=== PATIENT | male | born 1955 | race Caucasian/White ===

== ENCOUNTER → 2018-03-05 15:17 | Outpatient (CLI) | payer MEDICAID, SELFPAY ==
--- NOTE | 2018-03-05 15:22 | XR_ITS ---
XR chest 2V HISTORY: ITS.REASON: CHEST WALL PAIN ORDERING PHYSICIAN: Scott Bradley MD PATIENT AGE: 62 years COMPARISON: 09/03/2016 FINDINGS: The cardiomediastinal silhouette and pulmonary vascularity are within normal limits. The lungs are clear without infiltrates, suspicious nodules, or pleural effusions. No acute bony abnormalities. IMPRESSION: Negative chest, no acute finding
== END ==
PROVIDERS: PCP Internal Medicine Adolescent Medicine; Visit Provider Internal Medicine Adolescent Medicine
DX: R07.89 Other chest pain (principal)
CPT/HCPCS: 71046

== ENCOUNTER → 2019-05-23 09:04 | Outpatient (CLI) | payer MEDICAID, SELFPAY ==
[2019-05-23 11:00] LABS: Alanine Aminotransferase 110 U/L (12-78); Albumin Level 3.4 gm/dL (3.4-5.0); Albumin/Globulin Ratio 0.9 (1.1-1.8); Alkaline Phosphatase 449 U/L (46-116); Anion Gap 10.7 mEq/L (5-15); Aspartate Amino Transferase 70 U/L (15-37); Bilirubin,Total 0.9 mg/dL (0.2-1.0); Blood Urea Nitrogen 13 mg/dL (7-18); Calcium 9.3 mg/dL (8.5-10.1); Carbon Dioxide 29 mmol/L (21.0-32.0); Chloride 106 mmol/L (98-107); Cholesterol 240 mg/dL (140-200); Creatinine,Serum 0.86 mg/dL (0.70-1.30); Estimated Glomerular Filt Rate 90 ml/min (>60); GFR (African American) 109 ML/MIN (>60); Globulin 3.6 gm/dl (1.3-3.2); Glucose 82 mg/dL (74-106); HDL Cholesterol 48 mg/dL (27-67); LDL Cholesterol 164 mg/dL (0-130); Potassium 4.7 mmoL/L (3.5-5.1); Sodium 141 mmol/L (136-145); Triglycerides 141 mg/dL (30-200); Uric Acid 3.8 mg/dL (2.6-7.2); VLDL Cholesterol 28 mg/dL (0-40)
== END ==
PROVIDERS: Visit Provider Nurse Practitioner Family
DX: M10.9 Gout, unspecified (principal); I10 Essential (primary) hypertension; E78.2 Mixed hyperlipidemia; K76.0 Fatty (change of) liver, not elsewhere classified
CPT/HCPCS: 36415; 80053; 80061; 84550

== ENCOUNTER 2019-06-11 17:30 | Outpatient (RCR) | payer MEDICAID, SELFPAY | END 2019-06-11 17:35 | disposition home or self-care (01) | LOC: PT 17:30 | PROVIDERS: Visit Provider Physician Assistant Medical | DX: S32.010A Wedge compression fracture of first lumbar vertebra, initial encounter for closed fracture (principal) | CPT/HCPCS: 97010; 97014; 97110; 97163; G0283 ==

== ENCOUNTER → 2020-07-19 11:32 | Outpatient (CLI) | payer OTHER, MEDICARE, SELFPAY ==
[2020-07-19 13:38] LABS: Alanine Aminotransferase 66 U/L (12-78); Albumin Level 3.8 g/dl (3.5-5.0); Albumin/Globulin Ratio 1.1 (1.1-1.8); Alkaline Phosphatase 510 U/L (38-126); Anion Gap 14.4 mEq/L (5-15); Aspartate Amino Transferase 72 U/L (17-59); Bilirubin,Total 1.9 mg/dl (0.2-1.3); Blood Urea Nitrogen 10 mg/dl (9-20); Calcium 9.6 mg/dl (8.4-10.2); Carbon Dioxide 28 mmol/L (22.0-30.0); Chloride 102 mmol/L (98-107); Chol/HDL Ratio 6.3 (1-3.5); Estimated Glomerular Filt Rate 136 ml/min (>60); GFR (African American) 164 ML/MIN (>60); Globulin 3.4 g/dL (1.3-3.2); Glucose 175 mg/dl (74-100); HDL Cholesterol 46 mg/dl (40-60); Potassium 4.4 mmoL/L (3.5-5.1); Sodium 140 mmol/L (136-145); Total Protein,Serum 7.2 g/dl (6.3-8.2); Triglycerides 168 mg/dl (30-150); Uric Acid 4.2 mg/dl (3.5-8.5); VLDL Cholesterol 34 mg/dL (0-40)
[2020-07-19 14:07] LABS: Cholesterol 271 mg/dl (140-200)
[2020-07-19 17:50] LABS: Hemoglobin A1C 4.7 % (4.0-6.0)
== END ==
PROVIDERS: Visit Provider Nurse Practitioner Family
DX: Z00.00 Encounter for general adult medical examination without abnormal findings (principal); I10 Essential (primary) hypertension; E78.2 Mixed hyperlipidemia; M10.272 Drug-induced gout, left ankle and foot; R73.9 Hyperglycemia, unspecified
CPT/HCPCS: 36415; 80053; 80061; 83036; 84550

== ENCOUNTER → 2020-09-23 11:53 | Outpatient (CLI) | payer OTHER, MEDICARE, SELFPAY ==
[2020-09-23 12:51] LABS: Hemoglobin A1C 4.5 % (4.0-6.0)
[2020-09-23 13:46] LABS: Alanine Aminotransferase 48 U/L (12-78); Albumin Level 3.9 g/dl (3.5-5.0); Albumin/Globulin Ratio 1.1 (1.1-1.8); Alkaline Phosphatase 494 U/L (38-126); Aspartate Amino Transferase 58 U/L (17-59); Bilirubin,Total 1.6 mg/dl (0.2-1.3); Blood Urea Nitrogen 9 mg/dl (9-20); Calcium 9.7 mg/dl (8.4-10.2); Carbon Dioxide 28 mmol/L (22.0-30.0); Chloride 103 mmol/L (98-107); Chol/HDL Ratio 6.3 (1-3.5); Cholesterol 279 mg/dl (140-200); Estimated Glomerular Filt Rate 97 ml/min (>60); GFR (African American) 118 ML/MIN (>60); Globulin 3.4 g/dL (1.3-3.2); Glucose 96 mg/dl (74-100); HDL Cholesterol 44 mg/dl (40-60); Sodium 138 mmol/L (136-145); Total Protein,Serum 7.3 g/dl (6.3-8.2); Triglycerides 170 mg/dl (30-150); Uric Acid 5.1 mg/dl (3.5-8.5); VLDL Cholesterol 34 mg/dL (0-40)
[2020-09-23 13:57] LABS: Direct LDL Cholesterol 183.62 mg/dL (100-129)
== END ==
PROVIDERS: Visit Provider Internal Medicine Adolescent Medicine
DX: I10 Essential (primary) hypertension (principal); E78.2 Mixed hyperlipidemia; K76.0 Fatty (change of) liver, not elsewhere classified; R73.09 Other abnormal glucose; M10.9 Gout, unspecified
CPT/HCPCS: 36415; 80053; 80061; 83036; 84550

== ENCOUNTER → 2020-10-21 14:12 | Outpatient (CLI) | payer OTHER, MEDICARE, SELFPAY ==
--- NOTE | 2020-10-21 14:18 | XR_ITS ---
PROCEDURE: XR LUMBAR SPINE MIN 4V CLINICAL INDICATION: LUMBAGO W/SCIATICA COMPARISON: No exams were available for comparison FINDINGS: There is a non recent compression fracture of L1 with approximately 25-30 percent loss of height anteriorly. There is mild anterior osteophytic spurring at the L1-2 level. The remaining lumbar vertebrae appear intact and there is normal curvature and alignment. There is no pars defect. There is no significant disc space narrowing. The SI joints appear normal. There is mild diffuse arthrosclerotic calcification of the abdominal aorta but there is no aneurysm. IMPRESSION: Non recent compression fracture L1 Dictated by: Dr. Russell Corrales MD 10/21/2020 14:54 Dr. Russell Corrales MD in [place] 10/21/2020 14:54
== END ==
PROVIDERS: PCP Nurse Practitioner Family; Visit Provider Nurse Practitioner Family
DX: M54.42 Lumbago with sciatica, left side (principal)
CPT/HCPCS: 72110

== ENCOUNTER → 2020-11-03 08:41 | Outpatient (POV) | payer OTHER, MEDICARE, SELFPAY ==
[2020-11-03 09:20] VITALS: BP 152/77; PULSE 74; RESP 18; TEMP 36.8; O2SAT 98; BMI 25.4
--- NOTE | 2020-11-03 09:58 | HMH.PMCON ---
Assessment and Plan (1) Compression fracture Status: Chronic Category: Medical (2) Low back pain Status: Chronic Category: Medical Code(s): M54.5 - Low back pain (3) Lumbar radiculopathy Status: Chronic Category: Medical Code(s): M54.16 - Radiculopathy, lumbar region - Assessment and plan all Dx Assessment and Plan for all problems:: Patient does not have an MRI of his lumbar spine. We will schedule him for imaging of his lumbar spine. He and I did discuss possible epidural steroid injections following the imaging. He is having radicular pain into his lower extremities with numbness and tingling. Patient says that he has been told the past he does have some neuropathy as well in his lower extremities. We will see him back after his MRI to discuss a further plan of care. He is not on any anticoagulation therapy. He does have a history of alcohol abuse. He does report this to be contributing to his frequent falls. We will see him back in the clinic following the MRI. He has been instructed to contact clinic if he has any concerns for his next appointment. The patient and I specifically discussed risk factors for COVID19. These risks include, but are not limited to age greater than 60, heart or lung disease, diabetes, immunosuppression, and travel. We also discussed NSAIDs may worsen COVID19 infection or symptoms. Patient should not use NSAIDs to treat COVID19 signs or symptoms. Patient was also informed that any type of corticosteroid of any form (oral or injection) will decrease the patient's immune system response and may increase the likelihood of COVID19 infection [address] Gutierrez has reviewed this note and agrees with this plan of care. This note was dictated using voice recognition software and make contain errors or omissions. HPI - Data of Consult Patient: new to practice Consult date: 11/03/20 Requesting Physician: Abigail Castro APRN Primary Care Provider: Renetta Cole APRN - Consult Narrative Reason for consult: Low back pain History of present illness: Mr. Israel is a 65 year old male who presents today for consultation for chronic low back pain. Patient says that he has frequent falls. He does report a history of alcohol abuse. He currently has a laceration noted over his left orbital area. Patient says that he had a fall in December 2018 suffering from an ill to fracture. He was sent to [facility] at that time. They did not do any type of surgical intervention. He was given a brace and discharge. Patient says he is continued to have significant pain to his low back area since the fall. He says that it is into the low back radiating into bilateral lower extremities causing him to have numbness and tingling. Patient thought he was being sent for an MRI of his lumbar spine, however, patient had x-rays of the area. He has undergone physical therapy for greater than 6 weeks and does continue with physical therapy at this time. He does continue with anti-inflammatories and a home stretching program as well. He does rate his pain on 7 out of 10. CC: Abigail Castro APRN [facility] History I have reviewed the patient's past medical history: Yes Medical History: Reports:: Hypertension Denies:: Diabetes Mellitus Type 1, Diabetes Mellitus Type 2, Internal Pacemaker *Have you ever received a pneumonia vaccine?: Yes *Have you received a flu vaccine this season?: Yes Other Surgeries: No: Pacemaker Amputation: No Fractures: No - *Social History Smoking Status: Current every day smoker Tobacco Type: cigarettes # Packs/Day (cigarettes): 1 Alcohol Intake: never Alcohol Intake Frequency:: a few times a week *Occupational Status:: unemployed Housing: house Household Members: other *Travel in the last 8 weeks: None Family Hx:: Unable to obtain Review of Systems - Review of Systems Review of Systems General: No recent weight changes, no fever, no sleep disturbances Re
== END ==
PROVIDERS: PCP Nurse Practitioner Family; Visit Provider Clinical Nurse Specialist Family Health
DX: S22.000S Wedge compression fracture of unspecified thoracic vertebra, sequela (principal); M54.5 Low back pain; M54.16 Radiculopathy, lumbar region
CPT/HCPCS: 99202

== ENCOUNTER 2020-11-10 08:00 | Outpatient (RCR) | payer OTHER, MEDICARE, SELFPAY ==
--- NOTE | 2020-08-04 16:40 | HMH.PTOPEV ---
PT Outpatient Evaluation Rehab PT Outpatient Evaluation Start: 08/04/20 15:52 Freq: Status: Active Protocol: Document 08/04/20 16:28 CATHLEENIRVIN (Rec: 08/04/20 16:40 CATHLEENJENNIFERSHWETA [id number]) Electronically Signed By Ciro Rowan, PT 08/04/20 16:28 Outpatient Therapy Subjective History Subjective History Patient is a 65 year old male presenting to outpatient PT with reports of chronic LBP starting approx 2 years ago after an injury at work per patient report. Symptoms have progressively gotten worse. No reports of radicular symptoms. Most recent imaging after initial injury indicated L1 compression fracture, L2 facet fracture and L 4/5 L 5/ S1 spondylosis and bulging discs. Comorbidities include hs of HTN. Chief Complaint Pain,Stiff,Weakness Symptom Type Ache,Shooting Symptoms Relieved By Rest/Positioning Symptoms Aggravated By Bending/Stooping,Physical Activity,Lifting Prior Functional Limitations None Current Functional Limitations Lifting,Housework,Standing, Squatting,Walking,Bending/ Stooping Symptom Description Constant but Variable Level of pain today (0-10) 3 Pain scale - at its best (0-10) 3 Pain scale - at its worst (0-10) 10 Lumbopelvic Eval Posture Thoracic Spine Posture Standing Position Increased Kyphosis Lumbar Spine Posture Standing Position Decreased Lordosis Palapation tenderness bilateral lumbar spinal tenderness Yes: L4/5/S1 3/4 paraspinal tenderness Yes: Accessory Movement L4 bilateral L5 bilateral S1 bilateral Range of Motion Lumbar Spine Active Flexion Range of WNL Motion (degrees) Lumbar Spine Active Extension Range of WNL Motion (degrees) Left Lumbar Spine Lateral Flexion Active 20 Range of Motion (degrees) Right Lumbar Spine Lateral Flexion 25 Active Range of Motion (degrees) Lumbar Spine ROM Limitations Soft Tissue Tightness,Bony Restriction Manual Muscle Test Bilateral Knee Extension Strength Grade 4 Good Knee Flexion Strength Grade 4 Good Hip Flexion Strength Grade 4 Good Extensor Hallucis Longus Strength Grade 4 Good Ankle Dorsiflexion Strength Grade 4 Good Gastronemius/Soleus Strength Grade
--- NOTE | 2020-09-07 11:28 | HMH.RHREAS ---
Rehab Reassessment Rehab OP Re-assessment Start: 09/07/20 11:19 Freq: Status: Active Protocol: Document 09/07/20 11:19 CHRIS (Rec: 09/07/20 11:27 CHRIS [id number]) Electronically Signed By Ciro Rowan, PT 09/07/20 11:19 Rehab Re-assessment Subjective Subjective Patient reports 30% improvement since start of care. Objective Objective Notes LS AROM: flx WNL; Ext WNL; SBl 18; SLr 22 MMT: WNL Neuro WNL Pain: 4/10 today; 8/10 at worst over past week Slump test negative Assessment Progress Assessment Progressing as Expected Assessment Notes Patient is progessing well with Rx. He has been seen for 5 visits to date. Questionable compliance noted with HEP. Upon inquiry to perform HEP patient was not able to recall specific exercises. Reitereated importance of participation with HEP at home today. Functional limitations persist with all bending/lifting/ ambulatory activities. Patient continues to report pain in the lower lumbar spine and B anteromedial thighs. Patient goals met None Goals Not Met All Revised Goals NA Plan Plan Continue with current POC. Frequency of Therapy 2x/week Duration of therapy 4 weeks Time and Billing Re-Eval Time 15 Re-Eval Billing Units 1 PHYSICIAN CERTIFICATION: I certify the specified therapy services for Sadiq Israel are required, authorized, and reviewed every 30 days.
--- NOTE | 2020-10-11 14:14 | HMH.RHREAS ---
Rehab Reassessment Rehab OP Re-assessment Start: 09/07/20 11:19 Freq: Status: Active Protocol: Document 10/11/20 14:09 CHRIS (Rec: 10/11/20 14:14 CHRIS [id number]) Electronically Signed By Ciro Rowan, PT 10/11/20 14:09 Rehab Re-assessment Subjective Subjective Patient reports 50% improvement since start of care. Objective Objective Notes AROM: WNL MMT: 4+/5 grossly BLE Pain: 8/10 currently, 8/10 at worst over past week TTP: none Neuro: WNL Standing/walking tolerance: 20 ' Assessment Progress Assessment Slower Than Expected Assessment Notes Patient is progessing well with Rx. He has been seen for 13 visits to date. Patient reports improved compliance with HEP. Reitereated importance of participation with HEP at home today. Functional limitations persist with all bending/lifting/ ambulatory activities. Patient continues to report pain in the lower lumbar spine , but has migrated from anteromedial thighs to lateral thighs. [ End ] Patient goals met STG 2; LTG 1,2 Goals Not Met STG 1; LTG 3,4,5,6,7,8 Revised Goals NA Plan Plan Continue with current POC Frequency of Therapy 2x/week Duration of therapy 4 weeks Time and Billing Re-Eval Time 15 Re-Eval Billing Units 1 PHYSICIAN CERTIFICATION: I certify the specified therapy services for Sadiq Israel are required, authorized, and reviewed every 30 days.
== END 2020-11-10 08:05 | disposition home or self-care (01) ==
LOC: PT 08:00
PROVIDERS: Visit Provider Nurse Practitioner Family
DX: M54.5 Low back pain (principal)
CPT/HCPCS: 97010; 97012; 97014; 97110; 97163; 97164; G0283

== ENCOUNTER → 2020-11-10 13:40 | Outpatient (CLI) | payer OTHER, SELFPAY ==
--- NOTE | 2020-11-10 13:44 | MR_ITS ---
PROCEDURE: MR LUMBAR SPINE WO CON CLINICAL INDICATION: BACK PAIN, COMPRESSION FX LOW BACK PAIN, COMPRESSION FX, BILATERAL LEG TINGLING/NUMBNESS. PRIOR XRAY 10-21-20 COMPARISON: CT SPLUMBWO CT lumbar spine wo con from 12/29/2018 CR XR LUMBAR SPINE MIN 4V from 10/21/2020 TECHNIQUE: Standard multiplanar multiecho sequences are performed without contrast. 3-D MIP and myelographic images are also rendered and reviewed FINDINGS: There is normal alignment. The spinal cord ends at the L1 level. There is mild reversal of the lumbar lordosis at the L1-L2 level. T11-T12: Mild degenerative disc disease. T12-L1: Degenerate disc disease There is mild wedge compression changes of L1 with loss of height anteriorly of approximately 40 percent. There is a prominent Schmorl's node along both superior and inferior endplate of L1 on the right. The compression changes do not appear acute. L1-L2: Mild degenerative disc disease with minimal bulging disc and facet and ligamentum hypertrophy. L2-L3: Facet and ligamentum hypertrophy. L3-L4: Facet and ligamentum hypertrophy with mild bilateral lateral recess narrowing L4-5: Degenerative disc disease with bulging disc and minimal central disc protrusion along with moderate facet and ligamentum hypertrophy with bilateral lateral recess narrowing and canal stenosis with bilateral foraminal narrowing. L5-S1: Degenerative disc disease with bulging disc slightly eccentric toward the left along with moderate facet and ligamentum hypertrophy with lateral recess and foraminal narrowing and canal stenosis. IMPRESSION: Multilevel lumbar spondylosis. Please see above for detailed description at each level. Chronic wedge compression changes of L1 Dictated by: Petr Corbin MD 11/12/2020 08:52 Petr Corbin MD in [place] 11/12/2020 08:52
== END ==
PROVIDERS: PCP Nurse Practitioner Family; Visit Provider Clinical Nurse Specialist Family Health
DX: M54.5 Low back pain (principal); S32.010D Wedge compression fracture of first lumbar vertebra, subsequent encounter for fracture with routine healing
CPT/HCPCS: 72148; 76376

== ENCOUNTER → 2020-11-17 14:06 | Outpatient (POV) | payer OTHER, SELFPAY ==
[2020-11-17 14:29] VITALS: BP 112/74; PULSE 89; RESP 18; TEMP 36.8; O2SAT 98; BMI 25.0
--- NOTE | 2020-11-17 15:28 | P.CONS_ITS ---
[facility] Pain Management SOAP Note Subjective:: Patient is a pleasant 65-year-old white male who presents today for follow-up. Patient rates his pain today 8 out of 10. Patient is following up after an MRI of his lumbar spine he does have a chronic compression fracture however he is not having pain in this area. Most of his pain in his lower lumbar radiating down his legs. Patient does have generative disc disease and bulging disc at the L4-L5 L5-S1 areas. We discussed epidural steroid injections. He is currently in physical therapy. Patient's not on any anticoagulation therapy. Patient failed 6 months of therapy including medications, anti-inflammatories, physical therapy. ROS General: no recent weight change, no fever, no sleep disturbances Respiratory: no cough, no shortness of air, no recurring pulmonary infections Cardiovascular/Peripheral Vascular: No chest pain, No palpitations, no edema, no shortness of breath. Gastrointestinal: no new onset incontinence, normal bowel movements reported Genitourinary: no new onset incontinence Musculoskeletal: Back pain, leg pain Psychiatric: normal mood/ affect Neurological: [denies new onset weakness in extremities], [denies new onset balance issues] Objective:: Physical Exam General: Alert and oriented x3, no acute distress, pleasant and cooperative, [on room air] Lungs: Resps E/U, Symmetrical chest expansion, Eyes: PERRL Musculoskeletal: Flexion and extension of lumbar spine somewhat guarded secondary to pain, deep tendon reflexes normal, strength in upper and lower extremities [5/5], [abnormal gait noted] Neurological: speech clear, 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 Patient's been instructed to call the office if he has any issues prior to his next appointment. Dr. Gutierrez has reviewed this note and agrees with this plan of care. This note was dictated using voice recognition software and may contain errors or omissions [facility] History I have reviewed the patient's past medical history: Yes Medical History: Reports:: Hypertension Denies:: Diabetes Mellitus Type 1, Diabetes Mellitus Type 2, Internal Pacemaker *Have you ever received a pneumonia vaccine?: Yes *Have you received a flu vaccine this season?: Yes Other Surgeries: No: Pacemaker Amputation: No Fractures: No - *Social History Smoking Status: Current every day smoker Tobacco Type: cigarettes # Packs/Day (cigarettes): 1 Alcohol Intake: never Alcohol Intake Frequency:: a few times a week *Occupational Status:: other Housing: house Household Members: other *Travel in the last 8 weeks: None Family Hx:: Unable to obtain
== END ==
PROVIDERS: PCP Nurse Practitioner Family; Visit Provider Clinical Nurse Specialist Family Health
DX: M51.16 Intervertebral disc disorders with radiculopathy, lumbar region (principal)
CPT/HCPCS: 99212; G0463

== ENCOUNTER 2020-11-25 11:17 | Day surgery (SDC) | payer OTHER, SELFPAY ==
[2020-11-25 11:50] VITALS: BP 173/66; PULSE 55; RESP 18; TEMP 35.9; O2SAT 99; BMI 25.8
--- NOTE | 2020-11-25 12:01 | HMH.PMPROC ---
- Procedure Date: 11/25/20 Time: 12:01 Anesthesiologist:: Brett Gutierrez MD Complications:: None Pre-procedure Diagnosis:: Degenerative disc disease of lumbar spine with lumbar radiculopathy symptoms Post-procedure Diagnosis:: same Indications for Procedure:: A pleasant 62-year-old white male who we are treating for low back pain with lumbar radicular symptoms. He is doing well with his intrathecal bupivacaine pain pump. [place] and urine drug screen are all appropriate [facility] [phone]. He is still getting hydrocodone 7.5 mg 4 times a day from Dr. Dominguez. He is doing well with his intrathecal bupivacaine pain pump. It is helping his legs. He would like an increase today. We will refill him and increase him to 4 mg/day. He does have an antalgic gait. Motor strength of the lower extremities is 5/5. There is no gross sensory deficit. Procedure Details:: Pain pump refill informed consent was obtained and the risks and benefits of the procedure was explained to the patient. The patient was taken to the procedure room. The pump was interrogated. The area over the pump was prepped using ChloraPrep. The pump was accessed with a 22-gauge needle. Approximately 6 mL's of the intrathecal solution was withdrawn and discarded. The pump was then refilled with 20 mL's of intrathecal mL of intrathecal bupivacaine 10 mg/mL. The pump was interrogated and the infusion was increased to 4 mg/day. The patient tolerated the procedure well with no complication. Plan and Disposition:: We will follow-up with him at his next pump refill. If he has any problems or questions or issues with his increase he is to call us back in the pain clinic.
[2020-11-25 12:02] VITALS: BP 165/68; PULSE 54; RESP 18
[2020-11-25 12:08] VITALS: BP 162/69; PULSE 55; RESP 18; O2SAT 98
[2020-11-25 12:22] VITALS: BP 180/69; PULSE 50; RESP 20; O2SAT 99
--- NOTE | 2020-11-25 12:31 | HMH.PMPROC ---
- Procedure Date: 11/25/20 Time: 12:31 Anesthesiologist:: Brett Gutierrez MD Complications:: None Pre-procedure Diagnosis:: Degenerative Disc disease of lumbar spine with lumbar radiculopathy symptoms Post-procedure Diagnosis:: Same Indications for Procedure:: This patient is a pleasant 65-year-old white male who we are treating for low back pain with lumbar radicular symptoms. He has increasing pain in his back rating down both legs. We will do lumbar epidural steroid injection today to help him with his pain symptoms. Procedure Details:: Lumbar epidural steroid injection under fluoroscopy Informed consent was obtained and the risk and benefits of the procedure was explained to the patient. The patient was taken to the procedure room. The patient was placed prone on the procedure table. The patient was prepped and draped in sterile fashion. C-arm fluoroscopy was used to view the lumbar spine. Skin and subcutaneous tissues were anesthetized using lidocaine. I placed an 18-gauge epidural needle and advanced into the L4-L5 interspace using fluoroscopic guidance and [id number] to air. After confirmation of needle placement in the epidural space with dye I injected 2 mL of lidocaine 1.5% with Depo-Medrol 80 mg. Patient tolerated the procedure well with no complications. Plan and Disposition:: We will follow-up with him in 2 weeks. Will reevaluate symptoms at that time.
== END 2020-11-25 12:23 | disposition home or self-care (01) ==
LOC: SC.PAINP 11:19
PROVIDERS: PCP Nurse Practitioner Family; Visit Provider Anesthesiology
DX: M51.16 Intervertebral disc disorders with radiculopathy, lumbar region (principal); I10 Essential (primary) hypertension; K76.0 Fatty (change of) liver, not elsewhere classified; K21.9 Gastro-esophageal reflux disease without esophagitis; Z72.0 Tobacco use
CPT/HCPCS: 62323; J1040; Q9966

== ENCOUNTER → 2020-12-29 10:54 | Outpatient (POV) | payer OTHER, SELFPAY ==
[2020-12-29 11:12] VITALS: BP 141/74; PULSE 65; RESP 18; TEMP 36.8; O2SAT 98; BMI 27.1
--- NOTE | 2020-12-29 14:14 | HMH.PAINSOAP ---
[facility] History Medical History: Reports:: Hypertension Denies:: Cancer, Diabetes Mellitus Type 1, Diabetes Mellitus Type 2, Internal Pacemaker, MRSA, Seizures *Have you ever received a pneumonia vaccine?: No *Have you received a flu vaccine this season?: Yes Other Medical History: Denies: Blood Transfusion Reaction Other Surgeries: No: Pacemaker Amputation: No Fractures: No - *Social History Smoking Status: Current every day smoker Tobacco Type: cigarettes # Packs/Day (cigarettes): 1 Alcohol Intake: never Alcohol Intake Frequency:: a few times a week *Occupational Status:: disabled Housing: house Household Members: other *Travel in the last 8 weeks: None Family Hx:: Unable to obtain
--- NOTE | 2020-12-29 16:34 | HMH.PAINSOAP ---
[facility] Pain Management SOAP Note Subjective:: Patient is a pleasant 65-year-old white male who presents today for follow-up after lumbar epidural steroid injection at L4-L5. He has been treated for chronic low back pain with radiation down both legs. Patient says he is having difficulty standing due to the pain in bilateral lower extremities. He denies any numbness to his lower extremities, however, he says he feels as though his legs are going to give out . He also says he is unable to raise his legs to get into a truck. He does not report that he got much relief from the lumbar epidural steroid injection. He feels he got about 30 to 40% relief. Patient I did discuss undergoing an epidurogram to see if he is a candidate for the mild procedure. He has tried and failed conservative therapies of physical therapy for greater than 6 weeks, along with a home stretching program. He is also tried ice and heat therapies with no relief. The initial lumbar epidural steroid injection did not give him significant relief. Review of Systems General: No recent weight changes, no fever, no sleep disturbances Respiratory: No cough, no shortness of air, no recurring pulmonary infections Cardiovascular/peripheral vascular: No chest pain, no palpitations, no edema, no shortness of breath Gastrointestinal: No new onset incontinence, normal bowel movements reported Genitourinary: No new onset incontinence Musculoskeletal: Low back pain with heaviness in bilateral lower extremities Psychiatric: Normal mood/affect Neurological: [Denies weakness in extremities], [denies balance issues] Objective:: Physical exam General: Alert and oriented x3, no acute distress, pleasant and cooperative, [on room air] Lungs: Respirations even and unlabored, symmetrical chest expansion Eyes: PERRL Musculoskeletal: Flexion and extension of lumbar spine somewhat guarded secondary to pain, deep tendon reflexes normal, strength in upper and lower extremities [5/5], [abnormal gait noted] Neurological: Speech clear, manufacturing storeperson equal, no gross sensory deficit Assessment:: Degenerative disc disease lumbar spine with lumbar radiculopathy symptoms, spinal stenosis with neurogenic claudication symptoms Plan:: Per patient's MRI report, he does have significant spinal stenosis. We will schedule him for a repeat epidural steroid injection at L4-L5, however, we will plan for an epidurogram to evaluate the patient to see if he is a candidate for the mild procedure. We will follow-up with him after that visit to reevaluate his symptoms and discuss a further plan of care. Patient is not on any anticoagulation therapy. He has tried and failed conservative therapies of PT, home stretching, ice and heat therapies, and oral medications. Patient has been instructed to contact clinic if he has any concerns #6 appointment. The patient and I specifically discussed risk factors for COVID19. These risks include, but are not limited to age greater than 60, heart or lung disease, diabetes, immunosuppression, and travel. We also discussed NSAIDs may worsen COVID19 infection or symptoms. Patient should not use NSAIDs to treat COVID19 signs or symptoms. Patient was also informed that any type of corticosteroid of any form (oral or injection) will decrease the patient's immune system response and may increase the likelihood of COVID19 infection and symptoms. Risks and benefits of the procedure have been explained to the patient. Patient would like to proceed with the procedure. Dr. Gutierrez has reviewed this note and agrees with this plan of care. This note was dictated using voice recognition software and make contain errors or omissions. [facility] History I have reviewed the patient's past medical history: Yes Medical History: Reports:: Hypertension Denies:: Cancer, Diabetes Mellitus Type 1, Diabetes Mellitus Type 2, Internal Pacemaker, MRSA, Seizures *Have you ever received a pneumonia vaccine?: No *Have
== END ==
PROVIDERS: PCP Nurse Practitioner Family; Visit Provider Clinical Nurse Specialist Family Health
DX: M51.16 Intervertebral disc disorders with radiculopathy, lumbar region (principal); M48.062 Spinal stenosis, lumbar region with neurogenic claudication
CPT/HCPCS: 99212; G0463

== ENCOUNTER 2021-01-06 10:03 | Day surgery (SDC) | payer OTHER, SELFPAY ==
[2021-01-06 11:23] VITALS: BP 166/74; PULSE 65; RESP 16; TEMP 36.4; O2SAT 93; BMI 25.4
[2021-01-06 12:19] VITALS: BP 135/85; PULSE 74; RESP 18; O2SAT 98
[2021-01-06 12:20] VITALS: BP 138/85; PULSE 74; RESP 18; O2SAT 98
--- NOTE | 2021-01-06 12:27 | HMH.PMPROC ---
- Procedure Date: 01/06/21 Time: 12:27 Anesthesiologist:: Brett Gutierrez MD Complications:: None Pre-procedure Diagnosis:: Degenerative disc disease of lumbar spine with lumbar radiculopathy symptoms and spinal stenosis with neurogenic claudication symptoms Post-procedure Diagnosis:: Same Indications for Procedure:: Patient is a pleasant 55-year-old white male who we are treating for low back pain with lumbar radicular symptoms and spinal stenosis with neurogenic claudication symptoms. Most of his pain is down the left leg. Patient has had 1 lumbar epidural steroid injection without much relief of his pain symptoms. He does have significant stenosis. We will plan on lumbar pleural steroid injection with epidurogram to see if this will give him relief of his pain symptoms and we will assess levels of stenosis and candidacy for minimally invasive lumbar decompression. Procedure Details:: Lumbar epidural steroid injection under fluoroscopy Informed consent was obtained and the risk and benefits of the procedure was explained to the patient. The patient was taken to the procedure room. The patient was placed prone on the procedure table. The patient was prepped and draped in sterile fashion. C-arm fluoroscopy was used to view the lumbar spine. Skin and subcutaneous tissues were anesthetized using lidocaine. I placed an 18-gauge epidural needle and advanced into the L4-L5 interspace using fluoroscopic guidance and [id number] to air. After confirmation of needle placement in the epidural space with dye I injected 2 mL of lidocaine 1.5% with Depo-Medrol 80 mg. Patient tolerated the procedure well with no complications. Plan and Disposition:: Based on epidurogram he does have significant stenosis at L3-L4 and L4-L5. I do believe he would be a good candidate for minimally invasive lumbar decompression of L3-L4 L4-5 bilaterally. Worst pain is on the left side.
[2021-01-06 12:33] VITALS: BP 154/61; PULSE 65; RESP 16; TEMP 36.4; O2SAT 93
== END 2021-01-06 12:30 | disposition home or self-care (01) ==
LOC: SC.PAINP 10:04
PROVIDERS: PCP Nurse Practitioner Family; Visit Provider Anesthesiology
DX: M51.16 Intervertebral disc disorders with radiculopathy, lumbar region (principal); M48.062 Spinal stenosis, lumbar region with neurogenic claudication; I10 Essential (primary) hypertension; Z72.0 Tobacco use; Z79.899 Other long term (current) drug therapy
CPT/HCPCS: 62323; J1040; Q9966

== ENCOUNTER → 2021-02-23 14:52 | Outpatient (POV) | payer OTHER, SELFPAY ==
--- NOTE | 2021-02-23 15:30 | P.CONS_ITS ---
[facility] Pain Management SOAP Note Subjective:: Patient is a pleasant 65-year-old white male who presents today for follow-up. Patient had a epidurogram showing significant stenosis at L3-L4 L4-L5. Patient is a candidate for minimally invasive lumbar decompression. At this time we will have to wait until he turns 66 prior to proceeding. Patient understands this. Patient rates his pain a 7 out of 10 ROS General: no recent weight change, no fever, no sleep disturbances Respiratory: no cough, no shortness of air, no recurring pulmonary infections Cardiovascular/Peripheral Vascular: No chest pain, No palpitations, no edema, no shortness of breath. Gastrointestinal: no new onset incontinence, normal bowel movements reported Genitourinary: no new onset incontinence Musculoskeletal: Back pain, leg pain Psychiatric: normal mood/ affect Neurological: [denies new onset weakness in extremities], [denies new onset balance issues] Objective:: Physical Exam General: Alert and oriented x3, no acute distress, pleasant and cooperative, [on room air] Lungs: Resps E/U, Symmetrical chest expansion, Eyes: PERRL Musculoskeletal: Flexion and extension of lumbar spine somewhat guarded secondary to pain, deep tendon reflexes normal, strength in upper and lower extremities [5/5], [abnormal gait noted] Neurological: speech clear, rectifying attendant equal, no gross sensory deficits Assessment:: Generative disc disease lumbar spine lumbar radiculopathy symptoms with spinal stenosis and neurogenic claudication Plan:: We will see the patient back in mid March we will very approach the minimally invasive lumbar decompression after the his insurance change. He has been instructed to call the office if he has any issues prior to his next appointment. Dr. Gutierrez has reviewed this note and agrees with this plan of care. This note was dictated using voice recognition software and may contain errors or omissions [facility] History I have reviewed the patient's past medical history: Yes Medical History: Reports:: Cancer (skin), Hypertension Denies:: Diabetes Mellitus Type 1, Diabetes Mellitus Type 2, Internal Pacemaker, MRSA, Seizures *Have you ever received a pneumonia vaccine?: No *Have you received a flu vaccine this season?: No Other Medical History: Denies: Blood Transfusion Reaction Other Surgeries: Yes: Appendectomy. No: Pacemaker Amputation: No Fractures: No - *Social History Smoking Status: Current every day smoker Tobacco Type: cigarettes # Packs/Day (cigarettes): 1 Alcohol Intake: never Alcohol Intake Frequency:: a few times a week *Occupational Status:: retired Housing: house Household Members: other *Travel in the last 8 weeks: None Family Hx:: Unable to obtain
[2021-02-23 15:49] VITALS: BP 133/78; PULSE 65; RESP 18; O2SAT 98; BMI 25.4
== END ==
PROVIDERS: PCP Nurse Practitioner Family; Visit Provider Clinical Nurse Specialist Family Health
DX: M51.16 Intervertebral disc disorders with radiculopathy, lumbar region (principal); M48.062 Spinal stenosis, lumbar region with neurogenic claudication
CPT/HCPCS: 99212; G0463

== ENCOUNTER → 2021-04-13 15:11 | Outpatient (CLI) | payer MEDICARE, OTHER, SELFPAY ==
[2021-04-13 15:49] LABS: Basophils # 0.1 K/mm3 (0-0.2); Basophils % 0.4 % (0.1-2.0); Eosinophils # 0.2 K/mm3 (0.0-0.4); Eosinophils % 1.5 % (0.1-12.0); Hematocrit 33.7 % (42.0-52.0); Hemoglobin 10.5 g/dL (14.1-18.0); Lymphocytes # 1.9 K/mm3 (0.7-4.5); Lymphocytes % 13.2 % (10-50); Mean Corpuscular HGB Conc 31.2 g/dL (31.8-35.4); Mean Corpuscular Hemoglobin 33.6 pg (27.0-31.2); Mean Corpuscular Volume 107.4 fl (80-94); Mean Platelet Volume 8.1 fl (7.4-10.4); Monocytes # 0.6 K/mm3 (0.1-1.0); Monocytes % 4.1 % (1.7-9.3); Neutrophils # 11.7 K/mm3 (1.8-7.8); Neutrophils % 80.8 % (37.0-80.0); Platelet Count 598 K/mm3 (142-424); Red Blood Count 3.14 M/mm3 (4.60-6.20); Red Cell Distribution Width 13.1 % (11.5-17.5); White Blood Count 14.4 K/mm3 (4.8-10.8)
[2021-04-13 17:04] LABS: Chloride 102 mmol/L (98-107); Sodium 134 mmol/L (136-145)
[2021-04-13 17:05] LABS: Potassium 4.5 mmoL/L (3.5-5.1)
[2021-04-13 17:07] LABS: Alanine Aminotransferase 47 U/L (12-78); Albumin Level 3.4 g/dl (3.5-5.0); Albumin/Globulin Ratio 0.9 (1.1-1.8); Alkaline Phosphatase 891 U/L (38-126); Anion Gap 14.5 mEq/L (5-15); Aspartate Amino Transferase 81 U/L (17-59); Bilirubin,Total 5.6 mg/dl (0.2-1.3); Blood Urea Nitrogen 11 mg/dl (9-20); Carbon Dioxide 22 mmol/L (22.0-30.0); Estimated Glomerular Filt Rate 113 ml/min (>60); GFR (African American) 137 ML/MIN (>60); Globulin 3.6 g/dL (1.3-3.2); Triglycerides 185 mg/dl (30-150); VLDL Cholesterol 37 mg/dL (0-40)
[2021-04-13 17:08] LABS: Glucose 99 mg/dl (74-100); HDL Cholesterol 66 mg/dl (40-60)
[2021-04-13 17:15] LABS: NT Pro Brain Natriuretic Pep. 1240 pg/mL (0-125)
[2021-04-13 17:29] LABS: Chol/HDL Ratio 7.2 (1-3.5); Cholesterol 473 mg/dl (140-200)
[2021-04-13 17:35] LABS: 25-OH Vitamin D, Total 13.1 ng/mL (30-100)
[2021-04-13 17:36] LABS: Thyroid Stimulating Hormone 8.18 uIU/mL (0.465-4.68)
[2021-04-13 19:11] LABS: Vitamin B12 800 pg/mL (239-931)
[2021-04-15 08:30] LABS: CEA 4.3 ng/mL (0.0-4.7)
== END ==
PROVIDERS: Visit Provider Nurse Practitioner Family
DX: Z00.00 Encounter for general adult medical examination without abnormal findings (principal); R53.83 Other fatigue; R63.4 Abnormal weight loss; R60.0 Localized edema; E55.9 Vitamin D deficiency, unspecified; R79.89 Other specified abnormal findings of blood chemistry; D72.829 Elevated white blood cell count, unspecified; R06.9 Unspecified abnormalities of breathing
CPT/HCPCS: 36415; 80053; 80061; 82306; 82378; 82607; 83880; 84443; 85025

== ENCOUNTER → 2021-04-18 13:39 | Outpatient (CLI) | payer MEDICARE, OTHER, SELFPAY ==
[2021-04-18 17:02] LABS: Prostate Specific Ag Screen 0.2 ng/ml (0.0-4.0)
[2021-04-20 15:34] LABS: Albumin 2.3 g/dL (2.9-4.4); Alpha-1-Globulin 0.3 g/dL (0.0-0.4); Alpha-2-Globulin 1.1 g/dL (0.4-1.0); Gamma Globulin 1.4 g/dL (0.4-1.8); Protein, Total 6.2 g/dL (6.0-8.5)
== END ==
PROVIDERS: Visit Provider Nurse Practitioner Family
DX: R53.83 Other fatigue (principal); R74.8 Abnormal levels of other serum enzymes; R63.4 Abnormal weight loss; Z12.5 Encounter for screening for malignant neoplasm of prostate
CPT/HCPCS: 36415; 84155; 84165; 88189; G0103

== ENCOUNTER → 2021-04-27 08:45 | Outpatient (CLI) | payer MEDICARE, OTHER, SELFPAY ==
--- NOTE | 2021-04-27 08:50 | US_ITS ---
PROCEDURE: US ABDOMEN LIMITED CLINICAL INDICATION: ELEVATED LFT COMPARISON: US RUQ US RUQ-(ABD LTD)1ORGAN/QUAD/FU from 03/15/2017 FINDINGS: PANCREAS: Unremarkable. No obvious mass or abnormal fluid collection. No ductal dilatation LIVER: There is diffuse intra and extrahepatic biliary ductal dilatation. Common bile duct measures to 1.7 cm. There is a 9 mm area increased echogenicity in the common duct proximal and could be due to small stone and or debris. Distal common duct is not well delineated and may be better evaluated with CT.. Cystic duct also appears dilated. There is generalized coarse echogenicity of the liver. Liver does appear enlarged with a transverse dimension of 22 cm. RIGHT KIDNEY: Unremarkable. Normal size and echogenicity. No hydronephrosis GALLBLADDER: Gallbladder is distended. Sludge is present in the gallbladder with questionable small stones. No pericholecystic fluid or gallbladder wall thickening. There is a small amount of ascites around the liver. IMPRESSION: Distended gallbladder with sludge and questionable tiny stones. Dilated intra and extrahepatic bile ducts with common duct measuring up to 1.7 cm with possible common duct stone proximally. Distal common duct not well delineated. Consider CT without and with contrast for further evaluation. Coarse echogenicity of the liver with mild hepatomegaly Dictated by: Petr Corbin MD 04/27/2021 11:01 Petr Corbin MD in [place] 04/27/2021 11:01
[2021-04-27 13:02] LABS: Blood Urea Nitrogen 11 mg/dl (9-20); Estimated Glomerular Filt Rate 85 ml/min (>60); GFR (African American) 102 ML/MIN (>60)
== END ==
PROVIDERS: PCP Nurse Practitioner Family; Visit Provider Nurse Practitioner Family
DX: R74.8 Abnormal levels of other serum enzymes (principal); R79.89 Other specified abnormal findings of blood chemistry
CPT/HCPCS: 36415; 76705; 82565; 84520

== ENCOUNTER 2021-04-29 10:01 | Emergency (ER) | payer MEDICARE, OTHER, SELFPAY ==
[2021-04-29] VITALS (11 sets, daily range): BP systolic 117–146; BP diastolic 70–77; PULSE 111–120; RESP 16–25; TEMP 36.6; O2SAT 96–100; BMI 18.0
--- NOTE | 2021-04-29 10:03 | ECG_ITS ---
APPROVED REPORT Exam: Resting ECG HR:112 bpm ECG Measurements Heart Rate 112 AXES NC 200 P 71 QRSd 80 QRS 40 QT 332 T 11 QTc [address] & T wave abnormality, consider inferior ischemia Abnormal ECG Electronically signed by : Scott Bradley, 04/29/2021 21:27:55
--- NOTE | 2021-04-29 10:10 | HMH.EDGENADL ---
ED Disposition Clinical Impression: SVT (supraventricular tachycardia), Tachycardia, Elevated brain natriuretic peptide (BNP) level Leukocytosis Qualifiers: Leukocytosis type: other Qualified Code(s): D72.828 - Other elevated white blood cell count Disposition: Home, Self-Care Condition on Discharge: Good Referrals: Provider,Adrian, [Referring] - 3 days (Maintain appointment on Saturday) Time of Disposition: 12:22 - Critical Care Critical Care Time: No Attestation: On 04/29/21, the high probability of a clinically significant, sudden or life threatening deterioration of the following system(s) required my full and direct attention, intervention and personal management. The time I documented below is in addition to time spent performing reported procedures but includes the following listed in this critical care notation. Medical Decision Making - Medical Records Medical records reviewed: Yes: I reviewed the patient's medical records. - Kendall Inquiry Pt receiving controlled substance: No Vital Signs: 04/29/21 10:05 04/29/21 10:06 04/29/21 10:15 Temperature 97.9 F Temperature Source Oral Pulse Rate 112 H 113 H Pulse Rate [Right] 112 H Respiratory Rate 20 22 23 Blood Pressure Blood Pressure [Right Arm] 139/71 Blood Pressure Mean Blood Pressure Mean [Right Arm] 93 Blood Pressure Source [Right Arm] Automatic Cuff Blood Pressure Position [Right Arm] Sitting 02 Sat by Pulse Oximetry 96 96 96 Oxygen Delivery Method Room Air 04/29/21 10:56 04/29/21 10:57 04/29/21 11:00 Temperature Temperature Source Pulse Rate 120 H 118 H Pulse Rate [Right] Respiratory Rate 25 H 23 19 Blood Pressure 117/77 130/70 Blood Pressure [Right Arm] Blood Pressure Mean 90 90 Blood Pressure Mean [Right Arm] Blood Pressure Source [Right Arm] Blood Pressure Position [Right Arm] 02 Sat by Pulse Oximetry 100 98 Oxygen Delivery Method 04/29/21 11:15 04/29/21 11:29 Temperature Temperature Source Pulse Rate 114 H 113 H Pulse Rate [Right] Respiratory Rate 24 Blood Pressure 130/70 Blood Pressure [Right Arm] Blood Pressure Mean Blood Pressure Mean [Right Arm] Blood Pressure Source [Right Arm] Blood Pressure Position [Right Arm] 02 Sat by Pulse Oximetry 99 Oxygen Delivery Method Room Air - Lab Data Lab results reviewed: Yes: I reviewed the patient's lab results. Lab Results 04/29/21 10:05: WBC 16.0 H, RBC 3.22 L, Hgb 10.7 L, Hct 32.4 L, MCV 100.5 H, MCH 33.1 H, MCHC 32.9, RDW 13.9, Plt Count 418, MPV 8.4, Neut % (Auto) 88.5 H, Lymph % (Auto) 7.4 L, [place] % (Auto) 3.0, Eos % (Auto) 0.8, Baso % (Auto) 0.2, Neut # (Auto) 14.2 H, Lymph # (Auto) 1.2, [place] # (Auto) 0.5, Eos # (Auto) 0.1, Baso # (Auto) 0.0, Total Counted 100, Neutrophils % (Manual) 77 H, Lymphocytes % (Manual) 16, Monocytes % (Manual) 6, Eosinophils % (Manual) 1, Platelet Estimate Normal, Poikilocytosis 1+, Anisocytosis 1+, Macrocytosis 1+, Stomatocytes 1+ 04/29/21 10:05: Troponin I < 0.01, NT-Pro-B Natriuret Pep 1230 H 04/29/21 10:05: Sodium 128 L, Potassium 3.8, Chloride 97 L, Carbon Dioxide 20 L, Anion Gap 14.8, BUN 13, Creatinine 0.70 D, Estimated Creat Clear 70, Estimated GFR 113, Est GFR ( Amer) 137 D, Glucose 88, Calcium 8.3 L Result diagrams: 04/29/21 10:05 04/29/21 10:05 Orders (Tests/Meds): ED MEDICATIONS Discontinued Medications Generic Name Dose Route Start Last Admin Trade Name Freq PRN Reason Stop Dose Admin Furosemide 20 mg 04/29/21 11:08 04/29/21 11:12 Furosemide 20 Mg/2 Ml Vial IV 04/29/21 11:09 20 mg ONCE ONE Administration Lactated Ringer's 1,000 mls @ 999 mls/hr 04/29/21 11:15 Lactated Ringer's 1000 Ml Bag IV 04/29/21 12:15 .Q1H1M [facility] - Radiology Data #1 Image(s): Chest Image Reviewed: Yes I have reviewed radiologist's interpretation Preliminary Findings: Abnormal No acute finding though concern for possible nodule
[2021-04-29 10:24] LABS: Basophils % 0.2 % (0.1-2.0); Eosinophils # 0.1 K/mm3 (0.0-0.4); Eosinophils % 0.8 % (0.1-12.0); Hematocrit 32.4 % (42.0-52.0); Hemoglobin 10.7 g/dL (14.1-18.0); Lymphocytes # 1.2 K/mm3 (0.7-4.5); Lymphocytes % 7.4 % (10-50); Mean Corpuscular HGB Conc 32.9 g/dL (31.8-35.4); Mean Corpuscular Hemoglobin 33.1 pg (27.0-31.2); Mean Corpuscular Volume 100.5 fl (80-94); Mean Platelet Volume 8.4 fl (7.4-10.4); Monocytes # 0.5 K/mm3 (0.1-1.0); Neutrophils # 14.2 K/mm3 (1.8-7.8); Neutrophils % 88.5 % (37.0-80.0); Platelet Count 418 K/mm3 (142-424); Red Blood Count 3.22 M/mm3 (4.60-6.20); Red Cell Distribution Width 13.9 % (11.5-17.5)
[2021-04-29 10:26] LABS: MANUAL DIFFERENTIAL MANUAL DIFFERENTIAL (MANUAL DIFF)
[2021-04-29 10:30] LABS: Chloride 97 mmol/L (98-107); Potassium 3.8 mmoL/L (3.5-5.1); Sodium 128 mmol/L (136-145)
--- NOTE | 2021-04-29 10:31 | XR_ITS ---
PROCEDURE INFORMATION: Exam: XR Chest Exam date and time: 04/29/2021 10:31 AM Age: 66 years old Clinical indication: Chest wall pain; Patient HX: Chest pain , smoker; Additional info: Cp TECHNIQUE: Imaging protocol: XR of the chest. Views: 1 view. COMPARISON: CR CXR2V XR chest 2V 03/05/2018 3:33 PM FINDINGS: Lungs: No consolidation. Subtle linear/nodular opacity in the left upper lobe. Pleural spaces: No pleural effusion. No pneumothorax. Heart/Mediastinum: No cardiomegaly. Aortic vascular calcifications are present. Bones/joints: No acute abnormality. IMPRESSION: 1. No acute cardiopulmonary disease. 2. Subtle linear/nodular opacity in the left upper lobe, nonspecific although given the history of smoking would consider outpatient nodule protocol chest CT.
[2021-04-29 10:33] LABS: Anion Gap 14.8 mEq/L (5-15); Blood Urea Nitrogen 13 mg/dl (9-20); Calcium 8.3 mg/dl (8.4-10.2); Carbon Dioxide 20 mmol/L (22.0-30.0); Creatinine Clearance Estimated 70 mL/min (50-200); Eosinophils % 1 % (0-3); Estimated Glomerular Filt Rate 113 ml/min (>60); GFR (African American) 137 ML/MIN (>60); Glucose 88 mg/dl (74-100); Lymphocytes % 16 % (10-50); Monocytes % 6 % (2-9); Neutrophils % 77 % (42-76); Total Cells Counted 100
--- NOTE | 2021-04-29 10:33 | PC.NURSE ---
Pt up to restroom.
[2021-04-29 10:34] LABS: Anisocytosis 1+; Macrocytosis 1+; Platelet Estimate Normal; Poikilocytosis 1+; Stomatocytes 1+
[2021-04-29 10:55] LABS: NT Pro Brain Natriuretic Pep. 1230 pg/mL (0-125)
[2021-04-29 11:04] LABS: Troponin I < 0.01 ng/ml (0.00-0.034)
--- NOTE | 2021-04-29 11:08 | PC.NURSE ---
X-ray at bedside
--- NOTE | 2021-04-29 12:30 | PC.NURSE ---
275mL urine output
== END 2021-04-29 13:00 | disposition home or self-care (01) ==
PROVIDERS: Emergency Provider Family Medicine; PCP Nurse Practitioner Family
DX: I47.1 Supraventricular tachycardia (principal); I10 Essential (primary) hypertension; R06.09 Other forms of dyspnea; D72.828 Other elevated white blood cell count; R79.89 Other specified abnormal findings of blood chemistry; F17.210 Nicotine dependence, cigarettes, uncomplicated
CPT/HCPCS: 71045; 80048; 83880; 84484; 85007; 85025; 93005; 96374; 96375; 99282

== ENCOUNTER 2021-05-01 15:08 | Observation (INO) | payer MEDICARE, OTHER, SELFPAY ==
[2021-05-01 15:09] VITALS: BP 124/60; PULSE 96; RESP 18; TEMP 36.4; O2SAT 97; BMI 23.6
[2021-05-01 15:36] VITALS: BP 113/57; PULSE 65; O2SAT 98
--- NOTE | 2021-05-01 15:40 | CT_ITS ---
PROCEDURE: CT HEAD/BRAIN WO CON CLINICAL INDICATION: weakness COMPARISON: CT SPCERVWO CT cervical spine wo con from 12/29/2018 TECHNIQUE: Axial images obtained. All CT scans at the facility use one or more dose reduction, viz: automated exposure control, ma/kV adjustment per patient size (including targeted exams where dose is matched to indication, i.e. head), or iterative reconstruction technique. FINDINGS: No midline shift or mass effect is evident. There is a small There is generalized atrophy with hypoattenuation of the periventricular white matter consistent with microangiopathic changes.. There is a small focus of increased density along the left cerebellar peduncle region image number 17. An additional small focus of increased density is present along the medial aspect of the left temporal lobe image 19.. No mastoid effusion or sinus air-fluid levels evident. There is mild mucosal thickening of the maxillary sinus on the left. IMPRESSION: Nonspecific hyperdensity left cerebellar peduncle and medial left temporal lobe at the tentorial area. Etiology is indeterminate. A hyperdense nodule at the cerebellar peduncle region is a consideration. A small focus of hemorrhage cannot totally be excluded. Follow-up with IV contrast may provide further evaluation in this patient with jaundice and biliary dilatation. Dictated by: Petr Corbin MD 05/01/2021 16:54 Petr Corbin MD in [place] 05/01/2021 16:54
--- NOTE | 2021-05-01 15:41 | HMH.EDGENADL ---
ED Disposition Clinical Impression: Debility Disposition: Home, Self-Care Condition on Discharge: Good Referrals: Renetta Cole APRN [Primary Care Provider] - 05/02/21 (Call for an appointment in the morning) Time of Disposition: 19:30 - Critical Care Critical Care Time: No Attestation: On 05/01/21, the high probability of a clinically significant, sudden or life threatening deterioration of the following system(s) required my full and direct attention, intervention and personal management. The time I documented below is in addition to time spent performing reported procedures but includes the following listed in this critical care notation. Medical Decision Making - Medical Records Medical records reviewed: Yes: I reviewed the patient's medical records. - Kendall Inquiry Pt receiving controlled substance: No Vital Signs: 05/01/21 15:09 05/01/21 15:36 05/01/21 17:05 Temperature 97.6 F Temperature Source Oral Pulse Rate 65 75 Pulse Rate [Right] 96 H Respiratory Rate 18 16 Blood Pressure 113/57 L 113/52 L Blood Pressure [Right Arm] 124/60 Blood Pressure Mean [Right Arm] 81 02 Sat by Pulse Oximetry 97 98 Oxygen Delivery Method Room Air 05/01/21 17:51 05/01/21 19:15 Temperature Temperature Source Pulse Rate 67 71 Pulse Rate [Right] Respiratory Rate 17 18 Blood Pressure 132/71 129/70 Blood Pressure [Right Arm] Blood Pressure Mean [Right Arm] 02 Sat by Pulse Oximetry 97 98 Oxygen Delivery Method Room Air Room Air - Lab Data Lab results reviewed: Yes: I reviewed the patient's lab results. Lab Results 05/01/21 15:30: WBC 14.6 H, RBC 3.12 L, Hgb 10.4 L, Hct 31.1 L, MCV 99.7 H, MCH 33.4 H, MCHC 33.5, RDW 13.8, Plt Count 461 H, MPV 8.4, Neut % (Auto) 87.3 H, Lymph % (Auto) 8.5 L, Real % (Auto) 2.8, Eos % (Auto) 1.1, Baso % (Auto) 0.3, Neut # (Auto) 12.8 H, Lymph # (Auto) 1.3, Real # (Auto) 0.4, Eos # (Auto) 0.2, Baso # (Auto) 0.1, Total Counted 100, Neutrophils % (Manual) 86 H, Band Neutrophils % 3.0, Lymphocytes % (Manual) 9 L, Monocytes % (Manual) 2, Platelet Estimate Moderate increase, RBC Morphology Normal 05/01/21 15:30: Sodium 130 L, Potassium 3.7, Chloride 98, Carbon Dioxide 25 D, Anion Gap 10.7, BUN 23 H D, Creatinine 0.70, Estimated Creat Clear 69, Estimated GFR 113, Est GFR ( Amer) 137, Glucose 106 H, Calcium 8.2 L, Total Bilirubin 6.3 H, AST 74 H, ALT 39, Alkaline Phosphatase 667 H, Total Protein 6.8, Albumin 2.9 L, Globulin 3.9 H, Albumin/Globulin Ratio 0.7 L 05/01/21 15:30: Troponin I < 0.01, NT-Pro-B Natriuret Pep 1600 H 05/01/21 17:04: Urine Color [place], Urine Appearance Clear, Urine pH 5.5, Ur Specific [place] 1.020, Urine Protein 1+, Urine Glucose (UA) Negative, Urine Ketones 1+, Urine Blood Negative, Urine Nitrate Positive, Urine Bilirubin 3+ A, Urine Urobilinogen >=8.0, Ur Leukocyte Esterase Trace, Urine WBC 3-5, Ur Squamous Epith Cells Occasional, Urine Bacteria 2+ 05/01/21 17:15: SARS-CoV-2 (PCR) Not detected, Influenza A Untype (PCR) Not detected, Influenza Type B (PCR) Not detected 05/01/21 18:33: Troponin I < 0.01 05/01/21 18:33: Ammonia < 9 L 05/01/21 18:33: PT 12.2, INR 1.04 Result diagrams: 05/01/21 15:30 05/01/21 15:30 Orders (Tests/Meds): ED MEDICATIONS Discontinued Medications Generic Name Dose Route Start Last Admin Trade Name Freq PRN Reason Stop Dose Admin Ioversol 50 ml 05/01/21 17:35 05/01/21 17:40 Ioversol-320 (68%) 50ml Bottle IV 05/01/21 17:36 50 ml ONCE ONE Administration Protocol Ioversol 50 ml 05/01/21 17:37 05/01/21 17:40 Ioversol-320 (68%) 50ml Bottle IV 05/01/21 17:38 50 ml ONCE ONE Administration Protocol Sodium Chloride 10 ml 05/01/21 17:35 05/01/21 17:39 Sodium Chloride 0.9% 10ml Syr (Rad Only) IV 05/01/21 17:36 10 ml ONCE ONE Administration ORDERS Category Date Time Status Urine Culture Stat Micro 05/01/21 17:04 Received - CT Data CT Scan: Head Time Receiv
[2021-05-01 15:53] LABS: Basophils # 0.1 K/mm3 (0-0.2); Basophils % 0.3 % (0.1-2.0); Eosinophils # 0.2 K/mm3 (0.0-0.4); Eosinophils % 1.1 % (0.1-12.0); Hematocrit 31.1 % (42.0-52.0); Hemoglobin 10.4 g/dL (14.1-18.0); Lymphocytes # 1.3 K/mm3 (0.7-4.5); Lymphocytes % 8.5 % (10-50); Mean Corpuscular HGB Conc 33.5 g/dL (31.8-35.4); Mean Corpuscular Hemoglobin 33.4 pg (27.0-31.2); Mean Corpuscular Volume 99.7 fl (80-94); Mean Platelet Volume 8.4 fl (7.4-10.4); Monocytes # 0.4 K/mm3 (0.1-1.0); Monocytes % 2.8 % (1.7-9.3); Neutrophils # 12.8 K/mm3 (1.8-7.8); Neutrophils % 87.3 % (37.0-80.0); Platelet Count 461 K/mm3 (142-424); Red Blood Count 3.12 M/mm3 (4.60-6.20); Red Cell Distribution Width 13.8 % (11.5-17.5); White Blood Count 14.6 K/mm3 (4.8-10.8)
[2021-05-01 15:55] LABS: Alanine Aminotransferase 39 U/L (12-78); Albumin Level 2.9 g/dl (3.5-5.0); Albumin/Globulin Ratio 0.7 (1.1-1.8); Alkaline Phosphatase 667 U/L (38-126); Anion Gap 10.7 mEq/L (5-15); Aspartate Amino Transferase 74 U/L (17-59); Bilirubin,Total 6.3 mg/dl (0.2-1.3); Blood Urea Nitrogen 23 mg/dl (9-20); Calcium 8.2 mg/dl (8.4-10.2); Carbon Dioxide 25 mmol/L (22.0-30.0); Chloride 98 mmol/L (98-107); Creatinine Clearance Estimated 69 mL/min (50-200); Estimated Glomerular Filt Rate 113 ml/min (>60); GFR (African American) 137 ML/MIN (>60); Globulin 3.9 g/dL (1.3-3.2); Glucose 106 mg/dl (74-100); MANUAL DIFFERENTIAL MANUAL DIFFERENTIAL (MANUAL DIFF); Potassium 3.7 mmoL/L (3.5-5.1); Sodium 130 mmol/L (136-145); Total Protein,Serum 6.8 g/dl (6.3-8.2)
[2021-05-01 16:07] LABS: Lymphocytes % 9 % (10-50); Monocytes % 2 % (2-9); Neutrophils % 86 % (42-76); Total Cells Counted 100
[2021-05-01 16:08] LABS: Platelet Estimate Moderate Increase; RBC Morphology Normal
[2021-05-01 16:09] LABS: NT Pro Brain Natriuretic Pep. 1600 pg/mL (0-125)
[2021-05-01 16:14] LABS: Troponin I < 0.01 ng/ml (0.00-0.034)
--- NOTE | 2021-05-01 16:45 | PC.NURSE ---
SOILDED PATIENT CLEANED
--- NOTE | 2021-05-01 17:02 | ECG_ITS ---
APPROVED REPORT Exam: Resting ECG HR:65 bpm ECG Measurements Heart Rate 65 AXES AZ 170 P 0 QRSd 84 QRS -2 QT 448 T -8 QTc 465 Conclusion Normal sinus rhythm Late r wave progression - unchanged from prior Abnormal ECG Electronically signed by : Scott Bradley, 05/02/2021 21:23:23
[2021-05-01 17:05] VITALS: BP 113/52; PULSE 75; RESP 16
[2021-05-01 17:08] LABS: Microscopic, Urine URINE MICROSCOPIC (MICROSCOPIC)
--- NOTE | 2021-05-01 17:12 | CT_ITS ---
PROCEDURE INFORMATION: Exam: CT Head With Contrast Exam date and time: 05/01/2021 5:12 PM Age: 66 years old Clinical indication: Abnormal findings; Abnormal radiologic findings of head/skull; Not specified; Additional info: Abnl plain scan TECHNIQUE: Imaging protocol: Computed tomography of the head with intravenous contrast. Total images: 84 Radiation optimization: All CT scans at this facility use at least one of these dose optimization techniques: automated exposure control; mA and/or kV adjustment per patient size (includes targeted exams where dose is matched to clinical indication); or iterative reconstruction. Contrast material: ISOVUE; Contrast volume: 100 ml; Contrast route: IV; COMPARISON: CT HEAD/BRAIN WO CON 05/01/2021 4:23 PM FINDINGS: Brain: Mild generalized atrophy with moderate periventricular chronic microvascular changes consistent with the patient's advanced age. No extra-axial fluid collections. No evidence of acute intracranial hemorrhage. George-white differentiation is well maintained. No CT evidence of large territory acute or subacute intracranial ischemia/infarct. Small focus of chronic cortical/subcortical encephalomalacia in the right frontal lobe measuring 7 mm consistent with a very small chronic infarct. No intracranial mass lesions. No midline shift or herniation. Cerebral ventricles: There is moderate ventriculomegaly involving the lateral ventricles and third ventricle, which is disproportionate to the degree of peripheral sulcal prominence. This raises suspicion for possible normal pressure hydrocephalus. Bones/joints: Calvarium intact. No acute fractures. Chronic appearing blowout fracture in the medial left orbital wall with no evidence of entrapment of orbital contents. Paranasal sinuses: Mucosal thickening in the left maxillary sinus suggesting mild chronic sinus inflammatory disease. No fluid levels. The other paranasal sinuses are clear. Mastoid air cells: Visualized mastoid air cells are clear. Orbits: Visualized orbital contents demonstrate no evidence of acute abnormality. Postoperative changes in the left orbit. Vasculature: Moderate calcific atherosclerosis. The small focus of asymmetric hyperdensity seen in the left cerebellar peduncle corresponds to a developmental venous malformation, with local small intraparenchymal veins draining to the 4th ventricle and supracerebellar cistern veins. 9 x 4 mm focus of parenchymal hyperdensity at the site may represent a small associated cavernous angioma. MRI without and with contrast would allow more specific confirmation/characterization. No associated mass effect. No evidence of acute/recent hemorrhage. Soft tissues: The scalp and visualized soft tissues demonstrate no acute abnormality. Other findings: The IACs are grossly normal. The sella is grossly normal. IMPRESSION: 1. No acute intracranial process. No intracranial hemorrhage or mass effect. 2. 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 MRI without and with contrast would allow the most specific imaging confirmation/characterization. No evidence of acute hemorrhage or mass effect. 3. Small chronic cortical/subcortical infarct in the high right frontal lobe. 4. Findings suggestive of chronic NPH. 5. Chronic blowout fracture in the medial left orbit. 6. Moderate calcific atherosclerosis.
[2021-05-01 17:33] LABS: Appearance,Urine CLEAR (Clear); Blood, Urine Negative (Negative); Color,Urine ORANGE (Yellow); Glucose,Urine (UA) Negative (Negative); Ketones,Urine 1+ (Negative); Leukocyte Esterase,Urine TRACE (Negative); Nitrate,Urine POSITIVE (Negative); PH,Urine 5.5 (5.0-8.5); Protein,Urine 1+ (Negative); Urobilinogen,Urine >=8.0 EU/dl (0.2)
--- NOTE | 2021-05-01 17:39 | PC.NURSE ---
Pt with rad.
[2021-05-01 17:40] LABS: Bilirubin,Urine 3+ (Negative)
[2021-05-01 17:51] VITALS: BP 132/71; PULSE 67; RESP 17; O2SAT 97
[2021-05-01 18:05] LABS: Bacteria,Urine 2+ /lpf; Squamous Epithelial Cell,Urine Occasional #/hpf (0-5)
[2021-05-01 18:07] LABS: Coronavirus 19, PCR Not Detected (NotDetected); Influenza A, PCR Not Detected (NotDetected); Influenza B, PCR Not Detected (NotDetected)
[2021-05-01 18:51] LABS: Ammonia < 9 umol/L (9-30)
[2021-05-01 18:54] LABS: Prothrombin Time 12.2 seconds (10.1-12.5)
[2021-05-01 18:56] LABS: INR 1.04 (0.9-1.1)
[2021-05-01 19:06] LABS: Troponin I < 0.01 ng/ml (0.00-0.034)
[2021-05-01 19:15] VITALS: BP 129/70; PULSE 71; RESP 18; O2SAT 98
--- NOTE | 2021-05-01 21:42 | CT_ITS ---
PROCEDURE INFORMATION: Exam: CT Abdomen And Pelvis With Contrast Exam date and time: 05/01/2021 9:42 PM Age: 66 years old Clinical indication: Other: Elevated liver enzymes; Prior surgery; Surgery date: 6+ months; Surgery type: Appendix TECHNIQUE: Imaging protocol: Computed tomography of the abdomen and pelvis with contrast. Total images: 332 Radiation optimization: All CT scans at this facility use at least one of these dose optimization techniques: automated exposure control; mA and/or kV adjustment per patient size (includes targeted exams where dose is matched to clinical indication); or iterative reconstruction. Contrast material: ISOVUE; Contrast volume: 75 ml; Contrast route: IV; COMPARISON: US ABDOMEN LIMITED 04/27/2021 9:40 AM FINDINGS: Lungs: Mild atelectasis in the lung bases. Heart: Heart size normal. There is moderate calcification of the aortic valve. Mild coronary artery calcification in the RCA distribution. Mediastinal space: The visualized distal esophagus is normal. Liver: Normal contour. No mass lesions. Moderate intrahepatic biliary ductal dilatation. Gallbladder and bile ducts: Gallbladder is moderately distended. There is a trace amount of pericholecystic edema/fluid along the gallbladder fossa but no gallbladder wall thickening or gross stones. Dilated common bile duct measuring up to 18 mm in diameter. This appears to be obstructed distally by a mass lesion centered at the ampulla measuring 1.8 x 1.3 by 1.4 cm. Recommend GI consultation and ERCP. Pancreas: The pancreas is normal in appearance other than the periampullary mass, with no pancreatic ductal dilatation and no signs of pancreatitis. Spleen: Granulomatous calcifications in the spleen without acute splenic abnormality. Adrenal glands: Normal. No adrenal mass. Kidneys and ureters: No acute abnormalities. No hydronephrosis or hydroureter. Mixed phase contrast injection with excreted contrast in the renal collecting systems limiting sensitivity for small stones. Chronic scarring in the lower pole of the right kidney Stomach and bowel: The stomach is largely contracted without gross abnormality. The small bowel is nondilated with no gross abnormality. No acute colonic abnormalities. Appendix: The appendix is normal in caliber and demonstrates no evidence of appendicitis. Intraperitoneal space: No free fluid or air. Vasculature: Moderate atherosclerotic aortoiliac calcification without aneurysm. Lymph nodes: Enlarged left common iliac node measuring 10 mm short axis. Enlarged left periaortic nodes measuring up to 12 mm short axis. Mildly enlarged celiac nodes measuring up to 9 mm short axis. Mildly enlarged aortocaval nodes measuring up to 10 mm short axis. Enlarged peripancreatic and gastrohepatic nodes measuring up to 11 mm short axis. Enlarged right retrocrural nodes measuring up to 10 mm short axis. Urinary bladder: The bladder is filled with hyperdense contrast, limiting its evaluation, without gross abnormality. Reproductive: Unremarkable as visualized. Bones/joints: No acute osseous abnormalities. Old healed left lower rib fractures. Moderate chronic appearing anterior wedge compression deformity of L1. Soft tissues: Mild soft tissue stranding/edema in the peripheral subcutaneous tissues suggesting volume overload or anasarca. 7 x 3 cm fatty mass lesion in the right lateral abdominal wall on series 3, image 43, consistent with lipoma although clinical follow-up is recommended to exclude growth or local symptoms suggestive of liposarcoma. IMPRESSION: 1. There is a 1.8 x 1.3 x 1.4 cm ampullary mass concerning for possible malign
[2021-05-01 22:43] LABS: Ammonia < 9 umol/L (9-30)
[2021-05-01 22:51] LABS: Lactic Acid 0.8 mmol/L (0.7-2.1)
--- NOTE | 2021-05-01 23:29 | PC.NURSE ---
spoke to [facility] no beds available, Dr. Tobin hospitalist will return call
[2021-05-02] VITALS (9 sets, daily range): BP systolic 109–142; BP diastolic 49–66; PULSE 56–74; RESP 16–21; TEMP 36.4–36.8; O2SAT 94–98; BMI 21.7
--- NOTE | 2021-05-02 01:26 | PC.NURSE ---
PT ARRIVED TO FLOOR FROM ED AT 0123
--- NOTE | 2021-05-02 07:04 | HMH.HP ---
*Admission Date: 05/02/21 *Chief complaint: weakness *History of present illness: 66yo M who was sent to the ER after contacting our office. He presented via EMS to the ER due to fecal incontinence, fatigue, weakness and deconditioning. In no acute distress on arrival but found to be frankly jaundiced. Work-up initiated showing numerous lab abnormalities. CT of abdomen obtained showing ampulla of Vater lesion and biliary dilatation. Attempts were made to transfer Mr. Israel to tertiary care center out of concern for GI/pancreatic cancer or mass. Unable to transfer due to facilities not having space. Has been accepted on numerous waitlist. Medicine was consulted for further management and admission. On assessment this morning, his main complaint is weakness and feeling ill. Denies any michelle nausea, chest pain. States he has not noticed being jaundiced but has had numerous people tell him he is yellow. Symptoms have been progressing for the past several weeks or more. Reports having been incontinent at home and wearing a diaper. Was too weak to go home last night as he lives with his 90+ year-old mother who is unable to help care for him. He remains afebrile, blood pressure stable. Initiated on IV fluids overnight. Discussed patient's image findings this morning with him, he was very tearful thereafter on exam. Review of labs obtained in the ER shows concern for UTI. Patient denies significant symptoms however. [facility] History I have reviewed the patient's past medical history: Yes Medical History: Reports:: Cancer (skin), Hyperlipidemia, Hypertension Denies:: Diabetes Mellitus Type 1, Diabetes Mellitus Type 2, Internal Pacemaker, MRSA, Seizures *Have you ever received a pneumonia vaccine?: No *Have you received a flu vaccine this season?: Yes Other Medical History: Denies: Blood Transfusion Reaction Other Surgeries: Yes: Appendectomy, Cardiac Catheterization. No: Pacemaker Amputation: No Fractures: No - *Social History Smoking Status: Current every day smoker Tobacco Type: cigarettes # Packs/Day (cigarettes): 1 Alcohol Intake: current Alcohol Intake Frequency:: a few times a week Substance Use Type: marijuana *Occupational Status:: retired Housing: house Household Members: family *Travel in the last 8 weeks: None Family Hx:: Alcoholism Review of Systems - Review of Systems Review of systems:: pertinent systems reviewed and negative unless documented below (14 point review of systems performed, pertinent positives and negatives as per HPI) Meds Home Medications Medication Instructions Recorded Confirmed Type allopurinoL [Allopurinol 100mg 100 mg PO DAILY 11/03/20 05/01/21 History tablet] lisinopriL [Lisinopril 10mg Tab] 10 mg PO DAILY 11/03/20 05/01/21 History nadoloL [Nadolol] 20 mg PO DAILY 11/03/20 05/01/21 History Duloxetine HCl 30 mg PO DAILY 05/01/21 05/01/21 History Loratadine 10 mg PO DAILY 05/01/21 05/01/21 History Omeprazole [Omeprazole 40mg 40 mg PO DAILY 05/01/21 05/01/21 History Capsule] Tiotropium [place] [Spiriva 1 puff INHALATION DAILY PRN 05/01/21 05/01/21 History 18mcg/puff inhaler] Allergies Allergy/AdvReac Type Severity Reaction Status Date / Time No Known Drug Allergies Allergy Unknown Verified 11/25/20 12:00 [NKDA] Exam Vital signs and Labs for Last 24 Hours: Temp Pulse Resp BP Pulse Ox 97.9 F 74 18 142/66 H 94 L 05/02/21 04:00 05/02/21 04:00 05/02/21 04:00 05/02/21 04:00 05/02/21 04:00 Laboratory Results - last 24 hr 05/01/21 15:30: WBC 14.6 H, RBC 3.12 L, Hgb 10.4 L, Hct 31.1 L, MCV 99.7 H, MCH 33.4 H, MCHC 33.5, RDW 13.8, Plt Count 461 H, MPV 8.4, Neut % (Auto) 87.3 H, Lymph % (Auto) 8.5 L, [place] % (Auto) 2.8, Eos % (Auto) 1.1, Baso % (Auto) 0.3, Neut # (Auto) 12.8 H, Lymph # (Auto) 1.3, [place] # (Auto) 0.4, Eos # (Auto) 0.2, Baso # (Auto) 0.1, Total Counted 100, Neutrophils % (Manual) 86 H, Band Neutrophils % 3.0, Lymphocytes % (Manual) 9 L, Monocytes %
--- NOTE | 2021-05-02 07:24 | HMH.PHAVTE ---
[facility] Pharm[facility] VTE Monitoring - Patient Demographics Admission date: 05/01/21 Report Date: 05/02/21 Time: 07:25 Allergies/Adverse Reactions: Patient Allergies No Known Drug Allergies [NKDA] Allergy (Unknown, Verified 11/25/20 12:00) Height: 1.68 m Weight: 61.405 kg Patient Problems: Current Active Problems Debility (Acute) - VTE Risk Labs: VTE Related Lab Results Hgb 10.4 g/dL (14.1-18.0) L 05/01/21 15:30 Hct 31.1 % (42.0-52.0) L 05/01/21 15:30 Plt Count 461 K/mm3 (142-424) H 05/01/21 15:30 PT 12.2 seconds (10.1-12.5) 05/01/21 18:33 INR 1.04 (0.9-1.1) 05/01/21 18:33 BUN 23 mg/dl (9-20) H D 05/01/21 15:30 Creatinine 0.70 mg/dl (0.66-1.25) 05/01/21 15:30 Estimated Creat Clear 69 mL/min (50-200) 05/01/21 15:30 Was VTE Risk Assessment Performed: Yes VTE Score: 1 VTE Risk Level: Very Low Risk - Prophylaxis VTE Prophylaxis Ordered?: Yes Types of VTE Prophylaxis: TEDS Knee High Location of Applied Device: Bilateral Lower Extremeties
[2021-05-02 07:58] LABS: Basophils % 0.3 % (0.1-2.0); Eosinophils # 0.2 K/mm3 (0.0-0.4); Eosinophils % 1.2 % (0.1-12.0); Hematocrit 25.5 % (42.0-52.0); Lymphocytes # 1.4 K/mm3 (0.7-4.5); Lymphocytes % 10.5 % (10-50); Mean Corpuscular HGB Conc 33.4 g/dL (31.8-35.4); Mean Corpuscular Hemoglobin 33.3 pg (27.0-31.2); Mean Corpuscular Volume 99.6 fl (80-94); Monocytes # 0.5 K/mm3 (0.1-1.0); Monocytes % 3.5 % (1.7-9.3); Neutrophils # 11.2 K/mm3 (1.8-7.8); Neutrophils % 84.5 % (37.0-80.0); Platelet Count 364 K/mm3 (142-424); Red Blood Count 2.56 M/mm3 (4.60-6.20); White Blood Count 13.3 K/mm3 (4.8-10.8)
[2021-05-02 08:11] LABS: Hemoglobin 8.5 g/dL (14.1-18.0)
[2021-05-02 08:18] LABS: Chloride 104 mmol/L (98-107)
[2021-05-02 08:19] LABS: Potassium 4.1 mmoL/L (3.5-5.1); Sodium 131 mmol/L (136-145)
[2021-05-02 08:21] LABS: Alanine Aminotransferase 28 U/L (12-78); Aspartate Amino Transferase 72 U/L (17-59); Blood Urea Nitrogen 23 mg/dl (9-20); Creatinine Clearance Estimated 64 mL/min (50-200); Estimated Glomerular Filt Rate 113 ml/min (>60); GFR (African American) 137 ML/MIN (>60)
[2021-05-02 08:22] LABS: Albumin Level 2.4 g/dl (3.5-5.0); Albumin/Globulin Ratio 0.7 (1.1-1.8); Alkaline Phosphatase 537 U/L (38-126); Anion Gap 12.1 mEq/L (5-15); Bilirubin,Total 4.9 mg/dl (0.2-1.3); Carbon Dioxide 19 mmol/L (22.0-30.0); Globulin 3.3 g/dL (1.3-3.2); Glucose 65 mg/dl (74-100); Total Protein,Serum 5.7 g/dl (6.3-8.2)
--- NOTE | 2021-05-02 13:19 | HMH.PHAINT ---
MEDICATION RECONCILIATION COMPLETED ON PATIENT USING EXTERNAL FILL HISTORY FROM PHARMACY. -LISA AREVALO, QAMARD
--- NOTE | 2021-05-02 14:51 | PC.NURSE ---
verified name and birthdate when notification of positive blood culture was called. md was notified.
--- NOTE | 2021-05-02 17:50 | PC.NURSE ---
1545 willie dailey in lab called and stated blood culture bottle came back positive. is aware
--- NOTE | 2021-05-02 18:14 | PC.NURSE ---
patient has had an okay day. no complaints. tolerating clears well. skin is yellow. rings out as needed. urine is very dark. vitals have been stable. wearing sunglasses in room. sister has been keeping updated with patient status per patient request.
--- NOTE | 2021-05-02 18:35 | PC.NURSE ---
[facility] stated no bed at this time. would maybe have one tomorrow
--- NOTE | 2021-05-02 23:02 | PC.NURSE ---
PT BEING TRANSFERRED VIA STRETCHER PER EMS TO DIFFERENT FACILITY AT 2302
--- NOTE | 2021-05-03 08:12 | HMH.DCSUM ---
General - General Admission date:: 05/02/21 Discharge date: 05/03/21 HPI HPI: 66yo M who was sent to the ER after contacting our office. He presented via EMS to the ER due to fecal incontinence, fatigue, weakness and deconditioning. In no acute distress on arrival but found to be frankly jaundiced. Work-up initiated showing numerous lab abnormalities. CT of abdomen obtained showing ampulla of Vater lesion and biliary dilatation. Attempts were made to transfer Mr. Israel to tertiary care center out of concern for GI/pancreatic cancer or mass. Unable to transfer due to facilities not having space. Has been accepted on numerous waitlist. Medicine was consulted for further management and admission. On assessment this morning, his main complaint is weakness and feeling ill. Denies any michelle nausea, chest pain. States he has not noticed being jaundiced but has had numerous people tell him he is yellow. Symptoms have been progressing for the past several weeks or more. Reports having been incontinent at home and wearing a diaper. Was too weak to go home last night as he lives with his 90+ year-old mother who is unable to help care for him. He remains afebrile, blood pressure stable. Initiated on IV fluids overnight. Discussed patient's image findings this morning with him, he was very tearful thereafter on exam. Review of labs obtained in the ER shows concern for UTI. Patient denies significant symptoms however. Hospital Course Hospital Course: Patient was admitted, IV fluids were given, pain control and electrolytes were being replaced here. Fortunately, patient was accepted at [facility] and a bed was available early this morning and patient was transferred there without incidence. Further outcome, discharge disposition will be through that institution. Objective Vital signs: Temp Pulse Resp BP Pulse Ox 98.2 F 74 21 124/64 94 L 05/02/21 20:00 05/02/21 20:00 05/02/21 16:00 05/02/21 20:00 05/02/21 20:00 no acute distress, moderate distress, thin, cachectic - *Routine HEENT Exam Head: Present: normocephalic Eye: Present: EOMI, PERRL ENT: Present: mucous membranes moist - *Routine Neck Exam Present: supple - *Routine Respiratory Exam Present: CTA bilaterally - *Routine Cardiovascular Exam Present: RRR - *Routine Abdominal Exam Present: soft, tenderness, guarding - *Routine Extremities Exam Absent: cyanosis, clubbing, edema - *Routine Skin Exam Present: warm. Absent: rash - Detailed Eye Exam Eyelids: Bilateral normal inspection Results Labs on day of discharge: Labs from last 24 hours 05/02/21 07:25 Sodium 131 L Potassium 4.1 Chloride 104 Carbon Dioxide 19 L D Anion Gap 12.1 BUN 23 H Creatinine 0.70 Estimated Creat Clear 64 Estimated GFR 113 Est GFR ( Amer) 137 Glucose 65 L D Calcium 8.0 L Total Bilirubin 4.9 H AST 72 H ALT 28 D Alkaline Phosphatase 537 H Total Protein 5.7 L Albumin 2.4 L D Globulin 3.3 H Albumin/Globulin Ratio 0.7 L Preliminary micro results at discharge 05/01/21 17:04 Urine Culture - Preliminary Urine,Clean Catch NO GROWTH AFTER 24 HOURS 05/01/21 22:30 Blood Culture - Preliminary Blood DS: Diagnosis - Discharge Diagnosis (1) UTI (urinary tract infection) Status: Acute (2) Jaundice Status: Acute (3) Cholestatic hepatitis Status: Acute (4) Mass of common bile duct Status: Acute (5) Anemia Status: Acute (6) Essential hypertension Status: Chronic (7) GERD (gastroesophageal reflux disease) Status: Chronic Discharge Plan - Patient Discharge Instructions ACTIVITY: Continue current activity DIET: continue same diet Patient Instructions: DI for Muscle Weakness - Follow up Plan Disposition: Xfer Short-Term Hosp Condition at discharge:: Stable Home Medications: Home Medications Medication Instructions Recorded Confirmed Type D
[2021-05-03 13:11] LABS: Hep A Ab, IgM Negative (Negative); Hepatitis B Core Antibody IgM Negative (Negative); Hepatitis B Surface Antigen Negative (Negative); Hepatitis C Antibody <0.1 s/co ratio (0.0-0.9)
== END 2021-05-02 23:07 | disposition short-term general hospital (02) ==
LOC: ER 19:30 → 2ND 05-02 00:29
PROVIDERS: Family Medicine; Admitting Provider Family Medicine; Emergency Provider Emergency Medicine; PCP Nurse Practitioner Family; Visit Provider Internal Medicine Adolescent Medicine
DX: K75.89 Other specified inflammatory liver diseases (principal); C25.9 Malignant neoplasm of pancreas, unspecified; K83.9 Disease of biliary tract, unspecified; I10 Essential (primary) hypertension; N39.0 Urinary tract infection, site not specified; K21.9 Gastro-esophageal reflux disease without esophagitis; F17.210 Nicotine dependence, cigarettes, uncomplicated; D64.9 Anemia, unspecified; R06.9 Unspecified abnormalities of breathing
CPT/HCPCS: 70450; 70460; 74177; 80053; 80074; 81001; 82140; 83605; 83880; 84484; 85007; 85025; 85610; 87040; 87077; 87086; 87186; 93005; 94640; 99291; G0378; Q9967; U0003

== ENCOUNTER → 2022-06-14 13:48 | Outpatient (CLI) | payer MEDICARE, OTHER, SELFPAY ==
--- NOTE | 2022-06-14 13:52 | CA_ITS ---
APPROVED REPORT EXAM: Comprehensive 2D, Doppler, and color-flow Echocardiogram Sampler Pickup: Tori Giron, JIL, RVS Ht: 5 ft 5 in Wt: 187lbs BSA: 1.92 BP: 160/84 mmHg Indications: Smoker, Soa, Edema, HTN, HLD 2D Dimensions IVSd 1.21 cm LVEF (Visual) 62.00 % PWd 1.17 cm LA Volume 48.00 mL LVDd 4.54 cm LA Volume Index 25.736357 mL/m2 (M/F) 16-34 LVDs 3.03 cm M-Mode Dimensions RVDd 1.40 cm (0.9-2.6) LA Diam 4.23 cm (1.9-4.0) LVDd 5.54 cm (3.5-5.7) Ao Diam 2.55 cm (2.0-3.7) LVDs 3.04 cm (3.5-5.7) IVSd 0.95 cm (0.6-1.1) PWd 0.68 cm (0.6-1.1) EF (Teich) 75.90% EPSs 0.99 cm FS 45.10% EDV (Teich) 149.90 mL TAPSE 2.73 (<1.7) ESV (Teich) 36.20 mL LV Diastology E Decel Time 303.00 (160-240 msec) E/A Ratio 0.92 MED E' 7.50 (< 7 cm/sec) MED A' 9.30 cm/s E'/MED E' Ratio 12.20 (>14) LAT E' 6.90 (<10 cm/sec) LAT A' 10.80 cm/s E/LAT E' Ratio 13.26 (>14) Aortic Valve LVOT Max 89.00 (70-110 cm/s) LVOT VTI 20.72 cm AoV Peak Hieu. 192.00 (50-130 cm/s) AO Peak GR. 14.70 mmHg AO Mean GR. 9.30 (<5 mmHg) AO VTI 52.16 (18-25 cm) Mitral Valve MV A Velocity 100.00 (40-130 cm/s) E/A Ratio 0.92 MV Decel. Time 303.00 (160-240 ms) MV Mean Gr. 1.60 (<2mmHg) MV PHT 63.00 ms Pulmonary Valve PV Peak Velocity 70.00 (50-150 cm/s) Left Ventricle Left atrium is mildly enlarged, left ventricle is normal size, mild concentric left ventricular hypertrophy, estimated ejection fraction 55% with no regional wall motion abnormality, grade 1 diastolic dysfunction seen without tissue Doppler evidence of raise left atrial pressure. Right Ventricle Right atrium and right ventricle are normal size and contractility. Aortic Valve Aortic valve is minimally thickened and fibrosed there is no aortic stenosis or aortic insufficiency. Mitral Valve Mitral valve grossly normal, there is trace mitral regurgitation. Tricuspid Valve Tricuspid valve grossly normal, there is trace tricuspid regurgitation, tricuspid regurgitation jet velocity is inadequate for calculation of the right ventricular systolic pressure. Pulmonic Valve Pulmonic valve is poorly visualized. Great Vessels Aortic root is normal size. Inferior vena cava is normal size with normal inspiratory collapse. Pericardium No significant pericardial effusion noted. Conclusion 1. Normal left ventricular size, mild concentric left ventricular hypertrophy, estimated ejection fraction 55% with no regional wall motion abnormality, grade 1 diastolic dysfunction seen without tissue Doppler evidence of respiratory depression. 2. Trace mitral and tricuspid regurgitation. 3. No significant pericardial effusion noted. 4. Inferior vena cava normal size with normal contractility. Electronically signed by : Gregg Jernigan MD 06/15/2022 15:17:09
== END ==
PROVIDERS: PCP Internal Medicine Adolescent Medicine; Visit Provider Nurse Practitioner Family
DX: R60.0 Localized edema (principal)
CPT/HCPCS: 93306

== ENCOUNTER 2024-03-07 08:58 | Emergency (ER) | payer MEDICARE, MEDICAID, SELFPAY ==
[2024-03-07] VITALS (7 sets, daily range): BP systolic 176–240; BP diastolic 89–111; PULSE 60–68; RESP 18–20; TEMP 36.4–36.7; O2SAT 96–99; BMI 49.2
--- NOTE | 2024-03-07 09:04 | ECG_ITS ---
APPROVED REPORT Exam: Resting ECG HR:66 bpm ECG Measurements Heart Rate 66 AXES SD 190 P 203 QRSd 98 QRS 194 QT 429 T 166 QTc 443 Conclusion ECTOPIC ATRIAL RHYTHM LATERAL MYOCARDIAL INFARCTION , OF INDETERMINATE AGE [40+ ms Q WAVE AND/OR ST/T ABNORMALITY IN I/aVL/V5/V6] Electronically signed by : DEMETRIO SCHAEFER, 03/07/2024 16:18:02
--- NOTE | 2024-03-07 09:12 | CT_ITS ---
PROCEDURE INFORMATION: Exam: CT Head Without Contrast Exam date and time: 03/07/2024 9:56 AM Age: 68 years old Clinical indication: Stroke-like symptoms; Speech disturbance; Additional info: Difficulty speaking TECHNIQUE: Imaging protocol: Computed tomography of the head without contrast. Radiation optimization: All CT scans at this facility use at least one of these dose optimization techniques: automated exposure control; mA and/or kV adjustment per patient size (includes targeted exams where dose is matched to clinical indication); or iterative reconstruction. Other technique: STROKE PROTOCOL was implemented. COMPARISON: CT HEAD/BRAIN W CON 05/01/2021 5:27 PM FINDINGS: Brain: There is no mass effect, midline shift, acute hemorrhage, extra-axial fluid collection or acute lobar infarct. Periventricular white matter hypodensity likely represents chronic microvascular ischemic change. There is a small calcific lesion in the left brachium pontis unchanged from the prior study, most likely representing a vascular malformation such as a cavernoma and/or developmental venous anomaly. Cerebral ventricles: No ventriculomegaly. Paranasal sinuses: Visualized sinuses are unremarkable. No fluid levels. Mastoid air cells: Visualized mastoid air cells are well aerated. Orbital cavities: The patient is post right cataract surgery. Scleral band device encircles the left globe. Bones: Unremarkable. No acute fracture. Soft tissues: Unremarkable. IMPRESSION: No acute intracranial process. ASSESSMENT: ASPECTS ([place] Stroke Program Early CT Score) is 10.
--- NOTE | 2024-03-07 09:12 | CT_ITS ---
PROCEDURE INFORMATION: Exam: CTA Neck With Contrast Exam date and time: 03/07/2024 9:59 AM Age: 68 years old Clinical indication: Speech disturbance; Additional info: Difficulty speaking TECHNIQUE: Imaging protocol: Computed tomographic angiography of the neck with contrast. Exam focused on the cervical segments of the vasculature. 3D rendering (Not supervised by radiologist): MIP and/or 3D reconstructed images were created by the technologist. Radiation optimization: All CT scans at this facility use at least one of these dose optimization techniques: automated exposure control; mA and/or kV adjustment per patient size (includes targeted exams where dose is matched to clinical indication); or iterative reconstruction. Contrast material: ISOVUE; Contrast volume: 100 ml; Contrast route: INTRAVENOUS (IV); COMPARISON: CT ANGIO HEAD 03/07/2024 9:59 AM FINDINGS: Right common carotid artery: There is soft and calcific plaque noted along the course of the right common carotid artery without significant stenosis. Right internal carotid artery: Atheromatous plaque is noted at the right carotid bulb extending to the internal carotid artery without significant stenosis. Right external carotid artery: No occlusion or stenosis of the origin. Left common carotid artery: There is soft and calcific plaque noted along the course of the left common carotid artery without significant stenosis. Left internal carotid artery: Atheromatous plaque is noted at the left carotid bulb extending into the internal carotid artery causing less than 40% stenosis. Left external carotid artery: No occlusion or stenosis of the origin. Right vertebral artery: No stenosis. No dissection or occlusion. Left vertebral artery: No stenosis. No dissection or occlusion. Orbital cavities: The patient is post right cataract surgery. Scleral band device encircles the left globe. Soft tissues: Normal. No significant soft tissue swelling. Bones/joints: Cervical spondylosis is noted. Pleural spaces: Apical pleural blebs are noted. IMPRESSION: No significant carotid stenosis. REFERENCES: NASCET CRITERIA. The degree of stenosis in the cervical segment of the internal carotid artery is based on NASCET criteria. Normal is no stenosis. Mild is less than 50% stenosis. Moderate is 50-69% stenosis. Severe is 70% to 99% stenosis. Total occlusion is no detectable patent lumen.
--- NOTE | 2024-03-07 09:12 | CT_ITS ---
PROCEDURE INFORMATION: Exam: CTA Head With Contrast, Arteriography Exam date and time: 03/07/2024 9:59 AM Age: 68 years old Clinical indication: Stroke-like symptoms; Speech disturbance; Additional info: Difficulty speaking TECHNIQUE: Imaging protocol: Computed tomographic angiography of the head with contrast. Exam focused on the arteries. 3D rendering (Not supervised by radiologist): MIP and/or 3D reconstructed images were created by the technologist. Radiation optimization: All CT scans at this facility use at least one of these dose optimization techniques: automated exposure control; mA and/or kV adjustment per patient size (includes targeted exams where dose is matched to clinical indication); or iterative reconstruction. Contrast material: ISOVUE; Contrast volume: 100 ml; Contrast route: INTRAVENOUS (IV); COMPARISON: CT HEAD/BRAIN WO CON 03/07/2024 9:56 AM FINDINGS: ANTERIOR CIRCULATION: Right internal carotid artery: Intracranial segment is patent with no significant stenosis. No aneurysm. Right middle cerebral artery: No occlusion or significant stenosis. No aneurysm. Right anterior cerebral artery: No occlusion or significant stenosis. No aneurysm. Left internal carotid artery: Intracranial segment is patent with no significant stenosis. No aneurysm. Left middle cerebral artery: No occlusion or significant stenosis. No aneurysm. Left anterior cerebral artery: No occlusion or significant stenosis. No aneurysm. POSTERIOR CIRCULATION: Right vertebral artery: No occlusion or significant stenosis. No aneurysm. Left vertebral artery: No occlusion or significant stenosis. No aneurysm. Basilar artery: No occlusion or significant stenosis. No aneurysm. Right posterior cerebral artery: No occlusion or significant stenosis. No aneurysm. Left posterior cerebral artery: No occlusion or significant stenosis. No aneurysm. Brain: No definite mass, mass effect, or midline shift. Cerebral ventricles: No ventriculomegaly. Bones/joints: Unremarkable. No acute fracture. Soft tissues: Unremarkable. IMPRESSION: No large vessel stenosis or occlusion.
--- NOTE | 2024-03-07 09:18 | HMH.EDGENADL ---
Discharge Plan Disposition Patient Disposition: Xfer Other Condition: Good Prescriptions Prescriptions: No Action omeprazole 40 MG capsule,delayed release(DR/EC) 40 mg PO DAILY tiotropium bromide 5 CAP capsule, w/inhalation device 2 puff IH DAILY duloxetine 30 MG capsule,delayed release(DR/EC) 30 mg PO BID loratadine 10 MG capsule 10 mg PO DAILY lisinopril 40 MG tablet 40 mg PO DAILY fluticasone propionate 9.9 ML spray,suspension 1 spray NS DAILY budesonide-formoterol 10.2 GM HFA aerosol inhaler 2 puffs IH BID allopurinol 100 MG tablet 100 mg PO DAILY nadolol 20 MG tablet 20 mg PO DAILY Referrals Follow up/Referrals: Provider,Referral, MD [Referring] - See instructions Clinical Impressions Clinical Impression: Difficulty with speech Stand Alone Forms Stand Alone Forms: Transfer Record - ED Discharge ED Provider: Ravi Pehlps General Adult HPI General Chief complaint: Neuro Symptoms/Deficit Stated complaint: weakness Time Seen by Provider: 03/07/24 09:00 History of Present Illness HPI narrative: 68-year-old male with past medical history significant for GERD, HTN, SVT, HLD, presents today for evaluation starting generalized weakness over the past 2 days. Patient also states that on yesterday around 12 PM he felt that the speech was slurred. He states that this has been constant since arrival today. He denies any numbness, tingling or extremity weakness. Denies any visual changes or headaches. Has not had any chest pain or shortness of breath nor has he had abdominal pain or issues with urination. He does have hypertension and states that he is supposed to be on lisinopril and nadolol however he has not taken his medications in about a month. No further complaints. Related Data Home Medications Medication Instructions Recorded Confirmed duloxetine 30 mg capsule,delayed 30 mg PO BID MOOD 05/01/21 05/02/21 release loratadine 10 mg capsule 10 mg PO DAILY Allergy symptoms 05/01/21 05/01/21 omeprazole 40 mg capsule,delayed 40 mg PO DAILY GERD 05/01/21 05/01/21 release tiotropium bromide 18 mcg capsule 2 puff IH DAILY Breathing problems 05/01/21 05/02/21 with inhalation device allopurinol 100 mg tablet 100 mg PO DAILY GOUT 05/02/21 05/02/21 budesonide-formoterol HFA 160 2 puffs IH BID Breathing problems 05/02/21 05/02/21 mcg-4.5 mcg/actuation aerosol inhaler fluticasone propionate 50 1 spray NS DAILY Allergy symptoms 05/02/21 05/02/21 mcg/actuation nasal spray,suspension lisinopril 40 mg tablet 40 mg PO DAILY Hypertension 05/02/21 05/02/21 nadolol 20 mg tablet 20 mg PO DAILY Hypertension 05/02/21 05/02/21 Allergies Allergy/AdvReac Type Severity Reaction Status Date / Time No Known Drug Allergies Allergy Unknown Verified 11/25/20 12:00 [NKDA] [facility] Disclaimer: The information contained in this section may have been updated after the patient was seen, as this information can be updated by other users. Social History Smoking Status: Never smoker second hand exposure: No alcohol intake: current alcohol intake frequency: a few times a week substance use type: marijuana current occupational status: retired Travel in the last 8 weeks: None household members: family housing: house current occupational exposures/hazards: No caffeine: No ROS Obtained: Yes All systems reviewed & no additional complaints except as documented Physical Exam General General appearance: alert and in no apparent distress Head Head exam: atraumatic and normocephalic Eye Eye exam: Present normal appearance, PERRL and EOMI ENT ENT exam: Present normal oropharynx and mucous membranes moist Neck Neck exam: Present full ROM; Absent meningismus Respiratory Respiratory exam: Absent respiratory distress, wheezes, stridor or accessory muscle use Cardiovascular Cardiovascular exam: Present normal rhythm Abdominal Exam Abdominal exam: Present soft; Absent distention, tenderness, guarding, rebound or rigidity Neurological Exam Neurological exam: Present alert, oriented X3 and CN II-XII intact; Absent motor sensory deficit Psychiatric Psychiatric exam: Present normal affect and normal mood Skin Skin exam: Present warm and dry Medical Decision Making Medical Records Medical records reviewed: Yes I reviewed the patient's medical records. [place] Inquiry Pt receiving controlled substance: No [place] was queried for this patient: No Vital Signs: 03/07/24 08:58 03/07/24 09:16 03/07/24 09:41 Temperature 97.6 F Temperature Source Oral Pulse Rate 65 68 Pulse Rate [Right] 66 Respiratory Rate 20 18 18 Blood Pressure 210/89 H 187/111 H Blood Pressure [Right Arm] 237/93 H Blood Pressure Mean 129 126 Blood Pressure Mean [Right Arm] 141 Blood Pressure Source [Right Arm] Automatic Cuff 02 Sat by Pulse Oximetry 96 97 97 Oxygen Delivery Method Room Air 03/07/24 10:10 03/07/24 10:33 03/07/24 11:01 Temperature Temperature Source Pulse Rate 67 64 66 Pulse Rate [Right] Respiratory Rate 18 18 18 Blood Pressure 240/90 H 231/95 H 189/93 H Blood Pressure [Right Arm] Blood Pressure Mean 134 140 125 Blood Pressure Mean [Right Arm] Blood Pressure Source [Right Arm] 02 Sat by Pulse Oximetry 99 99 98 Oxygen Delivery Method Lab Data Lab Results 03/07/24 09:15: WBC 10.8, RBC 5.00, Hgb 15.8, Hct 49.7, MCV 99.3 H, MCH 31.6 H, MCHC 31.8, RDW 14.6, Plt Count 240, MPV 8.6, Neut % (Auto) 67.0, Lymph % (Auto) 24.5, [place] % (Auto) 6.3, Eos % (Auto) 1.3, Baso % (Auto) 0.9, Neut # (Auto) 7.2, Lymph # (Auto) 2.6, [place] # (Auto) 0.7, Eos # (Auto) 0.1, Baso # (Auto) 0.1, PT 10.9, INR 1.01, Sodium 138, Potassium 4.6, Chloride 107, Carbon Dioxide 28, Anion Gap 7.6, BUN 14, Creatinine 1.20, Estimated Creat Clear 54, Estimated GFR 60, Est GFR ( Amer) 73, Glucose 103 H, Calcium 9.4, Magnesium 2.2, Total Bilirubin 0.9, AST 33, ALT 29, Alkaline Phosphatase 112, Troponin I < 0.01, Total Protein 7.6 D, Albumin 4.3, Globulin 3.3 H, Albumin/Globulin Ratio 1.3 03/07/24 09:32: Urine Color Yellow, Urine Appearance Clear, Urine pH 7.5, Ur Specific [place] 1.015, Urine Protein Negative, Urine Glucose (UA) Negative, Urine Ketones Negative, Urine Blood Negative, Urine Nitrate Negative, Urine Bilirubin Negative, Urine Urobilinogen 1.0, Ur Leukocyte Esterase Negative, Urine RBC None, Urine WBC Occasional, Ur Squamous Epith Cells Occasional, Urine Bacteria None 03/07/24 09:15 05/04/24 09:15 Orders (Tests/Meds): ED MEDICATIONS Discontinued Medications Generic Name Dose Route Start Last Admin Trade Name Amelie PRN Reason Stop Dose Admin Aspirin 325 mg 03/07/24 11:05 03/07/24 11:22 Aspirin 325mg Tablet PO 03/07/24 11:06 325 mg ONCE ONE Administration Iopamidol 100 ml 03/07/24 10:09 03/07/24 10:11 Iopamidol-370 (76%);100ml Bottle IV 03/07/24 10:10 100 ml ONCE ONE Administration Sodium Chloride 50 ml 03/07/24 10:09 03/07/24 10:10 0.9 % Sodium Chloride 50 Ml Vial IV 03/07/24 10:10 50 ml ONCE ONE Administration Sodium Chloride 10 ml 03/07/24 10:09 03/07/24 10:10 Sodium Chloride 0.9% 10ml Syr (Rad Only) IV 03/07/24 10:10 10 ml ONCE ONE Administration ORDERS Category Date Time Status CT angio head Stat Cat Scan 03/07/24 09:[address] angio neck Stat Cat Scan 03/07/24 09:[address] head/brain wo con Stat Cat Scan 03/07/24 09:12 Completed CBC w/Auto Diff [Complete Blood Count Auto Diff] Stat Lab 03/07/24 09:15 Completed CMP [Comprehensive Metabolic Panel] Stat Lab 03/07/24 09:15 Completed Magnesium Stat Lab 03/07/24 09:15 Completed PT/INR [Prothrombin Time INR] Stat Lab 03/07/24 09:15 Completed Troponin I Q3H Lab 03/07/24 12:15 Ordered Troponin I Q3H Lab 03/07/24 15:15 Ordered Troponin I Stat Lab 03/07/24 09:15 Completed UA [Urinalysis and Microscopic] Stat Lab 03/07/24 09:32 Completed ECG Data Tracing #1: I reviewed this ECG and interpreted as documented below: EKG is personally interpreted by me.Sinus rhythm with a rate of 66 bpm. No ischemic changes. QRS 98. QTc 443. Medical Decision Narrative: 68-year-old male with past medical history significant for GERD, HTN, SVT, HLD, presents today for evaluation starting generalized weakness over the past 2 days. Patient also states that on yesterday around 12 PM he felt that the speech was slurred. He states that this has been constant since arrival today. He denies any numbness, tingling or extremity weakness. Denies any visual changes or headaches. Has not had any chest pain or shortness of breath nor has he had abdominal pain or issues with urination. He does have hypertension and states that he is supposed to be on lisinopril and nadolol however he has not taken his medications in about a month. On assessment he was hypotensive with systolics in the 220s. In no acute distress. Afebrile. His neurological exam was nonfocal. He was alert and oriented to person place time and situation. His speech did not seem slurred on my assessment and he was verbalizing clearly however he noted that he felt that his speech was different. Differential diagnoses include not limited to CVA, TIA, ACS, electrolyte disturbance, UTI, among others. Labs today remarkable for WBC of 10.8. PT/INR of 10.9/1.01. Sodium 138. Potassium 4.6. Initial troponin less than 0.01. No signs of UTI on urinalysis. I did order for CT scan of the head and CTA head/neck and there were no acute abnormalities. NIH score of 1. Given patient's symptoms today I did consult with neurology at [facility] and discussed management with who recommended admission for observation. For possible lacunar stroke in the setting of patient's hypertension. I did consult with Dr. Caraballo the hospitalist at [facility] and discussed management and admission was accepted. High-dose aspirin was recommended prior to transfer. I discussed plan with patient who verbalized understanding. He was transferred. Critical Care Critical Care Time Critical Care Time: No
--- NOTE | 2024-03-07 09:28 | PC.NURSE ---
requested to go to restroom; pt was given a urinal
[2024-03-07 09:31] LABS: Basophils # 0.1 K/mm3 (0-0.2); Basophils % 0.9 % (0.1-2.0); Eosinophils # 0.1 K/mm3 (0.0-0.4); Eosinophils % 1.3 % (0.1-12.0); Hematocrit 49.7 % (42.0-52.0); Hemoglobin 15.8 g/dL (14.1-18.0); Lymphocytes # 2.6 K/mm3 (0.7-4.5); Lymphocytes % 24.5 % (10-50); Mean Corpuscular HGB Conc 31.8 g/dL (31.8-35.4); Mean Corpuscular Hemoglobin 31.6 pg (27.0-31.2); Mean Corpuscular Volume 99.3 fl (80-94); Mean Platelet Volume 8.6 fl (7.4-10.4); Monocytes # 0.7 K/mm3 (0.1-1.0); Monocytes % 6.3 % (1.7-9.3); Neutrophils # 7.2 K/mm3 (1.8-7.8); Platelet Count 240 K/mm3 (142-424); Red Cell Distribution Width 14.6 % (11.5-17.5); White Blood Count 10.8 K/mm3 (4.8-10.8)
--- NOTE | 2024-03-07 09:34 | PC.NURSE ---
tech assiting pt at changing to a gown
[2024-03-07 09:37] LABS: INR 1.01 (0.9-1.1); Prothrombin Time 10.9 seconds (10.1-12.5)
--- NOTE | 2024-03-07 09:37 | PC.NURSE ---
RADIOLOGY NOTIFIED OF CT SCANS
[2024-03-07 09:38] LABS: Microscopic, Urine URINE MICROSCOPIC (MICROSCOPIC)
--- NOTE | 2024-03-07 09:41 | PC.NURSE ---
pt called out for help and stated he needed to use restroom. Provided with urinal, and used collected urine for sample. Assisted pt with changing into gown and put soiled clothes into pt bag.
--- NOTE | 2024-03-07 09:55 | PC.NURSE ---
PT TO CT
--- NOTE | 2024-03-07 09:59 | PC.NURSE ---
Pts POA has arrived at this time, relaying update on pt to POA
--- NOTE | 2024-03-07 10:06 | PC.NURSE ---
Pt returned from RAD
[2024-03-07 10:08] LABS: Alanine Aminotransferase 29 U/L (12-78); Albumin Level 4.3 g/dl (3.5-5.0); Albumin/Globulin Ratio 1.3 (1.1-1.8); Alkaline Phosphatase 112 U/L (38-126); Anion Gap 7.6 mEq/L (5-15); Aspartate Amino Transferase 33 U/L (17-59); Bilirubin,Total 0.9 mg/dl (0.2-1.3); Blood Urea Nitrogen 14 mg/dl (9-20); Calcium 9.4 mg/dl (8.4-10.2); Carbon Dioxide 28 mmol/L (22.0-30.0); Chloride 107 mmol/L (98-107); Creatinine Clearance Estimated 54 mL/min (50-200); Estimated Glomerular Filt Rate 60 ml/min (>60); GFR (African American) 73 ML/MIN (>60); Globulin 3.3 g/dL (1.3-3.2); Glucose 103 mg/dl (74-100); Magnesium 2.2 mg/dl (1.6-2.3); Potassium 4.6 mmoL/L (3.5-5.1); Sodium 138 mmol/L (136-145); Total Protein,Serum 7.6 g/dl (6.3-8.2)
--- NOTE | 2024-03-07 10:09 | PC.NURSE ---
pt back from rad at this time
[2024-03-07] MEDS: 0.9 % SODIUM CHLORIDE 50 ML VIAL IV (10:10)
[2024-03-07] MEDS: SODIUM CHLORIDE 0.9% 10ML SYR (RAD ONLY) 10 ML IV (10:10)
[2024-03-07] MEDS: IOPAMIDOL-370 (76%);100ML BOTTLE 100 ML IV (10:11)
[2024-03-07 10:13] LABS: Appearance,Urine CLEAR (Clear); Bilirubin,Urine Negative (Negative); Blood, Urine Negative (Negative); Color,Urine YELLOW (Yellow); Glucose,Urine (UA) Negative (Negative); Ketones,Urine Negative (Negative); Leukocyte Esterase,Urine Negative (Negative); Nitrate,Urine Negative (Negative); PH,Urine 7.5 (5.0-8.5); Protein,Urine Negative (Negative); Specific Gravity, Urine 1.015 (1.005-1.030)
[2024-03-07 10:22] LABS: Squamous Epithelial Cell,Urine Occasional #/hpf (0-5); WBC,Urine Occasional #/hpf (0-3)
[2024-03-07 10:22] LABS: Troponin I < 0.01 ng/ml (0.00-0.034)
--- NOTE | 2024-03-07 10:24 | PC.NURSE ---
[facility] calling to give rad results
--- NOTE | 2024-03-07 10:33 | PC.NURSE ---
[facility] with results to [facility]
--- NOTE | 2024-03-07 10:56 | PC.NURSE ---
called [facility] for consult
--- NOTE | 2024-03-07 11:00 | PC.NURSE ---
DR MARC SPEAKING WITH DR NEVES AT [facility]
--- NOTE | 2024-03-07 11:05 | PC.NURSE ---
Pt accepted to [facility] by Dr. Caraballo
--- NOTE | 2024-03-07 11:13 | PC.NURSE ---
PT ACCEPTED BY DR FINE AT [facility]
[2024-03-07] MEDS: ASPIRIN 325MG TABLET 325 MG PO (11:22)
--- NOTE | 2024-03-07 11:24 | PC.NURSE ---
Dr. Phelps at bedside s/w pt & his POA
--- NOTE | 2024-03-07 11:27 | PC.NURSE ---
pt neighbor calling for update'; withpermission neighbor was updated
--- NOTE | 2024-03-07 11:47 | PC.NURSE ---
emptied 400 from urinal clear normal smell
--- NOTE | 2024-03-07 11:56 | PC.NURSE ---
ATTEMPTED TO CALL [facility] FOR TRANSFER, NO ANSWER
--- NOTE | 2024-03-07 12:03 | PC.NURSE ---
REPORT CALLED TO EILEEN PARIS AT [facility]
--- NOTE | 2024-03-07 12:05 | PC.NURSE ---
PT TO WILL GO TO [facility], ROOM 314
== END 2024-03-07 12:58 | disposition other institution (70) ==
PROVIDERS: Emergency Provider Emergency Medicine; PCP Nurse Practitioner Family
DX: R47.9 Unspecified speech disturbances (principal); R53.1 Weakness; K21.9 Gastro-esophageal reflux disease without esophagitis; I10 Essential (primary) hypertension; E78.5 Hyperlipidemia, unspecified
CPT/HCPCS: 70450; 70496; 70498; 80053; 81001; 83735; 84484; 85025; 85610; 93005; 99285; Q9967

== ENCOUNTER 2025-03-11 12:00 | Emergency (ER) | payer MEDICARE, MEDICAID, SELFPAY ==
[2025-03-11] VITALS (9 sets, daily range): BP systolic 159–221; BP diastolic 68–135; PULSE 50–90; RESP 14–22; TEMP 36.8; O2SAT 97–99; BMI 31.3
--- NOTE | 2025-03-11 12:01 | PC.NURSE ---
Code Stroke called @[id number].
--- NOTE | 2025-03-11 12:04 | CT_ITS ---
FINAL REPORT TECHNIQUE: Thin section axial images are obtained through the brain after intravenous contrast injection. Multiplanar reconstructions were obtained from the axial data. Exam was performed using dose reduction techniques such as automated exposure control, adjustment of the mA and kV according to patient size, and use of iterative reconstruction technique. CLINICAL HISTORY: possible stroke COMPARISON: 03/07/2024 FINDINGS: The intracerebral portions of the carotid arteries are patent. There appears to be a new stenosis at the origin of the right A1 segment of the anterior cerebral artery. There is significantly less flow in the right anterior cerebral artery when compared with the prior exam. A discrete occlusive thrombus is not identified. The left anterior cerebral circulation is patent. The MCA arteries are patent bilaterally. The posterior cerebral arteries arise from the basilar artery. They are patent. [place] is intact. The basilar artery is patent. The vertebral arteries are patent. There is no significant stenosis, aneurysm, or AVM. IMPRESSION: There appears to be a new stenosis at the origin of the right A1 segment of the anterior cerebral artery with significantly less flow than noted on the prior examination of 03/07/2024. A discrete occlusive thrombus is not identified. Consider catheter angiography for further evaluation. Reviewed, Interpreted and Dictated by Jeane Shields MD Transcribed by Mirella Torres Authenticated and [facility]
--- NOTE | 2025-03-11 12:04 | CT_ITS ---
FINAL REPORT TECHNIQUE: Thin section axial images were obtained from skull base to vertex without contrast. Coronal and sagittal reconstruction images were obtained from the axial data. Exam was performed using dose reduction techniques such as automated exposure control, adjustment of the mA and kV according to patient size, and use of iterative reconstruction technique. CLINICAL HISTORY: possible stroke COMPARISON: 03/07/2024 FINDINGS: There is atrophy. No mass effect or midline shift. No intracranial hemorrhage. No hydrocephalus. Calcification is present in the left middle cerebellar peduncle, which was also seen on the prior CT of 03/07/2024 and is stable. Periventricular low density is likely related to changes of chronic small vessel ischemia. The basilar cisterns are preserved. The posterior fossa is without acute abnormality. The soft tissues are without acute abnormality. There is mild mucoperiosteal thickening in the right maxillary sinus without air-fluid levels. No acute osseous abnormality is identified. IMPRESSION: No acute intracranial abnormality. Atrophy and changes suggesting chronic small vessel ischemia. Reviewed, Interpreted and Dictated by Jeane Shields MD Transcribed by Mirella Torres Authenticated and [facility]
--- NOTE | 2025-03-11 12:04 | CT_ITS ---
FINAL REPORT TECHNIQUE: Thin-section axial CT with IV contrast supplemented with multi planar reconstruction under CT angiogram protocol was performed of the neck. This study was performed technique to keep radiation doses as low as reasonably achievable, (ALARA). NASCET criteria was utilized during interpretation. CLINICAL HISTORY: possible stroke COMPARISON: 03/07/2024 FINDINGS: Aortic arch: Arch shows no significant narrowing. Great vessel origins are widely patent. Right carotid: there is calcified plaque present in the right carotid bulb, which is stable when compared to the prior exam. There is no significant stenosis of the right internal carotid artery, which is patent to the lung base. Left carotid: The left common carotid artery is patent, with calcified plaque in the proximal left internal carotid artery, producing approximately 40% luminal diameter stenosis, stable since the prior exam of 2023. Vertebrals: The vertebral arteries are patent bilaterally. No significant stenosis is present. IMPRESSION: Calcified plaque is present in the right carotid bulb, stable when compared to the prior exam of 2023. Calcified plaque is present in the proximal left internal carotid artery, producing approximately 40% luminal diameter stenosis, stable. The vertebral arteries are patent bilaterally without significant stenosis. Reviewed, Interpreted and Dictated by Jeane Shields MD Transcribed by Mirella Torres Authenticated and [facility]
--- NOTE | 2025-03-11 12:17 | PC.NURSE ---
Patient is back in room from CT.
[2025-03-11] MEDS: 0.9 % SODIUM CHLORIDE 50 ML VIAL IV (12:21)
[2025-03-11] MEDS: SODIUM CHLORIDE 0.9% 10ML SYR (RAD ONLY) 10 ML IV (12:22)
[2025-03-11] MEDS: IOPAMIDOL-370 (76%);100ML BOTTLE 80 ML IV (12:22)
--- NOTE | 2025-03-11 12:24 | ECG_ITS ---
APPROVED REPORT Exam: Resting ECG HR:56 bpm ECG Measurements Heart Rate 56 AXES TX 175 P -26 QRSd 97 QRS 7 QT 457 T 70 QTc 447 Conclusion SINUS BRADYCARDIA Nonspecific ST change without acute STEMI Electronically signed by : YOUSIF GRULLON, 03/12/2025 09:53:08
--- NOTE | 2025-03-11 12:26 | PC.NURSE ---
manual B/P 220/92 at this time/
[2025-03-11 12:27] LABS: Alanine Aminotransferase 30 U/L (12-78); Albumin Level 4.8 g/dl (3.5-5.0); Albumin/Globulin Ratio 1.5 (1.1-1.8); Alkaline Phosphatase 103 U/L (38-126); Anion Gap 7.3 mEq/L (5-15); Aspartate Amino Transferase 35 U/L (17-59); Bilirubin,Total 0.9 mg/dl (0.2-1.3); Blood Urea Nitrogen 13 mg/dl (9-20); Calcium 9.6 mg/dl (8.4-10.2); Carbon Dioxide 28 mmol/L (22.0-30.0); Chloride 107 mmol/L (98-107); Chol/HDL Ratio 4.7 (1-3.5); Cholesterol 250 mg/dl (140-200); Creatinine Clearance Estimated 76 mL/min (50-200); Estimated Glomerular Filt Rate 60 ml/min (>60); GFR (African American) 73 ML/MIN (>60); Globulin 3.1 g/dL (1.3-3.2); Glucose 101 mg/dl (74-100); HDL Cholesterol 53 mg/dl (40-60); Potassium 4.3 mmoL/L (3.5-5.1); Sodium 138 mmol/L (136-145); Total Protein,Serum 7.9 g/dl (6.3-8.2); Triglycerides 181 mg/dl (30-150); VLDL Cholesterol 36 mg/dL (0-40)
--- NOTE | 2025-03-11 12:32 | PC.NURSE ---
Patient was provided with a urinal.
[2025-03-11 12:34] LABS: Basophils # 0.1 K/mm3 (0-0.2); Basophils % 0.7 % (0.1-2.0); Eosinophils # 0.2 Kmm3 (0.0-0.4); Eosinophils % 1.8 % (0.1-12.0); Hematocrit 49.1 % (42.0-52.0); Hemoglobin 16.4 g/dL (14.1-18.0); Immature Granulocytes # 0.01 10^3uL; Immature Granulocytes % 0.1 %; Lymphocytes # 3.1 K/mm3 (0.7-4.5); Lymphocytes % 32.3 % (10-50); Mean Corpuscular HGB Conc 33.4 g/dL (31.8-35.4); Mean Corpuscular Hemoglobin 31.8 pg (27.0-31.2); Mean Corpuscular Volume 95.2 fl (80-94); Mean Platelet Volume 10.7 fl (7.4-10.4); Monocytes # 0.7 K/mm3 (0.1-1.0); Monocytes % 7.4 % (1.7-9.3); Neutrophils # 5.5 K/mm3 (1.8-7.8); Neutrophils % 57.7 % (37.0-80.0); Nucleated Red Blood Cells # 0 10^3/uL; Nucleated Red Blood Cells % 0 %; Platelet Count 225 K/mm3 (142-424); Red Blood Count 5.16 M/mm3 (4.60-6.20); Red Cell Distribution Width 13.7 % (11.5-17.5); Red Cell Distribution Width-SD 48.8 fL; White Blood Count 9.5 K/mm3 (4.8-10.8)
[2025-03-11 12:38] LABS: Microscopic, Urine URINE MICROSCOPIC (MICROSCOPIC)
[2025-03-11 12:41] LABS: Troponin I < 0.01 ng/ml (0.00-0.034)
[2025-03-11 12:42] LABS: Activated Partial Thrombo Time 32.4 seconds (22.8-30.6); INR 0.93 (0.9-1.1); Prothrombin Time 10.5 seconds (10.1-12.5)
[2025-03-11 12:43] LABS: Appearance,Urine CLEAR (Clear); Bilirubin,Urine Negative (Negative); Blood, Urine Negative (Negative); Color,Urine YELLOW (Yellow); Glucose,Urine (UA) Negative (Negative); Ketones,Urine Negative (Negative); Leukocyte Esterase,Urine Negative (Negative); Nitrate,Urine Negative (Negative); Protein,Urine Negative (Negative); Specific Gravity, Urine <= 1.005 (1.005-1.030); Urobilinogen,Urine 0.2 EU/dl (0.2)
[2025-03-11] MEDS: HYDRALAZINE 20MG/ML VIAL 20 MG IV (12:46)
[2025-03-11 12:51] LABS: Bacteria,Urine Trace /lpf; Squamous Epithelial Cell,Urine Occasional #/hpf (0-5)
[2025-03-11 13:04] LABS: Ethyl Alcohol < 10 mg/dl (0-10)
[2025-03-11 13:35] LABS: Amphetamine/Metha Screen,Urine Negative ng/ml (<1000); Barbiturates Screen,Urine Negative ng/ml (<200); Benzodiazepines Screen,Urine Negative ng/ml (<200); Cannabinoid Screen,Urine Negative ng/ml (<50); Cocaine Screen,Urine Negative ng/ml (<300); Methadone Screen,Urine Negative ng/ml (<300); Opiate Screen,Urine Negative ng/ml (<300); Phencyclidine Screen,Urine Negative ng/ml (<25)
--- NOTE | 2025-03-11 14:02 | ED_ITS ---
Discharge Plan Disposition Patient Disposition: Admitted Condition: Fair Chief Complaint: Neuro Symptoms/Deficit Clinical Impressions Clinical Impression: Acute CVA (cerebrovascular accident), Hypertension Discharge ED Provider: Mikaela Mcdonald General Adult HPI General Chief complaint: Neuro Symptoms/Deficit Stated complaint: possible stroke Time Seen by Provider: 03/11/25 12:03 Mode of Arrival: EMS Source of Information: Patient and EMS Description of Symptoms (Recalled from ER Triage Doc. 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 According to EMS, the patient called EMS because he noted that he had facial droop in the feeling very funny with lightheadedness and just feeling off. She does not know what time this started or when his last known well would have been yesterday. He went to bed last night and woke up this morning and saw facial droop in the mirror when he went to check on himself. He denies any other concerns aside from facial droop and feeling lightheaded. No headache, visual disturbance, numbness, tingling, unilateral extremity weakness, chest pain, shortness of breath, abdominal pain, or other issues. Patient is a poor historian and it is difficult to get a detailed history from him. he denies use of blood thinners. Related Data Home Medications ?Medication ?Instructions ?Recorded ?Confirmed duloxetine 30 mg capsule,delayed 30 mg PO BID MOOD 05/01/21 05/02/21 release loratadine 10 mg capsule 10 mg PO DAILY Allergy symptoms 05/01/21 05/01/21 omeprazole 40 mg capsule,delayed 40 mg PO DAILY GERD 05/01/21 05/01/21 release tiotropium bromide 18 mcg capsule 2 puff IH DAILY Breathing problems 05/01/21 05/02/21 with inhalation device allopurinol 100 mg tablet 100 mg PO DAILY GOUT 05/02/21 05/02/21 budesonide-formoterol HFA 160 2 puffs IH BID Breathing problems 05/02/21 05/02/21 mcg-4.5 mcg/actuation aerosol inhaler fluticasone propionate 50 1 spray NS DAILY Allergy symptoms 05/02/21 05/02/21 mcg/actuation nasal spray,suspension lisinopril 40 mg tablet 40 mg PO DAILY Hypertension 05/02/21 05/02/21 nadolol 20 mg tablet 20 mg PO DAILY Hypertension 05/02/21 05/02/21 Allergies Allergy/AdvReac Type Severity Reaction Status Date / Time No Known Drug Allergies Allergy Unknown Unknown Verified 03/11/25 12:32 (NKDA) allergy reaction [facility] Disclaimer: The information contained in this section may have been updated after the patient was seen, as this information can be updated by other users. Social History Smoking Status: Current every day smoker tobacco type: cigarettes packs per day: 1 second hand exposure: No alcohol intake: current alcohol intake frequency: a few times a week substance use type: marijuana current occupational status: retired Travel in the last 8 weeks?: None household members: family housing: house current occupational exposures/hazards: No caffeine: No Have you lived/traveled outside US in past 30 days?: No Contact w/someone who lives/traveled outside US past 30 days?: No Exposure to someone with infectious disease in past 14 days?: No Do you have a fever (greater than 100.4 F or 38 C)?: No Have you tested positive for COVID-19?: No Exposed to someone with COVID-19 in past 14 days?: No Do you have a sore throat?: No Do you have a cough?: No Do you have any weakness?: No Do you have any diarrhea?: No Are you experiencing any unusual bleeding?: No Do you have any muscle aches/pain?: No Do you have any abdominal pain?: No Are you experiencing loss of taste or smell?: No Other Medical History Have you received the Flu Vaccine for this season: No Have you received the Pneumonia Vaccine: No ROS Obtained: Yes All systems reviewed & no additional complaints except as documented Physical Exam General General appearance: alert and in no apparent distress Head Head exam: atraumatic and normocephalic Eye Eye exam: Present normal appearance, PERRL and EOMI ENT ENT exam: Present normal exam, normal oropharynx, mucous membranes moist and normal external ear exam Neck Neck exam: Present normal inspection, full ROM and trachea midline; Absent tenderness Chest Chest inspection: Present normal inspection and symmetric chest wall rise; Absent tenderness Respiratory Respiratory exam: Present normal lung sounds bilaterally; Absent respiratory distress, wheezes, stridor or accessory muscle use Cardiovascular Cardiovascular exam: Present regular rate and normal rhythm Abdominal Exam Abdominal exam: Present soft; Absent distention, tenderness or guarding Extremities Exam Extremities exam: Present normal inspection, full ROM and normal capillary refill; Absent tenderness or edema Back Exam Back exam: Present normal inspection and full ROM; Absent tenderness Neurological Exam Neurological exam: Present alert, oriented X3, normal gait and other (Left-sided facial droop, no other focal neurologic deficits noted on exam. NIH stroke scale is 2); Absent CN II-XII intact or motor sensory deficit Psychiatric Psychiatric exam: Present normal affect and normal mood Skin Skin exam: Present warm and dry Medical Decision Making Medical Records Medical records reviewed: Yes I reviewed the patient's medical records. Screening: Per USPSTF and CDC recommendations, given the prevalence of disease in our region, it is our hospital?s policy to screen for HIV and viral Hepatitis for all patients aged 18 and over and those with ongoing risk factors. [place] Inquiry Pt receiving controlled substance: No Vital Signs: 03/11/25 12:13 03/11/25 12:25 03/11/25 12:30 Temperature 98.2 F Temperature Source Oral Pulse Rate 57 L Pulse Rate [Left Radial] 90 Respiratory Rate 20 19 Blood Pressure 220/92 H 221/135 H Blood Pressure [Right Arm] 178/110 H Blood Pressure Mean [Right Arm] 132 Blood Pressure Source Manual Cuff/ Auscultation 02 Sat by Pulse Oximetry 98 98 Oxygen Delivery Method Room Air 03/11/25 13:00 03/11/25 13:31 Temperature Temperature Source Pulse Rate 56 L 53 L Pulse Rate [Left Radial] Respiratory Rate 14 Blood Pressure 164/82 H 176/72 H Blood Pressure [Right Arm] Blood Pressure Mean [Right Arm] Blood Pressure Source 02 Sat by Pulse Oximetry 99 98 Oxygen Delivery Method Lab Data Lab results reviewed: Yes I reviewed the patient's lab results. Lab Results 03/11/25 12:10: WBC 9.5, RBC 5.16, Hgb 16.4, Hct 49.1, MCV 95.2 H, MCH 31.8 H, MCHC 33.4, RDW 13.7, Plt Count 225, MPV 10.7 H, Neut % (Auto) 57.7, Lymph % (Auto) 32.3, Cooper % (Auto) 7.4, Eos % (Auto) 1.8, Baso % (Auto) 0.7, Neut # (Auto) 5.5, Lymph # (Auto) 3.1, Cooper # (Auto) 0.7, Eos # (Auto) 0.2, Baso # (Auto) 0.1, PT 10.5, INR 0.93, APTT 32.4 H, Sodium 138, Potassium 4.3, Chloride 107, Carbon Dioxide 28, Anion Gap 7.3, BUN 13, Creatinine 1.20, Estimated Creat Clear 76, Estimated GFR 60, Est GFR ( Amer) 73, Glucose 101 H, Calcium 9.6, Total Bilirubin 0.9, AST 35, ALT 30, Alkaline Phosphatase 103, Troponin I < 0.01, Total Protein 7.9, Albumin 4.8, Globulin 3.1, Albumin/Globulin Ratio 1.5, Triglycerides 181 H, Cholesterol 250 H, LDL Cholesterol Direct 155.90 H, VLDL Cholesterol 36, HDL Cholesterol 53, Cholesterol/HDL Ratio 4.7 H, Plasma/Serum Alcohol < 10 03/11/25 12:35: Urine Color Yellow, Urine Appearance Clear, Urine pH 7.0, Ur Specific [place] <= 1.005, Urine Protein Negative, Urine Glucose (UA) Negative, Urine Ketones Negative, Urine Blood Negative, Urine Nitrate Negative, Urine Bilirubin Negative, Urine Urobilinogen 0.2, Ur Leukocyte Esterase Negative, Urine RBC None, Urine WBC None, Ur Squamous Epith Cells Occasional, Urine Bacteria Trace, Urine Opiates Screen Negative, Urine Methadone Screen Negative, Ur Barbituates Screen Negative, Ur Phencyclidine Scrn Negative, Ur Amphetamines Screen Negative, U Benzodiazepines Scrn Negative, Urine Cocaine Screen Negative, U Marijuana (THC) Screen Negative 03/11/25 12:10 03/11/25 12:10 Orders (Tests/Meds): ED MEDICATIONS Generic Name Dose Route Start Last Admin Trade Name Freq PRN Reason Stop Dose Admin Sodium Chloride 10 ml 03/11/25 12:04 Sodium Chloride 0.9% 10ml Flush Syringe IV 04/10/25 12:03 NEEDED PRN Maintain IV Site Discontinued Medications Generic Name Dose Route Start Last Admin Trade Name Amelie PRN Reason Stop Dose Admin Hydralazine HCl 20 mg 03/11/25 12:41 03/11/25 12:46 Hydralazine 20mg/Ml Vial IV 03/11/25 12:42 20 mg ONCE ONE Administration Iopamidol 80 ml 03/11/25 12:20 03/11/25 12:22 Iopamidol-370 (76%);100ml Bottle IV 03/11/25 12:21 80 ml ONCE ONE Administration Sodium Chloride 50 ml 03/11/25 12:20 03/11/25 12:21 0.9 % Sodium Chloride 50 Ml Vial IV 03/11/25 12:21 50 ml ONCE ONE Administration Sodium Chloride 10 ml 03/11/25 12:20 03/11/25 12:22 Sodium Chloride 0.9% 10ml Syr (Rad Only) IV 03/11/25 12:21 10 ml ONCE ONE Administration ORDERS Category Date Time Status CT angio head Stat Cat Scan 03/11/25 12:[address] angio neck Stat Cat Scan 03/11/25 12:[address] head/brain wo con Stat Cat Scan 03/11/25 12:04 Completed Consult to Case Management [CONS] Routine Cons 03/11/25 13:29 Active Activated Partial Thrombo Time Stat Lab 03/11/25 12:10 Completed Complete Blood Count Auto Diff Stat Lab 03/11/25 12:10 Completed Comprehensive Metabolic Panel Stat Lab 03/11/25 12:10 Completed Drug Screen,Urine Stat Lab 03/11/25 12:35 Completed Ethyl Alcohol Stat Lab 03/11/25 12:10 Completed Lipid Panel Stat Lab 03/11/25 12:10 Completed Prothrombin Time INR Stat Lab 03/11/25 12:10 Completed Troponin I Q3H Lab 03/11/25 15:15 Ordered Troponin I Q3H Lab 03/11/25 18:15 Ordered Troponin I Stat Lab 03/11/25 12:10 Completed Urinalysis and Microscopic Stat Lab 03/11/25 12:35 Completed ECG Data Tracing #1: I reviewed this ECG and interpreted as documented below: Sinus bradycardia with a ventricular to [address]/T wave changes that acute STEMI. ECG initial impression date: 03/11/25 ECG initial impression time: 12:29 Medical Decision Narrative: In summary, this patient is a 69-year-old male presenting to the Emergency Department for evaluation of left-sided facial droop and feeling lightheaded. Differential diagnoses considered include but are not limited to CVA, intracranial hemorrhage, intracranial mass, recrudescence of prior stroke. Ruling out the most morbid conditions drove assessment. It should be noted patient's history includes prior CVA, hypertension which are not at goal therapy. This complicates all aspects of care by increasing patient's risk for morbidity. I reviewed patient's past medical records and noted prior evaluation March 2024. He had abnormal speech with concern for CVA and uncontrolled hypertension. He was transferred to [facility] for this. NIH was 1 at that time. On exam, the patient has left-sided facial droop without other focal neurologic deficit noted. He is profoundly hypertensive with systolics greater than 230 upon arrival. Patient was stroke alerted and taken emergently for CTs, however his last known well was at some point yesterday so he presents outside of window for thrombolytics. Workup included lab evaluation to evaluate for infectious, metabolic, cardiac derangements that could be mimicking stroke symptoms as well as stroke CTs including CT head, CT angiogram head and neck. I independently interpreted CT scans prior to the radiologist read and noted no obvious large space-occupying lesion or intracranial hemorrhage. Please see their read for final interpretation. They noted diffuse intracranial atherosclerotic disease as well as worsening stenosis of the right A1 origin, at which point I had shared imaging with neurosurgery. I had an interactive discussion with both neurosurgery and neurology at (Dr. Alaniz and Dr. Tucker) who advised that the patient has no large vessel occlusion amenable to intervention. They recommended admission for risk factor modification, monitoring, further stroke workup. Did not recommend transfer to because he is not a candidate for thrombolytics or thrombectomy. Recommended dual antiplatelet therapy and statin for cholesterol. Patient continued to be profoundly hypertensive here beyond the point of permissive hypertension, so I did administer a dose of IV hydralazine with good improvement in his blood pressure. Labs were obtained that demonstrated reassuring CBC with no significant leukocytosis or anemia, reassuring chemistry, coags with a mildly elevated PTT but otherwise normal. He does have hyperlipidemia noted on labs. On reassessment, patient is sitting upright in no acute distress. Blood pressure improved. I feel the patient is appropriate for admission for further evaluation and management. I had an interactive discussion with her hospitalist who admitted the patient in stable condition. Critical Care Critical Care Time Critical Care Time: Yes Attestation: On 03/11/25, the high probability of a clinically significant, sudden or life threatening deterioration of the following system(s) required my full and direct attention, intervention and personal management. The time I documented below is in addition to time spent performing reported procedures but includes the following listed in this critical care notation. Total Time Total Critical Care Time: 45
--- NOTE | 2025-03-11 14:17 | PC.NURSE ---
pt is currently refusing to be admitted here at [facility] and stated that he would like to go to [facility] Doe paged at this time
--- NOTE | 2025-03-11 14:22 | PC.NURSE ---
Called [facility] per for a poss transfer for an acute stroke. Dr. Mcdonald is currently on the phone with [facility] now.
--- NOTE | 2025-03-11 14:29 | PC.NURSE ---
pt accepted to [facility]. house notified of change
--- NOTE | 2025-03-11 15:38 | PC.NURSE ---
called report to Chanell ARELLANO at [facility] 3E/F
--- NOTE | 2025-03-11 15:39 | PC.NURSE ---
called ems for transport
[2025-03-11 15:45] LABS: Troponin I < 0.01 ng/ml (0.00-0.034)
== END 2025-03-11 16:18 | disposition short-term general hospital (02) ==
LOC: ER 12:50 → 2ND 14:14 → ER 14:41
PROVIDERS: Emergency Provider Emergency Medicine; PCP Nurse Practitioner Family
DX: I63.9 Cerebral infarction, unspecified (principal); I10 Essential (primary) hypertension; R00.1 Bradycardia, unspecified; R29.810 Facial weakness; R29.702 NIHSS score 2
CPT/HCPCS: 70450; 70496; 70498; 80053; 80061; 80307; 80320; 81001; 84484; 85025; 85610; 85730; 93005; 96374; 99291; J0360; Q9967

== ENCOUNTER 2025-05-04 13:38 | Outpatient (CLI) | payer MEDICARE, MEDICAID, SELFPAY ==
--- OUTSIDE RECORDS SUMMARY | 2025-05-04 13:41 | XMS_ITS | Encounter Summary ---
Author Organization [employer] ([place], [place], [place], [place]) Address [address] [place] [address] Care Team Providers Care Assistant Plant Manager Name Role Phone Unavailable Primary Care Provider Unavailabl e Encounter Details Date Type Department Care Team (Late st Contact Info) Description 05/07/2021 Transcribed Document [facility] [place] [facility] [place] [address] ProviderLatonia MD [facility] [place] [address] Social History Tobacco Use Types Packs/Day Years Used Date Smoking Tobacco: Never Assessed Sex and Gender Information Value Date Recorded Sex Assigned at Not on file Legal Sex Male 7:22 PM CDT Gender Identity Not on file Sexual Orientation Not on file documented as of this encounter Miscellaneous Notes * Cerner Conversion Note - Historical ProviderMD - 05/07/2021 5:00 AM CDT Chart Check - Review Order Profile Entered On: 05/07/2021 3:14 EDT Performed On: 05/07/2021 5:00 EDT by Gracy Ruelas Lpn Chart Check Powerplans Initiated/Discontinued as Appropriate : Yes All Active Orders Reviewed : Yes Gracy Ruelas Lpn - 05/07/2021 3:14 EDT documented in this encounter Plan of Treatment Not on file documented as of this encounter Visit Diagnoses Not on filedocumented in this encounter
--- OUTSIDE RECORDS SUMMARY | 2025-05-04 13:41 | XMS_ITS | Encounter Summary ---
Author Organization [employer] ([place], [place], [place], [place]) Address [address] [place] [address] Care Team Providers Care Supervisor Firearms Name Role Phone Unavailable Primary Care Provider Unavailabl e Encounter Details Date Type Department Care Team (Late st Contact Info) Description 05/06/2021 Transcribed Document [facility] [place] Family Medicine [facility] [place] [address] ProviderLatonia MD [facility] [place] [address] Social History Tobacco Use Types Packs/Day Years Used Date Smoking Tobacco: Never Assessed Sex and Gender Information Value Date Recorded Sex Assigned at Not on file Legal Sex Male 7:22 PM CDT Gender Identity Not on file Sexual Orientation Not on file documented as of this encounter Miscellaneous Notes * Cerner Conversion Note - Latonia ProviderMD - 05/06/2021 12:34 PM CDT Patient: SADIQ ISRAEL Age: 66 Years Sex: Male : 1955 Subjective Drowsy this morning Intake & Output Intake & Output Totals Last 24 Hours (7a-7a) Intake (11 Events) Medications (354 mL) Surgical Services Intake (800 mL) Output (1 Events) Urine Voided (Volume) (200 mL) Input Total: 1154 mL Output Total: 200 mL Balance: 954 mL Vital Signs T: 36.8 ??C TMIN: 34.7 ??C TMAX: 36.8 ??C HR: 58(Monitored) RR: 12 BP: 99/53 SpO2: 100% Physical Exam Gen: NAD, drowsy. Opens eyes to stimulation Resp: Nonlabored respirations CV: Normal peripheral perfusion Ab: soft, NTND. Incisions c/d/i VTE Risk Total Score VTE Prophylaxis - Surgical Heparin 5,000 Units, SubCutaneous, Inj, [id number], Routine, Start 05/03/21 6:00:00 EDT, 05/03/21 1:32:00 EDT (SHABNAM MARSH) Sequential Compression Device Start: 05/05/21 10:49:00 EDT, Bilateral, Length: Knee High, Apply in OR, Continuous Order (SUSANA MARSHALL) Assessment/Plan Status post ERCP and robotic cholecystectomy for choledocholithiasis diet as tolerated Minimize use of narcotics Recommend outpt GI follow up for possible early cirrhosis Surgery will continue to follow Unspecified jaundice R17, Unspecified jaundice R17 Orders: acetaminophen, 500 mg, Oral, Tab, Q6H, Routine, Start 05/05/21 18:00:00 EDT, 05/05/21 15:13:00 EDT oxyCODONE, 5 mg, Oral, Tab, Q4H, PRN for Abdominal Pain, Routine, Start 05/05/21 15:13:00 EDT, 05/05/21 15:13:00 EDT Ambulate Diet, Adult Facility Protocol Intake and Output Path Tissue Request, Sendout Pathology Tissue Request SENDOUT REPORT Medications Inpatient Ancef, 2 Gram= 50 mL, IV Piggyback, PREOP cloNIDine 50 mcg + dexAMETHasone 4 mg + bupivacaine 0.25% injectable solution 28.35 mL + EPINEPHrin cloNIDine 50 mcg + dexAMETHasone 4 mg + bupivacaine 0.25% injectable solution 28.35 mL + EPINEPHrin Cymbalta, 30 mg= 1 Cap, Oral, Daily Dulcolax Laxative, 5 mg= 1 Tab, Oral, Daily, PRN Dulera 100 mcg-5 mcg/inh inhalation aerosol, 2 Puff, Inhalation, BID DuoNeb 0.5 mg-2.5 mg/3 mL inhalation solution, 3 mL, Nebulized Inhalation , RT_Q6H, PRN heparin, 5000 Units= 1 mL, SubCutaneous, [id number] lisinopril, 10 mg= 1 Tab, Oral, Daily oxyCODONE, 5 mg= 1 Tab, Oral, Q4H, PRN Pepcid, 40 mg= 2 Tab, Oral, Daily Rocephin tiotropium, 2 Inhalation, Inhalation, RT_Daily Tylenol, 650 mg= 2 Tab, Oral, Q4H, PRN Tylenol, 500 mg= 1 Tab, Oral, Q6H Zofran, 4 mg= 2 mL, IV Push, Q4H, PRN Home allopurinol 100 mg oral tablet, 200 mg= 2 Tab, Oral, Daily Cymbalta 30 mg oral delayed release capsule, 30 mg= 1 Cap, Oral, BID lisinopril 40 mg oral tablet, 40 mg= 1 Tab, Oral, Daily loratadine 10 mg oral tablet, 10 mg= 1 Tab, Oral, Daily nadolol 20 mg oral tablet, 40 mg= 2 Tab, Oral, Daily omeprazole 40 mg oral delayed release capsule, 40 mg= 1 Cap, Oral, Daily Spiriva Respimat 60 ACT 2.5 mcg/inh inhalation aerosol, 2 Puff, Inhalation, Daily Symbicort 160 mcg-4.5 mcg/inh inhalation aerosol, 2 Puff, Inhalation, BID Ventolin HFA 90 mcg/inh inhalation aerosol, 2 Puff, Inhalation, Q6H, PRN Zetia 10 mg oral tablet, 10 mg= 1 Tab, Oral, Daily Routine Labs - Last 24 Hours No qualifying data available Albumin Level: 1.5 Gram/dL Low Alk Phos: 467 Units/Liter High ALT: 42 Units/Liter Anion Gap: 10 AST: 79 Units/Liter High Bilirubin Total: 2.1 mg/dL High Calcium Level: 7.9 mg/dL Low Protein Total: 5.2 Gram/dL Low Imaging Results (Last 24 Hours) No Radiology Results Found Problem List/Past Medical History Ongoing At risk for sleep apnea COPD (chronic obstructive pulmonary disease) Gout Hypertension Smoker Historical No qualifying data Procedure/Surgical History APPENDECTOMY (1961). Allergies No Known Allergies documented in this encounter Plan of Treatment Not on file documented as of this encounter Visit Diagnoses Not on filedocumented in this encounter
--- OUTSIDE RECORDS SUMMARY | 2025-05-04 13:41 | XMS_ITS | Encounter Summary ---
Author Organization [employer] ([place], [place], [place], [place]) Address [address] [place] [address] Care Team Providers Care Patent Clerk Name Role Phone Unavailable Primary Care Provider Unavailabl e Encounter Details Date Type Department Care Team (Late st Contact Info) Description 05/07/2021 Transcribed Document [facility] [place] Family Medicine [facility] [address] ProviderLatonia MD [facility] [address] Social History Tobacco Use Types Packs/Day Years Used Date Smoking Tobacco: Never Assessed Sex and Gender Information Value Date Recorded Sex Assigned at Not on file Legal Sex Male 7:22 PM CDT Gender Identity Not on file Sexual Orientation Not on file documented as of this encounter Miscellaneous Notes * Cerner Conversion Note - Latonia ProviderMD - 05/07/2021 1:41 PM CDT Discharge Summary, PT Entered On: 05/07/2021 13:43 EDT Performed On: 05/07/2021 13:41 EDT by MARIELLA ESCALANTE, PT Discharge Summary Reason for Discharge : Discharge order Discharged to, Therapy : Unit, rehabilitation Discharge Equipment, PT : None Discharge Summary Comment, PT : The patient was seen for PT evaluation but underwent a laproscopic cholecystectomy shortly thereafter. PT requested that PT be reordered as per protocal but no such order was forthcoming prior to discharge to [facility]. MARIELLA ESCALANTE, PT - 05/07/2021 13:41 EDT Supervisor [employer] Department Goals Mobility/Bed Mobility LTG PT Grid Goal #1 Goal #2 Activity : Supine to sit Sit to stand Assist : Independent, modified Independent, modified Date to Meet : 05/17/2021 EDT 05/17/2021 EDT Goal Status : Not met Not met MARIELLA ESCALANTE, PT - 05/07/2021 13:41 EDT MARIELLA ESCALANTE PT - 05/07/2021 13:41 EDT Ambulation LTG Grid Goal #1 Device : Walker, front wheel Distance : 300ft Assist : Independent, modified Date to Meet : 05/17/2021 EDT Goal Status : Not met MARIELLA ESCALANTE, PT - 05/07/2021 13:41 EDT Electronically signed by Abelino [facility] Conversion Taker Off Hemp Fiber Cerner at 02/22/2023 8:33 PM CDT documented in this encounter Plan of Treatment Not on file documented as of this encounter Visit Diagnoses Not on filedocumented in this encounter
--- OUTSIDE RECORDS SUMMARY | 2025-05-04 13:41 | XMS_ITS | Encounter Summary ---
Author Organization [employer] ([place], [place], [place], [place]) Address [address] [place] [address] Care Team Providers Care Release Of Information Clerk Name Role Phone Unavailable Primary Care Provider Unavailabl e Encounter Details Date Type Department Care Team (Late st Contact Info) Description 05/07/2021 Transcribed Document [facility] [place] [facility] [place] [address] ProviderLatonia MD [facility] [place] [address] Social History Tobacco Use Types Packs/Day Years Used Date Smoking Tobacco: Never Assessed Sex and Gender Information Value Date Recorded Sex Assigned at Not on file Legal Sex Male 7:22 PM CDT Gender Identity Not on file Sexual Orientation Not on file documented as of this encounter Miscellaneous Notes * Cerner Conversion Note - Latonia ProviderMD - 05/07/2021 4:07 PM CDT Stroke/Warfarin Instructions Entered On: 05/07/2021 16:07 EDT Performed On: 05/07/2021 16:07 EDT by Mark Anthony Viveros RN Stroke/Warfarin Instructions Stroke/TIA Discharge Ins : N/A Warfarin Discharge Ins : N/A Mark Anthony Viveros RN - 05/07/2021 16:07 EDT documented in this encounter Plan of Treatment Not on file documented as of this encounter Visit Diagnoses Not on filedocumented in this encounter
--- OUTSIDE RECORDS SUMMARY | 2025-05-04 13:41 | XMS_ITS | Encounter Summary ---
Author Organization [employer] ([place], [place], [place], [place]) Address [address] [place] [address] Care Team Providers Care Range Rider Name Role Phone Unavailable Primary Care Provider Unavailabl e Encounter Details Date Type Department Care Team (Late st Contact Info) Description 05/03/[address] [facility] [place] Medicine [facility] [place] [address] ProviderLatonia MD [facility] [place] [address] Social History Tobacco Use Types Packs/Day Years Used Date Smoking Tobacco: Never Assessed Sex and Gender Information Value Date Recorded Sex Assigned at Not on file Legal Sex Male 7:22 PM CDT Gender Identity Not on file Sexual Orientation Not on file documented as of this encounter Miscellaneous Notes * Cerner Conversion Note - Historical ProviderMD - 05/03/2021 1:02 AM CDT Education-(VTE) / (DVT) Entered On: 05/03/2021 4:24 EDT Performed On: 05/03/2021 1:02 EDT by Randee Giron RN Teaching/Learning Assessment Barriers To Learning : None evident Individuals Taught : Patient Readiness to Learn : Cooperative Readiness to Learn : Explanation Learning Style Preferences Patient : Verbal explanation Randee Giron RN - 05/03/2021 4:24 EDT documented in this encounter Plan of Treatment Not on file documented as of this encounter Visit Diagnoses Not on filedocumented in this encounter
--- OUTSIDE RECORDS SUMMARY | 2025-05-04 13:41 | XMS_ITS | Encounter Summary ---
Author Organization [employer] ([place], [place], [place], [place]) Address [address] [place] [address] Care Team Providers Care Production Estimator Name Role Phone Unavailable Primary Care Provider Unavailabl e Encounter Details Date Type Department Care Team (Late st Contact Info) Description 05/06/2021 Transcribed Document [facility] [place] [facility] [place] [address] ProviderLatonia MD [address] [place] [address] Social History Tobacco Use Types Packs/Day Years Used Date Smoking Tobacco: Never Assessed Sex and Gender Information Value Date Recorded Sex Assigned at Not on file Legal Sex Male 7:22 PM CDT Gender Identity Not on file Sexual Orientation Not on file documented as of this encounter Miscellaneous Notes * Cerner Conversion Note - Latonia ProviderMD - 05/06/2021 12:00 PM CDT Pain Assessment Entered On: 05/06/2021 17:10 EDT Performed On: 05/06/2021 12:59 EDT by DONALD RAMOS RN Intervention Information: acetaminophen Performed by DONALD RAMOS RN on 05/06/2021 11:59:00 EDT acetaminophen,500mg Oral Pain Assessment Pain Assessment : Follow-up assessment Pain Scale Goal : 4 Pain Scale Used : 0-10 Scale Location : Abdominal Onset : Acute Quality : Aching Pain Radiation : No Pain Worsened by : Movement Pain Intervention, Drug : Medicated Pain Improved by Intervention : Yes DONALD RAMOS RN - 05/06/2021 17:09 EDT Pain Scale Intensity : 0 DONALD RAMOS RN - 05/06/2021 17:09 EDT Image 4 - Images currently included in the form version of this document have not been included in the text rendition version of the form. documented in this encounter Plan of Treatment Not on file documented as of this encounter Visit Diagnoses Not on filedocumented in this encounter
--- OUTSIDE RECORDS SUMMARY | 2025-05-04 13:41 | XMS_ITS | Encounter Summary ---
Author Organization [employer] ([place], [place], [place], [place]) Address [address] [place] [address] Care Team Providers Care Building Energy Retrofit Technician Name Role Phone Unavailable Primary Care Provider Unavailabl e Encounter Details Date Type Department Care Team (Late st Contact Info) Description 05/06/2021 Transcribed Document [facility] Radiology [address] [place] [address] Steve Kumar MD [address] [place] [address] [address] Social History Tobacco Use Types Packs/Day Years Used Date Smoking Tobacco: Never Assessed Sex and Gender Information Value Date Recorded Sex Assigned at Not on file Legal Sex Male 7:22 PM CDT Gender Identity Not on file Sexual Orientation Not on file documented as of this encounter Miscellaneous Notes * Cerner Conversion Note - Steve Kumar MD - 05/06/2021 9:41 AM EDT Patient: SADIQ BLANCAS Age: 66 years Sex: Male : 1955 Associated Diagnoses: None Author: STEVE KUMAR MD Basic Information Patient seen and examined today Patient had laparoscopic cholecystectomy yesterday Complaining of pain around the surgery site Patient still hypothermic and Aric hugger No family member at the bedside Hemodynamically stable Review of Systems No fever no chills No chest pain no palpitation No shortness of breath no cough No nausea no vomiting Health Status Allergies: Allergic Reactions (Selected) No Known Allergies, Allergies (1) Active Reaction No Known Allergies None Documented Current medications: (Selected) Inpatient Medications Ordered Ancef: 2 Gram, 50 mL, 100 mL/Hr, IV Piggyback, PREOP Cymbalta: 30 mg, Oral, Daily Dulcolax Laxative: 5 mg, Oral, Daily, PRN: Constipation Dulera 100 mcg-5 mcg/inh inhalation aerosol: 2 Puff, Inhalation, BID DuoNeb 0.5 mg-2.5 mg/3 mL inhalation solution: 3 mL, Nebulized Inhalation, RT_Q6H, PRN: Shortness of Breath Nicoderm C-Q 21 mg/24 hr transdermal film, extended release: 1 Patch, TransDermal, Daily Pepcid: 40 mg, Oral, Daily Rocephin: 1 Gram, 100 mL/Hr, IV Piggyback, [id number] Tylenol: 500 mg, Oral, Q6H Tylenol: 650 mg, Oral, Q4H, PRN: Pain (Mild 1-3) Zofran: 4 mg, IV Push, Q4H, PRN: Nausea cloNIDine 50 mcg + dexAMETHasone 4 mg + bupivacaine 0.25% injectable solution 28.35 mL + EPINEPHrin...: 50 mcg, 0.5 mL, 1800 mL/Hr, Nerve Root Block, 1-Time cloNIDine 50 mcg + dexAMETHasone 4 mg + bupivacaine 0.25% injectable solution 28.35 mL + EPINEPHrin...: 50 mcg, 0.5 mL, 1800 mL/Hr, Nerve Root Block, 1-Time heparin: 5,000 Units, SubCutaneous, [id number] lisinopril: 10 mg, Oral, Daily morphine: 2 mg, IV Push, Q3H, PRN: Abdominal Pain oxyCODONE: 5 mg, Oral, Q4H, PRN: Abdominal Pain tiotropium: 2 Inhalation, Inhalation, RT_Daily Documented Medications Documented Cymbalta 30 mg oral delayed release capsule: 1 Cap, Oral, BID, 0 Refill(s) Spiriva Respimat 60 ACT 2.5 mcg/inh inhalation aerosol: 2 Puff, Inhalation, Daily, 0 Refill(s) Symbicort 160 mcg-4.5 mcg/inh inhalation aerosol: 2 Puff, Inhalation, BID, 0 Refill(s) Ventolin HFA 90 mcg/inh inhalation aerosol: 2 Puff, Inhalation, Q6H, PRN: Wheezing, 0 Refill(s) Zetia 10 mg oral tablet: 1 Tab, Oral, Daily, 0 Refill(s) allopurinol 100 mg oral tablet: 2 Tab, Oral, Daily, 0 Refill(s) lisinopril 40 mg oral tablet: 1 Tab, Oral, Daily, 0 Refill(s) loratadine 10 mg oral tablet: 1 Tab, Oral, Daily, 0 Refill(s) nadolol 20 mg oral tablet: 2 Tab, Oral, Daily, 0 Refill(s) omeprazole 40 mg oral delayed release capsule: 1 Cap, Oral, Daily, before a meal, 30 Cap, 0 Refill(s), Medications (18) Active Scheduled: (12) acetaminophen 500 mg tab 500 mg 1 Tab, Oral, Q6H ceFAZolin/D5w 2 Gram 50 mL, IV Piggyback, PREOP cefTRIAXone 1 Gram, IV Piggyback, [id number] cloNIDine 50 mcg + dexAMETHasone 4 mg + bupivacaine 0.25% 28.35 mL + EPINEPHrine 0.15 mg 50 mcg 0.5 mL, Nerve Root Block, 1-Time cloNIDine 50 mcg + dexAMETHasone 4 mg + bupivacaine 0.25% 28.35 mL + EPINEPHrine 0.15 mg 50 mcg 0.5 mL, Nerve Root Block, 1-Time DULoxetine DR 30 mg cap 30 mg 1 Cap, Oral, Daily famotidine 20 mg tab 40 mg 2 Tab, Oral, Daily heparin 5,000 units/1 mL inj 5,000 Units 1 mL, SubCutaneous, [id number] lisinopril 10 mg tab 10 mg 1 Tab, Oral, Daily mometasone/formoterol 100/5 mcg inh 2 Puff, Inhalation, BID nicotine 21 mg/24 hr patch 1 Patch, TransDermal, Daily tiotropium 2.5 mcg inh 4 g 2 Inhalation, Inhalation, RT_Daily Continuous: (0) PRN: (6) acetaminophen 325 mg tab 650 mg 2 Tab, Oral, Q4H albuterol-ipratropium inh 3 mL 3 mL, Nebulized Inhalation, RT_Q6H bisacodyl EC 5 mg tab 5 mg 1 Tab, Oral, Daily morphine 2 mg/1 ml inj 2 mg 1 mL, IV Push, Q3H ondansetron 4 mg/2 mL inj 4 mg 2 mL, IV Push, Q4H oxyCODONE 5 mg tab 5 mg 1 Tab, Oral, Q4H Problem list: Medical At risk for sleep apnea / IMO [id number] / Confirmed, Active Problems (5) At risk for sleep apnea COPD (chronic obstructive pulmonary disease) Gout Hypertension Smoker Physical Examination VS/Measurements Vitals Signs (last 24 hrs) Last Charted Minimum Maximum Temp 98.2 (MAY 06 08:38) L 94.9 (MAY 05 18:40) 98.1 (MAY 05 15:00) Mon HR 59 (MAY 06 08:38) 45 (MAY 05 10:31) 60 (MAY 05 14:55) Resp Rate L 12 (MAY 06 05:06) L 8 (MAY 05 15:05) H 26 (MAY 05 14:35) SBP 99 (MAY 06 08:38) 95 (MAY 06 03:32) H 180 (MAY 05 14:40) DBP L 53 (MAY 06 08:38) L 48 (MAY 05 23:02) 82 (MAY 05 14:40) MAP 72 (MAY 06 08:38) 69 (MAY 06 05:06) 118 (MAY 05 14:40) SpO2 100 (MAY 06 08:38) 99 (MAY 05 10:31) 100 (MAY 05 14:06) Radiology Results (Last 48 hours) [id number] -- 05/03/2021 00:04 CR Ercp Biliary Duct SI (05/04/2021 11:29) Result: ERCP.HISTORY: An ERCP was performed. Spot films were obtained.FINDINGS: A single spot image was obtained. The endoscope is identifiedin position. The common duct is cannulated. Contrast is identified inthe common duct. There are no definite filling defects. FLUOROSCOPY TIME: 1 minutes and 30 seconds.IMPRESSION: ERCP performed by referring physician. Please see ERCPprocedure report.Images reviewed, interpreted, and dictated by Dr. Bhupendra Camara.Transcribed by Arden King PA-C.I have personally viewed, interpreted and dictated the examination. Ihave read and agree with the above final transcribed report. Review / Management Results review: Labs (Last four charted values) WBC H 15.0 (MAY 06) 6.5 (MAY 05) 7.6 (MAY 04) H 10.8 (MAY 03) HB L 8.7 (MAY 06) L 8.8 (MAY 05) L 8.3 (MAY 04) L 8.0 (MAY 03) HCT L 26.3 (MAY 06) L 27.2 (MAY 05) L 25.6 (MAY 04) L 24.7 (MAY 03) Plt H 394 (MAY 06) H 370 (MAY 05) 335 (MAY 04) 297 (MAY 03) Na L 135 (MAY 06) L 133 (MAY 05) 136 (MAY 04) L 132 (MAY 03) K 4.5 (MAY 06) 3.9 (MAY 05) 3.5 (MAY 04) 3.6 (MAY 03) Cl 106 (MAY 06) 104 (MAY 05) 106 (MAY 04) 102 (MAY 03) CO2 24 (MAY 06) 24 (MAY 05) 24 (MAY 04) 22 (MAY 03) BUN 22 (MAY 06) 18 (MAY 05) 14 (MAY 04) 20 (MAY 03) Cr 1.20 (MAY 06) 0.90 (MAY 05) L 0.40 (MAY 04) L 0.60 (MAY 03) Glu R H 123 (MAY 06) H 116 (MAY 05) 85 (MAY 04) L 69 (MAY 03) Ca L 7.9 (MAY 06) L 7.9 (MAY 05) L 7.9 (MAY 04) L 8.0 (MAY 03) Lactic L 0.3 (MAY 06) AST H 79 (MAY 06) H 84 (MAY 05) H 153 (MAY 04) H 127 (MAY 03) ALT 42 (MAY 06) 57 (MAY 05) 59 (MAY 04) 42 (MAY 03) ALK P H 467 (MAY 06) H 553 (MAY 05) H 587 (MAY 04) H 525 (MAY 03) T Bili H 2.1 (MAY 06) H 2.6 (MAY 05) H 3.2 (MAY 04) H 4.7 (MAY 03) PTN L 5.2 (MAY 06) L 5.5 (MAY 05) L 5.1 (MAY 04) L 5.3 (MAY 03) ALB L 1.5 (MAY 06) L 1.4 (MAY 05) L 1.3 (MAY 04) L 1.3 (MAY 03) Lipase 81 (MAY 05) 107 (MAY 04) 199 (MAY 03) Troponin 0.033 (MAY 05) . Radiology Results (Last 48 hours) [id number] -- 05/03/2021 00:04 CR Ercp Biliary Duct SI (05/04/2021 11:29) Result: ERCP.HISTORY: An ERCP was performed. Spot films were obtained.FINDINGS: A single spot image was obtained. The endoscope is identifiedin position. The common duct is cannulated. Contrast is identified inthe common duct. There are no definite filling defects. FLUOROSCOPY TIME: 1 minutes and 30 seconds.IMPRESSION: ERCP performed by referring physician. Please see ERCPprocedure report.Images reviewed, interpreted, and dictated by Dr. Bhupendra Camara.Transcribed by Arden King PA-C.I have personally viewed, interpreted and dictated the examination. Ihave read and agree with the above final transcribed report. Impression and Plan 1. Choledocholithiasis 2. Cholelithiasis 3. Elevated liver enzymes secondary to obstructed common bile duct 4. Erosive gastritis and duodenitis 5. Anemia of chronic disease 6. Hypertension 7. Chronic smoker 8. History of COPD Plan Patient status post ERCP, large stone obstructing common bile duct was found and removed General surgery consulted Status post laparoscopic cholecystectomy 05/05/2021 Patient on clear liquids Diet to be advanced by surgery Repeat CMP in a.m. dc IV fluids Continue supportive measures EGD noted with erosive gastritis and duodenitis Continue PPI Watch hemoglobin closely Continue blood pressure home medication Smoking cessation counseling Nicotine patch is offered Continue oxygen support and home inhalers DVT prophylaxis GI prophylaxis Past medical history reviewed Labs reviewed Medications reviewed Operative note reviewed Consultation notes reviewed CODE STATUS full code Time spent 27 minutes Discharge plan Most likely home in 1 or 2 days once okay with general surgery and patient tolerating diet documented in this encounter Plan of Treatment Not on file documented as of this encounter Visit Diagnoses Not on filedocumented in this encounter
--- OUTSIDE RECORDS SUMMARY | 2025-05-04 13:41 | XMS_ITS | Encounter Summary ---
Author Organization [employer] ([place], [place], [place], [place]) Address [address] [place] [address] Care Team Providers Care Pipe Coverer Name Role Phone Unavailable Primary Care Provider Unavailabl e Encounter Details Date Type Department Care Team (Late st Contact Info) Description 05/07/2021 Transcribed Document [facility] [place] [facility] [address] ProviderLatonia MD [facility] [address] Social History Tobacco Use Types Packs/Day Years Used Date Smoking Tobacco: Never Assessed Sex and Gender Information Value Date Recorded Sex Assigned at Not on file Legal Sex Male 7:22 PM CDT Gender Identity Not on file Sexual Orientation Not on file documented as of this encounter Miscellaneous Notes * Cerner Conversion Note - Historical ProviderMD - 05/07/2021 2:00 AM CDT Certified Genetic Counselor Details Entered On: 05/07/2021 1:44 EDT Performed On: 05/07/2021 2:00 EDT by Gracy Ruelas Lpn Order Details Transport Mode Order Detail : Bed (including specialty) Isolation Precautions Order Detail : Standard Precautions Order Detail : N/A IV Order Detail : 1 Oxygen Order Detail : 1 Nurse Collect Order Detail : 0 Lift/Transfer : Moderate assist Central Line Order Detail : No Room Service : Appropriate Arterial Line : No Patient Needs Meds Crushed/Liquid : No Gracy Ruelas Lpn - 05/07/2021 1:44 EDT documented in this encounter Plan of Treatment Not on file documented as of this encounter Visit Diagnoses Not on filedocumented in this encounter
--- OUTSIDE RECORDS SUMMARY | 2025-05-04 13:41 | XMS_ITS | Encounter Summary ---
Author Organization [employer] ([place], [place], [place], [place]) Address [address] [place] [address] Care Team Providers Care National Secretary Name Role Phone Unavailable Primary Care Provider Unavailabl e Encounter Details Date Type Department Care Team (Late st Contact Info) Description 05/07/2021 Transcribed Document [facility] [place] Family Medicine [facility] [place] [address] ProviderLatonia MD [facility] [place] [address] Social History Tobacco Use Types Packs/Day Years Used Date Smoking Tobacco: Never Assessed Sex and Gender Information Value Date Recorded Sex Assigned at Not on file Legal Sex Male 7:22 PM CDT Gender Identity Not on file Sexual Orientation Not on file documented as of this encounter Miscellaneous Notes * Cerner Conversion Note - Latonia ProviderMD - 05/07/2021 2:00 PM CDT Final Discharge Planning Entered On: 05/07/2021 14:01 EDT Performed On: 05/07/2021 14:00 EDT by JASON CHRISTIANSON, [employer] Final Discharge Planning Transportation Needs : Family/Friend Patient/Family Notified of Plan : Yes Support Person/Pt Rep Notified of Plan : Yes Is Patient Ready for Discharge? : Yes Physician Notified Patient is Ready for Discharge? : Yes Discharge To Care Management : SNF with Medicare Certification-03 JASON CHRISTIANSON, [employer] - 05/07/2021 14:03 EDT Discharge Arrangements : Patient Post-Acute Information Patient Name: SADIQ ISRAEL Gender: Male : [birth year] Age: 66 Years No Post-Acute Placement(s) Listed No Post-Acute Service(s) Listed No [place] Referral(s) Listed Patient Offered Choice/Affiliations Explained : Yes Designation of Choice Signed : Yes Follow Up Appointment Scheduled : No Is Patient High/Moderate Readmission Risk? : No JASON CHRISTIANSON, [employer] - 05/07/2021 14:00 EDT Final Narrative Note Final Narrative Note : Patient is a moderate readmission risk. Patient is discharging to [facility]. Family will transport. No other needs identified. DC summary can be faxed to [phone]. Report can be called to [phone]. JASON CHRISTIANSON [employer] - 05/07/2021 14:03 EDT Electronically signed by Abelino [facility] Conversion Material Mover Cerner at 02/22/2023 8:41 PM CDT documented in this encounter Plan of Treatment Not on file documented as of this encounter Visit Diagnoses Not on filedocumented in this encounter
--- OUTSIDE RECORDS SUMMARY | 2025-05-04 13:41 | XMS_ITS | Encounter Summary ---
Author Organization [employer] ([place], [place], [place], [place]) Address [address] [place] [address] Care Team Providers Care Furniture Delivery Driver Name Role Phone Unavailable Primary Care Provider Unavailabl e Encounter Details Date Type Department Care Team (Late st Contact Info) Description 05/06/2021 Transcribed Document [facility] [place] [facility] [place] [address] ProviderLatonia MD [facility] [place] [address] Social History Tobacco Use Types Packs/Day Years Used Date Smoking Tobacco: Never Assessed Sex and Gender Information Value Date Recorded Sex Assigned at Not on file Legal Sex Male 7:22 PM CDT Gender Identity Not on file Sexual Orientation Not on file documented as of this encounter Miscellaneous Notes * Cerner Conversion Note - Latonia ProviderMD - 05/06/2021 5:00 AM CDT Rapid Response Team Documentation Entered On: 05/06/2021 6:24 EDT Performed On: 05/06/2021 5:00 EDT by LAURITA MASTERSON RN Rapid Response Event Time Rapid Response Team Called : 05/06/2021 3:45 EDT Rapid Response Team Arrival Time : 05/06/2021 3:50 EDT Rapid Response Team Event End Time : 05/06/2021 5:00 EDT Rapid Response Event Intiated By : Hospital Staff Rapid Response Team Initiation Reason : Change in cardiovascular status, Change in mental status, Change in vital signs Rapid Response Event Location Type : Non Critical Care Rapid Response Team Initiation Reason Details : 4A - rm 464. Patient admitted with jaundice and cholecystitis s/p ERCP and lap cassidy having issues with decreased mental status, subnormal temp, and low blood pressure. Labs from previous day in keeping with earlier labs. Patient seen earlier for MEWS of 4 due to subnormal temp - recent MEWS have been 3. Patient has had Aric Hugger on all night and temp holding at 97 - 97.4. Patient remains very lethargic and difficult to arouse despite not having any narcotics during the night. SBP 90 - 103 with MAP of 70 - 75 as compared to preop SBP of 128 - 140. Nurse has concerns for sepsis. Dr. Golden notified and here to see. ABG done - results normal. Labs done. ammonia non-elevated. WBC up to 15 with H&H stable as compared to previous. Albumin 25 GM x 2 doses ordered and given. patient arousing more after albumin. Will continue to monitor. Rapid Response Admission Diagnosis : Unspecified jaundice Unspecified jaundice Rapid Response Medical Background : At risk for sleep apnea (Medical) COPD (chronic obstructive pulmonary disease) (Patient Stated) Gout (Patient Stated) Hypertension (Patient Stated) Smoker (Patient Stated) Rapid Response Allergies : Substance Category Reactions Severity No Known Allergies Drug Rapid Response Recent Vital Signs : 05/06/2021 05:06 Systolic Blood Pressure 105 05/06/2021 05:06 Diastolic Blood Pressure 50 05/06/2021 05:06 Heart Rate Monitored 55 05/06/2021 05:06 Respiratory Rate 12 05/06/2021 05:06 Temperature, Fahrenheit 97.5 05/06/2021 05:06 Oxygen Saturation 99 Rapid Response Recent Lab Results : 05/06/2021 04:09 Sodium Level LOW 135 (136-146) 05/06/2021 04:09 Potassium Level 4.5 (3.5-5.1) 05/06/2021 04:09 Calcium Level LOW 7.9 (8.4-10.1) 05/04/2021 06:58 Magnesium Level 2.2 (1.5-2.4) 05/06/2021 04:09 Chloride Level 106 (102-112) 05/06/2021 04:09 Carbon Dioxide Level 24 (21-32) 05/06/2021 04:09 Blood Urea Nitrogen 22 (7-22) 05/06/2021 04:09 Creatinine Level 1.20 (0.70-1.30) 05/06/2021 04:09 Hgb LOW 8.7 (13.5-17.3) 05/06/2021 04:09 Hct LOW 26.3 (40.1-51.0) 05/06/2021 04:09 RBC LOW 2.62 (4.20-5.70) 05/06/2021 04:09 WBC HI 15.0 (3.6-9.5) 05/06/2021 04:09 Platelet Count HI 394 (163-369) 05/05/2021 16:37 Troponin I Ultra 0.033 (0.015-0.045) 05/05/2021 16:37 CK MB <1.00 (0.50-3.60) 05/05/2021 05:24 Lipase Level 81 (73-393) 05/06/2021 04:28 pH Art 7.39 (7.35-7.45) 05/06/2021 04:28 pCO2 Art 38.2 (35.0-45.0) 05/06/2021 04:28 pO2 Art 99.2 (80.0-100.0) 05/06/2021 04:28 HCO3 Art 22.9 (20.0-26.0) 05/06/2021 04:28 BE Art -1.9 (-2.0-2.0) 05/06/2021 04:28 sO2 Art 98.4 (95.0-100.0) Weight/BMI : Clinical Weight/BMI CLINICALWEIGHT: 57.47 kg (05/03/21 00:01:00) Body Mass Index: 20.4 kg/m2 (05/03/21 00:01:00) Chest X Ray Performed : N/A Code Status Pre Event : Full Code Code Status Post Event : Full Code Procedure w/Anesthesia 24 Hr Prior Event : Yes Rapid Response Team Event Interventions : Additional Lab Testing, Arterial blood gas Patient Condition at End of Event : No S/S of Acute Distress Patient Disposition Post Event : No change in location/level of care Rapid Response Furniture Delivery Driver #1 : LAURITA MASTERSON, RN LAURITA MASTERSON, RN - 05/06/2021 6:15 EDT Electronically signed by Abelino [facility] Conversion Loop Tacker Cerner at 02/22/2023 8:37 PM CDT documented in this encounter Plan of Treatment Not on file documented as of this encounter Visit Diagnoses Not on filedocumented in this encounter
--- OUTSIDE RECORDS SUMMARY | 2025-05-04 13:41 | XMS_ITS | Encounter Summary ---
Author Organization [employer] ([place], [place], [place], [place]) Address [address] [place] [address] Care Team Providers Care French Translator Name Role Phone Unavailable Primary Care Provider Unavailabl e Encounter Details Date Type Department Care Team (Late st Contact Info) Description 05/03/2021 Transcribed Document [facility] Family Medicine [facility] [place] [address] ProviderLatonia MD [facility] [place] [address] Social History Tobacco Use Types Packs/Day Years Used Date Smoking Tobacco: Never Assessed Sex and Gender Information Value Date Recorded Sex Assigned at Not on file Legal Sex Male 7:22 PM CDT Gender Identity Not on file Sexual Orientation Not on file documented as of this encounter Miscellaneous Notes * Cerner Conversion Note - Latonia ProviderMD - 05/03/2021 9:16 AM CDT Patient: SADIQ BLANCAS Age: 66 Years Sex: Male : 1955 Chief Complaint Transferred from OSH for possible ERCP with concern for malignant biliary obstruction Reason for Consultation Mass on ampulla History of Present Illness Mr. Blancas is a 66-year-old male with history of COPD with ongoing tobacco abuse, hypertension who we have been consulted to see for mass on ampulla. Patient presented to OSH with complaints of generalized weakness, poor PO intake. Labs at OSH showed elevated liver enzymes with Bili 6.3, ALP 667, AST 79, ALT 39. WBC 14.6, hgb 10.4, platelets 461. Covid negative. Urinalysis also showed UTI for which he was given Rocephin. CT AP with contrast was done showing ampulla of vater lesion along with biliary dilatation. Patient was transferred here for possible ERCP. Labs here show Bili 4.7, ALP 525, AST 127, ALT 42. Macrocytic anemia with hgb 8.0. Patient denies abdominal pain, nausea or vomiting. Has had some fecal incontinence, reports stools are loose and thin. Denies pale stools or blood in stools. He reports dark urine. No history of GB, pancreatic or liver issues. He reports some yellowing of his eyes and skin. He states he has been feeling bad for the last 2 weeks. He denies drug use other than marijuana. Reports he stopped drinking alcohol 3 weeks ago, states he would drink 1 beer daily. Continues to smoke, 1/2 PPD. He reports he had a colonoscopy ~5 years go, states he thinks he had polyps. Has never had an EGD. On Protonix daily. No aspirin or NSAIDs per patient. No family history of pancreatic cancer. He reports weight loss, states he weight 195 pounds 3 months ago and now weights 148 pounds. Review of Systems A complete Review of systems was performed, all other systems were reviewed and are negative except as stated within the HPI. Vital Signs T: 36.3 ??C TMIN: 36.2 ??C TMAX: 36.4 ??C HR: 56(Monitored) RR: 18 BP: 125/67 SpO2: 97% HT: 167.64 cm WT: 57.47 kg BMI: 20.4 Oxygen Settings (Last) Oxygen Therapy Mode: Room air (05/03/21 03:00:00) Physical Exam General: Alert and oriented, no acute distress. No family at bedside. Neurologic: Awake, alert, and oriented X3, CN II-XII intact. Eye: PERRL, EOMI, normal conjunctiva, + scleral icterus HENT: Normocephalic, normal hearing, moist oral mucosa. Neck: Supple, non-tender, no lymphadenopathy. Lungs: BS=B, non-labored respiration on room air. Heart: Normal rate, regular rhythm, no murmur, or edema. Abdomen: Soft, non-tender, non-distended, normal bowel sounds, no obvious palpable masses. Musculoskeletal: Normal range of motion and strength, no joint tenderness or swelling. Skin: Skin is warm, dry, jaundiced, no obvious rashes or lesions. Psychiatric: Cooperative, appropriate mood and affect. Assessment/Plan Elevated liver enzymes with painless jaundice, weight loss -CT AP at OSH showed ampulla of vater lesion along with biliary dilatation concerning for possible malignancy. Will plan for ERCP tomorrow. Already on ABX--Rocephin. Orders placed, procedure scheduled. Check CA 19-9 and lipase. Will check acute viral hepatitis panel. patient denies drug use. Drinks 1 beer daily, states no use in 3 weeks. Macrocytic anemia -hgb noted to be 10.4 at OSH, hgb is 8.0 here. No overt GI blood loss. Check B12, folate especially in setting of daily alcohol use. Will also check iron studies. Replace as needed. Will also perform EGD tomorrow with ERCP to evaluate anemia. Covid negative at OSH Pt. agreeable to ERCP and EGD to evaluate for bleeding, stones, sludge, obstruction, abnormal anatomy. Procedure and concerns were discussed with the patient. Risks vs benefits discussed, such as bleeding, perforation, infection, reaction to anaesthesia, missed lesion, complication requiring additional surgery or procedures, failure to be able to complete procedure, development of pancreatitis which could be mild to severe. Pt will have additional opportunity to discuss this with the ordering/performing physician and have additional questions asked/answered prior to the procedure. H&P above was performed by Lisa Euceda PA-C and Dr. Blancas. I, Suyapa Blancas, have personally interviewed the patient, reviewed the chart, performed the physical exam and formulated the treatment plan. Thank you for this consultation. Provider Information Primary Care Physician - TREY, NOT LISTED Attending Physician - STEVE KUMAR MD Admitting Physician - GUILLAUME DIXON MD Consulting Physician - NESS WISE MD - mass on ampulla, call in AM Referring Physician - TREY, NOT LISTED Problem List/Past Medical History Ongoing At risk for sleep apnea COPD (chronic obstructive pulmonary disease) Gout Hypertension Smoker Procedure/Surgical History APPENDECTOMY (1961). Medications Inpatient Cymbalta, 30 mg= 1 Cap, Oral, Daily Dulcolax Laxative, 5 mg= 1 Tab, Oral, Daily, PRN DuoNeb 0.5 mg-2.5 mg/3 mL inhalation solution, 3 mL, Nebulized Inhalation , RT_Q6H, PRN heparin, 5000 Units= 1 mL, SubCutaneous, [id number] lisinopril, 10 mg= 1 Tab, Oral, Daily Nicoderm C-Q 21 mg/24 hr transdermal film, extended release, 1 Patch, TransDermal, Daily Protonix, 40 mg= 1 Tab, Oral, Daily Rocephin Sodium Chloride 0.9% intravenous solution 1,000 mL, 1000 mL, IntraVENous tiotropium, 2 Inhalation, Inhalation, RT_Daily Tylenol, 650 mg= 2 Tab, Oral, Q4H, PRN Zofran, 4 mg= 2 mL, IV Push, Q4H, PRN Home albuterol 1.25 mg/3 mL (0.042%) inhalation solution, Nebulized Inhalation , TID allopurinol 100 mg oral tablet, Oral, Daily Cymbalta 30 mg oral delayed release capsule, Oral, Daily lisinopril 10 mg oral tablet, Oral, Daily loratadine 10 mg oral tablet, Oral, Daily nadolol 20 mg oral tablet, Oral, Daily pantoprazole 40 mg oral delayed release tablet, Oral, Daily Spiriva 18 mcg inhalation capsule, 18 mcg= 1 Cap, Inhalation, Daily Allergies No Known Allergies Social History Alcohol Alcohol Use History Yes. Days/Week: 7. # Drinks/Day: 2. Total Drinks/Week: 14. Date/Time of Last Drink: 3 weeks ago. Use in Last 12 Months: Yes. Alcohol Use Frequency Daily. Substance Abuse Drug Use Hx: Yes. Use in Last 12 Months: No. Marijuana/Hashish Recreational Drug Type. Frequency: Not used in over 6 months. Drug Last Use: 3 years ago. Drug Route: Inhaled. Family History no known GI disease or malignancy Diagnostic Results OSH CT scan reviewed. Lab Results Test Name Test Result Date/Time Sodium Level 132 mmol/L (Low) 05/03/2021 02:06 EDT Potassium Level 3.6 mmol/L 05/03/2021 02:06 EDT Chloride Level 102 mmol/L 05/03/2021 02:06 EDT Carbon Dioxide Level 22 mmol/L 05/03/2021 02:06 EDT Anion Gap 12 05/03/2021 02:06 EDT Glucose Level 69 mg/dL (Low) 05/03/2021 02:06 EDT Blood Urea Nitrogen 20 mg/dL 05/03/2021 02:06 EDT Creatinine Level 0.60 mg/dL (Low) 05/03/2021 02:06 EDT eGFR >60 mL/min/1.73m2 05/03/2021 02:06 EDT eGFR NonAfrican >60 mL/min/1.73m2 05/03/2021 02:06 EDT Bun/Creatinine 33.3 (High) 05/03/2021 02:06 EDT Calcium Level 8.0 mg/dL (Low) 05/03/2021 02:06 EDT Protein Total 5.3 Gram/dL (Low) 05/03/2021 02:06 EDT Albumin Level 1.3 Gram/dL (Low) 05/03/2021 02:06 EDT Globulin 4.0 Gram/dL 05/03/2021 02:06 EDT A/G Ratio 0.3 (Low) 05/03/2021 02:06 EDT Bilirubin Total 4.7 mg/dL (High) 05/03/2021 02:06 EDT Alk Phos 525 Units/Liter (High) 05/03/2021 02:06 EDT AST 127 Units/Liter (High) 05/03/2021 02:06 EDT ALT 42 Units/Liter 05/03/2021 02:06 EDT WBC 10.8 K/uL (High) 05/03/2021 02:06 EDT RBC 2.45 Million/uL (Low) 05/03/2021 02:06 EDT Hgb 8.0 g/dL (Low) 05/03/2021 02:06 EDT Hct 24.7 % (Low) 05/03/2021 02:06 EDT MCV 100.8 fL (High) 05/03/2021 02:06 EDT MCH 32.7 pg (High) 05/03/2021 02:06 EDT MCHC 32.4 Gram/dL 05/03/2021 02:06 EDT Platelet Count 297 K/uL 05/03/2021 02:06 EDT MPV 11.0 fL 05/03/2021 02:06 EDT RDW 13.2 % 05/03/2021 02:06 EDT Neut % 77.9 % (High) 05/03/2021 02:06 EDT Neut # 8.39 K/uL (High) 05/03/2021 02:06 EDT Lymph % 12.4 % (Low) 05/03/2021 02:06 EDT Lymph # 1.33 x10(3)/uL 05/03/2021 02:06 EDT [place] % 6.4 % 05/03/2021 02:06 EDT [place] # 0.69 K/uL 05/03/2021 02:06 EDT Eos % 1.5 % 05/03/2021 02:06 EDT Eos # 0.16 x10(3)/uL 05/03/2021 02:06 EDT Baso % 0.3 % 05/03/2021 02:06 EDT Baso # 0.03 x10(3)/uL 05/03/2021 02:06 EDT nRBC 0.040 (High) 05/03/2021 02:06 EDT Slide Review No 05/03/2021 02:06 EDT IG# 0.16 x10(3)/uL (High) 05/03/2021 02:06 EDT IG% 1.50 % (High) 05/03/2021 02:06 EDT Urine Type. U CleanCatch 05/03/2021 05:30 EDT Urine Color ORANGE2 05/03/2021 05:30 EDT Urine Appearance CLEAR2 05/03/2021 05:30 EDT Urine Specific [place] *1.039 05/03/2021 05:30 EDT Urine pH Dipstick 5.5 (Low) 05/03/2021 05:30 EDT Urine Leukocyte Esterase SMALL2 (Abnormal) 05/03/2021 05:30 EDT Urine Nitrite POSITIVE2 (Abnormal) 05/03/2021 05:30 EDT Urine Protein Dipstick TRACE2 (Abnormal) 05/03/2021 05:30 EDT Urine Glucose Dipstick NEGATIVE2 05/03/2021 05:30 EDT Urine Ketones Dipstick 15 (Abnormal) 05/03/2021 05:30 EDT Urine Urobilinogen Dipstick 4.0 (Abnormal) 05/03/2021 05:30 EDT Urine Bilirubin Dipstick LARGE2 (Abnormal) 05/03/2021 05:30 EDT Urine Blood Dipstick NEGATIVE2 05/03/2021 05:30 EDT Ur WBC 0-2 05/03/2021 05:30 EDT Ur Bacteria Trace (Abnormal) 05/03/2021 05:30 EDT Urine Culture if Indicated Not Indicated 05/03/2021 05:30 EDT documented in this encounter Plan of Treatment Not on file documented as of this encounter Visit Diagnoses Not on filedocumented in this encounter
--- OUTSIDE RECORDS SUMMARY | 2025-05-04 13:41 | XMS_ITS | Encounter Summary ---
Author Organization [employer] ([place], [place], [place], [place]) Address [address] [place] [address] Care Team Providers Care Supervisor Pile Driving Name Role Phone Unavailable Primary Care Provider Unavailabl e Encounter Details Date Type Department Care Team (Late st Contact Info) Description 05/03/2021 Transcribed Document [facility] Family Medicine [facility] [place] [address] ProviderLatonia MD [facility] [place] [address] Social History Tobacco Use Types Packs/Day Years Used Date Smoking Tobacco: Never Assessed Sex and Gender Information Value Date Recorded Sex Assigned at Not on file Legal Sex Male 7:22 PM CDT Gender Identity Not on file Sexual Orientation Not on file documented as of this encounter Miscellaneous Notes * Cerner Conversion Note - Historical ProviderMD - 05/03/2021 5:00 PM CDT Chart Check - Review Order Profile Entered On: 05/03/2021 16:33 EDT Performed On: 05/03/2021 17:00 EDT by BEATRIS DUPREE RN Chart Check Powerplans Initiated/Discontinued as Appropriate : Yes All Active Orders Reviewed : Yes BEATRIS DUPREE RN - 05/03/2021 16:33 EDT documented in this encounter Plan of Treatment Not on file documented as of this encounter Visit Diagnoses Not on filedocumented in this encounter
--- OUTSIDE RECORDS SUMMARY | 2025-05-04 13:41 | XMS_ITS | Encounter Summary ---
Author Organization [employer] ([place], [place], [place], [place]) Address [address] [place] [address] Care Team Providers Care Pump Press Operator Name Role Phone Unavailable Primary Care Provider Unavailabl e Encounter Details Date Type Department Care Team (Late st Contact Info) Description 05/07/2021 Transcribed Document [facility] Radiology [address] [place] [address] Georgiana Cheng MD [address] [place] [address] [address] [id number] Social History Tobacco Use Types Packs/Day Years Used Date Smoking Tobacco: Never Assessed Sex and Gender Information Value Date Recorded Sex Assigned at Not on file Legal Sex Male 7:22 PM CDT Gender Identity Not on file Sexual Orientation Not on file documented as of this encounter Miscellaneous Notes * Cerner Conversion Note - Georgiana Cheng MD - 05/07/2021 1:14 PM EDT Patient: ASDIQ ISRAEL Age: 66 Years Sex: Male : 1955 Admit Date 05/03/2021 00:04 Discharge Date 05/07/2021 Primary Care Provider TREY, NOT LISTED Discharge Diagnosis 1. Choledocholithiasis 2. Cholelithiasis 3. Elevated liver enzymes secondary to obstructed common bile duct 4. Erosive gastritis and duodenitis 5. Anemia of chronic disease 6. Hypertension 7. Chronic smoker 8. History of COPD 9. Acute UTI Procedures SN - Proc - Procedure: Cholecystectomy Robotic (05/05/21 13:17:25) ERCP with common bile duct stone extraction EGD Studies CT abdomen Reason for Hospitalization Abdominal pain, nausea and vomiting Hospital Course Patient is a 66-year-old male that is presenting today as a transfer from outside facility due to concerns of mass in the ampulla of vater. Patient was admitted to outside facility and had a CT scan of the abdomen and pelvis performed which showed possible mass in the ampulla of vater. Patient had signs of jaundiced at outside facility and had elevated liver enzymes and thus there was concern for obstructive jaundice. Patient was transferred here after outside facility spoke with the GI physician about possible ERCP. Patient was treated at outside facility for possible urinary tract infection for Rocephin. Here in examination patient is resting comfortably with no acute issues or complaints. Patient denies any abdominal pain currently. Patient was evaluated by GI, patient had ERCP, obstructing stone at common bile duct was seen and extracted by ERCP, recommendation for cholecystectomy, general surgery consulted, patient had laparoscopic cholecystectomy, liver enzymes started to trend down, patient tolerating diet, pain improved, symptoms improved, patient cleared by GI and surgery to be discharged and follow-up as an outpatient, patient had suspected UTI and he finished 5 days of IV Rocephin, patient now hemodynamically stable. Vital Signs T: 36.4 ??C TMIN: 36.3 ??C TMAX: 36.4 ??C HR: 58(Monitored) RR: 17 BP: 137/68 SpO2: 100% Oxygen Settings (Last) Oxygen Therapy Mode: Nasal cannula (05/07/21 11:00:00) Oxygen Flow Rate: 1 Liter/Min (05/07/21 11:00:00) Discharge Disposition Rehabilitation unit/facility Discharge Follow Up Follow up with primary care provider - Within 1 week BEATRIS ISRAEL - Within 2 weeks SUSANA MARSHALL MD-CHARLES - Within 2 to 3 days Discharge Medications (11) Active allopurinol 100 mg oral tablet 200 mg = 2 Tab, Oral, Daily Cymbalta 30 mg oral delayed release capsule 30 mg = 1 Cap, Oral, BID lisinopril 40 mg oral tablet 40 mg = 1 Tab, Oral, Daily loratadine 10 mg oral tablet 10 mg = 1 Tab, Oral, Daily nadolol 20 mg oral tablet 40 mg = 2 Tab, Oral, Daily omeprazole 40 mg oral delayed release capsule 40 mg = 1 Cap, Oral, Daily Spiriva Respimat 60 ACT 2.5 mcg/inh inhalation aerosol 2 Puff, Inhalation, Daily Symbicort 160 mcg-4.5 mcg/inh inhalation aerosol 2 Puff, Inhalation, BID Tylenol 500 mg = 1 Tab, Oral, Q6H Ventolin HFA 90 mcg/inh inhalation aerosol 2 Puff, PRN, Inhalation, Q6H Zetia 10 mg oral tablet 10 mg = 1 Tab, Oral, Daily Code Status Start: 05/05/21 10:49:00 EDT, Full Code, Continuous Order Condition on Discharge Stable Consulting Physicians LENNOX TURNER MD-ANS SUSANA MARSHALL MD-CHARLES Current Diet Order Diet, Adult - Ordered -- Start: 05/06/21 10:04:00 EDT, Low Sodium (2 g Na) Time Spent on Discharge 35 minutes documented in this encounter Plan of Treatment Not on file documented as of this encounter Visit Diagnoses Not on filedocumented in this encounter
--- OUTSIDE RECORDS SUMMARY | 2025-05-04 13:41 | XMS_ITS ---
Author Organization [facility] Care Team Providers Care Knot Cutter Name Role Phone Zainab Lock) Unavailable Unavail able Scott Bradley Unavailable Unavailable Allergies and adverse reactions No Known Allergies Care Team Name Role Address Phone Organization Dates Scott Bradley PCP [address] [place] [address], [place], [address], [place] (Office): [facility] 05/27/2021 - 02/16/2022 Zainab Kirby) [place], [address], [facility] (Office): : [facility] 05/27/2021 - 02/16/2022 Goals Section Goals Description Status Target Date Goal is weight maintenance + /- 4# x 90 days with po of 50% or greater. Free from s/s of dehydration. Free from edema. : Goal is no further significant weight gain. Active Resident and Family's wishes will be honored. Ac tive 02/21/2022 Resident will not show a dec line in psychosocial well-being or experience adverse effects through next care review. Resident will not exhibit s/sx of COVID-19, through next care review. Active 02/21/[address] care plan goal entry Active Sadiq will maintain/improve current level of mobility: - ambulating, transfers, mobility. -through review date. Active 02/21/2022 Sadiq will be free from disc omfort or adverse reactions related to antidepressant therapy - through the review date. Active 02/21/2022 Sadiq will be free from s/sx of complications of cardiac problems - through the review date. Active 02/21/2022 Sadiq will be free of sympto ms of dehydration and maintain moist mucous membranes, good skin turgor. Active 02/21/2022 Sadiq will display optimal b reathing pattern daily - through review date. Active 02/21/2022 Sadiq will have intact skin, free of redness, blisters or discoloration - through review date. Active 02/21/2022 Sadiq will have no s/sx of d ehydration - through review date. Active 02/21/2022 Sadiq will maintain involvem ent in cognitive stimulation, social activities as desired through review date. Active 02/21/2022 Sadiq will resume usual acti vities without further incident - through the review date. Active 02/21/2022 Sadiq will verbalize/communi pk an understanding of the discharge plan and describe the desired outcome - by the review date. Active 02/21/2022 Sadiq will voice any pain/ l evel of discomfort - through the review date. Active 02/21/2022 sadiq will improve current l evel of function in: - Eating, Dressing, Toilet Use and Personal Hygiene - through the review date. Active 02/21/2022 Immunizations Immunization Status Vaccine Details Vaccine Code CodeSystem Date Notes Influenza completed Influenza, high-dose, split virus, quadrivalent, injectable, preservative free lotNumber: [id number] expiry: 03/28/2022 Mfg: Afluria Given 0.5 ml Right Deltoid intramuscularly 197 CVX created date: 08/04/2021 consent date: 08/04/2021 administer ed date: 08/04/2021 Pneumovax Dose 1 completed pneumococcal polysaccharide vaccine, 23 valent lotNumber: [id number] expiry: 11/22/2022 Mfg: merck sharp & dohme cuco. Given 0.5 ml Right Deltoid intramuscularly 33 CVX created date: 10/19/2021 consent date: 10/19/2021 administer ed date: 10/19/2021 TB 1 Step Mantoux (PPD) completed tuberculin skin test; unspecified formulation lotNumber: [id number] expiry: 01/18/2023 Mfg: Sandfi pasteur Given 0.1 ml Left Forearm intradermally 98 CVX created date: 05/27/2021 consent date: 05/27/2021 administer ed date: 05/27/2021 negative TB 1 Step Mantoux (PPD) completed tuberculin skin test; unspecified formulation lotNumber: [id number] expiry: 11/09/2022 Mfg: sanofi pasteur limited Given 0.1 ml intradermally 98 CVX created date: 05/29/2021 consent date: 05/29/2021 administer ed date: 05/27/2021 Given 05/27/21, read 05/29/21, negative TB 2 Step Mantoux Skin Test completed tuberculin skin test; unspecified formulation lotNumber: [id number] expiry: 11/09/2022 Mfg: sanfoi past unli Given 0.1 ml Left Forearm subcutaneously Step 1 of Multi-step 98 CVX created date: 06/03/2021 consent date: 06/03/2021 administer ed date: 06/03/2021 read 06/05/21 by Ac, results negative 2nd dose [employer] COVID-19 Vaccine completed SARS-COV-2 (COVID-19) vaccine, mRNA, spike protein, LNP, preservative free, 30 mcg/0.3mL dose Given 0.3 ml Left Deltoid intramuscularly 208 CVX created date: 10/31/2021 consent date: 10/31/2021 administer ed date: 10/30/2021 Educated by Nils linares on 10/30/2021 Jacque One Dose completed SARS-COV-2 (COVID-19) vaccine, vector non-replicating, recombinant spike protein-Ad26, preservative free, 0.5 mL Given Left Deltoid intramuscularly 212 CVX created date: 07/13/2021 consent date: 07/13/2021 administer ed date: 07/12/2021 Erwin 1 dose given by health dept on 07/12/21 Mental Status Section Date Assessment Total Score Description 02/16/2022 BIMS 15 cognitively int act CAM 0 No delirium ind icated PHQ-9 00 11/16/2021 BIMS 12 moderate cognit alexa impairment CAM 0 No delirium ind icated PHQ-9 05 mild depression Problems Problem # Description Date of onset Resolved Date Code CodeSystem Concern Status 1 CHRONIC OBSTRUCTIVE PULMONARY DISEASE WITH (ACUTE) EXACERBATION 05/27/[address] active 2 CHRONIC OBSTRUCTIVE PULMONARY DISEASE, UNSPECIFIED 05/27/[address] active 3 EDEMA, UNSPECIFIED 05/27/2021 020941125 SNOMED C T active 4 ENCOUNTER FOR SURGICAL AFTERCARE FOLLOWING SURGERY ON THE DIGESTIVE SYSTEM 05/27/[address] active 5 ENTEROCOLITIS DUE TO CLOSTRIDIUM DIFFICILE, NOT SPECIFIED RECURRENT 05/27/[address] active 6 ESSENTIAL (PRIMARY) HYPERTENSION 05/27/[address] active 7 GASTRO-ESOPHAGEAL REFLUX DISEASE WITHOUT ESOPHAGITIS 05/27/[address] active 8 IDIOPATHIC GOUT, UNSPECIFIED SITE 05/27/[address] active 9 MAJOR DEPRESSIVE DISORDER, RECURRENT, UNSPECIFIED 05/27/[address] active 10 MIXED HYPERLIPIDEMIA 05/27/[address] active 11 MUSCLE WEAKNESS (GENERALIZED) 05/27/[address] active 12 UNSPECIFIED ABDOMINAL PAIN 05/27/[address] active 13 UNSTEADINESS ON FEET 05/27/[address] active Reason for Referral No Reasons for Referral Entered Social History Social History Observation Description Start Date End Date Code Code System Current Smoking Status Tobacco smoking consumption unknown 596682901 SNOMED CT Sex Assigned At Male 1955 27817-4 [facility] Gender Identity Vital Signs Code Code System Vitals Name Values and Units Timing Information 8310-5 LOINC Body Temperature Value=97.0 Units= F 02/16/2022 46789-7 LOINC O2 % BldC Oximetry Value=94.0 Units= % 02/16/2022 38764-8 LOINC Pain Level Value=0.0 02/16/2022 9279-1 [facility] Respiratory Rate Value=18.0 Units=/m in 02/14/2022 8867-4 [facility] Heart rate Value=70.0 Units=/min 8462-4 [facility] Blood Pressure-Diastolic Value=78 Un its=mmHg 02/14/2022 8480-6 [facility] Blood Pressure-Systolic Skmso=011 Un its=mmHg 02/14/2022 24894-9 [facility] Weight Mphpx=580.6 Units=Lbs 11/2021 8302-2 [facility] Height Value=66.0 Units=Inches 06/07/2021
--- OUTSIDE RECORDS SUMMARY | 2025-05-04 13:41 | XMS_ITS | Encounter Summary ---
Author Organization [employer] ([place], [place], [place], [place]) Address [address] [place] [address] Care Team Providers Care Atmospheric Drier Tender Name Role Phone Unavailable Primary Care Provider Unavailabl e Encounter Details Date Type Department Care Team (Late st Contact Info) Description 05/06/2021 Transcribed Document [facility] [place] [facility] [place] [address] ProviderLatonia MD [facility] [place] [address] Social History Tobacco Use Types Packs/Day Years Used Date Smoking Tobacco: Never Assessed Sex and Gender Information Value Date Recorded Sex Assigned at Not on file Legal Sex Male 7:22 PM CDT Gender Identity Not on file Sexual Orientation Not on file documented as of this encounter Miscellaneous Notes * Cerner Conversion Note - Historical ProviderMD - 05/06/2021 5:00 AM CDT Chart Check - Review Order Profile Entered On: 05/06/2021 3:27 EDT Performed On: 05/06/2021 5:00 EDT by Gracy Ruelas Lpn Chart Check Powerplans Initiated/Discontinued as Appropriate : Yes All Active Orders Reviewed : Yes Gracy Ruelas Lpn - 05/06/2021 3:27 EDT documented in this encounter Plan of Treatment Not on file documented as of this encounter Visit Diagnoses Not on filedocumented in this encounter
--- OUTSIDE RECORDS SUMMARY | 2025-05-04 13:42 | XMS_ITS | Clinical Summary ---
Author Organization [employer] ([place], [place], [place], [place]) Address [address] [place] [address] Care Team Providers Care Checkerer Hand Name Role Phone Unavailable Primary Care Provider Unavailabl e Social History Tobacco Use Types Packs/Day Years Used Date Smoking Tobacco: Never Assessed Sex and Gender Information Value Date Recorded Sex Assigned at Not on file Legal Sex Male 7:22 PM CDT Gender Identity Not on file Sexual Orientation Not on file Plan of Treatment Not on file
--- OUTSIDE RECORDS SUMMARY | 2025-05-04 13:42 | XMS_ITS | Clinical Summary ---
Author Organization Healthcare Address [address] [id number] Care Team Providers Care Engineering Surveyor Name Role Phone ColeRenetta cordero MARLIN Primary Care Provider [phone] Family History Medical History Relation Name Comments Conversions - Other Other Known he alth problems: none Relation Name Status Comments Other Social History Tobacco Use Types Packs/Day Years Used Date Smoking Tobacco: Never Assessed Sex and Gender Information Value Date Recorded Sex Assigned at Not on file Legal Sex Male 7:55 PM EDT Gender Identity Not on file Sexual Orientation Not on file Last Filed Vital Signs Vital Sign Reading Time Taken Comments Blood Pressure 136/60 05/02/2021 10:15 AM EDT Pulse 63 05/02/2021 10:15 AM EDT Temperature 36.7 C (98.1 F) 05/02/2021 10:15 AM EDT Respiratory Rate 18 05/02/2021 10:1 5 AM EDT Oxygen Saturation 97% 05/02/2021 10: 15 AM EDT RA Inhaled Oxygen Concentration - - Weight 76.5 kg (168 lb 10.4 oz) 04/02/2019 1:03 PM EDT Height 167.6 cm (5' 6 ) 04/02/2019 1:03 PM EDT Body Mass Index 27.22 04/02/2019 1:03 PM EDT Plan of Treatment Not on file Care Teams Engineering Surveyor Relationship Specialty Start Date End Date Renetta Cole APRN [address] [facility] NAWAF [place] [id number] PCP - General 03/17/21
--- OUTSIDE RECORDS SUMMARY | 2025-05-04 13:42 | XMS_ITS | Encounter Summary ---
Author Organization [employer] ([place], [place], [place], [place]) Address [address] [place] [address] Care Team Providers Care Family Law Attorney Name Role Phone Unavailable Primary Care Provider Unavailabl e Encounter Details Date Type Department Care Team (Late st Contact Info) Description 05/03/2021 Transcribed Document [facility] [place] [facility] [place] [address] ProviderLatonia MD [facility] [place] [address] Social History Tobacco Use Types Packs/Day Years Used Date Smoking Tobacco: Never Assessed Sex and Gender Information Value Date Recorded Sex Assigned at Not on file Legal Sex Male 7:22 PM CDT Gender Identity Not on file Sexual Orientation Not on file documented as of this encounter Miscellaneous Notes * Cerner Conversion Note - Latonia ProviderMD - 05/03/2021 1:49 PM CDT UM Authorization Entered On: 05/03/2021 13:50 EDT Performed On: 05/03/2021 13:49 EDT by JOSSY ARAGON RN Primary Insurance Authorization Authorization and Policy Numbers : Insurance 1 Health Plan: [employer] Policy Number: [id number] Authorization Number: Insurance 2 Health Plan: [facility] Policy Number: [id number] Authorization Number: Insurance Primary Name : [employer] P[employer] Policy Number: [id number] Authorization Status-Primary : Awaiting callback Reference Number-Primary : Pend ref #[id number] Authorized Service Begin Date-Primary : 05/03/2021 EDT Authorization Comments-Primary : Pending ref no per Availity. Reviewer has access to [employer] Historical Authorization Comments-Primary : Comment 1: Per Amanda with [facility], pt has Medicare A primary, em to [place], cc to [facility] (JOSSY ARAGON RN 05/03/2021 11:43) Comment 2: Clinicals submitted via [employer] for IP approval (JOSSY ARAGON RN 05/03/2021 09:25) JOSSY ARAGON RN - 05/03/2021 13:49 EDT Electronically signed by [facility]ino [facility] Conversion Slasher [place] Cerner at 02/22/2023 8:56 PM CDT documented in this encounter Plan of Treatment Not on file documented as of this encounter Visit Diagnoses Not on filedocumented in this encounter
--- OUTSIDE RECORDS SUMMARY | 2025-05-04 13:42 | XMS_ITS | Encounter Summary ---
Author Organization [employer] ([place], [place], [place], [place]) Address [address] [place] [address] Care Team Providers Care Wheat Cleaner Name Role Phone Unavailable Primary Care Provider Unavailabl e Encounter Details Date Type Department Care Team (Late st Contact Info) Description 05/03/2021 Transcribed Document [facility] [place] [facility] [place] [address] ProviderLatonia MD [facility] [place] [address] Social History Tobacco Use Types Packs/Day Years Used Date Smoking Tobacco: Never Assessed Sex and Gender Information Value Date Recorded Sex Assigned at Not on file Legal Sex Male 7:22 PM CDT Gender Identity Not on file Sexual Orientation Not on file documented as of this encounter Miscellaneous Notes * Cerner Conversion Note - Latonia ProviderMD - 05/03/2021 12:01 AM CDT Admission History, Adult Entered On: 05/03/2021 0:31 EDT Performed On: 05/03/2021 0:01 EDT by Randee Giron RN Advance Directive Patient has Advance Directive *Q : No, patient requests information about Advance Directive Randee Giron RN - 05/03/2021 0:15 EDT Anesthesia/Transfusion History Family History of Anesthesia Reaction : No prior transfusion(s) Transfusion History : No prior anesthesia Family History of Anesthesia Reaction : None Randee Giron RN - 05/03/2021 0:15 EDT Functional Assessment Living Situation : Home Current Home Treatments : None Randee Giron RN - 05/03/2021 0:15 EDT General Info Contact Password : sister BEATRIS DUPREE EILEEN - 05/03/2021 8:08 EDT Emergency Contact #1 Randee Giron RN - 05/03/2021 0:36 EDT Want Family/Rep/Phys Notified of Admit : Randee Noguera RN - 05/03/2021 0:15 EDT Emergency Contact #1 : Kristen Cobb Randee Giron RN - 05/03/2021 0:36 EDT Emergency Contact #1 Relationship : sister Emergency Contact #2 : n/a Emergency Contact #2 Phone Number : n/a Emergency Contact #2 Relationship : n/a Primary Language : Tajik Communication Barrier : None Clinical Nursing Professor Needed : No Randee Giron RN - 05/03/2021 0:15 EDT Fall Risk Scales ABCs Fall Injury Risk Identification : Bones ABC Fall Injury Risk : Moderate to high injury risk MCNALLY Hx Falls Immediate/Within 3 Months : Yes Mcnally Secondary Diagnosis : Yes MCNALLY Use of Ambulatory Aid : Bed rest/Nurse assist MCNALLY IV Therapy or IV Access : Yes Mcnally Gait/Transferring : Weak Mcnally Mental Status : Oriented to own ability Mcnally Fall Risk Score : 70 MCNALLY Fall Scale Risk Level : 46 or > High Risk [place] Fall Interventions : Adequate lighting, Assistive devices within reach, Bed in low position, Call device within reach, Hourly comfort/safety rounds, Non-slip footwear, Personal items within reach, Reinforced to call for assistance before getting out of bed, Room free of clutter/spills, Upper side-rails up, Wheels locked, Wires/Cords secured Randee Giron RN - 05/03/2021 0:15 EDT Fall Risk Education Grid Alarms : Verbalizes understanding Assistive Equipment Use : Verbalizes understanding Bed Height/Stabilization : Verbalizes understanding Call light use : Verbalizes understanding Door Open : Verbalizes understanding Environmental Management : Verbalizes understanding Eyeglasses Use : Verbalizes understanding Fall Community Resources : Verbalizes understanding Fall Contract/Letter : Verbalizes understanding Fall Prevention in the Home : Verbalizes understanding Fall Prevention Protocol : Verbalizes understanding Hearing Aid Use : Verbalizes understanding Home Risk Assessment : Verbalizes understanding Need Constant Observation : Verbalizes understanding Night Light Use : Verbalizes understanding Nonskid Footwear Use : Verbalizes understanding Notification of Staff When Leaving : Verbalizes understanding Orthostatic Hypotension Precautions : Verbalizes understanding Personal Article Availability : Verbalizes understanding Prevention Responsibility Family : Verbalizes understanding Prevention Responsibility Patient : Verbalizes understanding Risk Alert Methods : Verbalizes understanding Risk Factors : Verbalizes understanding Safety Aids : Verbalizes understanding Siderails use/risks : Verbalizes understanding Special Assistive Devices : Verbalizes understanding Staff Responsiveness : Verbalizes understanding Symptom Identification & Action Plan *Q : Verbalizes understanding Symptom Reporting : Verbalizes understanding Toileting Schedule : Verbalizes understanding Transfer/Mobility Techniques : Verbalizes understanding Urinal/Bedpan Availability : Verbalizes understanding Wait for Assistance : Verbalizes understanding Wheelchair Safety : Verbalizes understanding Randee Giron RN - 05/03/2021 0:15 EDT Health Histories Smoking Status : 10 or more cigarettes (1/2 pack or more)/day in last 30 days Smokeless Tobacco Status : Never Desires Tobacco Cessation Medication : Yes Randee Giron RN - 05/03/2021 0:15 EDT Social History (As Of: 05/03/2021 00:31:25 EDT) Height and Weight, Clinical Dosing Height Source : Stated Height Entry Format : [place] Height, Feet : 5 ft(Converted to: 152 cm, 60 Inch) Height, Inches : 6 Inch(Converted to: 0 ft 6 Inch, 15.24 cm) Clinical Height : 167.64 cm Weight Source : Bed scale Weight Entry Format : [place] Clinical Dosing Weight : 57.47 kg Weight, Pounds : 126 lb Weight, Ounces : 7 oz Body Surface Area (BSA) : 1.65 m2 Body Mass Index : 20.4 kg/m2 [place] Body Weight : 63 kg Randee Giron RN - 05/03/2021 0:15 EDT Infectious Disease History Has the patient ever been tested for COVID-19? : Yes, Patient stated results Negative Date of COVID-19 test known? : Yes Date of COVID-19 Test : 05/02/2021 EDT Does patient have symptoms of COVID-19? : No COVID19 Screening : No Experiencing Infectious Disease Symptoms : No symptoms Physical contact outside [place] in the last 30 days : No Infectious Disease History : Chicken pox/Shingles, Influenza, Measles Tuberculosis Symptoms : None Randee Giron RN - 05/03/2021 0:15 EDT Tetanus Immunization Status Previous Tetanus Immunizations : No qualifying data available. Randee Giron RN - 05/03/2021 0:15 EDT Influenza Vaccine Asmt, Adult Previous Vaccines from Immunization Schedule : No qualifying data available. Influenza Immunization, Current Season : Yes Randee Giron RN - 05/03/2021 0:15 EDT Pneumococcal Vaccine Previous Vaccines from Immunization Schedule : No qualifying data available. Pneumonia Immunization Received : No Pneumococcal Risk Assessment < Age 65 : N/A- Patient 65 years of age or older Pneumococcal Vaccine Contraindications : No contraindications to pneumococcal vaccine Transplant Workup/Recent Transplant : No Order for Pneumococcal Vaccine : Declined Vaccination Randee Giron RN - 05/03/2021 0:15 EDT Order Details Transport Mode Order Detail : Bed (including specialty) Order Detail : N/A IV Order Detail : 1 Oxygen Order Detail : 0 Nurse Collect Order Detail : 0 Lift/Transfer : Moderate assist Central Line Order Detail : No Room Service : Appropriate Patient Needs Meds Crushed/Liquid : No Randee Giron RN - 05/03/2021 0:15 EDT Nutrition History Eating Poorly Due to Decreased Appetite : Yes Unplanned Weight Loss in Past 3-6 Months : Yes Unplanned Weight Loss Amount : 24-33 lbs/10.6-15 kg Malnutrition Screening Tool Total(mal) : 4 Malnutrition Screening Tool Risk Level : Patient at risk Randee Giron RN - 05/03/2021 0:15 EDT [place] Suicide Severity Rating Scale (C-SSRS) CSSRS Past Month Wish to be : No CSSRS Past Month Suicidal Thoughts : No CSSRS Lifetime Suicide Behavior : No Suicide Severity Rating Score : 0 Suicide Severity Rating : No Additional Care Required at this time Randee Giron RN - 05/03/2021 0:15 EDT Psychosocial History Currently in Unsafe Situation : No Randee Giron RN - 05/03/2021 0:15 EDT Sleep Apnea Risk Assmt Hx of Obstructive Sleep Apnea Diagnosis : No Snore Loudly : No Tired, Fatigued, or Sleepy During Day : No Observed Stopping Breathing During Sleep : No Have/Are Being Treated for Hypertension : Yes BMI Greater Than 35 kg/m2 : No Age over 50 Years Old : Yes Neck Circumference Greater Than 40 cm : No Gender Male : Yes STOP-BANG Sleep Apnea Risk Level Score : 3 Randee Giron RN - 05/03/2021 0:15 EDT Valuables and Belongings Valuables and Belongings : Clothing, Personal devices, Personal items Clothing : Common streetwear Clothing Disposition : Bedside Personal Device Disposition : Bedside Personal Devices : Glasses Personal Items : Cell phone Personal Items Disposition : Bedside Randee Giron RN - 05/03/2021 0:15 EDT Electronically signed by Rivas Roca Conversion Administrative Support Technician Cerner at 02/22/2023 8:58 PM CDT documented in this encounter Plan of Treatment Not on file documented as of this encounter Visit Diagnoses Not on filedocumented in this encounter
--- OUTSIDE RECORDS SUMMARY | 2025-05-04 13:42 | XMS_ITS | Encounter Summary ---
Author Organization [employer] ([place], [place], [place], [place]) Address [address] [place] [address] Care Team Providers Care Viscose Cellar Worker Name Role Phone Unavailable Primary Care Provider Unavailabl e Encounter Details Date Type Department Care Team (Late st Contact Info) Description 05/06/2021 Transcribed Document [facility] [place] [address] ProviderLatonia MD [address] [place] [address] Social History Tobacco Use Types Packs/Day Years Used Date Smoking Tobacco: Never Assessed Sex and Gender Information Value Date Recorded Sex Assigned at Not on file Legal Sex Male 7:22 PM CDT Gender Identity Not on file Sexual Orientation Not on file documented as of this encounter Miscellaneous Notes * Cerner Conversion Note - Latonia ProviderMD - 05/06/2021 6:00 PM CDT Pain Assessment Entered On: 05/06/2021 18:38 EDT Performed On: 05/06/2021 18:38 EDT by DONALD RAMOS RN Intervention Information: acetaminophen Performed by DONALD RAMOS RN on 05/06/2021 17:38:00 EDT acetaminophen,500mg Oral Pain Assessment Pain Assessment : Follow-up assessment Pain Scale Goal : 4 Pain Scale Used : 0-10 Scale Location : Abdominal Onset : Acute Quality : Aching Pain Radiation : No Pain Worsened by : Movement Pain Improved by : Medication Pain Intervention, Drug : Medicated Pain Improved by Intervention : Yes DONALD RAMOS RN - 05/06/2021 18:38 EDT Pain Scale Intensity : 0 DONALD RAMOS RN - 05/06/2021 18:38 EDT Image 4 - Images currently included in the form version of this document have not been included in the text rendition version of the form. documented in this encounter Plan of Treatment Not on file documented as of this encounter Visit Diagnoses Not on filedocumented in this encounter
--- OUTSIDE RECORDS SUMMARY | 2025-05-04 13:42 | XMS_ITS | Encounter Summary ---
Author Organization [employer] ([place], [place], [place], [place]) Address [address] [place] [address] Care Team Providers Care Camp Coordinator Name Role Phone Unavailable Primary Care Provider Unavailabl e Encounter Details Date Type Department Care Team (Late st Contact Info) Description 05/05/2021 Transcribed Document [facility] [place] [facility] [place] [address] ProviderLatonia MD [address] [place] [address] Social History Tobacco Use Types Packs/Day Years Used Date Smoking Tobacco: Never Assessed Sex and Gender Information Value Date Recorded Sex Assigned at Not on file Legal Sex Male 7:22 PM CDT Gender Identity Not on file Sexual Orientation Not on file documented as of this encounter Miscellaneous Notes * Cerner Conversion Note - Latonia Paulson MD - 05/05/2021 2:01 PM CDT Patient: SADIQ ISRAEL Age: 66 Years Sex: Male : 1955 *Operation Robotic assisted laparoscopic cholecystectomy Intraoperative localization of biliary structures Indication for Surgery 66-year-old male with past medical history of COPD with ongoing tobacco abuse, hypertension, who presented with complaints of generalized weakness, poor PO intake. He was diagnosed with choledocholithiasis and underwent ERCP. He presents for cholecystectomy *Preoperative Diagnosis Choledocholithiasis *Postoperative Diagnosis Choledocholithiasis Possible cirrhosis *Surgeon(s) Primary Surgeon SUSANA MARSHALL MD-CHARLES (Surgeon/Proceduralist, First) resident assistant Ailyn Leon *Procedure Narrative After obtaining informed consent the patient was brought to operative suite and placed in supine position. After induction of general anesthesia the patient was prepped and draped in sterile fashion . A time out was preformed verifying patient, procedure and arline-operative antibiotics. I placed a Veress needle in the left upper quadrant to establish insufflation. Next using a 5 mm laparoscope attached to 8mm clear trocar I used the Optiview method to enter the peritoneum, visualizing all the layers of the abdominal wall. I placed an 8 mm port at the left lower quadrant, umbilicus and right lower quadrant under direct visualization. The robot was then docked. The liver appeared dark, underperfused with mild nodular surface concerning for cirrhosis. There was a small amount of perihepatic ascites. The gallbladder was grasped and elevated over the liver. There was spillage of bile during manipulation. Using a combination of electrocautery and blunt dissection I was able to dissect the peritoneal attachments off the gallbladder. I identified 2 structures going into the gallbladder, the cystic duct and cystic artery. The cystic duct and common bile duct were confirmed using the fire fly system. The inferior third of the gallbladder was cleared off in order to achieve a critical view. The patient had a very short cystic artery which was doubly clipped with Weck clips ??2. The cystic duct was clipped proximally and distally x 2 in a similar fashion and divided with the cut function. The gallbladder was taken off the gallbladder fossa with electrocautery. It was then placed an Endo Catch bag via . The gallbladder fossa was cauterized for hemostasis, irrigated and suctioned. The robot was then undocked and the gallbladder was removed via the umbilicus. The umbilicus was then closed under direct visualization with 0 Vicryl using a suture passer. The abdomen was then desufflated and all ports were removed. Skin incisions were closed with 4-0 Monocryl and Dermabond. The patient tolerated the procedure well. All sponge and instrument counts were correct. Anesthesia General IRON THOMAS MD-ANS (Anesthesiologist of Record) *Estimated Blood Loss 30 mL Urine Output Urine Voided (Volume): 200 mL Urine Voided (Volume): 100 mL Urine Voided (Volume): 75 mL Urine Voided (Volume): 250 mL *Findings Perihepatic ascites and nodular liver surface Gallstones and thick sludge *Specimen(s) Gallbladder Complications Bile spillage Date of Service Date/Time of Service SN - Proc - Start Time: 05/05/21 13:05:00 (05/05/21 13:17:25) documented in this encounter Plan of Treatment Not on file documented as of this encounter Visit Diagnoses Not on filedocumented in this encounter
--- OUTSIDE RECORDS SUMMARY | 2025-05-04 13:42 | XMS_ITS | Encounter Summary ---
Author Organization [id number] ([place], [place], [place], [place]) Address [address] [place] [address] Care Team Providers Care Watershed Manager Name Role Phone Unavailable Primary Care Provider Unavailabl e Encounter Details Date Type Department Care Team (Late st Contact Info) Description 05/07/2021 Transcribed Document [facility] Radiology [address] [place] [address] Georgiana Cheng MD [address] [place] [address] [address] Social History Tobacco Use Types Packs/Day Years Used Date Smoking Tobacco: Never Assessed Sex and Gender Information Value Date Recorded Sex Assigned at Not on file Legal Sex Male 7:22 PM CDT Gender Identity Not on file Sexual Orientation Not on file documented as of this encounter Miscellaneous Notes * Cerner Conversion Note - Georgiana Cheng MD - 05/07/2021 12:56 PM EDT Patient: SADIQ ISRAEL Age: 66 years Sex: Male : 1955 Associated Diagnoses: None Author: GEORGIANA CHENG MD Basic Information Patient seen and examined today He feels better Tolerating his diet No new complaints No family member at the bedside Hemodynamically [...] Nebulized Inhalation, RT_Q6H, PRN: Shortness of Breath Pepcid: 40 mg, Oral, Daily Rocephin: 1 Gram, 100 mL/Hr, IV Piggyback, [id number] Tylenol: 500 mg, Oral, Q6H Zofran: 4 mg, IV Push, Q4H, PRN: [...] Root Block, 1-Time heparin: 5,000 Units, SubCutaneous, [id number] ibuprofen: 600 mg, Oral, Q6H, PRN: Pain (Moderate 4-6) lisinopril: 10 mg, Oral, Daily oxyCODONE: 5 mg, Oral, Q6H, PRN: Abdominal Pain tiotropium: 2 Inhalation, Inhalation, [...] a meal, 30 Cap, 0 Refill(s), Medications (16) Active Scheduled: (11) acetaminophen 500 mg tab 500 mg 1 Tab, Oral, Q6H ceFAZolin/D5w 2 Gram 50 mL, IV Piggyback, PREOP cefTRIAXone 1 Gram, IV Piggyback, [id number] cloNIDine 50 mcg + dexAMETHasone 4 mg [...] mL inj 5,000 Units 1 mL, SubCutaneous, [id number] lisinopril 10 mg tab 10 mg 1 Tab, Oral, Daily mometasone/formoterol 100/5 mcg inh 2 Puff, Inhalation, BID tiotropium 2.5 mcg inh 4 g 2 Inhalation, Inhalation, RT_Daily Continuous: (0) PRN: (5) albuterol-ipratropium inh 3 mL 3 mL, Nebulized Inhalation, RT_Q6H bisacodyl EC 5 mg tab 5 mg 1 Tab, Oral, Daily ibuprofen 600 mg tab 600 mg 1 Tab, Oral, Q6H ondansetron 4 mg/2 mL inj 4 mg 2 mL, IV Push, Q4H oxyCODONE 5 mg tab 5 mg 1 Tab, Oral, Q6H Problem list: Medical At risk for sleep apnea / IMO [id number] / Confirmed, Active Problems (5) At risk for sleep apnea COPD (chronic obstructive pulmonary disease) Gout Hypertension Smoker Physical Examination VS/Measurements Vitals Signs (last 24 hrs) Last Charted Minimum Maximum Temp 97.6 (MAY 07 11:00) 97.6 (MAY 07 11:00) 97.5 (MAY 06 18:00) Mon HR 58 (MAY 07 11:00) 47 (MAY 06 21:06) 59 (MAY 07 06:00) Resp Rate 17 (MAY 07 11:00) 15 (MAY 06 22:30) 18 (MAY 06 18:00) SBP 137 (MAY 07 11:00) 106 (MAY 06 12:00) H 142 (MAY 07 06:00) DBP 68 (MAY 07 11:00) L 50 (MAY 06 12:00) 72 (MAY 07 06:00) MAP 87 (MAY 07 11:00) 77 (MAY 06 18:00) 90 (MAY 07 02:28) SpO2 100 (MAY 07 11:00) 96 (MAY 07 09:09) 100 (MAY 06 18:00) No Radiology Results Found Review / Management Results review: Labs (Last four charted values) WBC H 14.3 (MAY 07) H 15.0 (MAY 06) 6.5 (MAY 05) 7.6 (MAY 04) HB L 9.1 (MAY 07) L 8.7 (MAY 06) L 8.8 (MAY 05) L 8.3 (MAY 04) HCT L 28.7 (MAY 07) L 26.3 (MAY 06) L 27.2 (MAY 05) L 25.6 (MAY 04) Plt 307 (MAY 07) H 394 (MAY 06) H 370 (MAY 05) 335 (MAY 04) Na 136 (MAY 07) L 135 (MAY 06) L 133 (MAY 05) 136 (MAY 04) K 3.5 (MAY 07) 4.5 (MAY 06) 3.9 (MAY 05) 3.5 (MAY 04) Cl 107 (MAY 07) 106 (MAY 06) 104 (MAY 05) 106 (MAY 04) CO2 25 (MAY 07) 24 (MAY 06) 24 (MAY 05) 24 (MAY 04) BUN H 23 (MAY 07) 22 (MAY 06) 18 (MAY 05) 14 (MAY 04) Cr 1.20 (MAY 07) 1.20 (MAY 06) 0.90 (MAY 05) L 0.40 (MAY 04) Glu R 84 (MAY 07) H 123 (MAY 06) H 116 (MAY 05) 85 (MAY 04) Ca 8.4 (MAY 07) L 7.9 (MAY 06) L 7.9 (MAY 05) L 7.9 (MAY 04) Lactic 0.5 (MAY 07) L 0.3 (MAY 06) AST H 54 (MAY 07) H 79 (MAY 06) H 84 (MAY 05) H 153 (MAY 04) ALT 19 (MAY 07) 42 (MAY 06) 57 (MAY 05) 59 (MAY 04) ALK P H 375 (MAY 07) H 467 (MAY 06) H 553 (MAY 05) H 587 (MAY 04) T Bili H 1.6 (MAY 07) H 2.1 (MAY 06) H 2.6 (MAY 05) H 3.2 (MAY 04) PTN L 5.6 (MAY 07) L 5.2 (MAY 06) L 5.5 (MAY 05) L 5.1 (MAY 04) ALB L 2.2 (MAY 07) L 1.5 (MAY 06) L 1.4 (MAY 05) L 1.3 (MAY 04) Lipase 81 (MAY 05) 107 (MAY 04) 199 (MAY 03) Troponin 0.033 (MAY 05) . No Radiology Results Found Impression and Plan 1. Choledocholithiasis 2. Cholelithiasis 3. Elevated liver enzymes secondary to obstructed common bile duct 4. Erosive gastritis and duodenitis 5. Anemia of chronic disease 6. Hypertension 7. Chronic smoker 8. History of COPD Plan Patient status post ERCP, large stone obstructing common bile duct was found and removed General surgery consulted Status post laparoscopic cholecystectomy 05/05/2021 Patient tolerating low-sodium diet EGD noted with erosive gastritis and duodenitis Continue PPI Watch hemoglobin closely Continue blood pressure home medication Smoking cessation counseling Nicotine patch is offered Continue oxygen support and home inhalers DVT prophylaxis GI prophylaxis Past medical history reviewed Labs reviewed Medications reviewed Operative note reviewed Consultation notes reviewed CODE STATUS full code Time spent 25 minutes Discharge plan Patient medically ready to be discharged home versus [facility] facility, he need GI follow-up as an outpatient documented in this encounter Plan of Treatment Not on file documented as of this encounter Visit Diagnoses Not on filedocumented in this encounter
--- OUTSIDE RECORDS SUMMARY | 2025-05-04 13:42 | XMS_ITS | Encounter Summary ---
Author Organization [employer] ([place], [place], [place], [place]) Address [address] [place] [address] Care Team Providers Care Civil Design Specialist Name Role Phone Unavailable Primary Care Provider Unavailabl e Encounter Details Date Type Department Care Team (Late st Contact Info) Description 05/04/2021 Transcribed Document [facility] [place] Family Medicine [facility] [place] [address] ProviderLatonia MD [facility] [place] [address] Social History Tobacco Use Types Packs/Day Years Used Date Smoking Tobacco: Never Assessed Sex and Gender Information Value Date Recorded Sex Assigned at Not on file Legal Sex Male 7:22 PM CDT Gender Identity Not on file Sexual Orientation Not on file documented as of this encounter Miscellaneous Notes * Cerner Conversion Note - Historical ProviderMD - 05/04/2021 4:00 PM CDT Attempt to Treat, PT Entered On: 05/04/2021 16:01 EDT Performed On: 05/04/2021 16:00 EDT by MARIELLA ESCALANTE PT Attempt to Treat Unable to Treat Due To : Patient on hold Inability to Treat Comment : The pateint is recently back from multiple procedures and hypothermic by nursing report. Nursing request hold PT. Notification : EILEEN Babin MARK, PT - 05/04/2021 16:00 EDT documented in this encounter Plan of Treatment Not on file documented as of this encounter Visit Diagnoses Not on filedocumented in this encounter
--- OUTSIDE RECORDS SUMMARY | 2025-05-04 13:42 | XMS_ITS | Encounter Summary ---
Author Organization [employer] ([place], [place], [place], [place]) Address [address] [place] [address] Care Team Providers Care Media Arts Professor Name Role Phone Unavailable Primary Care Provider Unavailabl e Encounter Details Date Type Department Care Team (Late st Contact Info) Description 05/05/2021 Transcribed Document [facility] [place] [facility] [place] [address] ProviderLatonia MD [address] [place] [address] Social History Tobacco Use Types Packs/Day Years Used Date Smoking Tobacco: Never Assessed Sex and Gender Information Value Date Recorded Sex Assigned at Not on file Legal Sex Male 7:22 PM CDT Gender Identity Not on file Sexual Orientation Not on file documented as of this encounter Miscellaneous Notes * Cerner Conversion Note - Latonia ProviderMD - 05/05/2021 10:45 PM CDT Rapid Response Team Documentation Entered On: 05/06/2021 0:45 EDT Performed On: 05/05/2021 22:45 EDT by LAURITA MASTERSON RN Rapid Response Event Time Rapid Response Team Called : 05/05/2021 21:00 EDT Rapid Response Team Arrival Time : 05/05/2021 22:45 EDT Rapid Response Team Event End Time : 05/05/2021 23:00 EDT Rapid Response Team Initiation Reason : Change in MEWS score Rapid Response Event Location Type : Non Critical Care Rapid Response Team Initiation Reason Details : 4A patient with MEWS of 4 at 1700 & 1800 due to hypothermic temperature. Aric Hugger blanket applied and temp gradually up to 97.6 with rescore of MEWS of 2. Rapid Response Admission Diagnosis : Unspecified jaundice Unspecified jaundice Rapid Response Medical Background : At risk for sleep apnea (Medical) COPD (chronic obstructive pulmonary disease) (Patient Stated) Gout (Patient Stated) Hypertension (Patient Stated) Smoker (Patient Stated) Rapid Response Allergies : Substance Category Reactions Severity No Known Allergies Drug Rapid Response Recent Vital Signs : 05/05/2021 23:02 Systolic Blood Pressure 101 05/05/2021 23:02 Diastolic Blood Pressure 48 05/05/2021 23:02 Heart Rate Monitored 49 05/05/2021 23:00 Respiratory Rate 16 05/05/2021 23:02 Temperature, Fahrenheit 98 05/05/2021 23:02 Oxygen Saturation 100 Rapid Response Recent Lab Results : 05/05/2021 05:24 Sodium Level LOW 133 (136-146) 05/05/2021 05:24 Potassium Level 3.9 (3.5-5.1) 05/05/2021 05:24 Calcium Level LOW 7.9 (8.4-10.1) 05/04/2021 06:58 Magnesium Level 2.2 (1.5-2.4) 05/05/2021 05:24 Chloride Level 104 (102-112) 05/05/2021 05:24 Carbon Dioxide Level 24 (21-32) 05/05/2021 05:24 Blood Urea Nitrogen 18 (7-22) 05/05/2021 05:24 Creatinine Level 0.90 (0.70-1.30) 05/05/2021 05:24 Hgb LOW 8.8 (13.5-17.3) 05/05/2021 05:24 Hct LOW 27.2 (40.1-51.0) 05/05/2021 05:24 RBC LOW 2.67 (4.20-5.70) 05/05/2021 05:24 WBC 6.5 (3.6-9.5) 05/05/2021 05:24 Platelet Count HI 370 (163-369) 05/05/2021 16:37 Troponin I Ultra 0.033 (0.015-0.045) 05/05/2021 16:37 CK MB <1.00 (0.50-3.60) 05/05/2021 05:24 Lipase Level 81 (73-393) Weight/BMI : Clinical Weight/BMI CLINICALWEIGHT: 57.47 kg (05/03/21 00:01:00) Body Mass Index: 20.4 kg/m2 (05/03/21 00:01:00) Chest X Ray Performed : N/A Code Status Pre Event : Full Code Code Status Post Event : Full Code Procedure w/Anesthesia 24 Hr Prior Event : No Rapid Response Team Event Interventions : No intervention Rapid Response Team Recommendation/Response : patient stabilized on Aric Hugger - will leave in place for now and monitor Patient Condition at End of Event : No S/S of Acute Distress Patient Disposition Post Event : No change in location/level of care Rapid Response Media Arts Professor #1 : LAURITA MASTERSON, RN LAURITA MASTERSON RN - 05/06/2021 0:35 EDT Electronically signed by Abelino [facility] Conversion Counter Top Maker Cerner at 02/22/2023 8:38 PM CDT documented in this encounter Plan of Treatment Not on file documented as of this encounter Visit Diagnoses Not on filedocumented in this encounter
--- OUTSIDE RECORDS SUMMARY | 2025-05-04 13:42 | XMS_ITS | Encounter Summary ---
Author Organization [employer] ([place], [place], [place], [place]) Address [address] [place] [address] Care Team Providers Care Glass Designer Name Role Phone Unavailable Primary Care Provider Unavailabl e Encounter Details Date Type Department Care Team (Late st Contact Info) Description 05/04/2021 Transcribed Document [facility] [place] [facility] [place] [address] ProviderLatonia MD [facility] [place] [address] Social History Tobacco Use Types Packs/Day Years Used Date Smoking Tobacco: Never Assessed Sex and Gender Information Value Date Recorded Sex Assigned at Not on file Legal Sex Male 7:22 PM CDT Gender Identity Not on file Sexual Orientation Not on file documented as of this encounter Miscellaneous Notes * Cerner Conversion Note - Latonia Paulson MD - 05/04/2021 11:42 AM CDT Patient: SADIQ ISRAEL Age: 66 Years Sex: Male : 1955 *Operation EGD and ERCP Anesthesia Type Propofol as per anesthesia Indication for Surgery 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 Biopsies taken Duodenum bulb: Erosive duodenitis. Biopsies taken Papilla: Located within a diverticulum, erosion on the ampulla. Moderate sphincterotomy made. Main duct: Dilated to 15mm with a large 15 by 10 mm stone that was removed with a 3cm basket. Multiple sweeps after removal to clear debris. Cystic duct: Not seen, did not fill. Plan: Avoid aspirin and NSAID's. Famotidine 40mg QHS. Recommend cholecystectomy. *Specimen(s) Biopsies taken Complications None Date of Service Date/Time of Service SN - Proc - Start Time: 05/04/21 11:08:00 (05/04/21 11:16:23) Electronically signed by Abelino, [facility] Conversion Credit Analysis Manager Cerner at 02/22/2023 8:50 PM CDT documented in this encounter Plan of Treatment Not on file documented as of this encounter Visit Diagnoses Not on filedocumented in this encounter
--- OUTSIDE RECORDS SUMMARY | 2025-05-04 13:42 | XMS_ITS | Encounter Summary ---
Author Organization [employer] ([place], [place], [place], [place]) Address [address] [place] [address] Care Team Providers Care Attache Name Role Phone Unavailable Primary Care Provider Unavailabl e Encounter Details Date Type Department Care Team (Late st Contact Info) Description 05/06/2021 Transcribed Document [facility] [place] Family Medicine [facility] [place] [address] ProviderLatonia MD [facility] [place] [address] Social History Tobacco Use Types Packs/Day Years Used Date Smoking Tobacco: Never Assessed Sex and Gender Information Value Date Recorded Sex Assigned at Not on file Legal Sex Male 7:22 PM CDT Gender Identity Not on file Sexual Orientation Not on file documented as of this encounter Miscellaneous Notes * Cerner Conversion Note - Historical ProviderMD - 05/06/2021 2:00 AM CDT Manufacturing Quality Inspector Details Entered On: 05/06/2021 1:02 EDT Performed On: 05/06/2021 2:00 EDT by Gracy Ruelas Lpn Order Details Transport Mode Order Detail : Bed (including specialty) Order Detail : N/A Lift/Transfer : Moderate assist Central Line Order Detail : No Room Service : Appropriate Arterial Line : No Patient Needs Meds Crushed/Liquid : No Gracy Ruelas Lpn - 05/06/2021 1:02 EDT documented in this encounter Plan of Treatment Not on file documented as of this encounter Visit Diagnoses Not on filedocumented in this encounter
--- OUTSIDE RECORDS SUMMARY | 2025-05-04 13:42 | XMS_ITS | Encounter Summary ---
Author Organization [employer] ([place], [place], [place], [place]) Address [address] [place] [address] Care Team Providers Care Pre Parole Counseling Aide Name Role Phone Unavailable Primary Care Provider Unavailabl e Encounter Details Date Type Department Care Team (Late st Contact Info) Description 05/06/2021 Transcribed Document [facility] [place] [facility] [place] [address] ProviderLatonia MD [facility] [place], [place] [id number] Social History Tobacco Use Types Packs/Day Years Used Date Smoking Tobacco: Never Assessed Sex and Gender Information Value Date Recorded Sex Assigned at Not on file Legal Sex Male 7:22 PM CDT Gender Identity Not on file Sexual Orientation Not on file documented as of this encounter Miscellaneous Notes * Cerner Conversion Note - Historical ProviderMD - 05/06/2021 12:45 PM CDT Attempt to Treat, PT Entered On: 05/06/2021 12:46 EDT Performed On: 05/06/2021 12:45 EDT by MARIELLA ESCALANTE PT Attempt to Treat Unable to Treat Due To : Pending order clarification Inability to Treat Comment : Awaiting reorder following surgery. Nursing asked to request new order for eval and treat Notification : EILEEN Samaniego MARK, PT - 05/06/2021 12:45 EDT documented in this encounter Plan of Treatment Not on file documented as of this encounter Visit Diagnoses Not on filedocumented in this encounter
--- OUTSIDE RECORDS SUMMARY | 2025-05-04 13:42 | XMS_ITS | Encounter Summary ---
Author Organization [employer] ([place], [place], [place], [place]) Address [address] [place] [address] Care Team Providers Care Academic Coordinator Name Role Phone Unavailable Primary Care Provider Unavailabl e Encounter Details Date Type Department Care Team (Late st Contact Info) Description 05/05/2021 Transcribed Document [facility] [place] [facility] [place] [address] ProviderLatonia MD [facility] [place] [address] Social History Tobacco Use Types Packs/Day Years Used Date Smoking Tobacco: Never Assessed Sex and Gender Information Value Date Recorded Sex Assigned at Not on file Legal Sex Male 7:22 PM CDT Gender Identity Not on file Sexual Orientation Not on file documented as of this encounter Miscellaneous Notes * [employer]ner Conversion Note - Historical ProviderMD - 05/05/2021 5:00 PM CDT Chart Check - Review Order Profile Entered On: 05/05/2021 19:19 EDT Performed On: 05/05/2021 17:00 EDT by Kateryna Greene Chart Check Power[employer]ans Initiated/Discontinued as Appropriate : Yes All Active Orders Reviewed : Yes Kateryna Greene - 05/05/2021 19:18 EDT Electronically signed by Rivas Roca Conversion Rocket Engine Component Mechanic [employer] at 02/22/2023 8:45 PM CDT documented in this encounter Plan of Treatment Not on file documented as of this encounter Visit Diagnoses Not on filedocumented in this encounter
--- OUTSIDE RECORDS SUMMARY | 2025-05-04 13:42 | XMS_ITS | Encounter Summary ---
Author Organization [employer] ([place], [place], [place], [place]) Address [address] [place] [address] Care Team Providers Care Motion And Time Study Teacher Name Role Phone Unavailable Primary Care Provider Unavailabl e Encounter Details Date Type Department Care Team (Late st Contact Info) Description 05/05/2021 Transcribed Document [facility] [place] [facility] [place] [address] ProviderLatonia MD [facility] [place] [address] Social History Tobacco Use Types Packs/Day Years Used Date Smoking Tobacco: Never Assessed Sex and Gender Information Value Date Recorded Sex Assigned at Not on file Legal Sex Male 7:22 PM CDT Gender Identity Not on file Sexual Orientation Not on file documented as of this encounter Miscellaneous Notes * [employer]ner Conversion Note - Historical ProviderMD - 05/05/2021 3:18 PM CDT Attempt to Treat, PT Entered On: 05/05/2021 15:18 EDT Performed On: 05/05/2021 15:18 EDT by MARIELLA ESCALANTE PT Attempt to Treat Unable to Treat Due To : Patient Unavailable Inability to Treat Comment : [facility] Notification : EILEEN Babin MARK, PT - 05/05/2021 15:18 EDT Electronically signed by Abelino [facility] Conversion Veterans Service Representative Cerner at 02/22/2023 8:33 PM CDT documented in this encounter Plan of Treatment Not on file documented as of this encounter Visit Diagnoses Not on filedocumented in this encounter
--- OUTSIDE RECORDS SUMMARY | 2025-05-04 13:42 | XMS_ITS | Encounter Summary ---
Author Organization [employer] ([place], [place], [place], [place]) Address [address] [place] [address] Care Team Providers Care Spindle Setter Name Role Phone Unavailable Primary Care Provider Unavailabl e Encounter Details Date Type Department Care Team (Late st Contact Info) Description 05/12/2021 Transcribed Document [facility] [place] Family Medicine [facility] [place] [address] ProviderLatonia MD [facility] [place] [address] Social History Tobacco Use Types Packs/Day Years Used Date Smoking Tobacco: Never Assessed Sex and Gender Information Value Date Recorded Sex Assigned at Not on file Legal Sex Male 7:22 PM CDT Gender Identity Not on file Sexual Orientation Not on file documented as of this encounter Miscellaneous Notes * Cerner Conversion Note - Latonia ProviderMD - 05/12/2021 1:16 PM CDT Patient Resource Center Entered On: 05/12/2021 13:18 EDT Performed On: 05/12/2021 13:16 EDT by Key Woods, Third Mate Patient Resource Center Provider Status : EST Other Established Provider Name : MER COLE Patient Phone Number : [phone] Patient Insurance Type : Medicaid (ex. Wellcare, Passport), Medicare Source of Referral : Case management Location of Patient : Case management referral Primary Care Scheduled : Yes Primary Care Scheduled Type : Non [facility] Primary Care Provider Name : MER COLE Primary Care Appointment Date/Time : 05/16/2021 11:30 EDT Specialty Care Scheduled : Yes Specialty Type Scheduled1 : [facility] Gastroenterology, [facility] General Surgery [facility] Gastroenterology Provider Name : BEATRIS ISRAEL [facility] Gastroenterology Appointment Date/Time : 05/24/2021 10:30 EDT [facility] General Surgery Provider Name : SUSANA OLIVAREZ [facility] General Surgery Appointment Date/Time : 05/18/2021 11:30 EDT Qualify for Diabetes and/or Nutrition Referral : No Wound Care Appointment Made : No Why Patient Visited ED- Specialty spent : Other How Patient Arrived at ED : Other Primary Language : [place] Patient Resource Center Comment : Patient needs follow up appointments. Appointment already scheduled with Dr. Olivarez. Called and scheduled appointment with Mer Cole and Dr. Israel. Called patient and VM full, sent text. Called and gave appointment information to Jarad and sent text Follow Up Needed : No Key Woods, Third Mate - 05/12/2021 13:16 EDT documented in this encounter Plan of Treatment Not on file documented as of this encounter Visit Diagnoses Not on filedocumented in this encounter
--- OUTSIDE RECORDS SUMMARY | 2025-05-04 13:42 | XMS_ITS | Encounter Summary ---
Author Organization [employer] ([place], [place], [place], [place]) Address [address] [place] [address] Care Team Providers Care Tissue Coordinator Name Role Phone Unavailable Primary Care Provider Unavailabl e Encounter Details Date Type Department Care Team (Late st Contact Info) Description 05/04/2021 Transcribed Document [facility] [place] [facility] [place] [address] ProviderLatonia MD [facility] [place] [address] Social History Tobacco Use Types Packs/Day Years Used Date Smoking Tobacco: Never Assessed Sex and Gender Information Value Date Recorded Sex Assigned at Not on file Legal Sex Male 7:22 PM CDT Gender Identity Not on file Sexual Orientation Not on file documented as of this encounter Miscellaneous Notes * [employer]ner Conversion Note - Historical ProviderMD - 05/04/2021 5:00 PM CDT Chart Check - Review Order Profile Entered On: 05/04/2021 18:11 EDT Performed On: 05/04/2021 17:00 EDT by Kateryna Greene Chart Check Powerplans Initiated/Discontinued as Appropriate : Yes All Active Orders Reviewed : Yes Kateryna Greene - 05/04/2021 18:11 EDT documented in this encounter Plan of Treatment Not on file documented as of this encounter Visit Diagnoses Not on filedocumented in this encounter
--- OUTSIDE RECORDS SUMMARY | 2025-05-04 13:42 | XMS_ITS | Encounter Summary ---
Author Organization [employer] ([place], [place], [place], [place]) Address [address] [place] [address] Care Team Providers Care Truck Crane Operator Name Role Phone Unavailable Primary Care Provider Unavailabl e Encounter Details Date Type Department Care Team (Late st Contact Info) Description 05/07/2021 Transcribed Document [facility] [place] [facility] [place] [address] ProviderLatonia MD [facility] [place] [address] Social History Tobacco Use Types Packs/Day Years Used Date Smoking Tobacco: Never Assessed Sex and Gender Information Value Date Recorded Sex Assigned at Not on file Legal Sex Male 7:22 PM CDT Gender Identity Not on file Sexual Orientation Not on file documented as of this encounter Miscellaneous Notes * Cerner Conversion Note - Latonia ProviderMD - 05/07/2021 12:00 PM CDT Pain Assessment Entered On: 05/07/2021 13:01 EDT Performed On: 05/07/2021 12:52 EDT by Mark Anthony Viveros RN Intervention Information: acetaminophen Performed by Mark Anthony Viveros RN on 05/07/2021 11:52:00 EDT acetaminophen,500mg Oral Pain Assessment Pain Assessment : Follow-up assessment Pain Scale Goal : 4 Pain Scale Used : 0-10 Scale Mark Anthony Viveros RN - 05/07/2021 13:01 EDT Pain Scale Intensity : 4 Mark Anthony Viveros RN - 05/07/2021 13:01 EDT Image 4 - Images currently included in the form version of this document have not been included in the text rendition version of the form. documented in this encounter Plan of Treatment Not on file documented as of this encounter Visit Diagnoses Not on filedocumented in this encounter
--- OUTSIDE RECORDS SUMMARY | 2025-05-04 13:42 | XMS_ITS | Encounter Summary ---
Author Organization [employer] ([place], [place], [place]) Address [address] [place] [address] Care Team Providers Care Map Maker Name Role Phone Unavailable Primary Care Provider Unavailabl e Encounter Details Date Type Department Care Team (Late st Contact Info) Description 05/03/2021 Transcribed Document [facility] Radiology [address] [place] [address] Maricel Marsh MD [address] [place] [id number] Social History Tobacco Use Types Packs/Day Years Used Date Smoking Tobacco: Never Assessed Sex and Gender Information Value Date Recorded Sex Assigned at Not on file Legal Sex Male 7:22 PM CDT Gender Identity Not on file Sexual Orientation Not on file documented as of this encounter Miscellaneous Notes * Cerner Conversion Note - Maricel Marsh MD - 05/03/2021 2:14 AM EDT Patient: SADIQ ISRAEL Age: 66 Years Sex: Male : 1955 Chief Complaint Generalized weakness Primary Care Provider TREY, NOT LISTED History of Present Illness Patient is a 66-year-old male that is [...] complaints. Patient denies any abdominal pain currently. Review of Systems Constitutional: [No fevers, chills, sweats] Eye: [No recent visual problems, eye discharge, eye pain, redness] HEENT: [No ear pain, nasal congestion, sore throat, voice changes] Respiratory: [No shortness of breath, cough, pain on breathing, sputum production] Cardiovascular: [No Chest pain, palpitations, syncope, shortness of breath while laying flat] Gastrointestinal: [No nausea, vomiting, diarrhea, constipation] Genitourinary: [No hematuria, dysuria, incontinence, lesions on genitalia] Santiago/Lymph: [Negative for bruising tendency, swollen lymph glands, nosebleeds, history of anticoagulation] Endocrine: [Negative for excessive thirst, excessive hunger, excessive urination, heat or cold intolerance] Musculoskeletal: [No back pain, neck pain, joint pain, muscle pain, decreased range of motion] Integumentary: [No rash, pruritus, abrasions, lesions] Neurologic: [No weakness, numbness, frequent headaches, tremors, blackouts] Psychiatric: [No anxiety, depression, mood changes, hallucinations] Vital Signs HT: 167.64 cm WT: 57.47 kg BMI: 20.4 Oxygen Settings (Last) No qualifying data available. Physical Exam General: [Alert and oriented, well nourished, no acute distress]. Neurologic: [Awake, alert, and oriented X3, Eye: [Scleral icterus HENT: [Normocephalic, Neck: [Supple, Lungs: [Clear to auscultation Heart: [Normal rate, regular rhythm, Abdomen: [Soft, non-tender, non-distended, normal bowel sounds, Musculoskeletal: [Normal range of motion Psychiatric: [Cooperative, appropriate mood and affect]. Assessment/Plan 1. Obstructive jaundice: We will repeat a CMP this morning, consult GI, keep n.p.o. for now for possible ERCP 2. Urinary tract infection: We will obtain a urinalysis with urine culture here, continue Rocephin that was started at outside facility 3. Hypertension: Continue medication 4. Tobacco dependence syndrome: Nicotine patch next DVT prophylaxis: Heparin Ordered: acetaminophen, 650 mg, Oral, Tab, Q4H, PRN for Pain (Mild 1-3), Routine, Start 05/03/21 1:32:00 EDT, 05/03/21 1:32:00 EDT albuterol-ipratropium, 3 mL, Nebulized Inhalation, Inh, RT_Q6H, PRN for Shortness of Breath, Routine, Start 05/03/21 1:32:00 EDT bisacodyl, 5 mg, Oral, EC Tab, Daily, PRN for Constipation, Routine, Start 05/03/21 1:32:00 EDT, 05/03/21 1:32:00 EDT cefTRIAXone, 1 Gram, IV Piggyback, Inj, [id number], infuse over 30 Minute(s), Routine, Start 05/03/21 2:00:00 EDT, 100 mL/Hr, Indication: Urinary Tract Infection heparin, 5,000 Units, SubCutaneous, Inj, [id number], Routine, Start 05/03/21 2:00:00 EDT, 05/03/21 1:32:00 EDT ondansetron, 4 mg, IV Push, Inj, Q4H, PRN for Nausea, Routine, Start 05/03/21 1:32:00 EDT, 05/03/21 1:32:00 EDT Sodium Chloride 0.9% intravenous solution 1,000 mL, 1,000 mL, Bag Volume (mL) = 1,000, IntraVENous, Rate = 50 mL/Hr, start date 05/03/21 1:32:00 EDT, Routine, 1.64, m2 Ambulate CBC no Diff (Hemogram) CBC w/ Auto Diff CMP Comprehensive Metabolic Panel Consult to Physician Culture Blood Culture Blood Diabetes Education (Nursing) DVT VTE Prophylaxis Education Facility Protocol Intake and Output Lab Order Instructions to Nursing Magnesium Level NPO (immediate) OT Evaluation and Treatment POC Glucose PT Evaluation and Treatment Resuscitation Status Urinalysis UA Rflx Microscopic Cult if Ind Vital Signs VTE Prophylaxis - Medical Heparin 5,000 Units, SubCutaneous, Inj, [id number], Routine, Start 05/03/21 2:00:00 EDT, 05/03/21 1:32:00 EDT (MARICEL MARSH) Problem List/Past Medical History Ongoing At risk for sleep apnea COPD (chronic obstructive pulmonary disease) Gout Hypertension Smoker Historical No qualifying data Procedure/Surgical History APPENDECTOMY (1961). Home Medications (8) Active albuterol 1.25 mg/3 mL (0.042%) inhalation solution , Nebulized Inhalation, TID allopurinol 100 mg oral tablet , Oral, Daily Cymbalta 30 mg oral delayed release capsule , Oral, Daily lisinopril 10 mg oral tablet , Oral, Daily loratadine 10 mg oral tablet , Oral, Daily nadolol 20 mg oral tablet , Oral, Daily pantoprazole 40 mg oral delayed release tablet , Oral, Daily Spiriva 18 mcg inhalation capsule 18 mcg = 1 Cap, Inhalation, Daily Allergies No Known [...] years ago. Drug Route: Inhaled. Family History htn, cad Additional Documentation Code Status Start: 05/03/21 1:02:00 EDT, Full Code, Continuous Order documented in this encounter Plan of Treatment Not on file documented as of this encounter Visit Diagnoses Not on filedocumented in this encounter
--- OUTSIDE RECORDS SUMMARY | 2025-05-04 13:42 | XMS_ITS | Encounter Summary ---
Author Organization [employer] ([place], [place], [place], [place]) Address [address] [place] [address] Care Team Providers Care Deckhand Fishing Vessel Name Role Phone Unavailable Primary Care Provider Unavailabl e Encounter Details Date Type Department Care Team (Late st Contact Info) Description 05/07/2021 Transcribed Document [facility] [place] [facility] [place] [address] ProviderLatonia MD [facility] [place] [address] Social History Tobacco Use Types Packs/Day Years Used Date Smoking Tobacco: Never Assessed Sex and Gender Information Value Date Recorded Sex Assigned at Not on file Legal Sex Male 7:22 PM CDT Gender Identity Not on file Sexual Orientation Not on file documented as of this encounter Miscellaneous Notes * Cerner Conversion Note - Latonia ProviderMD - 05/07/2021 5:00 PM CDT Chart Check - Review Order Profile Entered On: 05/07/2021 15:03 EDT Performed On: 05/07/2021 17:00 EDT by Mark Anthony Viveros RN Chart Check Powerplans Initiated/Discontinued as Appropriate : Yes All Active Orders Reviewed : Yes Mark Anthony Viveros RN - 05/07/2021 15:03 EDT Electronically signed by Abelino [facility] Conversion Document Preparation Specialist Cerner at 02/22/2023 8:50 PM CDT documented in this encounter Plan of Treatment Not on file documented as of this encounter Visit Diagnoses Not on filedocumented in this encounter
--- OUTSIDE RECORDS SUMMARY | 2025-05-04 13:42 | XMS_ITS | Encounter Summary ---
Author Organization [employer] ([place], [place], [place], [place]) Address [address] [place] [address] Care Team Providers Care Broach Setter Name Role Phone Unavailable Primary Care Provider Madison cruz Encounter Details Date Type Department Care Team (Late st Contact Info) Description 05/05/2021 Transcribed Document [facility] [place] [facility] [place] [address] ProviderLatonia MD [address] [place] [address] Social History Tobacco Use Types Packs/Day Years Used Date Smoking Tobacco: Never Assessed Sex and Gender Information Value Date Recorded Sex Assigned at Not on file Legal Sex Male 7:22 PM CDT Gender Identity Not on file Sexual Orientation Not on file documented as of this encounter Miscellaneous Notes * Cerner Conversion Note - Latonia ProviderMD - 05/05/2021 12:35 PM CDT Peripheral Nerve Block Entered On: 05/05/2021 12:38 EDT Performed On: 05/05/2021 12:35 EDT by Lila Kim RN Peripheral Nerve Block Peripheral Nerve Block Start Date/Time : 05/05/2021 12:25 EDT Verbally Confirm Pt, Site, and Procedure : Yes Site Marked and Visible : Yes Peripheral Nerve Block : Tap Block Laterality : Bilateral Peripheral Nerve Block Performed by : IRON THOMAS MD-ANS Peripheral Nerve Block Performed by 2 : Lila Kim RN Ultra sound used during insertion : Yes Nerve Block Activity, Patient Tolerance : Good Peripheral Nerve Block End Date/Time : 05/05/2021 12:38 EDT Lila Kim RN - 05/05/2021 12:35 EDT documented in this encounter Plan of Treatment Not on file documented as of this encounter Visit Diagnoses Not on filedocumented in this encounter
--- OUTSIDE RECORDS SUMMARY | 2025-05-04 13:42 | XMS_ITS | Encounter Summary ---
Author Organization [employer] ([place], [place], [place], [place]) Address [address] [place] [address] Care Team Providers Care Assistant Administrator Name Role Phone Unavailable Primary Care Provider Unavailabl e Encounter Details Date Type Department Care Team (Late st Contact Info) Description 05/05/2021 Transcribed Document [facility] [place] [facility] [place] [address] ProviderLatonia MD [facility] [place], [place] [id number] Social History Tobacco Use Types Packs/Day Years Used Date Smoking Tobacco: Never Assessed Sex and Gender Information Value Date Recorded Sex Assigned at Not on file Legal Sex Male 7:22 PM CDT Gender Identity Not on file Sexual Orientation Not on file documented as of this encounter Miscellaneous Notes * Cerner Conversion Note - Historical ProviderMD - 05/05/2021 5:01 AM CDT Spiritual Care Short Form Entered On: 05/05/2021 5:42 EDT Performed On: 05/05/2021 5:01 EDT by SHERRY HERNÁNDEZ Chaplain General Information, Spiritual Care Spiritual Care Referred by : Senior Living Advisor initiated Reason for Visit : Initial Ministry Provided to : Patient Intervention/Comment/Summary Points : Prov. pre-proc. prayer SHERRY HERNÁNDEZ Chaplain - 05/05/2021 5:39 EDT documented in this encounter Plan of Treatment Not on file documented as of this encounter Visit Diagnoses Not on filedocumented in this encounter
--- OUTSIDE RECORDS SUMMARY | 2025-05-04 13:42 | XMS_ITS | Encounter Summary ---
Author Organization [employer] ([place], [place], [place], [place]) Address [address] [place] [address] Care Team Providers Care Child Care Attendant School Name Role Phone Unavailable Primary Care Provider Unavailabl e Encounter Details Date Type Department Care Team (Late st Contact Info) Description 05/05/2021 Transcribed Document [facility] [place] [facility] [place] [address] ProviderLatonia MD [facility] [place] [address] Social History Tobacco Use Types Packs/Day Years Used Date Smoking Tobacco: Never Assessed Sex and Gender Information Value Date Recorded Sex Assigned at Not on file Legal Sex Male 7:22 PM CDT Gender Identity Not on file Sexual Orientation Not on file documented as of this encounter Miscellaneous Notes * Cerner Conversion Note - Historical ProviderMD - 05/05/2021 5:00 AM CDT Chart Check - Review Order Profile Entered On: 05/05/2021 6:32 EDT Performed On: 05/05/2021 5:00 EDT by Gracy Ruelas Lpn Chart Check Powerplans Initiated/Discontinued as Appropriate : Yes All Active Orders Reviewed : Yes Gracy Ruelas Lpn - 05/05/2021 6:32 EDT documented in this encounter Plan of Treatment Not on file documented as of this encounter Visit Diagnoses Not on filedocumented in this encounter
--- OUTSIDE RECORDS SUMMARY | 2025-05-04 13:42 | XMS_ITS | Encounter Summary ---
Author Organization [employer] ([place], [place], [place], [place]) Address [address] [place] [address] Care Team Providers Care Pain Management Nurse Name Role Phone Unavailable Primary Care Provider Unavailabl e Encounter Details Date Type Department Care Team (Late st Contact Info) Description 05/03/2021 Transcribed Document [facility] [place] [facility] [place] [address] ProviderLatonia MD [address] [place] [address] Social History Tobacco Use Types Packs/Day Years Used Date Smoking Tobacco: Never Assessed Sex and Gender Information Value Date Recorded Sex Assigned at Not on file Legal Sex Male 7:22 PM CDT Gender Identity Not on file Sexual Orientation Not on file documented as of this encounter Miscellaneous Notes * Cerner Conversion Note - Latonia ProviderMD - 05/03/2021 1:00 AM CDT Evaluation, Occupational Therapy Entered On: 05/03/2021 14:42 EDT Performed On: 05/03/2021 14:13 EDT by NEGRITO SHIN OTR/L General Information, OT Visit Type, OT : Initial evaluation Patient Orders : Order Date Order Ordering 05/03/2021 01:00 OT Evaluation and Treatment Ordered By: SHABNAM MARSH MD Active Diagnoses : No Qualifying Diagnoses Therapy Diagnosis, OT : Decrease in I with ADL's and fxl mobility due to weakness and medical condition Admission Date : 05/03/2021 00:04 Co-treated by, OT : Physical Therapist Personal Devices : Personal Devices Glasses Assistive Devices : Assistive Devices No Devices Recorded Precautions in Place : Fall prevention measures General Information Comment, OT : 66 yr old male admit with jaundice, UTI, and 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 Hx: COPD, Gout, HTN, Smoking NEGRITO SHIN OTR/L - 05/03/2021 14:38 EDT General Status Patient Received Status : Supine in bed, HOB elevated Treatment Start Time : 05/03/2021 13:42 EDT Patient Left Status : Supine in bed, All needs met and within reach RN/PCT Informed Comment : Suyapa ARELLANO to see pt Treatment End Time : 05/03/2021 14:13 EDT Treatment Time : 31 Minute(s) NEGRITO SHIN OTR/Jc - 05/03/2021 14:38 EDT History and Environment, OT Living Situation, Therapy : Home Patient Lives With : Parent(s) Persons Providing Information : Patient Home Equipment, Therapy : Ramp, access, Shower Equipment Shower Equipment : Shower Chair, with back Home Setup : Basement, One story Bedroom Location : Downstairs Bathroom #1 Location : Downstairs Bathroom #1 Features : Walk-In shower Stairs : Yes Stair Location(s) : Inside, Outside Inside Stairs, Number of Steps : 13 Outside Stairs Comment : Has Ramp Railing Inside : Yes Ramp : Yes NEGRITO SHIN OTR/Jc - 05/03/2021 14:38 EDT Prior LOF Bathing, OT : Independent Prior LOF Bed Mobility : Independent Prior LOF Upper Body Dressing, OT : Independent Prior LOF Lower Body Dressing, OT : Independent Prior LOF Toileting : Independent Prior LOF Transfer : Independent Prior LOF Grooming, OT : Independent Prior LOF for IADLs, OT : Independent NEGRITO SHIN OTR/Jc - 05/03/2021 14:38 EDT History and Environment Comment, OT : Pt lives with mother in her basement and does all of the IADL's. Does not use any AD's. NEGRITO SHIN OTR/Jc - 05/03/2021 14:43 EDT Upper Extremity Upper Extremity Dominance : Right Right UE Active ROM : WFL Right UE Strength : Impaired Left UE Active ROM : WFL Left UE Strength : Impaired NEGRITO SHIN OTR/Jc - 05/03/2021 14:43 EDT Right Upper Extremity MMT Shoulder Flexion 0-180 : 3+/fair Shoulder Extension 0-60 : 3+/fair Shoulder Abduction 0-180 : 3+/fair Shoulder Adduction 0-180 : 3+/fair Shoulder Internal Rotation 0-90 : 3+/fair Shoulder External Rotation 0-90 : 3+/fair Elbow Flexion 0-150 : 3+/fair Elbow Extension 0-0 : 3+/fair Wrist Flexion 0-80 : 3+/fair Wrist Extension 0-70 : 3+/fair Forearm Pronation 0-70 : 3+/fair Forearm Supination 0-85 : 3+/fair Ulnar Deviation 0-45 : 3+/fair RadialDeviation 0-20 : 3+/fair NEGRITO SHIN OTR/L - 05/03/2021 14:43 EDT Left Upper Extremity MMT Shoulder Flexion 0-180 : 3+/fair Shoulder Extension 0-60 : 3+/fair Shoulder Abduction 0-180 : 3+/fair Shoulder Adduction 0-180 : 3+/fair Shoulder Internal Rotation 0-90 : 3+/fair Shoulder External Rotation 0-90 : 3+/fair Elbow Flexion 0-150 : 3+/fair Elbow Extension 0-0 : 3+/fair Wrist Flexion 0-80 : 3+/fair Wrist Extension 0-70 : 3+/fair Forearm Pronation 0-70 : 3+/fair Forearm Supination 0-85 : 3+/fair Ulnar Deviation 0-45 : 3+/fair RadialDeviation 0-20 : 3+/fair NEGRITO SHIN OTR/Jc - 05/03/2021 14:43 EDT Self Care/Home Management, OT Self Feeding Assist Level, OT : Independent, complete Grooming Assist Level, OT : Assist, minimal Bathing Assist Level, OT : Assist, minimal Upper Body Dressing Assist Level, OT : Assist, minimal Lower Body Dressing Assist Level, OT : Assist, moderate Toileting Assist Level : Assist, minimal Toilet Transfer Assist Level : Assist, minimal NEGRITO SHIN OTR/Jc - 05/03/2021 14:43 EDT Functional Mobility Mobility Grid Bed Roll Left : Supervision/set-up Bed Scooting : Supervision/set-up Supine to Sit : Supervision/set-up Sit to Stand : Rehab Minimal assistance Stand to Sit : Rehab Minimal assistance Sit to Supine : Rehab Minimal assistance NEGRITO SHIN OTR/Jc - 05/03/2021 14:43 EDT Cognition Assessment, OT Orientation : Oriented x 4 NEGRITO SHIN OTR/L - 05/03/2021 14:43 EDT Indication Assessment, OT Occupational Therapy Indicated : Yes Problem List, OT : Impaired, bed mobility, Impaired, activities daily living, Impaired, endurance tolerance, Impaired functional mobility, Impaired, sitting balance, Impaired, standing balance, Impaired, strength, Impaired, transfers Potential Barriers, OT : None evident Rehabilitation Potential, OT : Good NEGRITO SHIN OTR/Jc - 05/03/2021 14:43 EDT Plan of Care, OT OT Tx Plan/Goals Established w Patient : Yes OT Frequency Rehab : Five days per week OT Duration Rehab : Fourteen days OT Treatments Planned : Activities of daily living, Balance training, Functional mobility training, Pain management, Safety education, Therapeutic activities, Therapeutic exercises Plan of Care Comment, OT : POC initiated NEGRITO SHIN OTR/L - 05/03/2021 14:43 EDT Usp Goals, OT Grooming LTG Grid Goal #1 Activity : Grooming Assist : Supervision or set up Date to Meet : 05/17/2021 EDT Goal Status : Initial goal Comment : Standing at sink NEGRITO SHIN OTR/Jc - 05/03/2021 14:43 EDT Dressing, Lower Body LTG Grid Goal #1 Activity : Dressing, Lower Body Assist : Independent, modified Date to Meet : 05/17/2021 EDT Goal Status : Initial goal NEGRITO SHIN OTR/Jc - 05/03/2021 14:43 EDT Toilet Transfer LTG Grid Goal #1 Activity : Toilet Transfer, Ambulatory Assist : Independent, modified Date to Meet : 05/17/2021 EDT Goal Status : Initial goal NEGRITO SHIN OTR/Jc - 05/03/2021 14:43 EDT Bed Mobility/ Bed Transfer LTG Grid Goal #1 Activity : Bed Mobility, Sit to Supine Assist : Independent, complete Date to Meet : 05/17/2021 EDT Goal Status : Initial goal NEGRITO SHIN OTR/L - 05/03/2021 14:43 EDT Treatment Note Subjective Comment : Pt agreeable and cooperative to participate in OT eval/interview Patient's Response to Treatment : Pt tolerated well Additional Objective Information : Pt semi supine in bed on arrival and agreed to participate. Pt participated in BUE strengthening and ROM ax 3+/5 MMT. Pt supine to sit EOB with supervision. Sit to stand to RW with Min A and completed fxl mobility household distance to bathroom to complete toileting and pericare with Min A. Pt also participated in fxl mobility extended household distance with RW and Min A. Pt EOB to supine with Min A. Pt left semi supine in bed with all needs met adn call light in reach. Assessment : Pt will benefit from skilled OT services to improve strength, balance, safety, endurance, ax tolerance, and education for increased I in ADL's, fxl mobility, and participation in valued daily ax's. Plan for Treatment : POC initiated NEGRITO SHIN OTR/L - 05/03/2021 14:43 EDT Pain Assessment Pain Scaled Used : 0-10 Pain scale Pain Score Pre-Intervention : 0 NEGRITO SHIN OTR/L - 05/03/2021 14:43 EDT Image 1 - Images currently included in the form version of this document have not been included in the text rendition version of the form. Anticipated Discharge Needs, OT/PT Anticipated Discharge to : Home, with home health, Unit, rehabilitation NEGRITO SHIN OTR/L - 05/03/2021 14:[address] [facility] OT Charges OT Selfcare/Hm Mgmt Ea 15 Min : 1 OT Eval Low Complexity : 1 NEGRITO SHIN OTR/L - 05/03/2021 14:38 EDT documented in this encounter Plan of Treatment Not on file documented as of this encounter Visit Diagnoses Not on filedocumented in this encounter
--- OUTSIDE RECORDS SUMMARY | 2025-05-04 13:42 | XMS_ITS | Encounter Summary ---
Author Organization [employer] ([place], [place], [place], [place]) Address [address] [place] [address] Care Team Providers Care Building Equipment Operator Name Role Phone Unavailable Primary Care Provider Unavailabl e Encounter Details Date Type Department Care Team (Late st Contact Info) Description 05/04/2021 Transcribed Document [facility] Family Medicine [facility] [place] [address] Provider, MD [place] [address] [place] [id number] Social History Tobacco Use Types Packs/Day Years Used Date Smoking Tobacco: Never Assessed Sex and Gender Information Value Date Recorded Sex Assigned at Not on file Legal Sex Male 7:22 PM CDT Gender Identity Not on file Sexual Orientation Not on file documented as of this encounter Miscellaneous Notes * Cerner Conversion Note - Latonia ProviderMD - 05/04/2021 10:57 AM CDT [facility] IntraOp Summary Primary Physician: BEATRIS BLANCAS MD-GAE Finalized Date/Time: 05/04/21 11:29:11 Pt. Name: TIFFANI BLANCAS /Sex: 1955 Male Med Rec #: [id number] Physician: GUILLAUME DIXON MD Financial #: [id number] Pt. Type: I Room/Bed: [facility] Admit/Disch: 05/03/21 00:04:00 - Institution: [facility] - Case Attendance Entry 1 Entry 2 Entry 3 Case Attendee BEATRIS BLANCAS MD-Anum Joyce Rn OTHER, ATTENDEE Role Performed Surgeon/Proceduralist, Staff Software Engineer, First Student First Time In 05/04/21 10:55:00 05/04/21 10:44:00 05/04/21 10:44:00 Time Out 05/04/21 11:31:00 07/01/21 11:40:00 05/04/21 11:40:00 Procedure Endoretrogradecholangiop Endoretrogradecholangiop Endoretrogradecholangiop ancreatography, ancreatography, ancreatography, Esophagogastroduodenosco Esophagogastroduodenosco Esophagogastroduodenosco py, Gastric Biopsy, py, Gastric Biopsy, py, Gastric Biopsy, Duodenal Biopsy, Duodenal Biopsy, Duodenal Biopsy, Sphincterotomy, Biliary Sphincterotomy, Biliary Sphincterotomy, Biliary Duct Balloon Sweep, Duct Balloon Sweep, Duct Balloon Sweep, Biliary Duct Stone Biliary Duct Stone Biliary Duct Stone Extraction Extraction Extraction Other Attendee Damaso Brannon Superficial Wound Closed By: Last Modified By: Anum Barraza Rn Ward, Marissa, Rn Ward, Marissa, Rn 05/04/21 11:27:20 05/04/21 11:28:59 05/04/21 11:28:59 Entry 4 Entry 5 Entry 6 Case Attendee Son Mcdowell, RADIATION PROTECTION ENGINEER DAJUAN RABAGO [facility] SAMAN TURK, TITLE ABSTRACTOR Role Performed RADIATION PROTECTION ENGINEER/Nurse Log Raft Worker [facility], First Record Time In 05/04/21 10:44:00 05/04/21 10:44:00 05/04/21 10:44:00 Time Out 05/04/21 11:40:00 05/04/21 11:31:00 05/04/21 11:31:00 Procedure Endoretrogradecholangiop Endoretrogradecholangiop Endoretrogradecholangiop ancreatography, ancreatography, ancreatography, Esophagogastroduodenosco Esophagogastroduodenosco Esophagogastroduodenosco py, Gastric Biopsy, py, Gastric Biopsy, py, Gastric Biopsy, Duodenal Biopsy, Duodenal Biopsy, Duodenal Biopsy, Sphincterotomy, Biliary Sphincterotomy, Biliary Sphincterotomy, Biliary Duct Balloon Sweep, Duct Balloon Sweep, Duct Balloon Sweep, Biliary Duct Stone Biliary Duct Stone Biliary Duct Stone Extraction Extraction Extraction Other Attendee Superficial Wound Closed By: Last Modified By: Anum Barraza Rn Ward, Marissa, Rn Ward, Marissa, Rn 05/04/21 11:28:59 05/04/21 11:27:20 05/04/21 11:27:20 Entry 7 Case Attendee Michele Zuluaga, Fiberglass Roving Winder Role Performed Pigeon Fancier Time In 05/04/21 10:44:00 Time Out 05/04/21 11:31:00 Procedure Endoretrogradecholangiop ancreatography, Esophagogastroduodenosco py, Gastric Biopsy, Duodenal Biopsy, Sphincterotomy, Biliary Duct Balloon Sweep, Biliary Duct Stone Extraction Other Attendee Superficial Wound Closed By: Last Modified By: Anum Barraza Rn 05/04/21 11:27:20 [facility] Endo - Case Attendance Audit 05/04/21 11:28:59 Park Manager: MYLENE Modifier: MYLENE 2 <*> Time Out 05/04/21 11:31:00 2 <*> Procedure Endoretrogradecholangiopancreatography, Esophagogastroduodenoscopy, Gastric Biopsy, Duodenal Biopsy, Sphincterotomy, Biliary Duct Balloon Sweep, Biliary Duct Stone Extraction 3 <*> Time Out 05/04/21 11:31:00 3 <*> Procedure Endoretrogradecholangiopancreatography, Esophagogastroduodenoscopy, Gastric Biopsy, Duodenal Biopsy, Sphincterotomy, Biliary Duct Balloon Sweep, Biliary Duct Stone Extraction 4 <*> Time Out 05/04/21 11:31:00 4 <*> Procedure Endoretrogradecholangiopancreatography, Esophagogastroduodenoscopy, Gastric Biopsy, Duodenal Biopsy, Sphincterotomy, Biliary Duct Balloon Sweep, Biliary Duct Stone Extraction 05/04/21 11:27:20 Park Manager: MYLENE Modifier: MYLENE 1 <+> Time Out 1 <*> Procedure Endoretrogradecholangiopancreatography, Esophagogastroduodenoscopy, Gastric Biopsy, Duodenal Biopsy, Sphincterotomy, Biliary Duct Balloon Sweep, Biliary Duct Stone Extraction 2 <+> Time Out 2 <*> Procedure Endoretrogradecholangiopancreatography, Esophagogastroduodenoscopy, Gastric Biopsy, Duodenal Biopsy, Sphincterotomy, Biliary Duct Balloon Sweep, Biliary Duct Stone Extraction 3 <+> Time Out 3 <*> Procedure Endoretrogradecholangiopancreatography, Esophagogastroduodenoscopy, Gastric Biopsy, Duodenal Biopsy, Sphincterotomy, Biliary Duct Balloon Sweep, Biliary Duct Stone Extraction 4 <+> Time Out 4 <*> Procedure Endoretrogradecholangiopancreatography, Esophagogastroduodenoscopy, Gastric Biopsy, Duodenal Biopsy, Sphincterotomy, Biliary Duct Balloon Sweep, Biliary Duct Stone Extraction 5 <+> Time Out 5 <*> Procedure Endoretrogradecholangiopancreatography, Esophagogastroduodenoscopy, Gastric Biopsy, Duodenal Biopsy, Sphincterotomy, Biliary Duct Balloon Sweep, Biliary Duct Stone Extraction 6 <+> Time Out 6 <*> Procedure Endoretrogradecholangiopancreatography, Esophagogastroduodenoscopy, Gastric Biopsy, Duodenal Biopsy, Sphincterotomy, Biliary Duct Balloon Sweep, Biliary Duct Stone Extraction 7 <+> Time Out 7 <*> Procedure Endoretrogradecholangiopancreatography, Esophagogastroduodenoscopy, Gastric Biopsy, Duodenal Biopsy, Sphincterotomy, Biliary Duct Balloon Sweep, Biliary Duct Stone Extraction 05/04/21 11:16:24 Park Manager: MYLENE Modifier: WARD 1 <*> Procedure Endoretrogradecholangiopancreatography, Esophagogastroduodenoscopy, Gastric Biopsy, Duodenal Biopsy, Sphincterotomy, Biliary Duct Balloon Sweep 2 <*> Procedure Endoretrogradecholangiopancreatography, Esophagogastroduodenoscopy, Gastric Biopsy, Duodenal Biopsy, Sphincterotomy, Biliary Duct Balloon Sweep 3 <*> Procedure Endoretrogradecholangiopancreatography, Esophagogastroduodenoscopy, Gastric Biopsy, Duodenal Biopsy, Sphincterotomy, Biliary Duct Balloon Sweep 4 <*> Procedure Endoretrogradecholangiopancreatography, Esophagogastroduodenoscopy, Gastric Biopsy, Duodenal Biopsy, Sphincterotomy, Biliary Duct Balloon Sweep 5 <*> Procedure Endoretrogradecholangiopancreatography, Esophagogastroduodenoscopy, Gastric Biopsy, Duodenal Biopsy, Sphincterotomy, Biliary Duct Balloon Sweep 6 <*> Procedure Endoretrogradecholangiopancreatography, Esophagogastroduodenoscopy, Gastric Biopsy, Duodenal Biopsy, Sphincterotomy, Biliary Duct Balloon Sweep 7 <*> Procedure Endoretrogradecholangiopancreatography, Esophagogastroduodenoscopy, Gastric Biopsy, Duodenal Biopsy, Sphincterotomy, Biliary Duct Balloon Sweep 05/04/21 11:12:38 Park Manager: MYLENE Modifier: WARD 1 <*> Procedure Endoretrogradecholangiopancreatography, Esophagogastroduodenoscopy, Gastric Biopsy, Duodenal Biopsy 2 <*> Procedure Endoretrogradecholangiopancreatography, Esophagogastroduodenoscopy, Gastric Biopsy, Duodenal Biopsy 3 <*> Procedure Endoretrogradecholangiopancreatography, Esophagogastroduodenoscopy, Gastric Biopsy, Duodenal Biopsy 4 <*> Procedure Endoretrogradecholangiopancreatography, Esophagogastroduodenoscopy, Gastric Biopsy, Duodenal Biopsy 5 <*> Procedure Endoretrogradecholangiopancreatography, Esophagogastroduodenoscopy, Gastric Biopsy, Duodenal Biopsy 6 <*> Procedure Endoretrogradecholangiopancreatography, Esophagogastroduodenoscopy, Gastric Biopsy, Duodenal Biopsy 7 <*> Procedure Endoretrogradecholangiopancreatography, Esophagogastroduodenoscopy, Gastric Biopsy, Duodenal Biopsy 05/04/21 11:02:08 Park Manager: MYLENE Modifier: MYLENE 1 <*> Procedure Endoretrogradecholangiopancreatography, Esophagogastroduodenoscopy 2 <*> Procedure Endoretrogradecholangiopancreatography, Esophagogastroduodenoscopy 3 <*> Procedure Endoretrogradecholangiopancreatography, Esophagogastroduodenoscopy 4 <*> Procedure Endoretrogradecholangiopancreatography, Esophagogastroduodenoscopy 5 <*> Procedure Endoretrogradecholangiopancreatography, Esophagogastroduodenoscopy 6 <*> Procedure Endoretrogradecholangiopancreatography, Esophagogastroduodenoscopy 7 <+> Time In 7 <*> Procedure Endoretrogradecholangiopancreatography, Esophagogastroduodenoscopy 05/04/21 11:01:10 Park Manager: MYLENE Modifier: MYLENE 1 <*> Time In 05/04/21 10:44:00 1 <*> Procedure Endoretrogradecholangiopancreatography, Esophagogastroduodenoscopy <+> 7 Case Attendee <+> 7 Role Performed <+> 7 Procedure 05/04/21 10:52:00 Park Manager: MYLENE Modifier: MYLENE 5 <+> Time In 5 <*> Procedure Endoretrogradecholangiopancreatography, Esophagogastroduodenoscopy 6 <+> Time In 6 <*> Procedure Endoretrogradecholangiopancreatography, Esophagogastroduodenoscopy 05/04/21 10:51:59 Park Manager: MYLENE Modifier: MFWARD 1 <*> Procedure Endoretrogradecholangiopancreatography, Esophagogastroduodenoscopy 2 <+> Time In 2 <*> Procedure Endoretrogradecholangiopancreatography, Esophagogastroduodenoscopy 3 <+> Time In 3 <*> Procedure Endoretrogradecholangiopancreatography, Esophagogastroduodenoscopy 4 <+> Time In 4 <*> Procedure Endoretrogradecholangiopancreatography, Esophagogastroduodenoscopy 05/04/21 10:50:19 Park Manager: MYLENE Modifier: MFWARD 1 <+> Time In 1 <*> Procedure Endoretrogradecholangiopancreatography, Esophagogastroduodenoscopy <+> 2 Case Attendee <+> 2 Role Performed <+> 2 Procedure <+> 3 Case Attendee <+> 3 Role Performed <+> 3 Procedure <+> 3 Other Attendee <+> 4 Case Attendee <+> 4 Role Performed <+> 4 Procedure <+> 5 Case Attendee <+> 5 Role Performed <+> 5 Procedure <+> 6 Case Attendee <+> 6 Role Performed <+> 6 Procedure [facility] Endo - Case times Entry 1 Patient In Room Time 05/04/21 10:44:00 Out Room Time 05/04/21 11:40:00 Anesthesia Start Time 05/04/21 10:44:00 Stop Time 05/04/21 11:40:00 Surgery / Procedure Times Start Time 05/04/21 10:57:00 Stop Time 05/04/21 11:26:00 Last Modified By: Anum Barraza Rn 05/04/21 11:28:39 [facility] Endo - Case times Audit 05/04/21 11:28:39 Park Manager: MYLENE Modifier: DHAVALWARD 1 <*> Out Room Time 05/04/21 11:31:00 1 <*> Stop Time 05/04/21 11:31:00 05/04/21 11:27:16 Park Manager: MYLENE Modifier: MFWARD <+> 1 Out Room Time <+> 1 Stop Time <+> 1 Stop Time 05/04/21 11:00:37 Park Manager: MYLENE Modifier: DHAVALWARD <+> 1 Start Time [facility] Endo - Cautery Entry 1 ESU Identification Cautery Type Monopolar ESU ID Number Room 4 ID Type Hospital Number Cautery Settings Blend Setting Pulse Cut Slow 120 ESU Grounding Pad Ground Pad Type Adult Grounding Pad Site Right lower leg Grounding Pad SAMAN TURK, Applied By TITLE ABSTRACTOR Grounding Pad Site Intact, Dry Skin Condition Before Cautery Grounding Pad Site Unchanged Skin Condition After Cautery Last Modified By: Anum Barraza Rn 05/04/21 11:16:10 [facility] Endo - Cultures and Spec Summary Entry 1 Cultrures and Specimens Specimen Ordered: Yes Test(s) Routine/Path-Lab Requested/Final Disposition Last Modified By: Anum Barraza Rn 05/04/21 11:03:04 [facility] Endo - Delays Entry 1 Delay Reason Other Duration 0 Minute(s) Last Modified By: Anum Barraza Rn 05/04/21 10:50:22 [facility] Endo - Departure from OR Entry 1 Integumentary Assessment Integumentary WDL Assessment WDL Transfer/Handoff Transfer to PACU Phase I Post-op Transport Stretcher/Gurney Via Patient Transport Anum Barraza Rn, Accompanied by Son Mcdowell CRNA Last Modified By: Anum Barraza Rn 05/04/21 10:50:27 [facility] Endo - Endoscopy Details Entry 1 Abdomen Procedure Soft, Non-Tender Assessment Procedure Abdomen 05/04/21 10:50:00 Assessment D/T Radio Frequency Ablation Abdominal Pressure Last Modified By: Anum Barraza Rn 05/04/21 10:50:35 [facility] Endo - Fire Risk Assessment Entry 1 Fire Info Surgical Site or 1- Yes Incision Above the Xyphoid Open O2 Source 1- Yes (Mask or Cannula) Available Ignition 1- Yes (ESU, Laser, Light Source) Fire Risk 3 Assessment Score Fire Score Fire Risk Yes Assessment Complete Fire Risk Anum Barraza Rn Assessment Verified By Fire Risk 05/04/21 10:50:00 Assessment Verified Date/Time Fire Risk High Risk Protocol Yes Implemented Standard Fire Yes Safety Precautions Followed Last Modified By: Anum Barraza Rn 05/04/21 10:50:41 [facility] Endo - General Case Soccer Commentator 1 Case Information OR Endo 04 [facility] Case Level 1 Room Verified Yes Wound Class II - Clean-Contaminated Specialty Gastroenterology Anesthesia Type MAC ASA Class 3 Diagnosis Preop Diagnosis BILIARY OBSTR/ANEMIA Postop Same As Preop No Postop Diagnosis BILIARY OBSTR/ANEMIA, duodenal errosions, gastritis, hiatal hernia, gall stone Last Modified By: Anum Barraza Rn 05/04/21 11:17:35 [facility] Endo - General Case Data Audit 05/04/21 11:17:35 Park Manager: MYLENE Modifier: MFWARD 1 <*> Postop Same As Preop Yes 1 <*> Postop Diagnosis BILIARY OBSTR/ANEMIA [facility] Endo - Intraoperative Assessment Entry 1 Valid History / Yes Physical in Chart Preoperative Yes Checklist Reviewed/Evaluated Patient is Latex No Sensitive Level of WDL Consciousness (WDL = Alert, Oriented to Person, Place, and Time) Last Modified By: Anum Barraza Rn 05/04/21 10:51:16 [facility] Endo - Intraoperative Equipment Entry 1 Entry 2 Type Scope Scope Equipment Equipment ID Number Setting Intraop Monitoring Electrocardiogram Three lead placement Three lead placement (ECG) Electrode Placement Blood Pressure Source Blood Pressure Arm, left upper Arm, left upper Location Pulse Oximeter Hand, right Hand, right Probe Site Antiembolic Devices Antiembolic Devices Antiembolic Device Location Antiembolic Device ID Number Antiembolic Device Setting Scopes Flexible Endoscopes ERCP Scope Gastroscope Used Scope Serial E4 E Number/Identificatio n Number Photo/Video Documentation Photo Yes Yes Video No No Intraop Equipment Comment Last Modified By: Anum Barraza Rn Ward, Marissa, Rn 05/04/21 10:51:41 05/04/21 10:51:41 [facility] Endo - Patient Positioning Entry 1 Procedure Esophagogastroduodenosco py, Gastric Biopsy, Duodenal Biopsy, Sphincterotomy, Biliary Duct Balloon Sweep, Biliary Duct Stone Extraction Body Position Lateral, right side up Left Arm Position Resting at side Right Arm Position Resting at side Left Leg Position Other Right Leg Position Other Position Comments Right leg over left leg, uncrossed Feet Uncrossed Yes Pressure Points Yes Checked Positioned By Anum Barraza Rn Position Verified Positioning Yes Verified by Surgeon Last Modified By: Anum Barraza Rn 05/04/21 11:16:25 [facility] Endo - Patient Positioning Audit 05/04/21 11:16:25 Park Manager: MYLENE Modifier: DHAVALWARD 1 <*> Procedure Esophagogastroduodenoscopy, Gastric Biopsy, Duodenal Biopsy, Sphincterotomy, Biliary Duct Balloon Sweep 05/04/21 11:12:39 Park Manager: MYLENE Modifier: MYLENE 1 <*> Procedure Esophagogastroduodenoscopy, Gastric Biopsy, Duodenal Biopsy 05/04/21 11:02:09 Park Manager: MYLENE Modifier: MYLENE 1 <*> Procedure Esophagogastroduodenoscopy [facility] Endo - Sign In Entry 1 Patient, Site, Yes Procedure Identified Surgical Consent Yes Confirmed Surgical Site N/A Marked by person performing procedure Airway Hypothermia Risk No Warming Measures No Taken Last Modified By: Anum Barraza Rn 05/04/21 10:51:56 [facility] Endo - Sign Out Entry 1 RN Confirmation Surgical Yes Procedure(s) Identified Instrument, Sponge N/A and Sharps Counts Correct/Documented Equipment Problems N/A Documented Specimen Labeled Yes Correctly Urinary Catheter N/A Documented in IView Safety Checklist Yes Elements Complete? RN Sign Out Anum Barraza Rn Signature RN Sign Out 05/04/21 11:29:00 Signature Date/Time Plan of Care Outcome - Fire Risk OUTCOME STATEMENT: Goal met Patient is free from injury related to surgical fire Plan of Care Outcome - Pt Positioning OUTCOME STATEMENT: Goal met Absence of signs and symptoms of positioning injury. Plan of Care Outcome - Skin Prep OUTCOME STATEMENT: Goal met Intraoperative care is consistent with measures to prevent infection Plan of Care Outcome - Xray/Images OUTCOME STATEMENT: N/A Absence of observable signs or symptoms of radiation injury Plan of Care Outcome - Counts OUTCOME STATEMENT: N/A Absence of signs and symptoms of injury related to extraneous objects Last Modified By: Anum Barraza Rn 05/04/21 11:29:07 [facility] Endo - Surgical Procedures Entry 1 Entry 2 Entry 3 Procedure Endoretrogradecholangiop Esophagogastroduodenosco Gastric Biopsy ancreatography py Modifiers Additional Procedure Description Primary Procedure No Yes No Primary Surgeon BEATRIS BLANCAS MD-GAE MARTIN, KATHLEEN, MD-GAE MARTIN, KATHLEEN, MD-GAE Start 05/04/21 11:08:00 05/04/21 10:57:00 05/04/21 10:57:00 Stop 05/04/21 11:26:00 05/04/21 11:03:00 05/04/21 11:26:00 Physician States Cecum Reached Anesthesia Type MAC MAC MAC Specialty Gastroenterology Gastroenterology Gastroenterology Wound Class II - Clean-Contaminated II - Clean-Contaminated II - Clean-Contaminated Last Modified By: Anum Barraza Rn Ward, Marissa, Rn Ward, Marissa, Rn 05/04/21 11:28:24 05/04/21 11:09:42 05/04/21 11:28:24 Entry 4 Entry 5 Entry 6 Procedure Duodenal Biopsy Sphincterotomy Biliary Duct Balloon Sweep Modifiers Additional Procedure Description Primary Procedure No No No Primary Surgeon BEATRIS BLANCAS MD-GAE MARTIN, KATHLEEN, MD-GAE MARTIN, KATHLEEN, MD-GAE Start 05/04/21 10:57:00 05/04/21 11:08:00 05/04/21 11:08:00 Stop 05/04/21 11:26:00 05/04/21 11:26:00 05/04/21 11:26:00 Physician States Cecum Reached Anesthesia Type MAC [facility] Specialty Gastroenterology Gastroenterology Gastroenterology Wound Class II - Clean-Contaminated II - Clean-Contaminated II - Clean-Contaminated Last Modified By: Anum Barraza Rn Ward, Marissa, Rn Ward, Marissa, Rn 05/04/21 11:28:24 05/04/21 11:28:24 05/04/21 11:28:24 Entry 7 Procedure Biliary Duct Stone Extraction Modifiers Additional Procedure Description Primary Procedure No Primary Surgeon BEATRIS BLANCAS MD-GAE Start 05/04/21 11:08:00 Stop 05/04/21 11:26:00 Physician States Cecum Reached Anesthesia [place] [facility] [place]astro[place]ology Wound Class II - Clean-Contaminated Last Modified By: Anum Barraza Rn 05/04/21 11:28:24 [facility] Endo - Surgical Procedures Audit 05/04/21 11:28:24 Park Manager: MFWARD Modifier: MFWARD <+> 1 Stop <+> 3 Stop <+> 4 Stop <+> 5 Stop <+> 6 Stop <+> 7 Stop 05/04/21 11:16:23 Park Manager: MFWARD Modifier: MFWARD <+> 7 Procedure <+> 7 Primary Procedure <+> 7 Primary Surgeon <+> 7 Specialty <+> 7 Start <+> 7 Wound Class <+> 7 Anesthesia Type 05/04/21 11:12:36 Park Manager: MFWARD Modifier: MFWARD <+> 5 Procedure <+> 5 Primary Procedure <+> 5 Primary Surgeon <+> 5 Specialty <+> 5 Start <+> 5 Wound Class <+> 5 Anesthesia Type <+> 6 Procedure <+> 6 Primary Procedure <+> 6 Primary Surgeon <+> 6 Specialty <+> 6 Start <+> 6 Wound Class <+> 6 Anesthesia Type 05/04/21 11:12:07 Park Manager: MYLENE Modifier: MFWARD 1 <*> Procedure Endoretrogradecholangiopancreatography 1 <*> Start 05/04/21 10:57:00 05/04/21 11:09:42 Park Manager: MYLENE Modifier: MFWARD 2 <*> Procedure Esophagogastroduodenoscopy 2 <+> Stop 05/04/21 11:02:06 Park Manager: MYLENE Modifier: DHAVALWARD <+> 1 Start <+> 2 Start <+> 3 Procedure <+> 3 Primary Procedure <+> 3 Primary Surgeon <+> 3 Specialty <+> 3 Start <+> 3 Wound Class <+> 3 Anesthesia Type <+> 4 Procedure <+> 4 Primary Procedure <+> 4 Primary Surgeon <+> 4 Specialty <+> 4 Start <+> 4 Wound Class <+> 4 Anesthesia Type 05/04/21 10:52:10 Park Manager: MYLENE Modifier: DHAVALVIRGEN 1 <*> Procedure Endoretrogradecholangiopancreatography 1 <+> Specialty 2 <*> Procedure Esophagogastroduodenoscopy 2 <+> Specialty [facility] Endo - Time Out Entry 1 Procedure to be Endoretrogradecholangiop Performed ancreatography, Esophagogastroduodenosco py, Gastric Biopsy, Duodenal Biopsy, Sphincterotomy, Biliary Duct Balloon Sweep, Biliary Duct Stone Extraction Time Out Time Out Pause Time 05/04/21 10:56:00 All activity Yes suspended (unless life threatening emergency) Team Verbally Correct patient Confirms Information identity, Consent form is present and accurate, Agreement on the procedure to be done, Correct patient position Antibiotic N/A Prophylaxis Administered Or In Progress Within the Last 60 Minutes Beta Jennifer N/A Administered Venous N/A Thromboembolism Prophylaxis Required Anticipated Critical Events Surgeon None expected Last Modified By: Anum Barraza Rn 05/04/21 11:16:26 General Comments: on scheduled antibiotics [facility] Endo - Time Out Audit 05/04/21 11:16:26 Park Manager: MYLENE Modifier: MYLENE 1 <*> Procedure to be Performed 1 <*> Procedure to be Performed 1 <*> Procedure to be Performed 1 <*> Procedure to be Performed Endoretrogradecholangiopancreatography, Esophagogastroduodenoscopy, Gastric Biopsy, Duodenal Biopsy, Sphincterotomy, Biliary Duct Balloon Sweep 1 <*> Procedure to be Performed Endoretrogradecholangiopancreatography, Esophagogastroduodenoscopy, Gastric Biopsy, Duodenal Biopsy, Sphincterotomy, Biliary Duct Balloon Sweep 1 <*> Procedure to be Performed Endoretrogradecholangiopancreatography, Esophagogastroduodenoscopy, Gastric Biopsy, Duodenal Biopsy, Sphincterotomy, Biliary Duct Balloon Sweep 1 <*> Procedure to be Performed Endoretrogradecholangiopancreatography, Esophagogastroduodenoscopy, Gastric Biopsy, Duodenal Biopsy, Sphincterotomy, Biliary Duct Balloon Sweep 05/04/21 11:12:40 Park Manager: MYLENE Modifier: MYLENE 1 <*> Procedure to be Performed Endoretrogradecholangiopancreatography, Esophagogastroduodenoscopy, Gastric Biopsy, Duodenal Biopsy 1 <*> Procedure to be Performed Endoretrogradecholangiopancreatography, Esophagogastroduodenoscopy, Gastric Biopsy, Duodenal Biopsy 1 <*> Procedure to be Performed Endoretrogradecholangiopancreatography, Esophagogastroduodenoscopy, Gastric Biopsy, Duodenal Biopsy 1 <*> Procedure to be Performed Endoretrogradecholangiopancreatography, Esophagogastroduodenoscopy, Gastric Biopsy, Duodenal Biopsy 05/04/21 11:12:18 Park Manager: MYLENE Modifier: MYLENE 1 <*> Time Out Pause Time 1 <*> Time Out Pause Time 1 <*> Time Out Pause Time 1 <*> Procedure to be Performed Endoretrogradecholangiopancreatography, Esophagogastroduodenoscopy, Gastric Biopsy, Duodenal Biopsy 1 <*> Procedure to be Performed Endoretrogradecholangiopancreatography, Esophagogastroduodenoscopy, Gastric Biopsy, Duodenal Biopsy 1 <*> Procedure to be Performed Endoretrogradecholangiopancreatography, Esophagogastroduodenoscopy, Gastric Biopsy, Duodenal Biopsy 1 <*> Procedure to be Performed Endoretrogradecholangiopancreatography, Esophagogastroduodenoscopy, Gastric Biopsy, Duodenal Biopsy 05/04/21 11:02:09 Park Manager: MYLENE Modifier: MFWARD 1 <*> Procedure to be Performed 1 <*> Procedure to be Performed Endoretrogradecholangiopancreatography, Esophagogastroduodenoscopy 1 <*> Procedure to be Performed Endoretrogradecholangiopancreatography, Esophagogastroduodenoscopy 1 <*> Procedure to be Performed Endoretrogradecholangiopancreatography, Esophagogastroduodenoscopy 1 <*> Procedure to be Performed Endoretrogradecholangiopancreatography, Esophagogastroduodenoscopy 1 <*> Procedure to be Performed Endoretrogradecholangiopancreatography, Esophagogastroduodenoscopy [facility] Endo - X-Ray and Images Entry 1 X-Ray/Imaging Type Fluoroscopy Fluoroscopy Type C-Arm Edge Sawyer Name Michele Zuluaga, Fiberglass Roving Winder Protective Devices Yes Used Exposure Time 1.5 Last Modified By: Anum Barraza Rn 05/04/21 11:28:22 [facility] Endo - X-Ray and Images Audit 05/04/21 11:28:22 Park Manager: MYLENE Modifier: DHAVALWARD <+> 1 Exposure Time Case Comments <None> Finalized By: Anum Barraza Rn Document Signatures Signed By: Anum Barraza Rn 05/04/21 11:29 Electronically signed by Abelino [facility] Conversion Developmental Electronics Assembler Cerner at 02/22/2023 8:36 PM CDT documented in this encounter Plan of Treatment Not on file documented as of this encounter Visit Diagnoses Not on filedocumented in this encounter
--- OUTSIDE RECORDS SUMMARY | 2025-05-04 13:42 | XMS_ITS | Encounter Summary ---
Author Organization [employer] ([place], [place], [place], [place]) Address [address] [place] [address] Care Team Providers Care Hogshead Salvage Name Role Phone Unavailable Primary Care Provider Unavailabl e Encounter Details Date Type Department Care Team (Late st Contact Info) Description 05/12/2021 Transcribed Document [facility] Family Medicine [facility] [place] [address] ProviderLatonia MD [address] [place] [address] Social History Tobacco Use Types Packs/Day Years Used Date Smoking Tobacco: Never Assessed Sex and Gender Information Value Date Recorded Sex Assigned at Not on file Legal Sex Male 7:22 PM CDT Gender Identity Not on file Sexual Orientation Not on file documented as of this encounter Miscellaneous Notes * Cerner Conversion Note - Latonia ProviderMD - 05/12/2021 1:12 PM CDT Patient Education Materials Follows: Cirrhosis Cirrhosis is long-term (chronic) liver injury. The liver is the body's largest internal organ, and it performs many functions. It converts food into energy, removes toxic material from the blood, makes important proteins, and absorbs necessary vitamins from food. In cirrhosis, healthy liver cells are replaced by scar tissue. This prevents blood from flowing through the liver, making it difficult for the liver to function. Scarring of the liver cannot be reversed, but treatment can prevent it from getting worse. What are the causes? Common causes of this condition are hepatitis C and long-term alcohol abuse. Other causes include: ??? Nonalcoholic fatty liver disease. This happens when fat is deposited in the liver by causes other than alcohol. ??? Hepatitis B infection. ??? Autoimmune hepatitis. In this condition, the body's defense system (immune system) mistakenly attacks the liver cells, causing irritation and swelling (inflammation). ??? Diseases that cause blockage of ducts inside the liver. ??? Inherited liver diseases, such as hemochromatosis. This is one of the most common inherited liver diseases. In this disease, deposits of iron collect in the liver and other organs. ??? Reactions to certain long-term medicines, such as amiodarone, a heart medicine. ??? Parasitic infections. These include schistosomiasis, which is caused by a flatworm. ??? Long-term contact to certain toxins. These toxins include certain organic solvents, such as toluene and chloroform. What increases the risk? You are more likely to develop this condition if: ??? You have certain types of viral hepatitis. ??? You abuse alcohol, especially if you are female. ??? You are overweight. ??? You share needles. ??? You have unprotected sex with someone who has viral hepatitis. What are the signs or symptoms? You may not have any signs and symptoms at first. Symptoms may not develop until the damage to your liver starts to get worse. Early symptoms may include: ??? Weakness and tiredness (fatigue). ??? Changes in sleep patterns or having trouble sleeping. ??? Itchiness. ??? Tenderness in the right-upper part of your abdomen. ??? Weight loss and muscle loss. ??? Nausea. ??? Loss of appetite. ??? Appearance of tiny blood vessels under the skin. Later symptoms may include: ??? Fatigue or weakness that is getting worse. ??? Yellow skin and eyes (jaundice). ??? Buildup of fluid in the abdomen (ascites). You may notice that your clothes are tight around your waist. ??? Weight gain. ??? Swelling of the feet and ankles (edema). ??? Trouble breathing. ??? Easy bruising and bleeding. ??? Vomiting blood. ??? Black or bloody stool. ??? Mental confusion. How is this diagnosed? Your health care provider may suspect cirrhosis based on your symptoms and medical history, especially if you have other medical conditions or a history of alcohol abuse. Your health care provider will do a physical exam to feel your liver and to check for signs of cirrhosis. He or she may perform other tests, including: ??? Blood tests to check: ? For hepatitis B or C. ? Kidney function. ? Liver function. ??? Imaging tests such as: ? MRI or CT scan to look for changes seen in advanced cirrhosis. ? Ultrasound to see if normal liver tissue is being replaced by scar tissue. ??? A procedure in which a long needle is used to take a sample of liver tissue to be checked in a lab (biopsy). Liver biopsy can confirm the diagnosis of cirrhosis. How is this treated? Treatment for this condition depends on how damaged your liver is and what caused the damage. It may include treating the symptoms of cirrhosis, or treating the underlying causes in order to slow the damage. Treatment may include: ??? Making lifestyle changes, such as: ? Eating a healthy diet. You may need to work with your health care provider or a diet and nutrition educator (dietitian) to develop an eating plan. ? Restricting salt intake. ? Maintaining a healthy weight. ? Not abusing drugs or alcohol. ??? Taking medicines to: ? Treat liver infections or other infections. ? Control itching. ? Reduce fluid buildup. ? Reduce certain blood toxins. ? Reduce risk of bleeding from enlarged blood vessels in the stomach or esophagus (varices). ??? Liver transplant. In this procedure, a liver from a donor is used to replace your diseased liver. This is done if cirrhosis has caused liver failure. Other treatments and procedures may be done depending on the problems that you get from cirrhosis. Common problems include liver-related kidney failure (hepatorenal syndrome). Follow these instructions at home: ??? Take medicines only as told by your health care provider. Do not use medicines that are toxic to your liver. Ask your health care provider before taking any new medicines, including lqfa-mcj-utgmefa medicines. ??? Rest as needed. ??? Eat a well-balanced diet. Ask your health care provider or dietitian for more information. ??? Limit your salt or water intake, if your health care provider asks you to do this. ??? Do not drink alcohol. This is especially important if you are taking acetaminophen. ??? Keep all follow-up visits as told by your health care provider. This is important. Contact a health care provider if you: ??? Have fatigue or weakness that is getting worse. ??? Develop swelling of the hands, feet, legs, or face. ??? Have a fever. ??? Develop loss of appetite. ??? Have nausea or vomiting. ??? Develop jaundice. ??? Develop easy bruising or bleeding. Get help right away if you: ??? Vomit bright red blood or a material that looks like coffee grounds. ??? Have blood in your stools. ??? Notice that your stools appear black and tarry. ??? Become confused. ??? Have chest pain or trouble breathing. Summary ??? Cirrhosis is chronic liver injury. Liver damage cannot be reversed. Common causes are hepatitis C and long-term alcohol abuse. ??? Tests used to diagnose cirrhosis include blood tests, imaging tests, and liver biopsy. ??? Treatment for this condition involves treating the underlying cause. Avoid alcohol, drugs, salt, and medicines that may damage your liver. ??? Contact your health care provider if you develop ascites, edema, jaundice, fever, nausea or vomiting, easy bruising or bleeding, or worsening fatigue. This information is not intended to replace advice given to you by your health care provider. Make sure you discuss any questions you have with your health care provider. Document Revised: 02/10/2020 Document Reviewed: 09/10/2018 [employer] Patient Education ? 2020 [employer]. Laparoscopic Cholecystectomy Laparoscopic cholecystectomy is surgery to remove the gallbladder. The gallbladder is a pear-shaped organ that lies beneath the liver on the right side of the body. The gallbladder stores bile, which is a fluid that helps the body to digest fats. Cholecystectomy is often done for inflammation of the gallbladder (cholecystitis). This condition is usually caused by a buildup of gallstones (cholelithiasis) in the gallbladder. Gallstones can block the flow of bile, which can result in inflammation and pain. In severe cases, emergency surgery may be required. This procedure is done though small incisions in your abdomen (laparoscopic surgery). A thin scope with a camera (laparoscope) is inserted through one incision. Thin surgical instruments are inserted through the other incisions. In some cases, a laparoscopic procedure may be turned into a type of surgery that is done through a larger incision (open surgery). Tell a health care provider about: ??? Any allergies you have. ??? All medicines you are taking, including vitamins, herbs, eye drops, creams, and enpe-gex-bpamtbi medicines. ??? Any problems you or family members have had with anesthetic medicines. ??? Any blood disorders you have. ??? Any surgeries you have had. ??? Any medical conditions you have. ??? Whether you are or may be . What are the risks? Generally, this is a safe procedure. However, problems may occur, including: ??? Infection. ??? Bleeding. ??? Allergic reactions to medicines. ??? Damage to other structures or organs. ??? A stone remaining in the common bile duct. The common bile duct carries bile from the gallbladder into the small intestine. ??? A bile leak from the cyst duct that is clipped when your gallbladder is removed. What happens before the procedure? Staying hydrated Follow instructions from your health care provider about hydration, which may include: ??? Up to 2 hours before the procedure ? you may continue to drink clear liquids, such as water, clear fruit juice, black coffee, and plain tea. Eating and drinking restrictions Follow instructions from your health care provider about eating and drinking, which may include: ??? 8 hours before the procedure ? stop eating heavy meals or foods such as meat, fried foods, or fatty foods. ??? 6 hours before the procedure ? stop eating light meals or foods, such as toast or cereal. ??? 6 hours before the procedure ? stop drinking milk or drinks that contain milk. ??? 2 hours before the procedure ? stop drinking clear liquids. Medicines ??? Ask your health care provider about: ? Changing or stopping your regular medicines. This is especially important if you are taking diabetes medicines or blood thinners. ? Taking medicines such as aspirin and ibuprofen. These medicines can thin your blood. Do not take these medicines before your procedure if your health care provider instructs you not to. ??? You may be given antibiotic medicine to help prevent infection. General instructions ??? Let your health care provider know if you develop a cold or an infection before surgery. ??? Plan to have someone take you home from the hospital or clinic. ??? Ask your health care provider how your surgical site will be marked or identified. What happens during the procedure? To reduce your risk of infection: ? Your health care team will wash or sanitize their hands. ? Your skin will be washed with soap. ? Hair may be removed from the surgical area. ??? An IV tube may be inserted into one of your veins. ??? You will be given one or more of the following: ? A medicine to help you relax (sedative). ? A medicine to make you fall asleep (general anesthetic). ??? A breathing tube will be placed in your mouth. ??? Your surgeon will make several small cuts (incisions) in your abdomen. ??? The laparoscope will be inserted through one of the small incisions. The camera on the laparoscope will send images to a TV screen (monitor) in the operating room. This lets your surgeon see inside your abdomen. ??? Air-like gas will be pumped into your abdomen. This will expand your abdomen to give the surgeon more room to perform the surgery. ??? Other tools that are needed for the procedure will be inserted through the other incisions. The gallbladder will be removed through one of the incisions. ??? Your common bile duct may be examined. If stones are found in the common bile duct, they may be removed. ??? After your gallbladder has been removed, the incisions will be closed with stitches (sutures), cam, or skin glue. ??? Your incisions may be covered with a bandage (dressing). The procedure may vary among health care providers and hospitals. What happens after the procedure? Your blood pressure, heart rate, breathing rate, and blood oxygen level will be monitored until the medicines you were given have worn off. ??? You will be given medicines as needed to control your pain. ??? Do not drive for 24 hours if you were given a sedative. This information is not intended to replace advice given to you by your health care provider. Make sure you discuss any questions you have with your health care provider. Document Revised: 10/03/2018 Document Reviewed: 04/08/2017 [employer] Patient Education ? 2020 [employer]. Laparoscopic Cholecystectomy, Care After This sheet gives you information about how to care for yourself after your procedure. Your doctor may also give you more specific instructions. If you have problems or questions, contact your doctor. Follow these instructions at home: Care for cuts from surgery (incisions) ??? Follow instructions from your doctor about how to take care of your cuts from surgery. Make sure you: ? Wash your hands with soap and water before you change your bandage (dressing). If you cannot use soap and water, use hand validation scientist. ? Change your bandage as told by your doctor. ? Leave stitches (sutures), skin glue, or skin tape (adhesive) strips in place. They may need to stay in place for 2 weeks or longer. If tape strips get loose and curl up, you may trim the loose edges. Do not remove tape strips completely unless your doctor says it is okay. ??? Do not take baths, swim, or use a hot tub until your doctor says it is okay. Ask your doctor if you can take showers. You may only be allowed to take sponge baths for bathing. ??? Check your surgical cut area every day for signs of infection. Check for: ? More redness, swelling, or pain. ? More fluid or blood. ? Warmth. ? Pus or a bad smell. Activity ??? Do not drive or use heavy machinery while taking prescription pain medicine. ??? Do not lift anything that is heavier than 10 lb (4.5 kg) until your doctor says it is okay. ??? Do not play contact sports until your doctor says it is okay. ??? Do not drive for 24 hours if you were given a medicine to help you relax (sedative). ??? Rest as needed. Do not return to work or school until your doctor says it is okay. General instructions ??? Take bszb-mbi-yhqwrrm and prescription medicines only as told by your doctor. ??? To prevent or treat constipation while you are taking prescription pain medicine, your doctor may recommend that you: ? Drink enough fluid to keep your pee (urine) clear or pale yellow. ? Take xmjh-bxm-ntgibap or prescription medicines. ? Eat foods that are high in fiber, such as fresh fruits and vegetables, whole grains, and beans. ? Limit foods that are high in fat and processed sugars, such as fried and sweet foods. Contact a doctor if: ??? You develop a rash. ??? You have more redness, swelling, or pain around your surgical cuts. ??? You have more fluid or blood coming from your surgical cuts. ??? Your surgical cuts feel warm to the touch. ??? You have pus or a bad smell coming from your surgical cuts. ??? You have a fever. ??? One or more of your surgical cuts breaks open. Get help right away if: ??? You have trouble breathing. ??? You have chest pain. ??? You have pain that is getting worse in your shoulders. ??? You faint or feel dizzy when you stand. ??? You have very bad pain in your belly (abdomen). ??? You are sick to your stomach (nauseous) for more than one day. ??? You have throwing up (vomiting) that lasts for more than one day. ??? You have leg pain. This information is not intended to replace advice given to you by your health care provider. Make sure you discuss any questions you have with your health care provider. Document Revised: 10/03/2018 Document Reviewed: 04/08/2017 [employer] Patient Education ? 2020 [employer]. Gallbladder Eating Plan If you have a gallbladder condition, you may have trouble digesting fats. Eating a low-fat diet can help reduce your symptoms, and may be helpful before and after having surgery to remove your gallbladder (cholecystectomy). Your health care provider may recommend that you work with a diet and nutrition educator (dietitian) to help you reduce the amount of fat in your diet. What are tips for following this plan? General guidelines ??? Limit your fat intake to less than 30% of your total daily calories. If you eat around 1,800 calories each day, this is less than 60 grams (g) of fat per day. ??? Fat is an important part of a healthy diet. Eating a low-fat diet can make it hard to maintain a healthy body weight. Ask your dietitian how much fat, calories, and other nutrients you need each day. ??? Eat small, frequent meals throughout the day instead of three large meals. ??? Drink at least 8?10 cups of fluid a day. Drink enough fluid to keep your urine clear or pale yellow. ??? Limit alcohol intake to no more than 1 drink a day for non women and 2 drinks a day for men. One drink equals 12 oz of beer, 5 oz of wine, or 1? oz of hard liquor. Reading food labels ??? Check Nutrition Facts on food labels for the amount of fat per serving. Choose foods with less than 3 grams of fat per serving. Shopping ??? Choose nonfat and low-fat healthy foods. Look for the words ?nonfat,? ?low fat,? or ?fat free.? Avoid buying processed or prepackaged foods. Cooking ??? Cook using low-fat methods, such as baking, broiling, grilling, or boiling. ??? Cook with small amounts of healthy fats, such as olive oil, grapeseed oil, canola oil, or sunflower oil. What foods are recommended? All fresh, frozen, or canned fruits and vegetables. ??? Whole grains. ??? Low-fat or non-fat (skim) milk and yogurt. ??? Lean meat, skinless poultry, fish, eggs, and beans. ??? Low-fat protein supplement powders or drinks. ??? Spices and herbs. What foods are not recommended? High-fat foods. These include baked goods, fast food, fatty cuts of meat, ice cream, uzbek toast, sweet rolls, pizza, cheese bread, foods covered with butter, creamy sauces, or cheese. ??? Fried foods. These include uzbek fries, tempura, battered fish, breaded chicken, fried breads, and sweets. ??? Foods with strong odors. ??? Foods that cause bloating and gas. Summary ??? A low-fat diet can be helpful if you have a gallbladder condition, or before and after gallbladder surgery. ??? Limit your fat intake to less than 30% of your total daily calories. This is about 60 g of fat if you eat 1,800 calories each day. ??? Eat small, frequent meals throughout the day instead of three large meals. This information is not intended to replace advice given to you by your health care provider. Make sure you discuss any questions you have with your health care provider. Document Revised: 02/11/2020 Document Reviewed: 11/28/2017 [employer] Patient Education ? 2020 [employer] documented in this encounter Plan of Treatment Not on file documented as of this encounter Visit Diagnoses Not on filedocumented in this encounter
--- OUTSIDE RECORDS SUMMARY | 2025-05-04 13:42 | XMS_ITS | Encounter Summary ---
Author Organization [employer] ([place], [place], [place], [place]) Address [address] [place] [address] Care Team Providers Care Rod Filler Name Role Phone Unavailable Primary Care Provider Unavailabl e Encounter Details Date Type Department Care Team (Late st Contact Info) Description 05/03/2021 Transcribed Document [facility] Family Medicine [facility] [place] [address] ProviderLatonia MD [address] [place] [id number] Social History Tobacco Use Types Packs/Day Years Used Date Smoking Tobacco: Never Assessed Sex and Gender Information Value Date Recorded Sex Assigned at Not on file Legal Sex Male 7:22 PM CDT Gender Identity Not on file Sexual Orientation Not on file documented as of this encounter Miscellaneous Notes * [employer]ner Conversion Note - Latonia ProviderMD - 05/03/2021 12:31 AM CDT Spiritual Care Assessment Entered On: 05/03/2021 16:55 EDT Performed On: 05/03/2021 16:21 EDT by SHIVA MELO General Information Referred by : Patient Referral Reason Comment : Living Will referral Ministry Provided to : Patient SHIVA MELO - 05/03/2021 16:54 EDT Interventions Advance Directive Information Provided : No Advance Directive Comment : Declined opportunity Emotional Support : Empathic/Engaged listening, Feelings expressed, Information provided Spiritual and Voodoo : Spiritual/Voodoo support provided Change, Adjustment and Loss : End of life discussion/care, Relationships/Community/Support system discussed Ethics, Advocacy and Referral : Advocated for patient, Care now and/or in the future discussed SHIVA MELO - 05/03/2021 16:54 EDT Outcomes Appreciation Expressed : Yes Information Received and Understood : Yes Thoughts, Feelings and Emotions Exp. : Yes Supportive Relationships Described : Sister SHIVA MELO - 05/03/2021 16:54 EDT documented in this encounter Plan of Treatment Not on file documented as of this encounter Visit Diagnoses Not on filedocumented in this encounter
--- OUTSIDE RECORDS SUMMARY | 2025-05-04 13:42 | XMS_ITS | Encounter Summary ---
Author Organization [employer] ([place], [place], [place], [place]) Address [address] [place] [address] Care Team Providers Care Physiotherapist'S Assistant Name Role Phone Unavailable Primary Care Provider Unavailabl e Encounter Details Date Type Department Care Team (Late st Contact Info) Description 05/07/2021 Transcribed Document [facility] [place] [facility] [place] [address] ProviderLatonia MD [facility] [place] [address] Social History Tobacco Use Types Packs/Day Years Used Date Smoking Tobacco: Never Assessed Sex and Gender Information Value Date Recorded Sex Assigned at Not on file Legal Sex Male 7:22 PM CDT Gender Identity Not on file Sexual Orientation Not on file documented as of this encounter Miscellaneous Notes * Cerner Conversion Note - Latonia ProviderMD - 05/07/2021 4:21 PM CDT [facility] [place] [address] MAGALISSADIQ :1955 Visit Time:05/03/2021 Your Visit Summary Your Care Team Admitting Physician - GUILLAUME DIXON MD Attending Physician - STEVE KUMAR MD Primary Care Physician - TREY, NOT LISTED Referring Physician - TREY, NOT LISTED Your Diagnosis Choledocholithiasis with obstruction Unspecified jaundice, Unspecified jaundice These Are Your Goals to get well Discharge Vitals Temperature 36.6 ??C Heart Rate (Monitored) 66 Respiratory Rate 16 Blood Pressure 122/65 What to do next Instructions From Your Care Team Rehabilitation: [facility] Discharge Summary: DC summary can be faxed to [phone]. Report can be called to [phone]. Transportation: family Follow-Up Appointments Follow Up with Follow up with primary care provider When Within 1 week Follow Up with BEATRIS BLANCAS When Within 2 weeks Where: [address] [place] [address]- Business (1) Follow Up with SUSANA MARSHALL MD-CHARLES When Within 2 to 3 days Where: [address] [place] [address]- Medications What How Much When Instructions Next Dose acetaminophen (Tylenol) 500 Milligram(s) Oral Every 6 Hours DULoxetine (Cymbalta 30 mg oral delayed release capsule) 1 Capsule(s) Oral Two Times A Day albuterol (Ventolin HFA 90 mcg/ inh inhalation aerosol) 2 Puff(s) Inhalation Every 6 Hours as needed for Wheezing allopurinol (allopurinol 100 mg oral tablet) 2 Tablet(s) Oral Every Day lisinopril (lisinopril 40 mg oral tablet) 1 Tablet(s) Oral Every Day loratadine (loratadine 10 mg oral tablet) 1 Tablet(s) Oral Every Day nadolol (nadolol 20 mg oral tablet) 2 Tablet(s) Oral Every Day tiotropium (Spiriva Respimat 60 ACT 2.5 mcg/ inh inhalation aerosol) 2 Puff(s) Inhalation Every Day budesonide-formoterol (Symbicort 160 mcg-4.5 mcg/ inh inhalation aerosol) 2 Puff(s) Inhalation Two Times A Day ezetimibe (Zetia 10 mg oral tablet) 1 Tablet(s) Oral Every Day omeprazole (omeprazole 40 mg oral delayed release capsule) 1 Capsule(s) Oral Every Day before a meal Take your medications faithfully. Do NOT skip medication. Do NOT stop taking medications without the direction of a physician. Carry a list of your medications with you at all times, and take this medication list with you to your first follow up visit. Report any side effects. Avoid herbal remedies unless discussed with your physician. As part of your treatment plan, your physician may have prescribed a limited course of a controlled substance. This medication may be given to help people with moderate or severe pain or for other medical conditions, but there are risks involved with treatment. Common side effects may include nausea, constipation, drowsiness, sweating, itching, dry mouth, and rash. More serious side effects may include cognitive and motor impairment, like problems with thinking, concentrating, alertness, and movement (e.g. slowed reflexes), and driving and operating heavy machinery can be dangerous. It is important for you to talk to your physician if you have these side effects or questions. These controlled substances can produce physical dependence and be habit-forming if taken for an extended period of time, which means that the body has gotten used to them and may experience withdrawal symptoms if they are abruptly stopped. Withdrawal symptoms can include runny nose, sweating, goose bumps, diarrhea, abdominal cramping, rapid heartbeat, difficulty sleeping, and nervousness. Please dispose of unused and medications per your retail pharmacy guidance. Allergies No Known Allergies Immunizations This Visit No Immunizations Found Education Materials Cirrhosis Cirrhosis is long-term (chronic) liver injury. [...] health care provider or a diet and client success specialist (dietitian) to develop an eating plan. ? [...] provider before taking any new medicines, including bjtm-ljf-uwoclnd medicines. ??? Rest as needed. ??? Eat [...] provider. Document Revised: 02/10/2020 Document Reviewed: 09/10/2018 Elsevier Patient Education ?? 2020 [employer] Laparoscopic Cholecystectomy Laparoscopic cholecystectomy is surgery to [...] including vitamins, herbs, eye drops, creams, and ftcl-lzv-dqiivpk medicines. ??? Any problems you or family [...] Up to 2 hours before the procedure ??? you may continue to drink clear liquids, such as water, clear fruit juice, black coffee, and plain tea. Eating and drinking restrictions Follow instructions from your health care provider about eating and drinking, which may include: ??? 8 hours before the procedure ??? stop eating heavy meals or foods such as meat, fried foods, or fatty foods. ??? 6 hours before the procedure ??? stop eating light meals or foods, such as toast or cereal. ??? 6 hours before the procedure ??? stop drinking milk or drinks that contain milk. ??? 2 hours before the procedure ??? stop drinking clear liquids. Medicines ??? Ask [...] provider. Document Revised: 10/03/2018 Document Reviewed: 04/08/2017 [employer] Patient Education ?? 2020 [employer]. Laparoscopic Cholecystectomy, Care After This sheet gives [...] cannot use soap and water, use hand fabric worker foreman. ? Change your bandage as told by [...] it is okay. General instructions ??? Take jwwn-qta-qniiasp and prescription medicines only as told by your doctor. ??? To prevent or treat constipation while you are taking prescription pain medicine, your doctor may recommend that you: ? Drink enough fluid to keep your pee (urine) clear or pale yellow. ? Take sqvh-xuz-nxcdhnd or prescription medicines. ? Eat foods that [...] provider. Document Revised: 10/03/2018 Document Reviewed: 04/08/2017 [employer] Patient Education ?? 2020 [employer]. Gallbladder Eating Plan If you have a gallbladder condition, you may have trouble digesting fats. Eating a low-fat diet can help reduce your symptoms, and may be helpful before and after having surgery to remove your gallbladder (cholecystectomy). Your health care provider may recommend that you work with a diet and client success specialist (dietitian) to help you reduce the amount [...] three large meals. ??? Drink at least 8???10 cups of fluid a day. Drink enough fluid to keep your urine clear or pale yellow. ??? Limit alcohol intake to no more than 1 drink a day for non women and 2 drinks a day for men. One drink equals 12 oz of beer, 5 oz of wine, or 1?? oz of hard liquor. Reading food labels ??? Check Nutrition Facts on food labels for the amount of fat per serving. Choose foods with less than 3 grams of fat per serving. Shopping ??? Choose nonfat and low-fat healthy foods. Look for the words ???nonfat,?low fat,?? or ???fat free.? Avoid buying processed or prepackaged foods. [...] food, fatty cuts of meat, ice cream, zambian toast, sweet rolls, pizza, cheese bread, foods covered with butter, creamy sauces, or cheese. ??? Fried foods. These include zambian fries, tempura, battered fish, breaded chicken, fried [...] provider. Document Revised: 02/11/2020 Document Reviewed: 11/28/2017 [employer] Patient Education ?? 2020 [employer] Emergency Awareness and Preventative Care STROKE is an EMERGENCY Every Minute Counts Act FAST and Check for these signs: FACE Does the face look uneven? ARM Does one arm drift down? SPEECH Does their speech sound strange? TIME Call at any sign of stroke Stroke Risk Factors Atrial Fibrillation (irregular heartbeat) Diabetes Family history of stroke Heart Disease Heavy alcohol use High Blood Pressure High Cholesterol Physical inactivity and obesity Smoking Cigarette Smoking The facts are clear, cigarette smoking will shorten your life. Smoking can cause many illnesses along the way. As a healthcare provider, we recommend that you stop smoking. Assistance with quitting is available by contacting 5-734-MEIM-NOW. This is a free resource providing counseling, support, and referral. Or you may contact your personal physician. National Suicide Prevention Lifeline: The National Suicide Prevention Lifeline is a national network of local crisis centers that provides free and confidential emotional support to people in suicidal crisis or emotional distress 24 hours a day, 7 days a week. Don't Wait! Stop a Heart Attack Before it Starts What is a heart attack? A heart attack is damage or to a part of the heart from severely decreased or lack of blood flow to the heart. Over time, arteries can become narrow from the buildup of fat and cholesterol, which is called plaque. The plaque can rupture causing a blood clot to form. When the blood clot forms, the artery can become severely narrowed or completely blocked, causing a heart attack. Heart attack is the leading cause of in the [place]. 85% of muscle damage occurs within the first 2 hours. Delay in the recognition of heart attack symptoms increases the chances of . Know the early symptoms of a heart attack: Nausea Feeling of fullness in chest Jaw Pain Pain that travels down one or both arms Fatigue/being tired Anxiety Back Pain Chest pressure, squeezing, or discomfort Shortness of breath Sweating, or a cold sweat Feeling of impending doom There are unusual signs of a heart attack, too! Women, the elderly, and diabetics may present with atypical symptoms: Fainting/dizziness Weakness Confusion Risk Factors for a Heart Attack Some heart disease risk factors, such as age and family history, cannot be changed. Others, like smoking and lack of exercise, can be changed. Smoking High Cholesterol High Blood Pressure Family History Obesity Age Gender (Males are at higher risk) Lack of Exercise Diabetes Diet Stress Excessive Alcohol Intake If you or someone you know is experiencing the signs and symptoms of a heart attack, DON???T DELAY. Call immediately and seek help. If someone collapses, perform CPR! Do not attempt to drive if you are having symptoms of heart attack. Hands-Only CPR Why Hands-Only CPR? Hands-Only CPR has been shown to be as effective as conventional CPR for cardiac arrests that occur outside of a hospital. Survival depends on immediately receiving CPR from someone nearby. How do you perform Hands-Only CPR? There are two easy steps: Call if you see a teen or adult collapse Push hard and fast in the center of the chest at a beat of 100 beats per minute. Save a life! 4 WAYS TO GET AHEAD OF SEPSIS SEPSIS is a MEDICAL EMERGENCY. Time matters! Infections put you and your family at risk for a life-threatening condition called sepsis. Sepsis is the body's extreme response to an infection. It is life-threatening, and without timely treatment, sepsis can rapidly lead to tissue damage, organ failure, and . Sepsis happens when an infection you already have-in your skin, lungs, urinary tract or somewhere else-triggers a chain reaction throughout your body. 1 PREVENT INFECTIONS Take good care of chronic conditions. Talk to your doctor about getting the recommended vaccines. 2 PRACTICE GOOD HYGIENE Wash your hands frequently. Keep cuts or open sores clean and covered until they are healed. 3 KNOW THE SYMPTOMS Confusion or disorientation Shortness of breath High heart rate Fever, shivering, or feeling very cold Extreme pain or discomfort Clammy or sweaty skin 4 ACT FAST Get medical care IMMEDIATELY if you suspect sepsis or if you have an infection that is not getting better or is getting worse. To learn more about sepsis and how to prevent infections, visit www.cdc.gov/sepsis. Test Results Laboratory or Other Results This Visit (last charted value for your 05/03/2021 visit) Blood Gases 05/06/2021 4:28 AM HCO3 Art: 22.9 mmol/L -- Normal range between ( 20.0 and 26.0 ) sO2 Art: 98.4 % -- Normal range between ( 95.0 and 100.0 ) pCO2 Art: 38.2 mmHg -- Normal range between ( 35.0 and 45.0 ) pH Art: 7.39 -- Normal range between ( 7.35 and 7.45 ) pO2 Art: 99.2 mmHg -- Normal range between ( 80.0 and 100.0 ) ABG Num of Draw Attempts: 1 Acceptable Petr's Test Art: Acceptable BE Art: -1.9 mmol/L Oxygen Flow Rate Art: 1.0 Liter Delivery Device Type Art: Cannula tHb Art: 8.9 Gram/dL -- Normal range between ( 12.0 and 18.0 ) Ventilator Mode Art: N/A Temperature, F Art: 98.6 Deg F ctO2: 12.3 mmol/L FHHb: <2.4 % Art Blood Gas (ABG) Site: Left Radial Hematology 05/07/2021 7:12 AM WBC: 14.3 K/uL -- Normal range between ( 3.6 and 9.5 ) RBC: 2.78 Million/uL -- Normal range between ( 4.20 and 5.70 ) Hct: 28.7 % -- Normal range between ( 40.1 and 51.0 ) Hgb: 9.1 g/dL -- Normal range between ( 13.5 and 17.3 ) Platelet Count: 307 K/uL -- Normal range between ( 163 and 369 ) MCH: 32.7 pg -- Normal range between ( 25.6 and 32.2 ) MCHC: 31.7 Gram/dL -- Normal range between ( 32.2 and 36.5 ) MCV: 103.2 fL -- Normal range between ( 79.0 and 94.8 ) Slide Review: No Eos %: 0.4 % -- Normal range between ( 0.0 and 7.0 ) Blair #: 0.81 K/uL -- Normal range between ( 0.16 and 1.00 ) Eos #: 0.05 x10(3)/uL -- Normal range between ( 0.00 and 0.80 ) Blair %: 5.7 % -- Normal range between ( 3.0 and 9.0 ) Baso %: 0.3 % -- Normal range between ( 0.0 and 1.5 ) Baso #: 0.04 x10(3)/uL -- Normal range between ( 0.00 and 0.20 ) RDW: 13.3 % -- Normal range between ( 11.7 and 14.9 ) Neut %: 78.6 % -- Normal range between ( 34.0 and 71.0 ) Neut #: 11.23 K/uL -- Normal range between ( 1.56 and 6.13 ) Lymph %: 14.2 % -- Normal range between ( 19.3 and 53.1 ) Lymph #: 2.02 x10(3)/uL -- Normal range between ( 1.00 and 3.90 ) MPV: 10.6 fL -- Normal range between ( 9.4 and 12.4 ) IG#: 0.12 x10(3)/uL -- Normal range between ( 0.00 and 0.05 ) IG%: 0.80 % -- Normal range between ( 0.00 and 0.60 ) 05/05/2021 5:24 AM ALYC #: 1 K/uL Band Percent Man: 1 % -- Normal range between ( 5 and 11 ) RBC Morphology: Abnormal Macrocytosis: 1+ ANC #: 5 K/uL Blair Percent Man: 1 % -- Normal range between ( 4 and 5 ) Baso Percent Man: 1 % -- Normal range between ( 0 and 1 ) Neutrophil Percent Man: 78 % -- Normal range between ( 50 and 65 ) Eos Percent Man: 0 % -- Normal range between ( 0 and 3 ) Platelet Ct Estimate: Adequate Lymph Percent Man: 19 % -- Normal range between ( 24 and 44 ) 05/04/2021 6:58 AM Anisocytosis: 1+ 05/03/2021 2:06 AM nRBC: 0.040 -- Normal range between ( 0.000 and 0.012 ) Urinalysis 05/03/2021 5:30 AM Urine Nitrite: Positive Urine Leukocyte Esterase: Small Urine Appearance: Clear Urine Glucose Dipstick: Negative Urine Blood Dipstick: Negative Urine Urobilinogen Dipstick: 4.0 EU/dL Urine Protein Dipstick: Trace Ur Bacteria: Trace Urine Color: Purdin Ur WBC: 0-2 /HPF Urine Ketones Dipstick: 15 Urine pH Dipstick: 5.5 -- Normal range between ( 6.0 and 8.0 ) Urine Bilirubin Dipstick: Large Urine Specific Curtis: *1.039 -- Normal range between ( 1.005 and 1.030 ) Urine Type.: U CleanCatch Urine Culture if Indicated: Not Indicated Microbiology 05/04/2021 10:30 PM SARS-CoV-2 (COVID19 PCR): Negative General Chemistry 05/07/2021 7:12 AM Creatinine Level: 1.20 mg/dL -- Normal range between ( 0.70 and 1.30 ) Sodium Level: 136 mmol/L -- Normal range between ( 136 and 146 ) Potassium Level: 3.5 mmol/L -- Normal range between ( 3.5 and 5.1 ) Chloride Level: 107 mmol/L -- Normal range between ( 102 and 112 ) Carbon Dioxide Level: 25 mmol/L -- Normal range between ( 21 and 32 ) Anion Gap: 8 -- Normal range between ( 9 and 20 ) Bilirubin Total: 1.6 mg/dL -- Normal range between ( 0.2 and 1.2 ) A/G Ratio: 0.6 -- Normal range between ( 1.1 and 2.5 ) ALT: 19 Units/Liter -- Normal range between ( 16 and 61 ) AST: 54 Units/Liter -- Normal range between ( 5 and 37 ) Globulin: 3.4 Gram/dL -- Normal range between ( 1.5 and 4.5 ) Alk Phos: 375 Units/Liter -- Normal range between ( 27 and 136 ) Bun/Creatinine: 19.2 -- Normal range between ( 8.0 and 20.0 ) Calcium Level: 8.4 mg/dL -- Normal range between ( 8.4 and 10.1 ) eGFR : >60 mL/min/1.73m2 eGFR NonAfrican: >60 mL/min/1.73m2 Glucose Level: 84 mg/dL -- Normal range between ( 74 and 106 ) Blood Urea Nitrogen: 23 mg/dL -- Normal range between ( 7 and 22 ) Lactic Acid Level: 0.5 mmol/L -- Normal range between ( 0.4 and 2.0 ) Protein Total: 5.6 Gram/dL -- Normal range between ( 6.4 and 8.2 ) Albumin Level: 2.2 Gram/dL -- Normal range between ( 3.4 and 5.0 ) 05/06/2021 4:36 AM Ammonia Level: <10.0 uMol/L -- Normal range between ( 11.0 and 32.0 ) 05/05/2021 5:24 AM Lipase Level: 81 Units/Liter -- Normal range between ( 73 and 393 ) 05/04/2021 6:58 AM Magnesium Level: 2.2 mg/dL -- Normal range between ( 1.5 and 2.4 ) Cardiac Specific Markers 05/05/2021 4:37 PM CKMB: CKMB CK MB: <1.00 ng/mL -- Normal range between ( 0.50 and 3.60 ) CK: 16 Units/Liter -- Normal range between ( 39 and 308 ) Troponin I Ultra: 0.033 ng/mL -- Normal range between ( 0.015 and 0.045 ) Iron Studies 05/04/2021 6:58 AM % Iron Saturation: 83.3 % -- Normal range between ( 15.0 and 55.0 ) TIBC: 78.0 mcg/dL -- Normal range between ( 250.0 and 450.0 ) Iron Level: 65 mcg/dL -- Normal range between ( 65 and 175 ) Infectious Disease 05/03/2021 1:12 PM Hep B Core: Non Reactive Hep C AB: Non Reactive Hep B Surf AG: Non Reactive Hep A IgM AB: Non Reactive Tumor Markers 05/03/2021 1:12 PM CA 19-9: 6 Vitamin Chemistry 05/04/2021 6:58 AM Folate Level: 3.10 ng/mL -- Normal range between ( 3.10 and 17.50 ) Vitamin B12 Level: 1437 pg/mL -- Normal range between ( 193 and 986 ) Diagnostic Radiology 05/04/2021 11:29 AM CR Ercp Biliary Duct SI: CR Ercp Biliary Duct SI Patient Name:SADIQ BLANCAS I have received and understand this information and was given the opportunity to ask questions. Patient/Traffic Sergeant Name: Patient/Traffic Sergeant Signature: Relationship to Patient: Clinician/Hospital Traffic Sergeant Signature: Date: documented in this encounter Plan of Treatment Not on file documented as of this encounter Visit Diagnoses Not on filedocumented in this encounter
--- OUTSIDE RECORDS SUMMARY | 2025-05-04 13:42 | XMS_ITS | Encounter Summary ---
Author Organization [employer] ([place], [place], [place], [place]) Address [address] [place] [address] Care Team Providers Care Licensed Sales Assistant Name Role Phone Unavailable Primary Care Provider Unavailabl e Encounter Details Date Type Department Care Team (Late st Contact Info) Description 05/03/2021 Transcribed Document [facility] [place] [facility] [place] [address] ProviderLatonia MD [facility] [place] [address] Social History Tobacco Use Types Packs/Day Years Used Date Smoking Tobacco: Never Assessed Sex and Gender Information Value Date Recorded Sex Assigned at Not on file Legal Sex Male 7:22 PM CDT Gender Identity Not on file Sexual Orientation Not on file documented as of this encounter Miscellaneous Notes * Cerner Conversion Note - Latonia ProviderMD - 05/03/2021 4:21 AM CDT Education-Wound Care Entered On: 05/03/2021 4:25 EDT Performed On: 05/03/2021 4:21 EDT by Randee Giron RN Teaching/Learning Assessment Barriers To Learning : None evident Individuals Taught : Patient Readiness to Learn : Cooperative Readiness to Learn : Explanation Learning Style Preferences Patient : Verbal explanation Randee Giron RN - 05/03/2021 4:25 EDT documented in this encounter Plan of Treatment Not on file documented as of this encounter Visit Diagnoses Not on filedocumented in this encounter
--- OUTSIDE RECORDS SUMMARY | 2025-05-04 13:42 | XMS_ITS | Encounter Summary ---
Author Organization [employer] ([place], [place], [place], [place]) Address [address] [place] [address] Care Team Providers Care Stull Installer Name Role Phone Unavailable Primary Care Provider Unavailabl e Encounter Details Date Type Department Care Team (Late st Contact Info) Description 05/04/2021 Transcribed Document [facility] [place] [facility] [place] [address] Provider, MD Latonia [address] [place] [address] Social History Tobacco Use Types Packs/Day Years Used Date Smoking Tobacco: Never Assessed Sex and Gender Information Value Date Recorded Sex Assigned at Not on file Legal Sex Male 7:22 PM CDT Gender Identity Not on file Sexual Orientation Not on file documented as of this encounter Miscellaneous Notes * Cerner Conversion Note - Latonia ProviderMD - 05/04/2021 10:57 AM CDT [facility] Endo PACU Summary Primary Physician: BEATRIS ISRAEL MD-[facility] Finalized Date/Time: 05/04/21 12:17:32 Pt. Name: SADIQ ISRAEL /Sex: 1955 Male Med Rec #: [id number] Physician: GUILLAUME DIXON MD Financial #: [id number] Pt. Type: I Room/Bed: [facility]/ Admit/Disch: 05/03/21 00:04:00 - Institution: [facility] Endo PACU Case Times Entry 1 In PACU I 05/04/21 11:39:00 Ready for PACU 05/04/21 12:15:00 Discharge Discharge from PACU 05/04/21 12:17:00 I Last Modified By: Nereida Jasso Rn 05/04/21 12:15:46 [facility] Endo PACU Case Times Audit 05/04/21 12:17:29 Driver: [id number] Modifier: [id number] <+> 1 Discharge from PACU I 05/04/21 12:15:46 Driver: [id number] Modifier: [id number] <+> 1 Ready for PACU Discharge Finalized By: Nereida Jasso, Rn Document Signatures Signed By: Nereida Jasso, Rn 05/04/21 12:17 Electronically signed by Abelino [facility] Conversion Auto Radiator Specialist Cerner at 02/22/2023 8:38 PM CDT documented in this encounter Plan of Treatment Not on file documented as of this encounter Visit Diagnoses Not on filedocumented in this encounter
--- OUTSIDE RECORDS SUMMARY | 2025-05-04 13:42 | XMS_ITS | Encounter Summary ---
Author Organization [employer] ([place], [place], [place], [place]) Address [address] [place] [address] Care Team Providers Care Medical Records Administrator Name Role Phone Unavailable Primary Care Provider Unavailabl e Encounter Details Date Type Department Care Team (Late st Contact Info) Description 05/03/2021 Transcribed Document [facility] [place] [address] ProviderLatonia MD [address] [place] [address] Social History Tobacco Use Types Packs/Day Years Used Date Smoking Tobacco: Never Assessed Sex and Gender Information Value Date Recorded Sex Assigned at Not on file Legal Sex Male 7:22 PM CDT Gender Identity Not on file Sexual Orientation Not on file documented as of this encounter Miscellaneous Notes * Cerner Conversion Note - Latonia ProviderMD - 05/03/2021 1:00 AM CDT Evaluation, Physical Therapy Entered On: 05/03/2021 14:30 EDT Performed On: 05/03/2021 13:42 EDT by NICHOLAS ANDRADE PT General Information, PT Visit Type, PT : Initial evaluation Patient Orders : Order Date Order Ordering 05/03/2021 01:00 PT Evaluation and Treatment Ordered By: SHABNAM MARSH MD 05/03/2021 14:24 PT Additional Treatment Ordered By: NICHOLAS ANDRADE, MARYCHUY Active Diagnoses : No Qualifying Diagnoses Therapy Diagnosis, PT : Debility Onset of Problem, PT : 05/03/2021 EDT Admission Date : 05/03/2021 00:04 Co-treated by, PT : Occupational Therapist Personal Devices : Personal Devices Glasses Assistive Devices : Assistive Devices No Devices Recorded Precautions in Place : Fall prevention measures General Information Comment, PT : Admit Dx: jaundice, possible ERCP soon Hx: COPD, gout, HTN, smoker NICHOLAS ANDRADE, PT - 05/03/2021 14:25 EDT General Status Patient Received Status : Supine in bed Treatment Start Time : 05/03/2021 13:42 EDT Patient Left Status : Supine in bed, Communication board completed, All needs met and within reach Treatment End Time : 05/03/2021 14:14 EDT Treatment Time : 32 Minute(s) NICHOLAS ANDRADE, PT - 05/03/2021 14:25 EDT History and Environment Patient Lives With : Parent(s) Persons Providing Information : Patient Home Equipment Therapy, PT : None Home Setup : Basement, One story Stairs : Yes Stair Location(s) : Inside Railing Inside : Yes NICHOLAS ANDRADE, PT - 05/03/2021 14:25 EDT Prior Level of Function PT GRID Prior LOF Ambulation, Household : Independent Prior LOF Ambulation, Community : Independent Prior LOF Bed Mobility : Independent Prior LOF Toileting : Independent Prior LOF Transfer : Independent NICHOLAS ANDRADE, PT - 05/03/2021 14:25 EDT Prior LOF Assist with ADL Comment : pt reports resides in basement and lives with his elderly mother who he helps primarily only for cooking/cleaning home NICHOLAS ANDRADE, PT - 05/03/2021 14:25 EDT Lower Extremity RLE Active ROM : WFL Right LE Strength : WFL LLE Active ROM : WFL Left LE Strength : WFL NICHOLAS ANDRADE, PT - 05/03/2021 14:25 EDT Functional Mobility Mobility Grid Supine to Sit : Supervision/set-up Sit to Stand : Rehab Minimal assistance Stand to Sit : Rehab Minimal assistance Sit to Supine : Supervision/set-up NICHOLAS ANDRADE PT - 05/03/2021 14:25 EDT Sit to Stand Device : Belt, gait, Walker, front wheel Stand to Sit Device : Belt, gait, Walker, front wheel NICHOLAS ANDRADE, PT - 05/03/2021 14:25 EDT Gait Training/Assessment, PT Gait Assistance Level : Assist, minimal Walking Distance : 140ft with RWx Dawit for balance due to min sway with turns Ambulatory Devices : Gait belt, Walker, front wheel NICHOLAS ANDRADE, PT - 05/03/2021 14:25 EDT Cognition Assessment, PT Orientation : Oriented x 4 Attention Assessment : Present NICHOLAS ANDRADE PT - 05/03/2021 14:25 EDT Edu Topics Physical Therapy Education Grid Gait Training : Verbalizes understanding, Returns demonstration, Needs reinforcement Transfer Training : Verbalizes understanding, Returns demonstration, Needs reinforcement NICHOLAS ANDRADE, PT - 05/03/2021 14:25 EDT Indication Assesessment, PT Physical Therapy Indicated : Yes PT Problem List : Impaired, endurance tolerance, Impaired, gait, Impaired, strength, Impaired, transfers NICHOLAS ANDRADE, PT - 05/03/2021 14:25 EDT Plan of Care, PT PT Tx Plan/Goals Established w Patient : Yes PT Frequency Rehab : Five days per week PT Duration Rehab : Fourteen days PT Treatments Planned : Gait training, Therapeutic exercises, Transfer training NICHOLAS ANDRADE, PT - 05/03/2021 14:25 EDT Foreign Correspondent Goals Mobility/Bed Mobility LTG PT Grid Goal #1 Goal #2 Activity : Supine to sit Sit to stand Assist : Independent, modified Independent, modified Date to Meet : 05/17/2021 EDT 05/17/2021 EDT Goal Status : Intial Goal Intial Goal NICHOLAS ANDRADE, PT - 05/03/2021 14:25 EDT NICHOLAS ANDRADE, PT - 05/03/2021 14:25 EDT Ambulation LTG Grid Goal #1 Device : Walker, front wheel Distance : 300ft Assist : Independent, modified Date to Meet : 05/17/2021 EDT Goal Status : Intial Goal NICHOLAS ANDRADE, PT - 05/03/2021 14:25 EDT Treatment Note Subjective Comment : pt agreed to PTx eval Patient's Response to Treatment : Stable Additional Objective Information : pt performed supine to sitting EOB SBA; however, pt requiring Dawit for safety/follow-through for sit to stand transfers from EOB and from commode with RWx; pt assisted to bathroom for BM/pericare setup with OTx assist; pt ambulating 140ft with RWx Dawit for balance due to min sway Assessment : pt with imbalances, decreased endurance and despite independent prior to admission, pt with weakness during this evaluation and would benefit from skilled PTx services during LOS to improve safety and return to home setting Plan for Treatment : cont PTx POC NICHOLAS ANDRADE, PT - 05/03/2021 14:25 EDT Pain Assessment Pain Scaled Used : 0-10 Pain scale Pain Score Pre-Intervention : 0 NICHOLAS ANDRADE, PT - 05/03/2021 14:25 EDT Image 1 - Images currently included in the form version of this document have not been included in the text rendition version of the form. Anticipated Discharge Needs, OT/PT Anticipated Discharge to : Home, independently Anticipated Home Equipment : Other: will cont to assess NICHOLAS ANDRADE PT - 05/03/2021 14:[address] [facility] PT Charges PT Ther Activities Ea 15 Min : 1 NICHOLAS ANDRADE PT - 05/03/2021 14:30 EDT PT Eval Moderate Complexity : 1 NICHOLAS ANDRADE PT - 05/03/2021 14:25 EDT Electronically signed by Abelino [facility] Conversion Magazine Grinder Loader Cerner at 02/22/2023 8:58 PM CDT documented in this encounter Plan of Treatment Not on file documented as of this encounter Visit Diagnoses Not on filedocumented in this encounter
--- OUTSIDE RECORDS SUMMARY | 2025-05-04 13:42 | XMS_ITS | Encounter Summary ---
Author Organization [employer] ([place], [place], [place], [place]) Address [address] [place] [address] Care Team Providers Care Warehouse Stocker Name Role Phone Unavailable Primary Care Provider Unavailabl e Encounter Details Date Type Department Care Team (Late st Contact Info) Description 05/03/2021 Transcribed Document [facility] [place] Family Medicine [facility] [place] [address] ProviderLatonia MD [address] [place] [address] Social History Tobacco Use Types Packs/Day Years Used Date Smoking Tobacco: Never Assessed Sex and Gender Information Value Date Recorded Sex Assigned at Not on file Legal Sex Male 7:22 PM CDT Gender Identity Not on file Sexual Orientation Not on file documented as of this encounter Miscellaneous Notes * Cerner Conversion Note - Latonia ProviderMD - 05/03/2021 11:43 AM CDT UM Authorization Entered On: 05/03/2021 11:44 EDT Performed On: 05/03/2021 11:43 EDT by JOSSY ARAGON RN Primary Insurance Authorization Authorization and Policy Numbers : Insurance 1 Health Plan: [facility] Policy Number: [id number] Authorization Number: Insurance Primary Name : [facility] Policy Number: [id number] Authorization Status-Primary : Awaiting callback Reference Number-Primary : Pend ref #[id number] Authorized Service Begin Date-Primary : 05/03/2021 EDT Authorization Comments-Primary : Per Amanda with [facility], pt has Medicare A primary, em to [place], cc to [facility] Historical Authorization Comments-Primary : Comment 1: Clinicals submitted via [facility] for IP approval (JOSSY ARAGON RN 05/03/2021 09:25) JOSSY ARAGON RN - 05/03/2021 11:43 EDT Electronically signed by Abelino, [facility] Conversion Computer Tape Librarian Cerner at 02/22/2023 8:52 PM CDT documented in this encounter Plan of Treatment Not on file documented as of this encounter Visit Diagnoses Not on filedocumented in this encounter
--- OUTSIDE RECORDS SUMMARY | 2025-05-04 13:42 | XMS_ITS | Encounter Summary ---
Author Organization [employer] ([place], [place], [place], [place]) Address [address] [place] [address] Care Team Providers Care Radiology Supervisor Name Role Phone Unavailable Primary Care Provider Unavailabl e Encounter Details Date Type Department Care Team (Late st Contact Info) Description 05/09/2021 Transcribed Document [facility] [place] Family Medicine [facility] [place] [address] ProviderLatonia MD [address] [place] [address] Social History Tobacco Use Types Packs/Day Years Used Date Smoking Tobacco: Never Assessed Sex and Gender Information Value Date Recorded Sex Assigned at Not on file Legal Sex Male 7:22 PM CDT Gender Identity Not on file Sexual Orientation Not on file documented as of this encounter Miscellaneous Notes * Cerner Conversion Note - Latonia ProviderMD - 05/09/2021 7:00 AM CDT UM Authorization Entered On: 05/09/2021 7:00 EDT Performed On: 05/09/2021 7:00 EDT by Soumya Lee, Process Improvement Consultant Primary Insurance Authorization Authorization and Policy Numbers : Insurance 1 Health Plan: [employer] Policy Number: [id number] Authorization Number: Insurance 2 Health Plan: [facility] Policy Number: [id number] Authorization Number: Insurance Primary Name : [employer] Policy Number: [id number] Authorization Status-Primary : Notification only Reference Number-Primary : [id number] Authorization Number-Primary : [id number] Authorized Service Begin Date-Primary : 05/03/2021 EDT Authorization Comments-Primary : Authorized per email from Gerry Davis RN. Historical Authorization Comments-Primary : Comment 1: Pending ref no per [employer]. Reviewer has access to JOSSY López RN 05/03/2021 13:49) Comment 2: Per Amanda with [facility], pt has Medicare A primary, em to [place], cc to [facility] (JOSSY ARAGON RN 05/03/2021 11:43) Comment 3: Clinicals submitted via [facility] for IP approval (JOSSY ARAGON RN 05/03/2021 09:25) Soumya Lee, Process Improvement Consultant - 05/09/2021 7:00 EDT Electronically signed by [facility] Conversion Tin Assorter Cerner at 02/22/2023 8:35 PM CDT documented in this encounter Plan of Treatment Not on file documented as of this encounter Visit Diagnoses Not on filedocumented in this encounter
--- OUTSIDE RECORDS SUMMARY | 2025-05-04 13:42 | XMS_ITS | Encounter Summary ---
Author Organization [employer] ([place], [place], [place], [place]) Address [address] [place] [address] Care Team Providers Care Pastry Cook Apprentice Name Role Phone Unavailable Primary Care Provider Unavailabl e Encounter Details Date Type Department Care Team (Late st Contact Info) Description 05/05/2021 Transcribed Document [facility] Radiology [address] [place] [address] Steve Kumar MD [address] [place] [address] [address] Social History Tobacco Use Types Packs/Day Years Used Date Smoking Tobacco: Never Assessed Sex and Gender Information Value Date Recorded Sex Assigned at Not on file Legal Sex Male 7:22 PM CDT Gender Identity Not on file Sexual Orientation Not on file documented as of this encounter Miscellaneous Notes * Cerner Conversion Note - Steve Kumar MD - 05/05/2021 9:05 AM EDT Patient: SADIQ BLANCAS Age: 66 years Sex: Male : 1955 Associated Diagnoses: None Author: STEVE KUMAR MD Basic Information Patient seen and examined today No issues overnight He feels better Plan for cholecystectomy this morning No family member at the bedside Hemodynamically stable Review of Systems No fever no chills No chest pain no palpitation No shortness of breath no cough No nausea no vomiting Health Status Allergies: Allergic Reactions (Selected) No Known Allergies, Allergies (1) Active Reaction No Known Allergies None Documented Current medications: (Selected) Inpatient Medications Ordered Cymbalta: 30 mg, Oral, Daily Dulcolax Laxative: 5 mg, Oral, Daily, PRN: Constipation Dulera 100 mcg-5 mcg/inh inhalation aerosol: 2 Puff, Inhalation, BID DuoNeb 0.5 mg-2.5 mg/3 mL inhalation solution: 3 mL, Nebulized Inhalation, RT_Q6H, PRN: Shortness of Breath Lactated Ringers Injection intravenous solution 1,000 mL: 20 mL/Hr, IntraVENous Nicoderm C-Q 21 mg/24 hr transdermal film, extended release: 1 Patch, TransDermal, Daily Pepcid: 40 mg, Oral, Daily Rocephin: 1 Gram, 100 mL/Hr, IV Piggyback, [id number] Sodium Chloride 0.9% intravenous solution 1,000 mL: 50 mL/Hr, IntraVENous Tylenol: 650 mg, Oral, Q4H, PRN: Pain (Mild 1-3) Zofran: 4 mg, IV Push, Q4H, PRN: Nausea heparin: 5,000 Units, SubCutaneous, [id number] lidocaine 1% injectable solution: 0.5 mL, IntraDermal, 1-Time, PRN: Other (See Comment) lisinopril: 10 mg, Oral, Daily tiotropium: 2 Inhalation, Inhalation, RT_Daily Documented Medications [...] a meal, 30 Cap, 0 Refill(s), Medications (15) Active Scheduled: (8) cefTRIAXone 1 Gram, IV Piggyback, [id number] DULoxetine DR 30 mg cap 30 mg 1 Cap, Oral, Daily famotidine 20 mg tab 40 mg 2 Tab, Oral, Daily heparin 5,000 units/1 mL inj 5,000 Units 1 mL, SubCutaneous, [id number] lisinopril 10 mg tab 10 mg 1 Tab, Oral, Daily mometasone/formoterol 100/5 mcg inh 2 Puff, Inhalation, BID nicotine 21 mg/24 hr patch 1 Patch, TransDermal, Daily tiotropium 2.5 mcg inh 4 g 2 Inhalation, Inhalation, RT_Daily Continuous: (2) lactated ringers 1,000 mL 1,000 mL, IntraVENous, 20 mL/Hr NaCl 0.9% 1,000 mL 1,000 mL, IntraVENous, 50 mL/Hr PRN: (5) acetaminophen 325 mg tab 650 mg 2 Tab, Oral, Q4H albuterol-ipratropium inh 3 mL 3 mL, Nebulized Inhalation, RT_Q6H bisacodyl EC 5 mg tab 5 mg 1 Tab, Oral, Daily lidocaine 1% *PF* inj 2 mL 0.5 mL, IntraDermal, 1-Time ondansetron 4 mg/2 mL inj 4 mg 2 mL, IV Push, Q4H Problem list: Medical At risk for sleep apnea / IMO [id number] / Confirmed, Active Problems (5) At risk for sleep apnea COPD (chronic obstructive pulmonary disease) Gout Hypertension Smoker Physical Examination VS/Measurements Vitals Signs (last 24 hrs) Last Charted Minimum Maximum Temp L 94.9 (MAY 05 05:03) L 94.9 (MAY 05 05:) 98.3 (MAY 04 23:00) Mon HR 48 (MAY 05 05:03) 47 (MAY 04 14:00) 55 (MAY 04 15:00) Resp Rate 18 (MAY 05 05:03) 16 (MAY 04 10:14) 18 (MAY 04 11:49) SBP 137 (MAY 05 05:03) 91 (MAY 04 11:39) H 145 (MAY 04 13:17) DBP 67 (MAY 05 05:03) L 53 (MAY 04 11:39) 79 (MAY 04 18:00) MAP 106 (MAY 05 05:03) 90 (MAY 04 23:30) 115 (MAY 04 16:00) SpO2 100 (MAY 05 05:03) 97 (MAY 04 13:00) 100 (MAY 04 11:39) Radiology Results (Last 48 hours) [id number] -- 05/03/2021 00:04 CR Ercp Biliary Duct [...] review: Labs (Last four charted values) WBC 6.5 (MAY 05) 7.6 (MAY 04) H 10.8 (MAY 03) HB L 8.8 (MAY 05) L 8.3 (MAY 04) L 8.0 (MAY 03) HCT L 27.2 (MAY 05) L 25.6 (MAY 04) L 24.7 (MAY 03) Plt H 370 (MAY 05) 335 (MAY 04) 297 (MAY 03) Na L 133 (MAY 05) 136 (MAY 04) L 132 (MAY 03) K 3.9 (MAY 05) 3.5 (MAY 04) 3.6 (MAY 03) Cl 104 (MAY 05) 106 (MAY 04) 102 (MAY 03) CO2 24 (MAY 05) 24 (MAY 04) 22 (MAY 03) BUN 18 (MAY 05) 14 (MAY 04) 20 (MAY 03) Cr 0.90 (MAY 05) L 0.40 (MAY 04) L 0.60 (MAY 03) Glu R H 116 (MAY 05) 85 (MAY 04) L 69 (MAY 03) Ca L 7.9 (MAY 05) L 7.9 (MAY 04) L 8.0 (MAY 03) AST H 84 (MAY 05) H 153 (MAY 04) H 127 (MAY 03) ALT 57 (MAY 05) 59 (MAY 04) 42 (MAY 03) ALK P H 553 (MAY 05) H 587 (MAY 04) H 525 (MAY 03) T Bili H 2.6 (MAY 05) H 3.2 (MAY 04) H 4.7 (MAY 03) PTN L 5.5 (MAY 05) L 5.1 (MAY 04) L 5.3 (MAY 03) ALB L 1.4 (MAY 05) L 1.3 (MAY 04) L 1.3 (MAY 03) Lipase 81 (MAY 05) 107 (MAY 04) 199 (MAY 03) . Radiology Results (Last 48 hours) [id number] -- 05/03/2021 00:04 CR Ercp Biliary Duct [...] was found and removed General surgery consulted Plan for cholecystectomy today Repeat CMP in a.m. IV fluids resuscitation Continue supportive measures EGD noted with erosive [...]
--- OUTSIDE RECORDS SUMMARY | 2025-05-04 13:42 | XMS_ITS | Encounter Summary ---
Author Organization [employer] ([place], [place], [place], [place]) Address [address] [place] [address] Care Team Providers Care Guinea Pig Breeder Name Role Phone Unavailable Primary Care Provider Unavailabl e Encounter Details Date Type Department Care Team (Late st Contact Info) Description 05/05/2021 Transcribed Document [facility] [place] [facility] [place] [address] ProviderLatonia MD [address] [place] [address] Social History Tobacco Use Types Packs/Day Years Used Date Smoking Tobacco: Never Assessed Sex and Gender Information Value Date Recorded Sex Assigned at Not on file Legal Sex Male 7:22 PM CDT Gender Identity Not on file Sexual Orientation Not on file documented as of this encounter Miscellaneous Notes * Cerner Conversion Note - Latonia ProviderMD - 05/05/2021 4:08 PM CDT On Going Discharge Planning Entered On: 05/05/2021 16:10 EDT Performed On: 05/05/2021 16:08 EDT by ENRIKE ALBARRAN RN - Payroll ManagerLead Recreation Assistant Progress Note Discharge Arrangements : Patient Post-Acute Information Patient Name: SADIQ ISRAEL Gender: Male : [birth year] Age: 66 Years No Post-Acute Placement(s) Listed No Post-Acute Service(s) Listed No [place] Referral(s) Listed Discharge Options Discussed with Patient : Home Health Is the Patient Meeting Medical Necessity : Yes ENRIKE ALBARRAN, RN - Payroll Manager - 05/05/2021 16:08 EDT Narrative Progress Note Narrative Progress Note : RRS High Boost 3 Day 3/3 Patient has been accepted by [facility]. Patient had a lap cassidy today. Discharge pending surg. plan. IM and choice needed at discharge. DCP: [facility] Historical Progress Note : Amirah from [facility] talked with the patient and he agreed to rehab there. DCP: [facility] ENRIKE ALBARRAN RN - Payroll Manager - 05/04/21 14:50:48 RRS Low Boost 2 Day 2 Patient had an ERCP/EGD today. Scheduled for a lap cassidy tomorrow. Patient lives in the basement at his mother's home. Family is concerned that he will not be able to care for himself at home and his mother is unable to assist. has faxed his packet to [facility]. SNFs . Talked with Rand from [facility]. DCP: home vs SNF ENRIKE ALBARRAN RN - Payroll Manager - 05/04/21 13:58:57 ENRIKE ALBARRAN RN - Payroll Manager - 05/05/2021 16:08 EDT Electronically signed by Jac Roca Conversion Community Reinvestment Act Officer Cerner at 02/22/2023 8:55 PM CDT documented in this encounter Plan of Treatment Not on file documented as of this encounter Visit Diagnoses Not on filedocumented in this encounter
--- OUTSIDE RECORDS SUMMARY | 2025-05-04 13:42 | XMS_ITS | Encounter Summary ---
Author Organization [employer] ([place], [place], [place], [place]) Address [address] [place] [address] Care Team Providers Care Metal Polisher And Buffer Apprentice Name Role Phone Unavailable Primary Care Provider Unavailabl e Encounter Details Date Type Department Care Team (Late st Contact Info) Description 05/03/2021 Transcribed Document [facility] [place] [facility] [place] [address] ProviderLatonia MD [facility] [place], [place] [address] Social History Tobacco Use Types Packs/Day Years Used Date Smoking Tobacco: Never Assessed Sex and Gender Information Value Date Recorded Sex Assigned at Not on file Legal Sex Male 7:22 PM CDT Gender Identity Not on file Sexual Orientation Not on file documented as of this encounter Miscellaneous Notes * Cerner Conversion Note - Latonia ProviderMD - 05/03/2021 12:31 AM CDT Education-Smoking Cessation Entered On: 05/03/2021 4:24 EDT Performed On: 05/03/2021 0:31 EDT by Randee Giron RN Teaching/Learning Assessment Barriers To Learning : None evident Individuals Taught : Patient Readiness to Learn : Cooperative, Uninterested Readiness to Learn : Explanation Learning Style Preferences Patient : Verbal explanation Randee Giron RN - 05/03/2021 4:24 EDT Education: Smoking/Tobacco Cessation Topics Smoking Cess Educatin Grid Advice Given to Stop Smoking : Verbalizes understanding Risks/Benefits of Smoking : Verbalizes understanding Second Hand Smoke : Verbalizes understanding Ed-Smoking Cessation Programs : Verbalizes understanding Ed-Smoking Cessation, Other : Verbalizes understanding Randee Giron RN - 05/03/2021 4:24 EDT Tobacco Cessation Counseling Grid Recognizing Danger Situations : Needs reinforcement Negative Moods and/or Stress : Needs reinforcement Being Around Other Tobacco Users : Needs reinforcement Drinking Alcohol : Needs reinforcement Experiencing Urges : Needs reinforcement Tobacco Cues and Availability : Needs reinforcement Developing Coping Skills : Needs reinforcement Anticipate/Avoid Temptation/Triggers : Needs reinforcement Strategies to Reduce Negative Moods : Needs reinforcement Reduce Stress/Exposure to Tobacco Cues : Needs reinforcement Activities to [place] With Smoking Urges : Needs reinforcement Basic Information About Quitting : Needs reinforcement Tobacco Use Increases Chance of Relapse : Needs reinforcement Withdrawal Symptoms Peak After Quitting : Needs reinforcement Addictive Nature of Tobacco : Needs reinforcement Randee Giron RN - 05/03/2021 4:24 EDT documented in this encounter Plan of Treatment Not on file documented as of this encounter Visit Diagnoses Not on filedocumented in this encounter
--- OUTSIDE RECORDS SUMMARY | 2025-05-04 13:42 | XMS_ITS | Encounter Summary ---
Author Organization [employer] ([place], [place], [place], [place]) Address [address] [place] [address] Care Team Providers Care Engagement Mgr Name Role Phone Unavailable Primary Care Provider Unavailabl e Encounter Details Date Type Department Care Team (Late st Contact Info) Description 05/05/2021 Transcribed Document [facility] [place] Family Medicine [facility] [address] Provider, MD Latonia [address] [place] [address] Social History Tobacco Use Types Packs/Day Years Used Date Smoking Tobacco: Never Assessed Sex and Gender Information Value Date Recorded Sex Assigned at Not on file Legal Sex Male 7:22 PM CDT Gender Identity Not on file Sexual Orientation Not on file documented as of this encounter Miscellaneous Notes * Cerner Conversion Note - Latonia ProviderMD - 05/05/2021 1:05 PM CDT [facility] Main OR Preop Summary Primary Physician: SUSANA MARSHALL MD-[facility] Finalized Date/Time: 05/05/21 14:35:11 Pt. Name: SADIQ ISRAEL /Sex: 1955 Male Med Rec #: [id number] Physician: GUILLAUME DIXON MD Financial #: [id number] Pt. Type: I Room/Bed: 4/ Admit/Disch: 05/03/21 00:04:00 - Institution: [facility] PreOp Case Times Entry 1 In Preop 05/05/21 11:34:00 Ready for Holding n/a Room Patient Ready for 05/05/21 12:42:00 Surgery Patient Out of Preop 05/05/21 12:42:00 Patient Out of n/a Holding Room Last Modified By: LEORA BOYER RN 05/05/21 14:35:04 [facility] PreOp Case Times Audit 05/05/21 14:35:04 Inside Sales Director: [id number] Modifier: [email or web address] <+> 1 Patient Out of Preop 05/05/21 12:42:19 Inside Sales Director: [id number] Modifier: [id number] <+> 1 Patient Ready for Surgery Finalized By: LEORA BOYER RN Document Signatures Signed By: LEORA BOYER RN 05/05/21 14:35 Electronically signed by Abelino [facility] Conversion Wellness Coordinator Cerner at 02/22/2023 8:45 PM CDT documented in this encounter Plan of Treatment Not on file documented as of this encounter Visit Diagnoses Not on filedocumented in this encounter
--- OUTSIDE RECORDS SUMMARY | 2025-05-04 13:42 | XMS_ITS | Encounter Summary ---
Author Organization [employer] ([place], [place], [place], [place]) Address [address] [place] [address] Care Team Providers Care Mother Helper Name Role Phone Unavailable Primary Care Provider Unavailabl e Encounter Details Date Type Department Care Team (Late st Contact Info) Description 05/11/2021 Transcribed Document [facility] Radiology [address] [place] [address] Georgiana Cheng MD [address] [place] [address] [address] [id number] Social History Tobacco Use Types Packs/Day Years Used Date Smoking Tobacco: Never Assessed Sex and Gender Information Value Date Recorded Sex Assigned at Not on file Legal Sex Male 7:22 PM CDT Gender Identity Not on file Sexual Orientation Not on file documented as of this encounter Miscellaneous Notes * Cerner Conversion Note - Georgiana Cheng MD - 05/11/2021 2:23 AM EDT PLEASE MODIFY BEFORE SIGNING CLINICAL DOCUMENTATION CLARIFICATION FORM: Dear : Georgiana Cheng Date / Time: 05/10/2021 Please exercise your independent, professional judgment in responding to the clarification form. Clinical indicators are provided on the bottom of this form for your review Please check appropriate box(es): [ ] Protein Calorie Malnutrition: [ ] Mild [ x] Moderate [ ] Severe [ ] Other diagnosis [ ] Unable to determine Physician Signature: Date/Time: For continuity of documentation, please document condition throughout progress notes and discharge summary. Thank You. To be completed by CDI/Coding staff for physician review: Present Clinical Indicators - Signs / Symptoms / Labs Results and Location in Medical Record [ X ] High nutrition risk Documented in Nutrition Assessment on 05/04/2021 [ X ] BMI of 20.4 Documented in Nutrition Assessment on 05/04/2021 [ X ] Two or More of the Following ASPEN Criteria: [ X ] poor PO intake Documented in Operative Note on 05/05/[address] Leon Olivarez [ X ] Pt stated a wt of 195# x 3 months ago and a current wt of 148#. Wt per chart is 126# Documented in Nutrition Assessment on 05/04/2021 Present Risk Factors Results and Location in Medical Record [ X ] Decreased appetite Documented in Nutrition Assessment on 05/04/2021 [ X ] Erosive gastritis Documented in EGD note on 05/04/[address] Suyapa Israel [ X ] Erosive duodenitis Documented in EGD note on 05/04/[address] Suyapa Israel Present Treatments Results and Location in Medical Record [ X ] Dietary consult Documented in Nutrition Assessment on 05/04/2021 [ X ] Once feasible, advance diet per MD + low fat. RD to assess for supplements Documented in Nutrition Assessment on 05/04/2021 [ X ] Goal: tolerate diet advancement; adequate intake >50% of meals Documented in Nutrition Assessment on 05/04/2021 CDS/Energy Project Manager Signature: Endy Spicercleo Phone #: [phone] Extn [id number] Date/Time: 05/10/2021 Moderate Malnutrition (in acute illness) Energy Intake: <75% of estimated energy requirement for > 7 days ?? Weight Loss: 1-2%/1 week; 5%/ 1 month; 7.5%/3 months ?? Other: mild body fat loss; mild muscle mass loss; mild fluid accumulation; Severe Malnutrition (in acute illness) ?? Energy Intake: ? 50% of estimated energy requirement for ? 5 days Weight Loss: >2%/1 week; >5%/1 month; >7.5%/3 months ?? Other: moderate body fat loss; moderate muscle mass loss; moderate- severe fluid accumulation; measurably reduced house mother strength Moderate Malnutrition (in chronic illness) Energy Intake: <75% of estimated energy requirement for ?1 month ?? Weight Loss: 5%/1 month; 7.5%/3 months; 10%/6 months; 20%/1 year ?? Other: mild body fat loss; mild muscle mass loss; mild fluid accumulation Severe Malnutrition (in chronic illness) ?? Energy Intake: ?75% of estimated energy requirement for ?1 month Weight Loss: >5%/1 month; >7.5%/3 months; >10%/6 months; >20%/1 year ?? Other: severe body fat loss; severe muscle mass loss; severe fluid accumulation; measurably reduced house mother strength This is a permanent part of the Medical Record Q41 2019 [facility] Updated: documented in this encounter Plan of Treatment Not on file documented as of this encounter Visit Diagnoses Not on filedocumented in this encounter
--- OUTSIDE RECORDS SUMMARY | 2025-05-04 13:42 | XMS_ITS | Encounter Summary ---
Author Organization [employer] ([place], [place], [place], [place]) Address [address] [place] [address] Care Team Providers Care Policy Manager Name Role Phone Unavailable Primary Care Provider Unavailabl e Encounter Details Date Type Department Care Team (Late st Contact Info) Description 05/03/2021 Transcribed Document [facility] [place] Family Medicine [facility] [place] [address] ProviderLatonia MD [facility] [place] [address] Social History Tobacco Use Types Packs/Day Years Used Date Smoking Tobacco: Never Assessed Sex and Gender Information Value Date Recorded Sex Assigned at Not on file Legal Sex Male 7:22 PM CDT Gender Identity Not on file Sexual Orientation Not on file documented as of this encounter Miscellaneous Notes * Cerner Conversion Note - Latonia ProviderMD - 05/03/2021 3:03 PM CDT Initial Discharge Planning Entered On: 05/03/2021 15:08 EDT Performed On: 05/03/2021 15:03 EDT by Ashlie Garcia RN-CASE-DYE HOUSE VAT WORKER-COORDINATOR NON-EXEMPT Initial Assessment I Previously Documented Living Environment : No qualifying data available. Living Situation : Home Patient Lives With : Parent(s) Emergency Contact #1 : Kristen Cobb Emergency Contact #1 Emergency Contact #1 Relationship : sister Emergency Contact #2 : n/a Emergency Contact #2 Phone Number : n/a Emergency Contact #2 Relationship : n/a Enter Doctors Name : Darling Cole Does Patient have PCP Listed? : Yes Legal Guardian : No Ashlie Garcia RN-CASE-DYE HOUSE VAT WORKER-COORDINATOR NON-EXEMPT - 05/03/2021 15:03 EDT Initial Assessment II Sensory and Motor Deficits : None Current Home Treatments and Equipment : None Ashlie Garcia RN-CASE-DYE HOUSE VAT WORKER-COORDINATOR NON-EXEMPT - 05/03/2021 15:03 EDT Discharge Needs I Anticipated Discharge Date : 05/05/2021 EDT Anticipated Discharge To, CM : Home independently Current Home Treatment/Equipment : Current Home Treatment/Equipment No qualifying data available. Post Acute/Home Treatments : None Documentation Status Complete : Yes Ashlie Garcia RN-CASE-DYE HOUSE VAT WORKER-COORDINATOR NON-EXEMPT - 05/03/2021 15:03 EDT Discharge Needs II Professional Skilled Services : Professional Skilled Services No qualifying data available. Needs Assistance with Transportation : No Discharge Options Discussed with Patient : Home Health Ashlie Garcia RN-CASE-DYE HOUSE VAT WORKER-COORDINATOR NON-EXEMPT - 05/03/2021 15:03 EDT Narrative Note Narrative Note : RRS low Boost 2 Day 1 CM spoke with the patient to explain the role of CM for discharge planning. Patient was admitted for jaundice/mass. Consults to GI. Patient is scheduled for an ERCP/EGD on . Patient is ind. with ADLs and lives with his mother. Patient denies ever having home health but is agreeable in needed at discharge. Discharge pending test results and GI plan. DCP: home vs home with Ashlie Garcia RN-CASE-DYE HOUSE VAT WORKER-COORDINATOR NON-EXEMPT - 05/03/2021 15:03 EDT documented in this encounter Plan of Treatment Not on file documented as of this encounter Visit Diagnoses Not on filedocumented in this encounter
--- OUTSIDE RECORDS SUMMARY | 2025-05-04 13:42 | XMS_ITS | Encounter Summary ---
Author Organization [employer] ([place], [place], [place], [place]) Address [address] [place] [address] Care Team Providers Care Turning Sander Tender Name Role Phone Unavailable Primary Care Provider Unavailabl e Encounter Details Date Type Department Care Team (Late st Contact Info) Description 05/04/2021 Transcribed Document [facility] Family Medicine [facility] [place] [address] ProviderLatonia MD [facility] [place] [address] Social History Tobacco Use Types Packs/Day Years Used Date Smoking Tobacco: Never Assessed Sex and Gender Information Value Date Recorded Sex Assigned at Not on file Legal Sex Male 7:22 PM CDT Gender Identity Not on file Sexual Orientation Not on file documented as of this encounter Miscellaneous Notes * Cerner Conversion Note - Latonia ProviderMD - 05/04/2021 5:00 AM CDT Chart Check - Review Order Profile Entered On: 05/04/2021 6:34 EDT Performed On: 05/04/2021 5:00 EDT by Randee Giron RN Chart Check Powerplans Initiated/Discontinued as Appropriate : Yes All Active Orders Reviewed : Yes Randee Giron RN - 05/04/2021 6:34 EDT Electronically signed by Abelino [facility] Conversion It Field Technician Cerner at 02/22/2023 8:34 PM CDT documented in this encounter Plan of Treatment Not on file documented as of this encounter Visit Diagnoses Not on filedocumented in this encounter
--- OUTSIDE RECORDS SUMMARY | 2025-05-04 13:42 | XMS_ITS | Encounter Summary ---
Author Organization [employer] ([place], [place], [place], [place]) Address [address] [place] [address] Care Team Providers Care Hat Model Name Role Phone Unavailable Primary Care Provider Unavailabl e Encounter Details Date Type Department Care Team (Late st Contact Info) Description 05/04/2021 Transcribed Document [facility] [place] [facility] [place] [address] ProviderLatonia MD [address] [place] [address] Social History Tobacco Use Types Packs/Day Years Used Date Smoking Tobacco: Never Assessed Sex and Gender Information Value Date Recorded Sex Assigned at Not on file Legal Sex Male 7:22 PM CDT Gender Identity Not on file Sexual Orientation Not on file documented as of this encounter Miscellaneous Notes * Cerner Conversion Note - Latonia ProviderMD - 05/04/2021 2:50 PM CDT On Going Discharge Planning Entered On: 05/04/2021 14:50 EDT Performed On: 05/04/2021 14:50 EDT by ENRIKE ALBARRAN RN - HomoeopathAsbestos Pipe Supervisor Progress Note Discharge Arrangements : Patient Post-Acute Information Patient Name: SADIQ ISRAEL Gender: Male : [birth year] Age: 66 Years No Post-Acute Placement(s) Listed No Post-Acute Service(s) Listed No [place] Referral(s) Listed Discharge Options Discussed with Patient : [facility] ENRIKE ALBARRAN, RN - Homoeopath - 05/04/2021 14:50 EDT Narrative Progress Note Narrative Progress Note : Amirah from [facility] talked with the patient and he agreed to rehab there. DCP: [facility] Historical Progress Note : RRS Low Boost 2 Day 2 Patient had an ERCP/EGD today. Scheduled for a lap cassidy tomorrow. Patient lives in the basement at his mother's home. Family is concerned that he will not be able to care for himself at home and his mother is unable to assist. CM has faxed his packet to [facility] . Talked with Rand from [facility]. DCP: home vs SNF ENRIKE ALBARRAN, RN - Homoeopath - 05/04/21 13:58:57 ENRIKE ALBARRAN, RN - Homoeopath - 05/04/2021 14:50 EDT documented in this encounter Plan of Treatment Not on file documented as of this encounter Visit Diagnoses Not on filedocumented in this encounter
--- OUTSIDE RECORDS SUMMARY | 2025-05-04 13:42 | XMS_ITS | Encounter Summary ---
Author Organization [employer] ([place], [place], [place], [place]) Address [address] [place] [address] Care Team Providers Care Support Director Name Role Phone Unavailable Primary Care Provider Unavailabl e Encounter Details Date Type Department Care Team (Late st Contact Info) Description 05/03/2021 Transcribed Document [facility] [place] [facility] [place] [address] ProviderLatonia MD [facility] [place] [address] Social History Tobacco Use Types Packs/Day Years Used Date Smoking Tobacco: Never Assessed Sex and Gender Information Value Date Recorded Sex Assigned at Not on file Legal Sex Male 7:22 PM CDT Gender Identity Not on file Sexual Orientation Not on file documented as of this encounter Miscellaneous Notes * Cerner Conversion Note - Latonia ProviderMD - 05/03/2021 9:25 AM CDT UM Authorization Entered On: 05/03/2021 9:26 EDT Performed On: 05/03/2021 9:25 EDT by JOSSY ARAGON RN Primary Insurance Authorization Authorization and Policy Numbers : Insurance 1 Health Plan: [facility] Policy Number: [id number] Authorization Number: Insurance Primary Name : [facility] Policy Number: [id number] Authorization Status-Primary : Awaiting callback Reference Number-Primary : Pend ref #[id number] Authorized Service Begin Date-Primary : 05/03/2021 EDT Authorization Comments-Primary : Clinicals submitted via [employer] for IP approval Historical Authorization Comments-Primary : No Authorization Comments Found JOSSY ARAGON RN - 05/03/2021 9:25 EDT documented in this encounter Plan of Treatment Not on file documented as of this encounter Visit Diagnoses Not on filedocumented in this encounter
--- OUTSIDE RECORDS SUMMARY | 2025-05-04 13:42 | XMS_ITS | Encounter Summary ---
Author Organization [employer] ([place], [place], [place], [place]) Address [address] [place] [address] Care Team Providers Care Primary Care Coordinator Name Role Phone Unavailable Primary Care Provider Unavailabl e Encounter Details Date Type Department Care Team (Late st Contact Info) Description 05/03/[address] [facility] [place] Family Medicine [facility] [place] [address] ProviderLatonia MD [facility] [place] [address] Social History Tobacco Use Types Packs/Day Years Used Date Smoking Tobacco: Never Assessed Sex and Gender Information Value Date Recorded Sex Assigned at Not on file Legal Sex Male 7:22 PM CDT Gender Identity Not on file Sexual Orientation Not on file documented as of this encounter Miscellaneous Notes * Cerner Conversion Note - Historical ProviderMD - 05/03/2021 4:21 PM CDT Advance Directive Entered On: 05/03/2021 16:55 EDT Performed On: 05/03/2021 16:21 EDT by SHIVA MELO Advance Directive Patient has Advance Directive *Q : No, patient refuses Advance Directive information Advance Directive Comment : Declined opportunity SHIVA MELO - 05/03/2021 16:55 EDT documented in this encounter Plan of Treatment Not on file documented as of this encounter Visit Diagnoses Not on filedocumented in this encounter
--- OUTSIDE RECORDS SUMMARY | 2025-05-04 13:42 | XMS_ITS | Encounter Summary ---
Author Organization [employer] ([place], [place], [place], [place]) Address [address] [place] [address] Care Team Providers Care Black Powder Glazing Operator Name Role Phone Unavailable Primary Care Provider Unavailabl e Encounter Details Date Type Department Care Team (Late st Contact Info) Description 05/05/2021 Transcribed Document [facility] [place] [facility] [place] [address] ProviderLatonia MD [facility] [address] Social History Tobacco Use Types Packs/Day Years Used Date Smoking Tobacco: Never Assessed Sex and Gender Information Value Date Recorded Sex Assigned at Not on file Legal Sex Male 7:22 PM CDT Gender Identity Not on file Sexual Orientation Not on file documented as of this encounter Miscellaneous Notes * Cerner Conversion Note - Historical ProviderMD - 05/05/2021 2:00 AM CDT Board Of Directors Details Entered On: 05/05/2021 4:46 EDT Performed On: 05/05/2021 2:00 EDT by Gracy Ruelas Lpn Order Details Transport Mode Order Detail : Bed (including specialty) Order Detail : N/A Lift/Transfer : Moderate assist Central Line Order Detail : No Room Service : Appropriate Arterial Line : No Patient Needs Meds Crushed/Liquid : No Gracy Ruelas Lpn - 05/05/2021 4:46 EDT documented in this encounter Plan of Treatment Not on file documented as of this encounter Visit Diagnoses Not on filedocumented in this encounter
--- OUTSIDE RECORDS SUMMARY | 2025-05-04 13:42 | XMS_ITS | Encounter Summary ---
Author Organization [employer] ([place], [place], [place], [place]) Address [address] [place] [address] Care Team Providers Care Social Problems Specialist Name Role Phone Unavailable Primary Care Provider Unavailabl e Encounter Details Date Type Department Care Team (Late st Contact Info) Description 05/04/2021 Transcribed Document [facility] [place] Family Medicine [facility] [place] [address] Provider, MD Latonia [address] [place] [address] Social History Tobacco Use Types Packs/Day Years Used Date Smoking Tobacco: Never Assessed Sex and Gender Information Value Date Recorded Sex Assigned at Not on file Legal Sex Male 7:22 PM CDT Gender Identity Not on file Sexual Orientation Not on file documented as of this encounter Miscellaneous Notes * Cerner Conversion Note - Latonia ProviderMD - 05/04/2021 11:30 AM CDT RIVAS Glynn PreOp Summary Primary Physician: BEATRIS ISRAEL MD-[facility] Finalized Date/Time: 05/04/21 10:16:39 Pt. Name: SADIQ ISRAEL /Sex: 1955 Male Med Rec #: [id number] Physician: GUILLAUME DIXON MD Financial #: [id number] Pt. Type: I Room/Bed: 4/ Admit/Disch: 05/03/21 00:04:00 - Institution: [facility] PreOp Case Times Entry 1 In Preop 05/04/21 10:10:00 Ready for Holding n/a Room Patient Ready for 05/04/21 10:16:00 Surgery Patient Out of Preop 05/04/21 10:16:00 Patient Out of n/a Holding Room Last Modified By: Sobia Leigh RN 05/04/21 10:16:36 Finalized By: Sobia Leigh RN Document Signatures Signed By: Sobia Leigh RN 05/04/21 10:16 documented in this encounter Plan of Treatment Not on file documented as of this encounter Visit Diagnoses Not on filedocumented in this encounter
--- OUTSIDE RECORDS SUMMARY | 2025-05-04 13:42 | XMS_ITS | Encounter Summary ---
Author Organization [employer] ([place], [place], [place], [place]) Address [address] [place] [address] Care Team Providers Care Tractor Engine Mechanic Name Role Phone Unavailable Primary Care Provider Unavailabl e Encounter Details Date Type Department Care Team (Late st Contact Info) Description 05/04/2021 Transcribed Document [facility] [place] [facility] [place] [facility] [place] [address] ProviderLatonia MD [facility] [place] [address] Social History Tobacco Use Types Packs/Day Years Used Date Smoking Tobacco: Never Assessed Sex and Gender Information Value Date Recorded Sex Assigned at Not on file Legal Sex Male 7:22 PM CDT Gender Identity Not on file Sexual Orientation Not on file documented as of this encounter Miscellaneous Notes * Cerner Conversion Note - Latonia ProviderMD - 05/04/2021 1:24 PM CDT Patient: SADIQ BLANCAS Age: 66 Years Sex: Male : 1955 Reason for Consultation choledocholithiasis History of Present Illness This patient is a 66-year-old male with past medical history of COPD with ongoing tobacco abuse, hypertension, who presented with complaints of generalized weakness, poor PO intake. Labs at OSH showed elevated liver enzymes and bilirubin. CT abdomen and pelvis was concerning for ampulla of vater lesion along with biliary dilatation. He was transferred to [facility] and he underwent ERCP today with findings of large hepatic duct stone. He is currently on ceftriaxone for UTI diagnosed at the outside facility. Review of Systems Complete review of systems was performed and negative except as stated in history of present illness Vital Signs T: 36.6 ??C TMIN: 36.2 ??C TMAX: 36.6 ??C HR: 49(Monitored) RR: 16 BP: 145/72 SpO2: 97% Oxygen Settings (Last) Oxygen Therapy Mode: Room air (05/04/21 13:00:00) Oxygen Flow Rate: 4 Liter/Min (05/04/21 11:54:00) Physical Exam General: Alert and oriented, appears chronically ill, no acute distress Neurologic: Awake, alert, and oriented X3 Eye: EOMI, normal conjuctiva HENT: Normocephalic,moist oral mucosa, no scleral icterus Lungs: Clear to auscultation, non-labored respiration Heart: Normal rate, regular rhythm, no murmur, gallop or edema Abdomen: Soft, non-tender, non-distended, normal bowel sounds, no masses Musculoskeletal: Normal range of motion and strength, no tenderness or swelling, Skin: Skin is warm, dry and pink, no rashes or lesions Psychiatric: Cooperative, appropriate mood and affect Assessment/Plan 66 year old male with findings of choledocholithiasis status post ERCP. 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 I discussed the risks and benefits of cholecystectomy with the patient who understands and agrees to proceed. Plan for OR tomorrow for robotic assisted laparoscopic cholecystectomy. NPO after midnight. COVID Negative. Follow-up a.m. lipase. Unspecified jaundice, Unspecified jaundice Orders: NPO after Midnight Verify Patient Consent Obtained VTE Prophylaxis - Medical Heparin 5,000 Units, SubCutaneous, Inj, [id number], Routine, Start 05/03/21 6:00:00 EDT, 05/03/21 1:32:00 EDT (SHABNAM MARSH) Provider Information Primary Care Physician - PHSteve, NOT LISTED Attending Physician - STEVE KUMAR MD Admitting Physician - GUILLAUME DIXON MD Consulting Physician - NESS WISE MD - mass on ampulla, call in AM Consulting Physician - LENNOX TURNER MD-ANS Consulting Physician - GAVINO CHRISTIANSEN MD - s/p ERCP, CBD stone, need for cholecystectomy Consulting Physician - SUSANA MARSHALL MD-CHARLES Referring Physician - TREY, NOT LISTED Problem List/Past Medical History Ongoing At risk for sleep apnea COPD (chronic obstructive pulmonary disease) Gout Hypertension Smoker Historical No qualifying data Procedure/Surgical History APPENDECTOMY (1961). SN - Proc - Procedure: Biliary Duct Stone Extraction (05/04/21 11:16:23) Medications Inpatient Cymbalta, 30 mg= 1 Cap, Oral, Daily Dulcolax Laxative, 5 mg= 1 Tab, Oral, Daily, PRN DuoNeb 0.5 mg-2.5 mg/3 mL inhalation solution, 3 mL, Nebulized Inhalation , RT_Q6H, PRN heparin, 5000 Units= 1 mL, SubCutaneous, [id number] Lactated Ringers Injection intravenous solution 1,000 mL, 1000 mL, IntraVENous lidocaine 1% injectable solution, 0.5 mL, IntraDermal, 1-Time, PRN lisinopril, 10 mg= 1 Tab, Oral, Daily Nicoderm C-Q 21 mg/24 hr transdermal film, extended release, 1 Patch, TransDermal, Daily Pepcid, 40 mg= 2 Tab, Oral, Daily Rocephin Sodium Chloride 0.9% [...] tablet, 10 mg= 1 Tab, Oral, Daily Allergies No Known Allergies Social History [...] years ago. Drug Route: Inhaled. Family History Neg for GI dz or malignancy Hypertension, coronary artery disease Diagnostic Results Radiology Results (Last 48 hours) [id number] -- 05/03/2021 00:04 CR Ercp Biliary Duct [...] by Dr. Bhupendra Camara.Transcribed by Arden King PA-C. Vitals Signs (last 24 hrs) Last Charted Minimum Maximum Temp 97.8 (MAY 04 10:14) 97.8 (MAY 04 10:14) 97.2 (MAY 03 15:00) Resp Rate 16 (MAY 04 13:00) 16 (MAY 03 17:46) 18 (MAY 03 15:00) SBP H 145(MAY 04 13:17) 91 (MAY 04 11:39) H 145(MAY 04 13:17) DBP 72 (MAY 04 13:17) L 53(MAY 04 11:39) 72 (MAY 04 13:17) SpO2 97 (MAY 04 13:17) 97 (MAY 03 15:00) 100 (MAY 04 11:39) CBC Results (Current Encounter/Past 24 Hours) WBC 7.6 K/uL 05/04/2021 07:13 Hct 25.6 % LOW 05/04/2021 07:13 Hgb 8.3 g/dL LOW 05/04/2021 07:13 Platelet Count 335 K/uL 05/04/2021 07:13 CMP Results (Current Encounter/Past 24 Hours) Creatinine Level 0.40 mg/dL LOW 05/04/2021 08:32 Bun/Creatinine 35.0 HI 05/04/2021 08:32 A/G Ratio 0.3 LOW 05/04/2021 08:32 Protein Total 5.1 Gram/dL LOW 05/04/2021 08:32 eGFR NonAfrican >60 mL/min/1.73m2 05/04/2021 08:32 Globulin 3.8 Gram/dL 05/04/2021 08:32 eGFR >60 mL/min/1.73m2 05/04/2021 08:32 Sodium Level 136 mmol/L 05/04/2021 08:32 Potassium Level 3.5 mmol/L 05/04/2021 08:32 Chloride Level 106 mmol/L 05/04/2021 08:32 Carbon Dioxide Level 24 mmol/L 05/04/2021 08:32 Anion Gap 10 05/04/2021 08:32 Alk Phos 587 Units/Liter [place] 05/04/2021 08:32 ALT 59 Units/Liter 05/04/2021 08:32 AST 153 Units/Liter [place] 05/04/2021 08:32 Blood Urea Nitrogen 14 mg/dL 05/04/2021 08:32 Glucose Level 85 mg/dL 05/04/2021 08:32 Albumin Level 1.3 Gram/dL LOW 05/04/2021 08:32 Bilirubin Total 3.2 mg/dL [place] 05/04/2021 08:32 Calcium Level 7.9 mg/dL LOW 05/04/2021 08:32 Magnesium Level 2.2 mg/dL 05/04/2021 08:32 documented in this encounter Plan of Treatment Not on file documented as of this encounter Visit Diagnoses Not on filedocumented in this encounter
--- OUTSIDE RECORDS SUMMARY | 2025-05-04 13:42 | XMS_ITS | Referral Summary ---
Author Organization [employer] ([place], [place], [place], [place]) Address [address] [place] [address] Care Team Providers Care Automotive Leasing Sales Representative Name Role Phone Unavailable Primary Care Provider [...]
--- OUTSIDE RECORDS SUMMARY | 2025-05-04 13:42 | XMS_ITS | Encounter Summary ---
Author Organization [facility] ([place], [place], [place], [place]) Address [address] [place] [address] Care Team Providers Care Dry House Wheeler Name Role Phone Unavailable Primary Care Provider Unavailabl e Encounter Details Date Type Department Care Team (Late st Contact Info) Description 05/05/2021 Transcribed Document [facility] Family Medicine Counts include 234 beds at the [facility] [place] [address] ProviderLatonia MD [address] [place] [address] Social History Tobacco Use Types Packs/Day Years Used Date Smoking Tobacco: Never Assessed Sex and Gender Information Value Date Recorded Sex Assigned at Not on file Legal Sex Male 7:22 PM CDT Gender Identity Not on file Sexual Orientation Not on file documented as of this encounter Miscellaneous Notes * Cerner Conversion Note - Latonia ProviderMD - 05/05/2021 1:05 PM CDT [facility] Main OR IntraOp Summary Primary Physician: SUSANA MARSHALL MD-SUR Finalized Date/Time: 05/07/21 12:51:32 Pt. Name: TIFFANI ISRAEL /Sex: 1955 Male Med Rec #: [id number] Physician: GUILLAUME DIXON MD Financial #: [id number] Pt. Type: I Room/Bed: [facility] Admit/Disch: 05/03/21 00:04:00 - Institution: [facility] IntraOp Case Attendance Entry 1 Entry 2 Entry 3 Case Attendee SUSANA MARSHALL MD-Suzie Calvillo RN Marshall, Pechie, RN Role Performed Surgeon/Proceduralist, Sales Floor Manager, First Sales Floor Manager, Second First Time In 05/05/21 12:45:00 05/05/21 12:45:00 05/05/21 12:45:00 Time Out 05/05/21 14:04:00 05/05/21 14:04:00 05/05/21 14:04:00 Procedure Cholecystectomy Robotic Cholecystectomy Robotic Cholecystectomy Robotic Other Attendee ORIENT Superficial Wound Closed By: Last Modified By: Savana Chisholm RN Marshall, Pechie, Savana Falk RN 05/05/21 14:05:02 05/05/21 14:05:02 05/05/21 12:28:58 Entry 4 Entry 5 Entry 6 Case Attendee Dulce Benjamin Christman, Jacob, HAYDE GONGORA, Customer Care Representative [facility] TABLEAU REPORT DEVELOPER, DIE MAKER APPRENTICE Role Performed Scrub, First Scrub, Second DIE MAKER APPRENTICE/Nurse Broom Bundler Time In 05/05/21 12:45:00 05/05/21 12:45:00 05/05/21 12:45:00 Time Out 05/05/21 14:04:00 05/05/21 14:04:00 05/05/21 14:04:00 Procedure Cholecystectomy Robotic Cholecystectomy Robotic Cholecystectomy Robotic Other Attendee ORIENT Superficial Wound Closed By: Last Modified By: Savana Chisholm RN Marshall, Pechie, RN Marshall, Pechie, RN 05/05/21 14:05:02 05/05/21 12:28:58 05/05/21 14:05:02 Entry 7 Entry 8 Entry 9 Case Attendee IRON THOMAS, RUFSU WISE, RUBEN Yung, CSTFA MD-ANS Emp Student Nurse Broom Bundler Role Performed Anesthesiologist of DIE MAKER APPRENTICE/Nurse Broom Bundler Vegetable Farming Supervisor, First Record Time In 05/05/21 12:45:00 05/05/21 12:45:00 05/05/21 12:45:00 Time Out 05/05/21 14:04:00 05/05/21 14:04:00 05/05/21 14:04:00 Procedure Cholecystectomy Robotic Cholecystectomy Robotic Cholecystectomy Robotic Other Attendee DIE MAKER APPRENTICE STUDENT Superficial Wound Closed By: Last Modified By: Savana Chisholm RN Marshall, Pechie, RN Marshall, Pechie, RN 05/05/21 14:05:02 05/05/21 12:30:25 05/05/21 14:05:02 Entry 10 Case Attendee DEEPAK FISCHER SSI Role Performed Sheet Ironworker, Ancillary Time In 05/05/21 12:45:00 Time Out 05/05/21 14:04:00 Procedure Cholecystectomy Robotic Other Attendee Superficial Wound Closed By: Last Modified By: Savana Chisholm RN 05/05/21 14:05:02 [facility] IntraOp Case Attendance Audit 05/05/21 14:05:02 Laser Engraver: [id number] Modifier: [id number] <+> Time In 1 <+> Time Out 1 <*> Procedure Cholecystectomy Robotic 2 <+> Time In 2 <+> Time Out 2 <*> Procedure Cholecystectomy Robotic 3 <+> Time In 3 <+> Time Out 3 <*> Procedure Cholecystectomy Robotic 4 <+> Time In 4 <+> Time Out 4 <*> Procedure Cholecystectomy Robotic 5 <+> Time In 5 <+> Time Out 5 <*> Procedure Cholecystectomy Robotic 6 <+> Time In 6 <+> Time Out 6 <*> Procedure Cholecystectomy Robotic 7 <+> Time In 7 <+> Time Out 7 <*> Procedure Cholecystectomy Robotic 8 <+> Time In 8 <+> Time Out 8 <*> Procedure Cholecystectomy Robotic 9 <+> Time In 9 <+> Time Out 9 <*> Procedure Cholecystectomy Robotic 10 <+> Time In 10 <+> Time Out 10 <*> Procedure Cholecystectomy Robotic 05/05/21 12:30:25 Laser Engraver: [id number] Modifier: [id number] <+> 6 Case Attendee <+> 6 Role Performed <+> 6 Procedure <+> 7 Case Attendee <+> 7 Role Performed <+> 7 Procedure <+> 8 Case Attendee <+> 8 Role Performed <+> 8 Procedure <+> 8 Other Attendee <+> 9 Case Attendee <+> 9 Role Performed <+> 9 Procedure <+> 10 Case Attendee <+> 10 Role Performed <+> 10 Procedure [facility] IntraOp Case Times Entry 1 Patient In Room Time 05/05/21 12:45:00 Out Room Time 05/05/21 14:04:00 Anesthesia Start Time 05/05/21 12:45:00 Stop Time 05/05/21 14:04:00 Surgery / Procedure Times Start Time 05/05/21 13:05:00 Stop Time 05/05/21 13:57:00 Last Modified By: Savana Chisholm RN 05/05/21 13:57:56 [facility] IntraOp Case Times Audit 05/05/21 14:04:53 Laser Engraver: [id number] Modifier: [id number] <+> 1 Out Room Time <+> 1 Stop Time 05/05/21 13:57:56 Laser Engraver: [id number] Modifier: [id number] <+> 1 Stop Time 05/05/21 13:05:23 Laser Engraver: [id number] Modifier: [id number] <+> 1 Start Time [facility] IntraOp Cautery Entry 1 ESU Identification Cautery Type Monopolar ESU ID Number [id number] ID Type Hospital Number Cautery Settings Cut Setting 4 Coag Setting 4 Bipolar Setting 3 ESU Grounding Pad Ground Pad Type Adult Grounding Pad Suzie Drake RN Applied By Grounding Pad Site Warm, dry and intact Skin Condition Before Cautery Grounding Pad Site Warm, dry and intact Skin Condition After Cautery Last Modified By: Savana Chisholm RN 05/05/21 12:29:10 [facility] IntraOp Communication Entry 1 Communication To Other surgeons Comment NO CONTACT AVAILABLE Communication By Suzie Drake RN Date and Time 05/05/21 13:10:00 Last Modified By: Savana Chisholm RN 05/05/21 13:13:45 [facility] IntraOp Counts Verification Entry 1 Procedure Cholecystectomy Robotic Count Info Count Type Sponge, Sharps, Instrument, Miscellaneous Counts Verification Baseline/pre-procedure Sequence Counts Performed By Count Performed By Gab Weeks CARE (Scrub) [facility] Count Performed By Suzie Drake RN (RN) Last Modified By: Savana Chisholm RN 05/05/21 12:29:24 [facility] IntraOp Counts Final Entry 1 Procedure Cholecystectomy Robotic Final Count Info Count Type Sponge, Sharps, Miscellaneous Counts Verification Skin Closure/end of Sequence procedure Count Results Correct, surgeon notified Counts Performed By Count Performed By Gab Weeks CARE (Scrub) [facility] Count Performed By Suzie Drake RN (RN) Last Modified By: Savana Chisholm RN 05/05/21 13:51:09 [facility] IntraOp Counts Final Audit 05/05/21 13:51:09 Laser Engraver: [id number] Modifier: [id number] Entry 1 was deleted. Higher numbered entries shifted one position to fill the gap. <-> 1 Procedure Cholecystectomy Robotic <-> 1 Count Type Sponge, Sharps, Miscellaneous <-> 1 Count Results Correct, surgeon notified <-> 1 Count Performed By (Scrub) <-> 1 Count Performed By (RN) <-> 1 Counts Verification Sequence Skin Closure/end of procedure [facility] IntraOp Cultures and Spec Summary Entry 1 Cultrures and Specimens Specimen Ordered: Yes Test(s) Routine/Path-Lab Requested/Final Disposition Last Modified By: Savana Chisholm RN 05/05/21 12:30:53 [facility] IntraOp Delays Entry 1 Delay Reason Ancillary department delay Duration 20 Minute(s) Comment TAP BLOCK Last Modified By: Savana Chisholm RN 05/05/21 13:01:50 [facility] IntraOp Departure from OR Entry 1 Integumentary Assessment Integumentary WDL Assessment WDL Transfer/Handoff Transfer to PACU Phase I Handoff Method Bedside/Face to face, Phone call, Online nursing summary Post-op Transport Stretcher/Gurney Via Patient Transport HAYDE BARNEY, Accompanied by MARLIN, SPEEDY, RUBEN JJ CSTFA Last Modified By: Savana Chisholm RN 05/05/21 12:30:58 [facility] IntraOp Dressing and Packing Entry 1 Type Dressing Location Abdomen Wound Dressing Item Skin Closure Glue Applied By RUBEN JJ CSTFA Last Modified By: Savana Chisholm RN 05/05/21 12:31:04 [facility] IntraOp Fire Risk Assessment Entry 1 Fire Info Surgical Site or 0- No Incision Above the Xyphoid Open O2 Source 0- No (Mask or Cannula) Available Ignition 1- Yes (ESU, Laser, Light Source) Fire Risk 1 Assessment Score Fire Score Fire Risk Yes Assessment Complete Fire Risk Suzie Drake RN Assessment Verified By Fire Risk 05/05/21 12:45:00 Assessment Verified Date/Time Fire Risk Standard Fire Yes Safety Precautions Followed Last Modified By: Savana Chisholm RN 05/05/21 12:31:07 [facility] IntraOp Fire Risk Assessment Audit 05/05/21 13:05:41 Laser Engraver: [id number] Modifier: [id number] <+> 1 Fire Risk Assessment Verified Date/Time [facility] IntraOp General Case Blast Furnace Auxiliaries Supervisor 1 Case Information OR OR 12 [facility] Case Level 1 Room Verified Yes Wound Class II - Clean-Contaminated Specialty General Anesthesia Type General ASA Class 2 Diagnosis Preop Diagnosis GALLBLADDER PANCREATITIS/GALLBLADDER SLUDGE Postop Same As Preop No Postop Diagnosis SEE MD POST OP NOTES Last Modified By: Savana Chisholm RN 05/05/21 12:31:23 [facility] IntraOp General Case Data Audit 05/05/21 13:06:17 Laser Engraver: [id number] Modifier: [id number] 1 <*> Preop Diagnosis HX PANCREATITIS/GALLBLADDER SLUDGE 05/05/21 13:03:06 Laser Engraver: [id number] Modifier: [id number] <+> 1 Preop Diagnosis [facility] IntraOp Intraoperative Assessment Entry 1 Handoff Method Phone call Valid History / Yes Physical in Chart Preoperative Yes Checklist Reviewed/Evaluated Allergies Reviewed Yes Patient is Latex No Sensitive Isolation Not applicable Precautions Noted Level of WDL Consciousness (WDL = Alert, Oriented to Person, Place, and Time) Skin Assessment No Verified Present Upon IVs, Oxygen Arrival to OR Last Modified By: Savana Chisholm RN 05/05/21 12:31:30 [facility] IntraOp Intraoperative Equipment Entry 1 Type Monitoring Equipment Equipment Nilda Suction System Intraop Monitoring Electrocardiogram Three lead placement (ECG) Electrode Placement Blood Pressure Non-Invasive BP Device Source Antiembolic Devices Antiembolic Devices Sequential compression device, knee high Antiembolic Device Bilateral Location Antiembolic Device [id number] ID Number Scopes Photo/Video Documentation Photo No Video No Intraop Equipment Sequential compression Comment devices on and in operation prior to induction of anesthesia. Last Modified By: Savana Chisholm RN 05/05/21 12:31:54 [facility] IntraOp Medication Admin Entry 1 Entry 2 Medication/Irrigant Marcaine 0.5% w/ Normal Saline 0.9% epinephrine 1:200,000 1000ml irrigation - 30ml vial - [id number] Combo Med List Time Administered Route of Local IRRIGATION Administration Dose Dose 13 Unit of Measure ml Volume Administered By SUSANA MARSHALL MD-CHARLES Procedure Irrigation Irrigant Volume In 400 mL Irrigant Volume Out Last Modified By: Savana Chisholm RN Marshall, Pechie, RN 05/05/21 13:52:11 05/05/21 13:52:11 [facility] IntraOp Medication Admin Audit 05/05/21 13:52:11 Laser Engraver: [id number] Modifier: [id number] 1 <*> Medication/Irrigant Marcaine 0.5% w/ epinephrine 1:200,000 30ml vial - [id number] 1 <*> Route of Administration Local 1 <*> Administered By SUSANA MARSHALL MD-SUR 1 <+> Dose 1 <*> Unit of Measure ml <+> 2 Medication/Irrigant <+> 2 Route of Administration <+> 2 Irrigant Volume In [facility] IntraOp Patient Positioning Entry 1 Procedure Cholecystectomy Robotic Body Position Supine Left Arm Position Tucked and padded at side Right Arm Position Tucked and padded at side Left Leg Position Uncrossed, parallel Right Leg Position Uncrossed, parallel Feet Uncrossed Yes Pressure Points Yes Checked Positioning Devices Head Rest, Pad, Arm, Pad, Arm, Pad, Mattress, Safety Strap, Thighs, Foot Board Device Position FOAM POSITIONING MATTRESS/PILLOW UNDER KNEES FOR PATIENT COMFORT Positioned By HAYDE BARNEY APRN, SPEEDY, Suzie Drake, RN, RUBEN JJ, ZEV, SUSANA MARSHALL MD-SUR, Savana Chisholm RN Position Verified Positioning Yes Verified by Anesthesia Positioning Yes Verified by Surgeon Last Modified By: Savana Chisholm RN 05/05/21 12:33:10 [facility] IntraOp Sign In Entry 1 Patient, Site, Yes Procedure Identified Surgical Consent Yes Confirmed Relevant Surgical Yes Documents Available Surgical Site N/A Marked by person performing procedure Anesthesia Machine Yes Check Completed Medication Checks Yes Completed Allergies Yes Airway Difficult Yes Airway/Aspiration Risk Difficult Yes Airway/Aspiration Intervention Equipment Available Blood Loss Risk Yes Blood Loss No Intervention Equipment Prepared and Ready Blood Identifiers Not applicable Verified Per Policy Hypothermia Risk No Warming Measures Yes Taken Last Modified By: Savana Chisholm RN 05/05/21 12:33:16 [facility] IntraOp Sign Out Entry 1 RN Confirmation Surgical Yes Procedure(s) Identified Instrument, Sponge Yes and Sharps Counts Correct/Documented Equipment Problems N/A Documented Specimen Labeled Yes Correctly Urinary Catheter N/A Documented in IView Jacob Patient Yes Recovery Concerns Reviewed with Anesthesia Provider, Surgeon and RN Jacob Patient Yes Management Concerns Reviewed with Anesthesia Provider, Surgeon and RN Safety Checklist Yes Elements Complete? RN Sign Out Suzie Drake RN Signature RN Sign Out 05/05/21 14:04:00 Signature Date/Time Plan of Care Outcome - [...] of Care Outcome - Xray/Images OUTCOME STATEMENT: Goal met Absence of observable signs or symptoms of radiation injury Plan of Care Outcome - Counts OUTCOME STATEMENT: Goal met Absence of signs and symptoms of injury related to extraneous objects Last Modified By: Savana Chisholm RN 05/05/21 12:33:21 [facility] IntraOp Sign Out Audit 05/05/21 14:04:45 Laser Engraver: [id number] Modifier: [id number] <+> 1 RN Sign Out Signature Date/Time [facility] IntraOp Skin Prep Entry 1 Procedure Cholecystectomy Robotic Prescribed Yes Pre-Surgical Prep Completed Prep Area Abdomen Intraop Prep Integumentary WDL Assessment WDL Prep Agents Chloraprep Prep by Suzie Drake RN Hair Removal Hair Removal By RUBEN JJ CSTFA Last Modified By: Savana Chisholm RN 05/05/21 12:33:32 [facility] IntraOp Surgical Procedures Entry 1 Procedure Cholecystectomy Robotic Additional (ROBOTIC ASSISTED Procedure LAPAROSCOPIC Description CHOLECYSTECTOMY) Primary Procedure Yes Primary Surgeon SUSANA MARSHALL MD-CHARLES Start 05/05/21 13:05:00 Stop 05/05/21 13:57:00 Anesthesia Type General Specialty General Wound Class II - Clean-Contaminated Last Modified By: Savana Chisholm RN 05/05/21 12:33:35 General Comments: PATIENT ON SCHEDULED ANTIBIOTIC/ NO ADDITIONAL ANTIBIOTIC PER SURGEON [facility] IntraOp Surgical Procedures Audit 05/05/21 13:58:00 Laser Engraver: [id number] Modifier: [id number] 1 <*> Stop 05/05/21 13:17:25 Laser Engraver: [id number] Modifier: [id number] 1 <*> Procedure Cholecystectomy Robotic 1 <*> Procedure Cholecystectomy Robotic 1 <*> Procedure Cholecystectomy Robotic 1 <*> Start 1 <*> Start 05/05/21 12:33:46 Laser Engraver: [id number] Modifier: [id number] 1 <*> Procedure Cholecystectomy Robotic [facility] IntraOp Temp Regulation Devices Entry 1 Temp Regulation Temperature Forced Air Warming Regulation Device device, Room temperature, Warm blankets Temperature 83619 Regulation Device Serial/Unit Number Temperature Upper body Regulation Site Temperature Device SET AND MONITORED BY Setting ANESTHESIA Temperature HAYDE BARNEY Regulation Device TABLEAU REPORT DEVELOPER, DIE MAKER APPRENTICE Applied by Temperature Patient's temperature Regulation Comment and forced air warming device settings monitored by anesthesia provider. Last Modified By: Savana Chisholm RN 05/05/21 12:34:00 [facility] IntraOP Time Out Entry 1 Procedure to be Cholecystectomy Robotic Performed Time Out Time Out Pause Time 05/05/21 13:05:00 All activity Yes suspended (unless life threatening emergency) Team Verbally Correct patient Confirms Information identity, Consent form is present and accurate, Agreement on the procedure to be done, Correct patient position, Relevant images/results properly labeled/appropriately displayed, Confirm antibiotics have been administered, Confirm the skin prep has dried, Performed in location of procedure after prepped/draped, Performed before each procedure if multiple procedures Antibiotic Yes Prophylaxis Administered Or In Progress Within the Last 60 Minutes Beta Jennifer N/A Administered Venous Yes Thromboembolism Prophylaxis Required Anticipated Critical Events Surgeon None expected, Special equipment need, Special instrumentation need Anesthesia Provider Patient specific concerns, None expected Nursing Assures Sterility of instruments Essential Imaging N/A Labeled and Displayed Last Modified By: Savana Chisholm RN 05/05/21 13:05:14 [facility] IntraOP Time Out Audit 05/05/21 13:05:14 Laser Engraver: [id number] Modifier: [id number] 1 <+> Time Out Pause Time 1 <*> Procedure to be Performed Cholecystectomy Robotic Case Comments <None> Finalized By: SUSAN FERMIN Document Signatures Signed By: Savana Cihsholm RN 05/05/21 14:05 SUSAN FERMIN 05/07/21 12:51 Unfinalized History Date/Time Username Reason for Unfinalizing Freetext Reason for Unfinalizing 05/07/21 12:50 TANESHA Correct Billing documented in this encounter Plan of Treatment Not on file documented as of this encounter Visit Diagnoses Not on filedocumented in this encounter
--- OUTSIDE RECORDS SUMMARY | 2025-05-04 13:42 | XMS_ITS | Encounter Summary ---
Author Organization [employer] ([place], [place], [place], [place]) Address [address] [place] [address] Care Team Providers Care Commercial Construction Superintendent Name Role Phone Unavailable Primary Care Provider Unavailabl e Encounter Details Date Type Department Care Team (Late st Contact Info) Description 05/05/2021 Transcribed Document [facility] Family Medicine [facility] [place] [address] Provider, MD Latonia [facility] [address] Social History Tobacco Use Types Packs/Day Years Used Date Smoking Tobacco: Never Assessed Sex and Gender Information Value Date Recorded Sex Assigned at Not on file Legal Sex Male 7:22 PM CDT Gender Identity Not on file Sexual Orientation Not on file documented as of this encounter Miscellaneous Notes * Cerner Conversion Note - Latonia ProviderMD - 05/05/2021 1:05 PM CDT [facility] Main OR PACU Summary Primary Physician: SUSANA MARSHALL MD-[facility] Finalized Date/Time: 05/05/21 15:40:07 Pt. Name: SADIQ ISRAEL /Sex: 1955 Male Med Rec #: [id number] Physician: GUILLAUME DIXON MD Financial #: [id number] Pt. Type: I Room/Bed: 4/ Admit/Disch: 05/03/21 00:04:00 - Institution: [facility] Main OR PACU I Case Times Entry 1 In PACU I 05/05/21 14:06:00 Ready for PACU 05/05/21 15:30:00 Discharge Discharge from PACU 05/05/21 15:37:00 I Last Modified By: Berenice Stratton RN 05/05/21 15:40:04 [facility] Main OR PACU I Case Times Audit 05/05/21 15:40:04 Laborer Concrete Paving: [id number] Modifier: [id number] <+> 1 Ready for PACU Discharge <+> 1 Discharge from PACU I Finalized By: Berenice Stratton RN Document Signatures Signed By: Berenice Stratton RN 05/05/21 15:40 Electronically signed by Abelino [facility] Conversion Vending Machine Assembler Cerner at 02/22/2023 8:50 PM CDT documented in this encounter Plan of Treatment Not on file documented as of this encounter Visit Diagnoses Not on filedocumented in this encounter
--- OUTSIDE RECORDS SUMMARY | 2025-05-04 13:42 | XMS_ITS | Encounter Summary ---
Author Organization [employer] ([place], [place], [place], [place]) Address [address] [place] [address] Care Team Providers Care Post Exchange Manager Name Role Phone Unavailable Primary Care Provider Unavailabl e Encounter Details Date Type Department Care Team (Late st Contact Info) Description 05/04/2021 Transcribed Document [facility] Family Medicine [facility] [place] [address] ProviderLatonia [place] [address] Social History Tobacco Use Types Packs/Day Years Used Date Smoking Tobacco: Never Assessed Sex and Gender Information Value Date Recorded Sex Assigned at Not on file Legal Sex Male 7:22 PM CDT Gender Identity Not on file Sexual Orientation Not on file documented as of this encounter Miscellaneous Notes * Cerner Conversion Note - Historical ProviderMD - 05/04/2021 2:00 AM CDT Claims Assistant Details Entered On: 05/04/2021 6:34 EDT Performed On: 05/04/2021 2:00 EDT by Randee Giron RN Order Details Transport Mode Order Detail : Bed (including specialty) Order Detail : N/A IV Order Detail : 1 Oxygen Order Detail : 0 Nurse Collect Order Detail : 0 Lift/Transfer : Moderate assist Central Line Order Detail : No Room Service : Appropriate Arterial Line : No Patient Needs Meds Crushed/Liquid : No Randee Giron RN - 05/04/2021 6:33 EDT documented in this encounter Plan of Treatment Not on file documented as of this encounter Visit Diagnoses Not on filedocumented in this encounter
--- OUTSIDE RECORDS SUMMARY | 2025-05-04 13:42 | XMS_ITS ---
Author Organization [facility], [facility] Care Team Providers Care Water/Wastewater Engineer Name Role Phone Ruddy Quintero Unavailable Unavailable Nereida Joe Unavailable Unavailable Allergies and adverse reactions No Known Allergies Care Team Name Role Address Phone Organization Dates Ruddy Quintero [facility] [address] [facility] [place] [address] (Office): : : [facility] 04/12/2025 - 04/28/2025 Nereida Joe [address] [facility] [address] (Office): : : [facility], [facility] 04/12/2025 - 04/28/2025 Goals Section Goals Description Status Target Date Ensure that the resident and /or responsible green party decisions regarding advanced directives is located in residents chart and that staff is aware of wishes Active 07/14/2025 Resident Will Achieve/Maintain a Consistent Slee p Pattern Active 07/14/2025 Resident will be able to be discharged with need ed services by Active 07/14/2025 Resident will have less risk for complications associated with antiplatelet through next review Active 07/14/2025 Resident will have less risk for constipation th rough next review Active 07/14/2025 Resident will have reduced risk for injury throu gh next review Active 07/14/2025 Resident will maintain good pain control through next review Active 07/14/2025 Resident will not exhibit s/ sx of COVID-19 through next care review Active 07/14/2025 Resident will not have any a dverse outcomes related to their nutritional status through the next review. Active 07/14/2025 Resident will not have any s ymptoms of cardiac distress through next review Active 07/14/2025 Resident will participate in ADL care to highest ability through next review Active 07/14/2025 The Resident will show no de power in visual function through the review date. Active 07/14/2025 The resident will be free fr om discomfort or adverse reactions related to antidepressant therapy through the review date. Active 07/14/2025 The resident will have no co mplications related to SOB though the review date. Active 07/14/2025 The resident will have no co mplications related to hyperthyroidism through the review date. Active 07/14/2025 The resident will remain jeannie e from discomfort, complications or s/sx related to dx of GERD through review date. Active 2024 The resident will remain jeannie e of side effects or complications related to tube feeding through review date. Active Will maintain intact skin integrity through next review Active 07/14/2025 Functional Status Code Name Recorded Time Value Entered By Ambulation 04/28/2025 Not assessed CClouse Ambulation 04/28/2025 Not assessed CClouse Ambulation 04/28/2025 Limited Assistance CClouse Ambulation 04/28/2025 Not assessed CClouse Dressing 04/28/2025 Limited Assistance CClouse Feeding or Eating 04/28/2025 Independent sdavisgarn er Toileting 04/28/2025 Limited Assistance CClouse Transferring 04/28/2025 Limited Assistance CClouse Immunizations Immunization Status Vaccine Details Vaccine Code CodeSystem Santiago e Notes TB 2 Step Mantoux Skin Test completed tuberculin skin test; unspecified formulation lotNumber: [id number] expiry: 09/14/2027 Mfg: Sanofi Given 0.1 ml Left Forearm intradermally Step 2 of Multi-step with next step required 98 CVX created date: 04/15/2025 consent date: 04/15/2025 administere d date: 04/15/2025 TB 2 Step Mantoux Skin Test completed tuberculin skin test; unspecified formulation lotNumber: [id number] expiry: 10/03/2027 Mfg: Sanofi P[employer] Limited Given 0.1 mg Left Forearm intradermally Step 1 of Multi-step with next step required 98 CVX created date: 04/13/2025 consent date: 04/13/2025 administere d date: 04/13/2025 Medications Section Medication Name Status Code CodeSystem Dose Route Frequency Admin Type Sig Text Start Date End Date Lansoprazole Oral Tablet Delayed Release Disintegratin g 15 MG active 835835 RXNORM 1 tablet Oral one time a day Routine Give 1 tablet via G-Tube one time a day for GERD before breakf ast 2024 - Tylenol Extra Strength Oral Tablet 500 MG active 329106 RXNORM 1 tablet Enteral as needed PRN MAXWELL* * Give 1 tablet entera lly every 4 hours as needed for pain or fever per peg tube 2024 - Doxycycline Hyclate Oral Tablet 100 MG aborted 16491107 3 RXNORM 1 tablet Oral two times a day Routine Give 1 tablet via G-Tube two times a day for aspira tion PNA 04/13 Fluticasone Propionate Nasal Suspension 50 MCG/ACT active 809134 7 RXNORM 2 spray Nasal one time a day Routine 2 spray in both nostri ls one time a day for allerg ies 2024 - Trelegy Ellipta Inhalation Aerosol Powder Breath Activated 100-62.5-25 MCG/ACT active 291028 4 RXNORM 1 puff Inhalat ion one time a day Routine 1 puff inhale orally one time a day for asthma 2024 - amLODIPine Besylate Oral Tablet 10 MG active 978072 RXNORM 1 tablet Oral one time a day Routine Give 1 tablet via G-Tube one time a day for HTN 2024 - guaiFENesin Oral Syrup 100 MG/5ML active 186119 RXNORM 20 ml Oral three times a day Routine Give 20 ml via G-Tube three times a day for allerg ies 2024 - Levothyroxine Sodium Oral Tablet 75 MCG active 765315 RXNORM 1 tablet Oral one time a day Routine Give 1 tablet via G-Tube one time a day for hypoth yrodis m 2024 - Refresh Tears Ophthalmic Solution active 1 drop Ophthal brittanie five times a day Routine Instil l 1 drop in left eye five times a day for dry eye 2024 - Clopidogrel Bisulfate Oral Tablet 75 MG active 432833 RXNORM 1 tablet Oral one time a day Routine Give 1 tablet via G-Tube one time a day for blood thinne r 2024 - Amoxicillin-P ot Clavulanate Oral Tablet 875-125 MG aborted 817300 RXNORM 1 tablet Oral two times a day Routine Give 1 tablet via G-Tube two times a day for aspira tion PNA 04/13 Aspirin Oral Tablet Chewable 81 MG active 126489 RXNORM 1 tablet Oral one time a day Routine Give 1 tablet via G-Tube one time a day for DVT prophy laxis 2024 - traZODone HCl Oral Tablet 50 MG active 950911 RXNORM 1 tablet Oral at bedtime Routine Give 1 tablet via G-Tube at bedtim e for depres fermin 2024 - Loratadine Oral Tablet 10 MG active 006125 RXNORM 1 tablet Oral one time a day Routine Give 1 tablet via G-Tube one time a day for allerg ies 2024 - Losartan Potassium Oral Tablet 100 MG active 551868 RXNORM 1 tablet Oral one time a day Routine Give 1 tablet via G-Tube one time a day for HTN 2024 - Atorvastatin Calcium Oral Tablet 80 MG active 357060 RXNORM 1 tablet Oral at bedtime Routine Give 1 tablet via G-Tube at bedtim e for HLD 2024 - Melatonin Oral Tablet 3 MG active 565497 RXNORM 2 tablet Oral at bedtime Routine Give 2 tablet via G-Tube at bedtim e for insomn ia 2024 - Lactobacillus Oral Capsule active 706493 1 RXNORM 1 capsul e Oral at bedtime Routine Give 1 capsul e via G-Tube at bedtim e for probio tic 2024 - Carvedilol Oral Tablet 6.25 MG active 20000103 RXNORM 1 tablet Oral two times a day Routine Give 1 tablet via G-Tube two times a day for HTN 2024 - Amoxicillin-P ot Clavulanate Oral Tablet 875-125 MG complete d 395525 RXNORM 1 tablet Oral two times a day Routine Give 1 tablet via G-Tube two times a day for aspira tion PNA for 10 Days 04/24 Doxycycline Hyclate Oral Tablet 100 MG complete d 555156 3 RXNORM 1 tablet Oral two times a day Routine Give 1 tablet via G-Tube two times a day for aspira tion PNA for 10 Days 04/24 Natural Balance Tears Ophthalmic Solution 0.1-0.3 % aborted 1 drop Ophthal brittanie three times a day Routine Instil l 1 drop in both eyes three times a day for dry eyes 04/15 HYDROcodone-A cetaminophen Oral Tablet 5-325 MG active 558123 RXNORM 1 tablet Oral as needed PRN Give 1 tablet by mouth every 8 hours as needed for LEFT EYE PAIN/D ISCOMF ORT 2024 - Enulose Oral Solution 10 GM/15ML active 160283 RXNORM 30 ml Oral as needed PRN Give 30 ml by mouth every 24 hours as needed for Consti pation 2024 - Mental Status Section Date Assessment Total Score Description 04/16/2025 BIMS 15 cognitively int act CAM 0 No delirium ind icated PHQ-9 00 Problems Problem # Description Date of onset Resolved Date Code CodeSystem Concern Status 1 ALLERGIC RHINITIS DUE TO POLLEN [address] active 2 BLINDNESS LEFT EYE CATEGORY 3, NORMAL VISION RIGHT EYE [address] active 3 BRADYCARDIA, UNSPECIFIED [address] active 4 CEREBRAL INFARCTION, UNSPECIFIED [address] active 5 CHRONIC OBSTRUCTIVE PULMONARY DISEASE, UNSPECIFIED [address] active 6 CONSTIPATION, UNSPECIFIED [address] active 7 DRY EYE SYNDROME OF BILATERAL LACRIMAL GLANDS [address] active 8 DYSPHAGIA FOLLOWING CEREBRAL INFARCTION [address] active 9 ESSENTIAL (PRIMARY) HYPERTENSION [address] active 10 GASTRO-ESOPHAGEAL REFLUX DISEASE WITHOUT ESOPHAGITIS [address] active 11 GASTROSTOMY STATUS [address] active 12 HEMIPLEGIA AND HEMIPARESIS FOLLOWING CEREBRAL INFARCTION AFFECTING LEFT NON-DOMINANT SIDE [address] active 13 HYPERLIPIDEMIA, UNSPECIFIED [address] active 14 HYPOTHYROIDISM, UNSPECIFIED [address] active 15 INSOMNIA, UNSPECIFIED [address] active 16 MAJOR DEPRESSIVE DISORDER, RECURRENT, UNSPECIFIED [address] active 17 PNEUMONIA, UNSPECIFIED ORGANISM [address] active 18 PNEUMONITIS DUE TO INHALATION OF FOOD AND VOMIT [address] active 19 RESPIRATORY DISORDERS IN DISEASES CLASSIFIED ELSEWHERE [address] active 20 UNSPECIFIED ASTHMA, UNCOMPLICATED [address] active 21 UNSPECIFIED PROTEIN-CALORIE MALNUTRITION [address] active 22 UNSPECIFIED RETINAL DETACHMENT WITH RETINAL BREAK, LEFT EYE [address] active Reason for Referral No Reasons for Referral Entered Diagnostic Results Result Code Code System Date Test Result Interpretation Reference Range Status Notes [id number] LOINC 04/13 Complete Metabolic Panel (CMP) / Lipid Panel (LP) / Lipid Panel (LP) / TSH / Hemoglobin A1c / CBC with Differenti al / Platelets / CBC with Differenti al / Platelets / PDFReport Completed Testing cancelled due to QNS (Quantity Not Sufficient ). It is recommende d to recollect/ retest. 4548-4 LOINC 04/13 Hemoglobin A1c Value: 5.4 Units: %A1c Normal 4.8 - 5.6 Final 8-4 LOINC 04/13 Hemoglobin A1c Value: 5.4 Units: %A1c Normal 4.8 - 5.6 Final 8-4 LOINC 04/13 Hemoglobin A1c Value: 5.4 Units: %A1c Normal 4.8 - 5.6 Final 7 LOINC 04/13 Baso (Absolute) Value: 0.07 Units: 10*3/uL Normal 0.00 - 0.30 Final 7047 LOINC 04/13 Baso (Absolute) Value: 0.07 Units: 10*3/uL Normal 0.00 - 0.30 Final [facility] 04/13 Baso (Absolute) Value: 0.07 Units: 10*3/uL Normal 0.00 - 0.30 Final [facility] 04/13 Basos Value: 0.80 Units: % Normal 0.00 - 2.00 Final [facility] 04/13 Basos Value: 0.80 Units: % Normal 0.00 - 2.00 Final [facility] 04/13 Basos Value: 0.80 Units: % Normal 0.00 - 2.[address] 04/13 Eos Value: 2.4 Units: % Normal 1.0 - 7.0 Final [facility] 04/13 Eos Value: 2.4 Units: % Normal 1.0 - 7.0 Final [facility] 04/13 Eos Value: 2.4 Units: % Normal 1.0 - 7.0 Final [facility] 04/13 Eos (Absolute) Value: 0.22 Units: 10*3/uL Normal 0.00 - 0.40 Final [facility] 04/13 Eos (Absolute) Value: 0.22 Units: 10*3/uL Normal 0.00 - 0.40 Final [facility] 04/13 Eos (Absolute) Value: 0.22 Units: 10*3/uL Normal 0.00 - 0.40 Final 4544-01 [facility] 04/13 Hematocrit Value: 39.5 Units: % Low 41.0 - 53.0 Final 4544-01 [facility] 04/13 Hematocrit Value: 39.5 Units: % Low 41.0 - 53.0 Final 4543 [facility] 04/13 Hematocrit Value: 39.5 Units: % Low 41.0 - 53.0 Final [facility] 04/13 Hemoglobin Value: 12.7 Units: g/dL Low 13.5 - 17.5 Final [facility] 04/13 Hemoglobin Value: 12.7 Units: g/dL Low 13.5 - 17.5 Final [facility] 04/13 Hemoglobin Value: 12.7 Units: g/dL Low 13.5 - 17.5 Final [facility] 04/13 Lymphocyte s Value: 26.2 Units: % Normal 18.0 - 42.0 Final [facility] 04/13 Lymphocyte s Value: 26.2 Units: % Normal 18.0 - 42.0 Final [facility] 04/13 Lymphocyte s Value: 26.2 Units: % Normal 18.0 - 42.0 Final [facility] 04/13 Lymphocyte s (Absolute) Value: 2.43 Units: 10*3/uL Low 2.45 - 8.89 Final [facility] 04/13 Lymphocyte s (Absolute) Value: 2.43 Units: 10*3/uL Low 2.45 - 8.89 Final [facility] 04/13 Lymphocyte s (Absolute) Value: 2.43 Units: 10*3/uL Low 2.45 - 8.89 Final [facility] 04/13 MCH Value: 31.3 Units: pg Normal 27.0 - 34.0 Final [facility] 04/13 MCH Value: 31.3 Units: pg Normal 27.0 - 34.0 Final [facility] 04/13 MCH Value: 31.3 Units: pg Normal 27.0 - 34.0 Final [facility] 04/13 MCHC Value: 32.2 Units: g/dL Normal 32.0 - 36.0 Final [facility] 04/13 MCHC Value: 32.2 Units: g/dL Normal 32.0 - 36.0 Final [facility] 04/13 MCHC Value: 32.2 Units: g/dL Normal 32.0 - 36.0 Final [facility] 04/13 MCV Value: 97.3 Units: % Normal 80.0 - 100.0 Final [facility] 04/13 MCV Value: 97.3 Units: % Normal 80.0 - 100.0 Final [facility] 04/13 MCV Value: 97.3 Units: % Normal 80.0 - 100.0 Final 5905-03 [facility] 04/13 Monocytes Value: 8.2 Units: % Normal 3.5-9.0 Final 5905-03 [facility] 04/13 Monocytes Value: 8.2 Units: % Normal 3.5-9.0 Final 5905-03 [facility] 04/13 Monocytes Value: 8.2 Units: % Normal 3.5-9.0 Final [facility] 04/13 Monocytes (Absolute) Value: 0.76 Units: 10*3/uL Normal 0.10 - 0.90 Final [facility] 04/13 Monocytes (Absolute) Value: 0.76 Units: 10*3/uL Normal 0.10 - 0.90 Final [facility] 04/13 Monocytes (Absolute) Value: 0.76 Units: 10*3/uL Normal 0.10 - 0.90 Final [facility] 04/13 MPV Value: 11.7 Units: fL Normal 7.2-12.3 Final [facility] 04/13 MPV Value: 11.7 Units: fL Normal 7.2-12.3 Final [facility] 04/13 MPV Value: 11.7 Units: fL Normal 7.2-12.3 Final [facility] 04/13 Neutrophil s Value: 60.90 Units: % Normal 40.00 - 75.00 Final [facility] 04/13 Neutrophil s Value: 60.90 Units: % Normal 40.00 - 75.00 Final [facility] 04/13 Neutrophil s Value: 60.90 Units: % Normal 40.00 - 75.00 Final [facility] 04/13 Neutrophil s (Absolute) Value: 5.67 Units: 10*3/uL Normal 1.60 - 7.70 Final [facility] 04/13 Neutrophil s (Absolute) Value: 5.67 Units: 10*3/uL Normal 1.60 - 7.70 Final [facility] 04/13 Neutrophil s (Absolute) Value: 5.67 Units: 10*3/uL Normal 1.60 - 7.70 Final [facility] 04/13 Platelets Value: 200 Units: 10*3/uL Normal 150.000 - 450.000 Final [facility] 04/13 Platelets Value: 200 Units: 10*3/uL Normal 150.000 - 450.000 Final [facility] 04/13 Platelets Value: 200 Units: 10*3/uL Normal 150.000 - 450.000 Final [facility] 04/13 RBC Value: 4.06 Units: x10^6/UL Low 4.35 - 5.65 Final [facility] 04/13 RBC Value: 4.06 Units: x10^6/UL Low 4.35 - 5.65 Final [facility] 04/13 RBC Value: 4.06 Units: x10^6/UL Low 4.35 - 5.65 Final [facility] 04/13 RDW Value: 13.4 Units: % binding Normal 12.3 - 15.4 Final [facility] 04/13 RDW Value: 13.4 Units: % binding Normal 12.3 - 15.4 Final [facility] 04/13 RDW Value: 13.4 Units: % binding Normal 12.3 - 15.4 Final 6689-12 [facility] 04/13 WBC Value: 9.29 Units: 10*3/uL Normal 3.40 - 9.60 Final 6689-12 [facility] 04/13 WBC Value: 9.29 Units: 10*3/uL Normal 3.40 - 9.60 Final 6689-12 [facility] 04/13 WBC Value: 9.29 Units: 10*3/uL Normal 3.40 - 9.60 Final [facility] 04/13 Baso (Absolute) Value: 0.07 Units: 10*3/uL Normal 0.00 - 0.30 Final [facility] 04/13 Baso (Absolute) Value: 0.07 Units: 10*3/uL Normal 0.00 - 0.30 Final [facility] 04/13 Baso (Absolute) Value: 0.07 Units: 10*3/uL Normal 0.00 - 0.30 Final [facility] 04/13 Basos Value: 0.80 Units: % Normal 0.00 - 2.00 Final [facility] 04/13 Basos Value: 0.80 Units: % Normal 0.00 - 2.00 Final [facility] 04/13 Basos Value: 0.80 Units: % Normal 0.00 - 2.00 Final [facility] 04/13 Eos Value: 2.4 Units: % Normal 1.0 - 7.0 Final [facility] 04/13 Eos Value: 2.4 Units: % Normal 1.0 - 7.0 Final [facility] 04/13 Eos Value: 2.4 Units: % Normal 1.0 - 7.0 Final [facility] 04/13 Eos (Absolute) Value: 0.22 Units: 10*3/uL Normal 0.00 - 0.[address] 04/13 Eos (Absolute) Value: 0.22 Units: 10*3/uL Normal 0.00 - 0.[address] 04/13 Eos (Absolute) Value: 0.22 Units: 10*3/uL Normal 0.00 - 0.[id number] 04/13 Hematocrit Value: 39.5 Units: % Low 41.0 - 53.0 Final 4544-01 [facility] 04/13 Hematocrit Value: 39.5 Units: % Low 41.0 - 53.[address] 04/13 Hematocrit Value: 39.5 Units: % Low 41.0 - 53.[address] [place] [address] 04/13 Hemoglobin Value: 12.7 Units: g/dL Low 13.5 - 17.5 Final [facility] 04/13 Hemoglobin Value: 12.7 Units: g/dL Low 13.5 - 17.5 Final [facility] 04/13 Hemoglobin Value: 12.7 Units: g/dL Low 13.5 - 17.[address] 04/13 Lymphocyte s Value: 26.2 Units: % Normal 18.0 - 42.0 Final [facility] 04/13 Lymphocyte s Value: 26.2 Units: % Normal 18.0 - 42.0 Final [facility] 04/13 Lymphocyte s Value: 26.2 Units: % Normal 18.0 - 42.0 Final [facility] 04/13 Lymphocyte s (Absolute) Value: 2.43 Units: 10*3/uL Low 2.45 - 8.89 Final [facility] 04/13 Lymphocyte s (Absolute) Value: 2.43 Units: 10*3/uL Low 2.45 - 8.89 Final [facility] 04/13 Lymphocyte s (Absolute) Value: 2.43 Units: 10*3/uL Low 2.45 - 8.89 Final [facility] 04/13 MCH Value: 31.3 Units: pg Normal 27.0 - 34.0 Final [facility] 04/13 MCH Value: 31.3 Units: pg Normal 27.0 - 34.0 Final [facility] 04/13 MCH Value: 31.3 Units: pg Normal 27.0 - 34.0 Final [facility] 04/13 MCHC Value: 32.2 Units: g/dL Normal 32.0 - 36.0 Final [facility] 04/13 MCHC Value: 32.2 Units: g/dL Normal 32.0 - 36.0 Final [facility] 04/13 MCHC Value: 32.2 Units: g/dL Normal 32.0 - 36.0 Final [facility] 04/13 MCV Value: 97.3 Units: % Normal 80.0 - 100.0 Final [facility] 04/13 MCV Value: 97.3 Units: % Normal 80.0 - 100.0 Final [facility] 04/13 MCV Value: 97.3 Units: % Normal 80.0 - 100.0 Final 5 [facility] 04/13 Monocytes Value: 8.2 Units: % Normal 3.5-9.0 Final 5905-03 [facility] 04/13 Monocytes Value: 8.2 Units: % Normal 3.5-9.0 Final 5905-03 [facility] 04/13 Monocytes Value: 8.2 Units: % Normal 3.5-9.0 Final [facility] 04/13 Monocytes (Absolute) Value: 0.76 Units: 10*3/uL Normal 0.10 - 0.90 Final [facility] 04/13 Monocytes (Absolute) Value: 0.76 Units: 10*3/uL Normal 0.10 - 0.90 Final [facility] 04/13 Monocytes (Absolute) Value: 0.76 Units: 10*3/uL Normal 0.10 - 0.90 Final [facility] 04/13 MPV Value: 11.7 Units: fL Normal 7.2-12.3 Final [facility] 04/13 MPV Value: 11.7 Units: fL Normal 7.2-12.3 Final [facility] 04/13 MPV Value: 11.7 Units: fL Normal 7.2-12.3 Final [facility] 04/13 Neutrophil s Value: 60.90 Units: % Normal 40.00 - 75.00 Final [facility] 04/13 Neutrophil s Value: 60.90 Units: % Normal 40.00 - 75.00 Final [facility] 04/13 Neutrophil s Value: 60.90 Units: % Normal 40.00 - 75.00 Final [facility] 04/13 Neutrophil s (Absolute) Value: 5.67 Units: 10*3/uL Normal 1.60 - 7.70 Final [facility] 04/13 Neutrophil s (Absolute) Value: 5.67 Units: 10*3/uL Normal 1.60 - 7.70 Final [facility] 04/13 Neutrophil s (Absolute) Value: 5.67 Units: 10*3/uL Normal 1.60 - 7.70 Final [facility] 04/13 Platelets Value: 200 Units: 10*3/uL Normal 150.000 - 450.000 Final 777-3 [facility] 04/13 Platelets Value: 200 Units: 10*3/uL Normal 150.000 - 450.000 Final 777-3 [facility] 04/13 Platelets Value: 200 Units: 10*3/uL Normal 150.000 - 450.000 Final 789-8 [facility] 04/13 RBC Value: 4.06 Units: x10^6/UL Low 4.35 - 5.65 Final 8 [facility] 04/13 RBC Value: 4.06 Units: x10^6/UL Low 4.35 - 5.65 Final 98 [facility] 04/13 RBC Value: 4.06 Units: x10^6/UL Low 4.35 - 5.65 Final 8-0 [facility] 04/13 RDW Value: 13.4 Units: % binding Normal 12.3 - 15.4 Final 80 [facility] 04/13 RDW Value: 13.4 Units: % binding Normal 12.3 - 15.4 Final 8-0 [facility] 04/13 RDW Value: 13.4 Units: % binding Normal 12.3 - 15.4 Final 902 [facility] 04/13 WBC Value: 9.29 Units: 10*3/uL Normal 3.40 - 9.60 Final 902 [facility] 04/13 WBC Value: 9.29 Units: 10*3/uL Normal 3.40 - 9.60 Final 90-2 [facility] 04/13 WBC Value: 9.29 Units: 10*3/uL Normal 3.40 - 9.60 Final 123-999 99-9 [facility] 04/13 PDFReport Value: See Attachment Units: Normal Final 123-999 99-9 [facility] 04/13 PDFReport Value: See Attachment Units: Normal Final 123-999 99-9 [facility] 04/13 PDFReport Value: See Attachment Units: Normal Final Test Code Code System Name Date 04/13/2025 CBC with Differential / Plat elets 04/13/2025 04/13/2025 Social History Social History Observation Description Start Date End Date Code Code System Current Smoking Status Tobacco smoking consumption unknown 670068698 SNOMED CT Sex Assigned At Male 1955 32394-0 [facility] Gender Identity Male [id number] Vital Signs Code Code System Vitals Name Values and Units Timing Information 75067-5 [facility] Pain Level Value=0.0 04/28/2025 8462-4 [facility] Blood Pressure-Diastolic Value=61 Un its=mmHg 04/28/2025 8480-6 [facility] Blood Pressure-Systolic Ngtgu=329 Un its=mmHg 04/28/2025 8867-4 [facility] Heart rate Value=60.0 Units=/min 62770-5 [facility] Weight Nljsw=648.0 Units=Lbs 04208-4 [facility] O2 % BldC Oximetry Value=92.0 Units= % 04/19/2025 9279-1 [facility] Respiratory Rate Value=16.0 Units=/m in 04/19/2025 8310-5 [facility] Body Temperature Value=98.0 Units= F 04/19/2025 8302-2 [facility] Height Value=66.0 Units=Inches 04/13/2025
--- OUTSIDE RECORDS SUMMARY | 2025-05-04 13:42 | XMS_ITS | Encounter Summary ---
Author Organization [employer] ([place], [place], [place], [place]) Address [address] [place] [address] Care Team Providers Care Burr Sander Name Role Phone Unavailable Primary Care Provider Unavailabl e Encounter Details Date Type Department Care Team (Late st Contact Info) Description 05/04/2021 Transcribed Document [facility] [place] [address] [place] [address] ProviderLatonia MD [facility] [place], [place] [address] Social History Tobacco Use Types Packs/Day Years Used Date Smoking Tobacco: Never Assessed Sex and Gender Information Value Date Recorded Sex Assigned at Not on file Legal Sex Male 7:22 PM CDT Gender Identity Not on file Sexual Orientation Not on file documented as of this encounter Miscellaneous Notes * Cerner Conversion Note - Latonia ProviderMD - 05/04/2021 11:41 AM CDT Consult Phone Call Documentation Entered On: 05/04/2021 12:31 EDT Performed On: 05/04/2021 12:27 EDT by Farheen Zurita RN Phone Call for Consults Consult Phone Call/Page Attempt : First call Consult Reason : s/p ERCP, CBD stone, need for cholecystectomy Physician Requested for Consult : GAVINO CHRISTIANSEN MD Provider Service Notified Name : Other: general surgery Physician Covering for Consult : GAVINO CHRISTIANSEN MD Date and Time Call Returned : 05/04/2021 12:27 EDT Farheen Zurita RN - 05/04/2021 12:28 EDT documented in this encounter Plan of Treatment Not on file documented as of this encounter Visit Diagnoses Not on filedocumented in this encounter
--- OUTSIDE RECORDS SUMMARY | 2025-05-04 13:42 | XMS_ITS | Encounter Summary ---
Author Organization [employer] ([place], [place], [place], [place]) Address [address] [place] [address] Care Team Providers Care Water Use Inspector Name Role Phone Unavailable Primary Care Provider Unavailabl e Encounter Details Date Type Department Care Team (Late st Contact Info) Description 05/04/2021 Transcribed Document [facility] Radiology [address] [place] [address] Steve Kumar MD [address] [place] [address] [address] Social History Tobacco Use Types Packs/Day Years Used Date Smoking Tobacco: Never Assessed Sex and Gender Information Value Date Recorded Sex Assigned at Not on file Legal Sex Male 7:22 PM CDT Gender Identity Not on file Sexual Orientation Not on file documented as of this encounter Miscellaneous Notes * Cerner Conversion Note - Steve Kumar MD - 05/04/2021 5:59 PM EDT Patient: SADIQ BLANCAS Age: 66 years Sex: Male : 1955 Associated Diagnoses: None Author: STEVE KUMAR MD Basic Information Patient seen and examined today He had ERCP and EGD yearly this morning Still drowsy after the anesthesia Sister at the bedside He stated that he feels better Hemodynamically stable Review of Systems No fever [...] Rocephin: 1 Gram, 100 mL/Hr, IV Piggyback, [id number] Sodium Chloride 0.9% intravenous solution 1,000 mL: 50 mL/Hr, IntraVENous Tylenol: 650 mg, Oral, Q4H, PRN: Pain (Mild 1-3) Zofran: 4 mg, IV Push, Q4H, PRN: Nausea heparin: 5,000 Units, SubCutaneous, [id number] lidocaine 1% injectable solution: 0.5 mL, IntraDermal, [...] Scheduled: (8) cefTRIAXone 1 Gram, IV Piggyback, [id number] DULoxetine DR 30 mg cap 30 mg 1 Cap, Oral, Daily famotidine 20 mg tab 40 mg 2 Tab, Oral, Daily heparin 5,000 units/1 mL inj 5,000 Units 1 mL, SubCutaneous, [id number] lisinopril 10 mg tab 10 mg 1 [...] At risk for sleep apnea / IMO [id number] / Confirmed, Active Problems (5) At risk for sleep apnea COPD (chronic obstructive pulmonary disease) Gout Hypertension Smoker Physical Examination VS/Measurements Vitals Signs (last 24 hrs) Last Charted Minimum Maximum Temp 97.1 (MAY 04 16:00) L 94.5 (MAY 04 13:30) 97.1 (MAY 03 17:46) Mon HR 52 (MAY 04 16:00) 47 (MAY 04 14:00) 60 (MAY 03 17:46) Resp Rate 18 (MAY 04 15:30) 16 (MAY 03 17:46) 18 (MAY 03 22:00) SBP H 141 (MAY 04 16:00) 91 (MAY 04 11:39) H 145 (MAY 04 13:17) DBP 72 (MAY 04 16:00) L 53 (MAY 04 11:39) 73 (MAY 04 15:00) MAP 115 (MAY 04 16:00) 87 (MAY 04 03:00) 115 (MAY 04 16:00) SpO2 98 (MAY 04 16:00) 97 (MAY 03 17:46) 100 (MAY 04 11:39) Radiology Results (Last 48 hours) [id number] -- 05/03/2021 00:04 CR Ercp Biliary Duct [...] review: Labs (Last four charted values) WBC 7.6 (MAY 04) H 10.8 (MAY 03) HB L 8.3 (MAY 04) L 8.0 (MAY 03) HCT L 25.6 (MAY 04) L 24.7 (MAY 03) Plt 335 (MAY 04) 297 (MAY 03) Na 136 (MAY 04) L 132 (MAY 03) K 3.5 (MAY 04) 3.6 (MAY 03) Cl 106 (MAY 04) 102 (MAY 03) CO2 24 (MAY 04) 22 (MAY 03) BUN 14 (MAY 04) 20 (MAY 03) Cr L 0.40 (MAY 04) L 0.60 (MAY 03) Glu R 85 (MAY 04) L 69 (MAY 03) Ca L 7.9 (MAY 04) L 8.0 (MAY 03) AST H 153 (MAY 04) H 127 (MAY 03) ALT 59 (MAY 04) 42 (MAY 03) ALK P H 587 (MAY 04) H 525 (MAY 03) T Bili H 3.2 (MAY 04) H 4.7 (MAY 03) PTN L 5.1 (MAY 04) L 5.3 (MAY 03) ALB L 1.3 (MAY 04) L 1.3 (MAY 03) Lipase 107 (MAY 04) 199 (MAY 03) . Radiology Results (Last 48 hours) [id number] -- 05/03/2021 00:04 CR Ercp Biliary Duct [...] removed General surgery consulted Plan for cholecystectomy in a.m. Repeat CMP in a.m. IV fluids resuscitation [...] reviewed CODE STATUS full code Time spent 28 minutes documented in this encounter Plan of Treatment Not on file documented as of this encounter Visit Diagnoses Not on filedocumented in this encounter
--- OUTSIDE RECORDS SUMMARY | 2025-05-04 13:42 | XMS_ITS | Encounter Summary ---
Author Organization [employer] ([place], [place], [place], [place]) Address [address] [place] [address] Care Team Providers Care Cmo & President Name Role Phone Unavailable Primary Care Provider Unavailabl e Encounter Details Date Type Department Care Team (Late st Contact Info) Description 05/07/2021 Transcribed Document [facility] [place] [facility] [place] [address] ProviderLatonia MD [facility] [place] [address] Social History Tobacco Use Types Packs/Day Years Used Date Smoking Tobacco: Never Assessed Sex and Gender Information Value Date Recorded Sex Assigned at Not on file Legal Sex Male 7:22 PM CDT Gender Identity Not on file Sexual Orientation Not on file documented as of this encounter Miscellaneous Notes * Cerner Conversion Note - Latonia ProviderMD - 05/07/2021 4:35 PM CDT Nursing Discharge Summary Entered On: 05/07/2021 16:35 EDT Performed On: 05/07/2021 16:35 EDT by Mark Anthony Viveros grinder set up operator centerless Documentation Discharge Date/Time : 05/07/2021 16:35 EDT Patient Disposition, General : Discharge Discharge To : Rehabilitation unit/facility Mode Of Departure, General Discharge : Private vehicle, Other: sister trandported to [facility] Accompanied By, Discharge : Sibling IV Discontinued : Yes Personal Belongings With Patient : Yes Pt's Own Supply of Medications Returned : No patient supply of medications to return Education Comment : pt still drowsy but doing better today, still not appropraite for education Mark Anthony Viveros, RN - 05/07/2021 16:35 EDT Electronically signed by Abelino [facility] Conversion Fractionation Plant Supervisor Cerner at 02/22/2023 8:45 PM CDT documented in this encounter Plan of Treatment Not on file documented as of this encounter Visit Diagnoses Not on filedocumented in this encounter
--- OUTSIDE RECORDS SUMMARY | 2025-05-04 13:42 | XMS_ITS | Encounter Summary ---
Author Organization [employer] ([place], [place], [place], [place]) Address [address] [place] [address] Care Team Providers Care Edge Banding Off Bearer Name Role Phone Unavailable Primary Care Provider Unavailabl e Encounter Details Date Type Department Care Team (Late st Contact Info) Description 05/03/2021 Transcribed Document [facility] [place] [facility] [place] [address] ProviderLatonia MD [facility] [place] [address] Social History Tobacco Use Types Packs/Day Years Used Date Smoking Tobacco: Never Assessed Sex and Gender Information Value Date Recorded Sex Assigned at Not on file Legal Sex Male 7:22 PM CDT Gender Identity Not on file Sexual Orientation Not on file documented as of this encounter Miscellaneous Notes * Cerner Conversion Note - Latonia ProviderMD - 05/03/2021 12:31 AM CDT Nutrition Assessment Entered On: 05/04/2021 13:02 EDT Performed On: 05/04/2021 13:02 EDT by Mally Sena Dietitian Nutrition Assessment Current Nutrition Regimen Comment : 05/04: MST >2 (decreased appetite, 24-33# wt loss). Pt is a 66 y/o male admitted for weakness. 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 GI following. Pt had an EGD today and ERCP. EGD showed a small hiatal hernia, erosive gastritis and duodenitis, and a large common hepatic duct stone was removed. Per GI note, pt stated a wt of 195# x 3 months ago and a current wt of 148#. Wt per chart is 126#. There is no wt hx available per chart. RD attempted visit, but another provider in room. Surgery now following with plans for a lap cassidy tomorrow. Will continue to follow for further evaluation of PCM. Dx: obstructive jaundice, UTI PMH: COPD, gout, HTN, tobacco abuse Labs: Cr 0.4, Alt 1.3, Tbili 3.2, AST 153 Meds: abx, PPI, heparin, LR Diet: NPO (previously on a regular diet) Intake: 25% x 1 meal GI: +BS, LBM 05/03 Skin: stg 1 to coccyx Ht: 5'6 Wt: 126# (05/03) No wt hx available per chart BMI: 20.4 Mally Sena Dietitian - 05/04/2021 14:42 EDT Nutrition Assessment Reason : Automatic referral Mally Sena Dietitian - 05/04/2021 13:02 EDT Nutrition Diagnoses Energy Balance : Predicted suboptimal energy intake Energy Balance Related to : decreased appetite Energy Balance as Evidenced by : MST >2, per GI note, pt weighed 195# x 3 months ago and now weighs 148#. Energy Balance Status : Active Mally Sena Dietitian - 05/04/2021 14:42 EDT Nutrition Interventions Meals and Snacks Other Comment : NPO Mally Sena Dietitian - 05/04/2021 14:42 EDT Monitoring/Evaluation Weight Status : Weight Maintanence Gastrointestinal Function : Bowel Function Mally Sena Dietitian - 05/04/2021 14:42 EDT Nutrition Recommendations Dietitian Recommendations : 1. Once feasible, advance diet per MD + low fat. RD to assess for supplements Goal: tolerate diet advancement; adequate intake >50% of meals 2. Monitor weights 2x weekly Goal: prevent unintentional wt changes 3. Monitor elytes and replace PRN. Pt may have an increased risk for refeeding syndrome Goal: elytes WNL High nutrition risk Mally Sena Dietitian - 05/04/2021 14:42 EDT documented in this encounter Plan of Treatment Not on file documented as of this encounter Visit Diagnoses Not on filedocumented in this encounter
--- OUTSIDE RECORDS SUMMARY | 2025-05-04 13:42 | XMS_ITS | Encounter Summary ---
Author Organization [employer] ([place], [place], [place], [place]) Address [address] [place] [address] Care Team Providers Care Seed Tester Name Role Phone Unavailable Primary Care Provider Unavailabl e Encounter Details Date Type Department Care Team (Late st Contact Info) Description 05/05/2021 Transcribed Document [facility] [place] Medicine [facility] [place] [address] ProviderLatonia MD [address] [place] [address] Social History Tobacco Use Types Packs/Day Years Used Date Smoking Tobacco: Never Assessed Sex and Gender Information Value Date Recorded Sex Assigned at Not on file Legal Sex Male 7:22 PM CDT Gender Identity Not on file Sexual Orientation Not on file documented as of this encounter Miscellaneous Notes * Cerner Conversion Note - Latonia ProviderMD - 05/05/2021 9:09 AM CDT UM Authorization Entered On: 05/05/2021 9:09 EDT Performed On: 05/05/2021 9:09 EDT by Naomi Rome Rn-Utilization Review Primary Insurance Authorization Authorization and Policy Numbers : Insurance 1 Health Plan: [employer] Policy Number: [id number] Authorization Number: Insurance 2 Health Plan: [facility] Policy Number: [id number] Authorization Number: Insurance Primary Name : [employer] Policy Number: [id number] Authorization Status-Primary : Awaiting callback Reference Number-Primary : Pend ref #[id number] Authorized Service Begin Date-Primary : 05/03/2021 EDT Historical Authorization Comments-Primary : Comment 1: Pending ref no per Availity. Reviewer has access to [employer] (JOSSY ARAGON RN 05/03/2021 13:49) Comment 2: Per Amanda with [facility], pt has Medicare A primary, em to PA, cc to [facility] (JOSSY ARAGON RN 05/03/2021 11:43) Comment 3: Clinicals submitted via [facility] for IP approval (JOSSY ARAGON RN 05/03/2021 09:25) Naomi Rome Rn-Utilization Review - 05/05/2021 9:09 EDT Electronically signed by [facility] Conversion Geophysical Support Specialist Cerner at 02/22/2023 8:50 PM CDT documented in this encounter Plan of Treatment Not on file documented as of this encounter Visit Diagnoses Not on filedocumented in this encounter
--- OUTSIDE RECORDS SUMMARY | 2025-05-04 13:42 | XMS_ITS | Encounter Summary ---
Author Organization [employer] ([place], [place], [place], [place]) Address [address] [place] [address] Care Team Providers Care Airplane Rigger Name Role Phone Unavailable Primary Care Provider Unavailabl e Encounter Details Date Type Department Care Team (Late st Contact Info) Description 05/07/2021 Transcribed Document [facility] [place] [facility] [place] [address] ProviderLatonia MD [place] [address] Social History Tobacco Use Types Packs/Day Years Used Date Smoking Tobacco: Never Assessed Sex and Gender Information Value Date Recorded Sex Assigned at Not on file Legal Sex Male 7:22 PM CDT Gender Identity Not on file Sexual Orientation Not on file documented as of this encounter Miscellaneous Notes * Cerner Conversion Note - Latonia ProviderMD - 05/07/2021 11:17 AM CDT Patient: SADIQ ISRAEL Age: 66 Years Sex: Male : 1955 Subjective More alert today. Denies pain Intake & Output Intake & Output Totals Last 24 Hours (7a-7a) Intake (2 Events) Medications (50 mL) Oral Intake (120 mL) Output (1 Events) Urine Voided (Volume) (400 mL) Input Total: 170 mL Output Total: 400 mL Balance: -230 mL Vital Signs T: 36.4 ??C TMIN: 36.3 ??C TMAX: 36.4 ??C HR: 58(Monitored) RR: 17 BP: 137/68 SpO2: 100% Physical Exam Gen: NAD Resp: Nonlabored respirations CV: Normal peripheral perfusion Ab: soft, NTND. Incisions c/d/i VTE Risk Total Score VTE Prophylaxis - Surgical Heparin 5,000 Units, SubCutaneous, Inj, [id number], Routine, Start 05/03/21 6:00:00 EDT, 05/03/21 1:32:00 EDT (SHABNAM MARSH) Sequential Compression Device Start: 05/05/21 10:49:00 EDT, Bilateral, Length: Knee High, Apply in OR, Continuous Order (SUSANA MARSHALL) Assessment/Plan Status post ERCP and robotic cholecystectomy for choledocholithiasis diet as tolerated Minimize use of narcotics Recommend outpt GI follow up for possible early cirrhosis Okay for discharge from surgical perspective Unspecified jaundice R17, Unspecified jaundice R17 Orders: ibuprofen, 600 mg, Oral, Tab, Q6H, PRN for Pain (Moderate 4-6), Routine, Start 05/06/21 13:06:00 EDT, 05/06/21 13:06:00 EDT oxyCODONE, 5 mg, Oral, Tab, Q6H, PRN for Abdominal Pain, Routine, Start 05/06/21 13:06:00 EDT, 05/06/21 13:06:00 EDT Medications Inpatient Ancef, 2 Gram= 50 mL, [...] PRN heparin, 5000 Units= 1 mL, SubCutaneous, [id number] ibuprofen, 600 mg= 1 Tab, Oral, Q6H, PRN lisinopril, 10 mg= 1 Tab, Oral, Daily oxyCODONE, 5 mg= 1 Tab, Oral, Q6H, PRN Pepcid, 40 mg= 2 Tab, Oral, Daily Rocephin tiotropium, 2 Inhalation, Inhalation, RT_Daily Tylenol, 500 mg= 1 Tab, Oral, Q6H [...] Hours No qualifying data available Albumin Level: 2.2 Gram/dL Low Alk Phos: 375 Units/Liter High ALT: 19 Units/Liter Anion Gap: 8 Low AST: 54 Units/Liter High Bilirubin Total: 1.6 mg/dL High Calcium Level: 8.4 mg/dL Protein Total: 5.6 Gram/dL Low Imaging Results (Last 24 Hours) [...]
--- OUTSIDE RECORDS SUMMARY | 2025-05-04 13:42 | XMS_ITS | Encounter Summary ---
Author Organization [employer] ([place], [place], [place], [place]) Address [address] [place] [address] Care Team Providers Care Ammunition Assembly I Laborer Name Role Phone Unavailable Primary Care Provider Unavailabl e Encounter Details Date Type Department Care Team (Late st Contact Info) Description 05/04/2021 Transcribed Document [facility] [place] [facility] [place] [address] ProviderLatonia MD [facility] [place] [address] Social History Tobacco Use Types Packs/Day Years Used Date Smoking Tobacco: Never Assessed Sex and Gender Information Value Date Recorded Sex Assigned at Not on file Legal Sex Male 7:22 PM CDT Gender Identity Not on file Sexual Orientation Not on file documented as of this encounter Miscellaneous Notes * Cerner Conversion Note - Latonia ProviderMD - 05/04/2021 1:53 PM CDT On Going Discharge Planning Entered On: 05/04/2021 13:58 EDT Performed On: 05/04/2021 13:53 EDT by ENRIKE ALBARRAN RN - Greenhouse SuperintendentSilica Dry Press Helper Progress Note Discharge Arrangements : Patient Post-Acute Information Patient Name: SADIQ ISRAEL Gender: Male : [birth year] Age: 66 Years No Post-Acute Placement(s) Listed No Post-Acute Service(s) Listed No Curaspan Referral(s) Listed Discharge Options Discussed with Patient : Home Health Is the Patient Meeting Medical Necessity : Yes Did you Attend Multidisciplinary Rounds? : Yes ENRIKE ALBARRAN RN - Greenhouse Superintendent - 05/04/2021 13:53 EDT Narrative Progress Note Narrative Progress Note : RRS Low Boost 2 Day 2 Patient had an ERCP/EGD today. Scheduled for a lap cassidy tomorrow. Patient lives in the basement at his mother's home. Family is concerned that he will not be able to care for himself at home and his mother is unable to assist. CM has faxed his packet to [facility] . Talked with Rand from [facility]. DCP: home vs SNF ENRIKE ALBARRAN, RN - Greenhouse Superintendent - 05/04/2021 13:53 EDT documented in this encounter Plan of Treatment Not on file documented as of this encounter Visit Diagnoses Not on filedocumented in this encounter
--- OUTSIDE RECORDS SUMMARY | 2025-05-04 13:42 | XMS_ITS | Encounter Summary ---
Author Organization [employer] ([place], [place], [place], [place]) Address [address] [place] [address] Care Team Providers Care Government Relations Director Name Role Phone Unavailable Primary Care Provider Unavailabl e Encounter Details Date Type Department Care Team (Late st Contact Info) Description 05/03/2021 Transcribed Document [facility] [place] Family Medicine [address] [place] [address] ProviderLatonia MD [facility] [place] [address] Social History Tobacco Use Types Packs/Day Years Used Date Smoking Tobacco: Never Assessed Sex and Gender Information Value Date Recorded Sex Assigned at Not on file Legal Sex Male 7:22 PM CDT Gender Identity Not on file Sexual Orientation Not on file documented as of this encounter Miscellaneous Notes * Cerner Conversion Note - Latonia Paulson MD - 05/03/2021 1:00 AM CDT Consult Phone Call Documentation Entered On: 05/03/2021 10:11 EDT Performed On: 05/03/2021 10:10 EDT by Farheen Zurita RN Phone Call for Consults Consult Phone Call/Page Attempt : First call Consult Reason : mass on ampulla Physician Requesting Consult : STEVE KUMAR MD Physician Requested for Consult : NESS WISE MD Provider Service Notified Name : Gastroenterology Date and Time Call Returned : 05/03/2021 10:10 EDT Consult, Additional Information : seen by Lisa CADET this am 05/03/2021 Farheen Zurita RN - 05/03/2021 10:10 EDT documented in this encounter Plan of Treatment Not on file documented as of this encounter Visit Diagnoses Not on filedocumented in this encounter
[2025-05-04 14:56] LABS: Hematocrit 37.7 % (42.0-52.0); Hemoglobin 12.0 g/dL (14.1-18.0); Immature Granulocytes % 0.3 %; Mean Corpuscular HGB Conc 31.8 g/dL (31.8-35.4); Mean Corpuscular Hemoglobin 30.5 pg (27.0-31.2); Mean Corpuscular Volume 95.7 fl (80-94); Nucleated Red Blood Cells % 0 %; Platelet Count 242 K/mm3 (142-424); Red Blood Count 3.94 M/mm3 (4.60-6.20); Red Cell Distribution Width-SD 48.9 fL; White Blood Count 8.7 K/mm3 (4.8-10.8)
[2025-05-04 15:20] LABS: Albumin Level 4.0 g/dl (3.5-5.0); Chloride 102 mmol/L (98-107)
[2025-05-04 15:21] LABS: Potassium 4.8 mmoL/L (3.5-5.1); Sodium 139 mmol/L (136-145)
[2025-05-04 15:23] LABS: Alanine Aminotransferase 27 U/L (12-78); Blood Urea Nitrogen 21 mg/dl (9-20); Creatinine,Serum 1.00 mg/dl (0.66-1.25); Estimated Glomerular Filt Rate 74 ml/min (>60); GFR (African American) 90 ML/MIN (>60)
[2025-05-04 15:24] LABS: Albumin/Globulin Ratio 1.3 (1.1-1.8); Alkaline Phosphatase 125 U/L (38-126); Anion Gap 14.8 mEq/L (5-15); Aspartate Amino Transferase 25 U/L (17-59); Bilirubin,Total 0.4 mg/dl (0.2-1.3); Calcium 8.8 mg/dl (8.4-10.2); Carbon Dioxide 27 mmol/L (22.0-30.0); Globulin 3.0 g/dL (1.3-3.2); Glucose 103 mg/dl (74-100); Total Protein,Serum 7.0 g/dl (6.3-8.2)
[2025-05-04 15:39] LABS: Free T4 (Free Thyroxine) 1.13 ng/dl (0.78-2.19)
[2025-05-04 15:53] LABS: Thyroid Stimulating Hormone 1.75 uIU/mL (0.465-4.68)
== END 2025-05-04 23:59 | disposition home or self-care (01) ==
LOC: LAB 13:39
PROVIDERS: PCP Nurse Practitioner Family; Visit Provider Physician Assistant
DX: Z09 Encounter for follow-up examination after completed treatment for conditions other than malignant neoplasm (principal); I63.9 Cerebral infarction, unspecified; I10 Essential (primary) hypertension; J44.9 Chronic obstructive pulmonary disease, unspecified; E78.2 Mixed hyperlipidemia; R60.9 Edema, unspecified; J38.3 Other diseases of vocal cords; Z87.891 Personal history of nicotine dependence; Z91.199 Patient's noncompliance with other medical treatment and regimen due to unspecified reason; H04.122 Dry eye syndrome of left lacrimal gland
CPT/HCPCS: 36415; 80053; 84439; 84443; 85025

== ENCOUNTER → 2025-05-28 10:41 | Outpatient (RCR) | payer MEDICARE, MEDICAID, SELFPAY ==
--- NOTE | 2025-05-28 12:58 | HMH.OPLYMPH ---
Rehab Inpt Wound Evaluation Rehab OP Lymphedema Evaluation Start: 05/28/25 12:40 Freq: Status: Active Protocol: Document 05/28/25 12:41 THA (Rec: 05/28/25 12:58 PHORKAILYN [id number]) E-signed By Glenroy Coughlin, PT Subjective/History History History This is the initial PT lymphedema eval for Sadiq Israel , 70 yowm who presents with c/o increased B LE lymphedema, L worse than R, x ~ 2 yrs with insidious onset of symptoms. 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 He reports no c/o pain or tenderness in his legs, but does have difficulty with ambulation and ADLs due to increased edema. Subjective Subjective Pain currently 0/10, 0/4 TTP noted to B lower legs. Moderate B lower leg blanchable erythema noted this date with L lower leg papillomatosis and hyperkeratosis noted. 3+ pitting edema to B lower legs. Lymphedema Eval Classification of Lymphedema Secondary Lymphedema Yes Stemmer's sign Stemmer's Sign yes Stage of Lymphedema Lymphedema stages Stage II (Pitting edema, increased fibrosis w/ decreased pitting) Skin Changes Dry Skin Yes Skin Folds Yes Hyperkeratosis Yes Papillomatosis Yes Redness Yes Brittle Uneven Nails Yes Discoloration of Yes Skin Other Changes Yes Pain Scale Pain Scale (0-10) 0 Affected Extremities Areas Affected by Right Lower Extremity,Left Lower Extremity Lymphedema/Edema Lower Extremity Measurements Right MTP Measurement (cm) 23.0 Heel Measurement (cm 35.4 ) 10 cm Proximal to 29.6 Lateral Malleoli Measurement (cm) 20 cm Proximal to 35.0 Lateral Malleoli Measurement (cm) 30 cm Proximal to 35.1 Lateral Malleoli Measurement (cm) 40 cm Proximal to 0 Lateral Malleoli Measurement (cm) 50 cm Proximal to 0 Lateral Malleoli Measurement (cm) 60 cm Proximal to 0 Lateral Malleoli Measurement (cm) Lower Extremity 158.1 Measurement Total ( cm) Left MTP Measurement (cm) 26.1 Heel Measurement (cm 36.3 ) 10 cm Proximal to 33.3 Lateral Malleoli Measurement (cm) 20 cm Proximal to 37.2 Lateral Malleoli Measurement (cm) 30 cm Proximal to 38.7 Lateral Malleoli Measurement (cm) 40 cm Proximal to 0 Lateral Malleoli Measurement (cm) 50 cm Proximal to 0 Lateral Malleoli Measurement (cm) 60 cm Proximal to 0 Lateral Malleoli Measurement (cm) Lower Extremity 171.6 Measurement Total ( cm) Manual Lymphatic Drainage Treatment Area MLD Treatment Area Right Lower Extremity,Left Lower Extremity Wound Problems/Impairments Impairments Problems/ Impaired Endurance,Impaired Gait Pattern,Impaired Impairmments Walking,Impaired Standing,Impaired Dressing,Impaired Shower/Bathing,Impaired Household Care,Increased Edema, Lymphedema Present,Impaired Self Care/Self Management Prognosis Rehab Potential Good Comment Skilled therapy is indicated to aid reduction of overall B LE lymphedema, improve skin condition to B LE , and improve pt ability to perform ADLs in order to increase pt QOL. Clinical Impression Consistent with Yes Diagnosis Short Term Goals Number of Weeks 2 Decrease Edema Yes: 2+ pitting edema to B lower legs Patient to Yes Understand Lymphedema Treatment and Exercises Decrease Girth Yes: B LE total by 5 cm ea Measurments by (cm) Industrial Chemistry Teacher Goals Number of Weeks 4 Decrease Edema Yes: 1+ pitting edema to B lower legs Decrease Lymphedema Yes: Minimal hyperkeratosis to L lower leg Patient to be Ind w/ Yes HEP Decrease Girth Yes: L LE total by 20 cm Measurments by (cm) Outpatient Therapy Plan of Care Treatment Plan May Include Therapeutic Exercise Yes Including Home Exercise Program Manual Therapy Yes Techniques Neuromuscular Re- Yes education Therapeutic Yes Activities to Return to Previous Functional/Work Level ADL/Self Care Yes Education Orthotics/Bracing/ Yes Splinting Manual Lymphatic Yes Drainage Eval/Re-Eval Yes Frequency Times per week 2 Duration Number of Weeks 4 Addendums This patient is a No candidate for social or vocational rehab ? Patient/Guardian Yes verbally acknowledges understanding of treatment program and consents to further treatment? Patient/Guardian Yes verbally acknowledges understanding of diagnosis, prognosis and goals for treatment? Eval Complexity PT Charges 59207 - High Complexity PHYSICIAN CERTIFICATION: I certify the specified therapy services for Sadiq Israel are required, authorized, and reviewed every 30 days.
== END ==
LOC: PT 10:41
PROVIDERS: PCP Nurse Practitioner Family; Visit Provider Internal Medicine Adolescent Medicine
DX: R60.9 Edema, unspecified (principal)
CPT/HCPCS: 97163

== ENCOUNTER 2025-07-01 15:00 | Outpatient (RCR) | payer MEDICARE, MEDICAID, SELFPAY ==
--- NOTE | 2025-07-01 16:23 | HMH.RHREAS ---
Rehab Reassessment Rehab OP Re-assessment Start: 06/07/25 13:25 Freq: Status: Active Protocol: Document 07/01/25 16:08 THA (Rec: 07/01/25 16:22 PHOGAY [id number]) E-signed By Glenroy Coughlin, PT Rehab Re-assessment Subjective Subjective Pt reports no c/o pain or tenderness to palpation in the L LE at this time. He reports, My foot swelled a little, but my leg feels a whole lot better. I haven't had any compression on it for a few days. Objective Objective Notes Circumferential measurements: L LE total is 163.6 which is -8.0 cm since IE. TTP: 0/4 L lower legg Edema: 1+ pitting edema throughout L foot only this date. Assessment Progress Assessment Progressing as Expected Assessment Notes Pt has shown significant improvement in overall edema with considerable reduction in pitting edema and hyperkeratosis of the L LE. He has compression garments for home use and has expressed independence with his HEP for management of edema. He is appropriate to d/c from outpatient services at this time to maintain his HEP as instructed. Lymphedema Patient Goals Lymphedema Short No new goals needed as pt will d/c from therapy at this Term Patient Goals time. He has met goals for reduction of pitting edema, reduction of circumferential measurements, and understanding of home lymphedema management. Plan Plan Pt will d/c from therapy services after this date. No continued treatment necessary. Frequency of Therapy 0 Duration of Therapy 0 Therapeutic Exercise Yes Including Home Exercise Program Therapeutic Yes Activities to Return to Previous Functional/Work Level Orthotics/Bracing/ Yes Splinting Manual Lymphatic Yes Drainage Eval/Re-Eval Yes Time and Billing Re-Eval Time 14 Re-Eval Billing 0 Units Charge for PT No reassessment? PHYSICIAN CERTIFICATION: I certify the specified therapy services for Sadiq Israel are required, authorized, and reviewed every 30 days.
== END 2025-07-01 23:59 | disposition home or self-care (01) ==
LOC: PT 15:00
PROVIDERS: PCP Nurse Practitioner Family; Visit Provider Internal Medicine Adolescent Medicine
DX: R60.9 Edema, unspecified (principal)
CPT/HCPCS: 97140

== ENCOUNTER 2025-07-20 08:08 | Outpatient (CLI) | payer MEDICARE, MEDICAID, SELFPAY ==
--- NOTE | 2025-07-20 08:10 | CT_ITS ---
FINAL REPORT TECHNIQUE: Thin section axial CT with coronal and sagittal reconstruction without IV contrast This study was performed with techniques to keep radiation doses as low as reasonably achievable, (ALARA). Individualized dose reduction techniques using automated exposure control or adjustment of mA and/or kV according to the patient's size were employed. 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 facial drooping on his left side. COMPARISON: None FINDINGS: CT MAXILLOFACIAL AND SINUSES: There is minimal mucosal thickening in the maxillary sinuses bilaterally. The ostiomeatal complexes are clear. There is a polypoid mass in the right nasal cavity along the right middle turbinate which measures up to 17 x 9 x 13 mm in size. There is S shaped mild deviation of the nasal septum. The remainder of the paranasal sinuses are unremarkable. There is a remote fracture of the left medial orbital wall. There are periapical lucencies in the maxilla bilaterally, that are likely secondary to odontogenic disease. IMPRESSION: 1. Polypoid mass in the right nasal cavity as described. 2. No air-fluid levels are identified. 3. 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 Reviewed, Interpreted and Dictated by Zurdo Pardo MD Transcribed by Mirella Torres Authenticated and [facility]
--- OUTSIDE RECORDS SUMMARY | 2025-07-20 08:11 | XMS_ITS | Encounter Summary ---
Author Organization [employer] ([place], [place], [place], [place]) Address [address] [place] [address] Care Team Providers Care Sales Driver Name Role Phone Unavailable Primary Care Provider Unavailabl e Encounter Details Date Type Department Care Team (Late st Contact Info) Description 05/03/2021 Transcribed Document [facility] Family Medicine [facility] [place] [address] ProviderLatonia MD [facility] [place] [address] Social History Tobacco Use Types [...] - 05/03/2021 9:16 AM CDT Patient: SADIQ ISRAEL Age: 66 Years Sex: Male : 1955 Chief Complaint Transferred from OSH for possible ERCP with concern for malignant biliary obstruction Reason for Consultation Mass on ampulla History of Present Illness Mr. Israel is a 66-year-old male with history of [...] performed by Lisa Euceda PA-C and Dr. Israel. I, Suyapa Israel, have personally interviewed the patient, reviewed the [...] PRN heparin, 5000 Units= 1 mL, SubCutaneous, [id number] lisinopril, 10 mg= 1 Tab, Oral, Daily [...] Lymph # 1.33 x10(3)/uL 05/03/2021 02:06 EDT [place] % 6.4 % 05/03/2021 02:06 EDT [place] # 0.69 K/uL 05/03/2021 02:06 EDT Eos [...] Appearance CLEAR2 05/03/2021 05:30 EDT Urine Specific [place] *1.039 05/03/2021 05:30 EDT Urine pH Dipstick [...]
--- OUTSIDE RECORDS SUMMARY | 2025-07-20 08:11 | XMS_ITS | Encounter Summary ---
Author Organization [employer] ([place], [place], [place], [place]) Address [address] [place] [address] Care Team Providers Care Window And Siding Craftsman Name Role Phone Unavailable Primary Care Provider Unavailabl e Encounter Details Date Type Department Care Team (Late st Contact Info) Description 05/03/2021 Transcribed Document [facility] [place] [facility] [place] [address] ProviderLatonia MD [facility] [address] Social History Tobacco Use Types [...]
--- OUTSIDE RECORDS SUMMARY | 2025-07-20 08:11 | XMS_ITS | Encounter Summary ---
Author Organization [employer] ([place], [place], [place], [place]) Address [address] [place] [address] Care Team Providers Care Lead Electrical Controls Engineer Name Role Phone Unavailable Primary Care Provider Unavailabl e Encounter Details Date Type Department Care Team (Late st Contact Info) Description 05/03/2021 Transcribed Document [facility] [place] [facility] [place] [address] ProviderLatonia MD [facility] [place] [address] Social History Tobacco Use Types [...]
--- OUTSIDE RECORDS SUMMARY | 2025-07-20 08:12 | XMS_ITS | Encounter Summary ---
Author Organization [employer] ([place], [place]) Address [address] [place] [address] Care Team Providers Care Pastoral Worker Name Role Phone Unavailable Primary Care Provider Unavailabl e Encounter Details Date Type Department Care Team (Late st Contact Info) Description 05/07/2021 Transcribed Document [facility] Family Medicine [place] [address] ProviderLatonia [place] [facility] [place] [address] Social History Tobacco Use Types Packs/Day Years Used Date Smoking Tobacco: Never Assessed Sex and Gender Information Value Date Recorded Sex Assigned at Not on file Legal Sex Male 7:22 PM CDT Gender Identity Not on file Sexual Orientation Not on file documented as of this encounter Miscellaneous Notes * Cerner Conversion Note - Historical ProviderMD - 05/07/2021 2:00 AM CDT Asbestos Brake Lining Finisher Helper Details Entered On: 05/07/2021 1:44 EDT Performed [...]
--- OUTSIDE RECORDS SUMMARY | 2025-07-20 08:12 | XMS_ITS | Encounter Summary ---
Author Organization [employer] ([place]) Address [address] [place] [address] Care Team Providers Care Bottomer Operator Name Role Phone Unavailable Primary Care Provider Unavailabl e Encounter Details Date Type Department Care Team (Late st Contact Info) Description 05/06/2021 Transcribed Document [facility] Radiology [address] [place] [address] Steve Kumar MD [address] [place] [address] [address] Social History Tobacco Use Types [...] Rocephin: 1 Gram, 100 mL/Hr, IV Piggyback, [id number] Tylenol: 500 mg, Oral, Q6H Tylenol: 650 [...] Root Block, 1-Time heparin: 5,000 Units, SubCutaneous, [id number] lisinopril: 10 mg, Oral, Daily morphine: 2 [...] Piggyback, PREOP cefTRIAXone 1 Gram, IV Piggyback, [id number] cloNIDine 50 mcg + dexAMETHasone 4 mg [...] mL inj 5,000 Units 1 mL, SubCutaneous, [id number] lisinopril 10 mg tab 10 mg 1 [...] At risk for sleep apnea / IMO [id number] / Confirmed, Active Problems (5) At risk [...] 05 14:06) Radiology Results (Last 48 hours) [id number] -- 05/03/2021 00:04 CR Ercp Biliary Duct [...] 05) . Radiology Results (Last 48 hours) [id number] -- 05/03/2021 00:04 CR Ercp Biliary Duct [...]
--- OUTSIDE RECORDS SUMMARY | 2025-07-20 08:12 | XMS_ITS | Encounter Summary ---
Author Organization [employer] ([place], [place], [place], [place]) Address [address] [place] [address] Care Team Providers Care Bibliographic Services Specialist Name Role Phone Unavailable Primary Care Provider Unavailabl e Encounter Details Date Type Department Care Team (Late st Contact Info) Description 05/07/2021 Transcribed Document [facility] Radiology [address] [place] [address] Georgiana Cheng MD [address] [place] [address] [address] [id number] Social History Tobacco Use Types Packs/Day Years Used Date Smoking Tobacco: Never Assessed Sex and Gender Information Value Date Recorded Sex Assigned at Not on file Legal Sex Male 7:22 PM CDT Gender Identity Not on file Sexual Orientation Not on file documented as of this encounter Miscellaneous Notes * Cerner Conversion Note - Georgiana Cheng MD - 05/07/2021 1:14 PM EDT Patient: SADIQ ISRAEL Age: 66 Years [...]
--- OUTSIDE RECORDS SUMMARY | 2025-07-20 08:12 | XMS_ITS | Encounter Summary ---
Author Organization [employer] ([place]) Address [address] [place] [address] Care Team Providers Care Dicer Machine Operator Name Role Phone Unavailable Primary Care Provider Unavailabl e Encounter Details Date Type Department Care Team (Late st Contact Info) Description 05/07/2021 Transcribed Document [facility] [place] [facility] [place] [address] ProviderLatonia MD [facility] [place] [address] Social History Tobacco Use Types [...]
--- OUTSIDE RECORDS SUMMARY | 2025-07-20 08:12 | XMS_ITS | Encounter Summary ---
Author Organization [employer] ([place], [place], [place], [place]) Address [address] [place] [address] Care Team Providers Care Labor Relations Or Personnel Negotiator Name Role Phone Unavailable Primary Care Provider Unavailabl e Encounter Details Date Type Department Care Team (Late st Contact Info) Description 05/07/2021 Transcribed Document [facility] [place] [facility] [place] [address] ProviderLatonia MD [facility] [place] [address] Social History Tobacco Use Types [...] On: 05/07/2021 14:00 EDT by JASON CHRISTIANSON, Music Therapy Specialist-Talking Books Library Clerk Final Discharge Planning Transportation Needs : Family/Friend Patient/Family Notified of Plan : Yes Support Person/Pt Rep Notified of Plan : Yes Is Patient Ready for Discharge? : Yes Physician Notified Patient is Ready for Discharge? : Yes Discharge To Care Management : SNF with Medicare Certification-03 JASON CHRISTIANSON, Music Therapy Specialist-Talking Books Library Clerk - 05/07/2021 14:03 EDT Discharge Arrangements : Patient Post-Acute Information Patient Name: SADIQ ISRAEL Gender: Male : [birth year] Age: 66 Years No Post-Acute Placement(s) Listed No Post-Acute Service(s) Listed No Curaspan Referral(s) Listed Patient Offered Choice/Affiliations Explained : Yes Designation of Choice Signed : Yes Follow Up Appointment Scheduled : No Is Patient High/Moderate Readmission Risk? : No JASON CHRISTIANSON, Music Therapy Specialist-Talking Books Library Clerk - 05/07/2021 14:00 EDT Final Narrative Note Final Narrative Note : Patient is a moderate readmission risk. Patient is discharging to [facility]. Family will transport. No other needs identified. DC summary can be faxed to [phone]. Report can be called to [phone]. JASON CHRISTIANSON Music Therapy Specialist-Talking Books Library Clerk - 05/07/2021 14:03 EDT documented in this encounter Plan of Treatment Not on file documented as of this encounter Visit Diagnoses Not on filedocumented in this encounter
--- OUTSIDE RECORDS SUMMARY | 2025-07-20 08:12 | XMS_ITS | Encounter Summary ---
Author Organization [employer] ([place]) Address [address] [place] [address] Care Team Providers Care Manager Configuration Name Role Phone Unavailable Primary Care Provider Unavailabl e Encounter Details Date Type Department Care Team (Late st Contact Info) Description 05/07/2021 Transcribed Document [facility] [place] [facility] [place] [address] ProviderLatonia MD [facility] [place] [address] Social History Tobacco Use Types [...] order was forthcoming prior to discharge to [facility]. MARIELLA ESCALANTE, PT - 05/07/2021 13:41 EDT Surgical Nurse Goals Mobility/Bed Mobility LTG PT Grid Goal [...] Electronically signed by Abelino [facility] Conversion Email Developer Cerner at 02/22/2023 8:33 PM CDT documented in this encounter Plan of Treatment Not on file documented as of this encounter Visit Diagnoses Not on filedocumented in this encounter
--- OUTSIDE RECORDS SUMMARY | 2025-07-20 08:12 | XMS_ITS | Encounter Summary ---
Author Organization [employer] ([place], [place]) Address [address] [place] [address] Care Team Providers Care Vp Director Of Finance Name Role Phone Unavailable Primary Care Provider Unavailabl e Encounter Details Date Type Department Care Team (Late st Contact Info) Description 05/07/2021 Transcribed Document [facility] [place] [facility] [place] [address] ProviderLatonia MD [facility] [place] [address] Social History Tobacco Use Types [...]
--- OUTSIDE RECORDS SUMMARY | 2025-07-20 08:13 | XMS_ITS | Encounter Summary ---
Author Organization [employer] ([place]) Address [address] [place] [address] Care Team Providers Care Project Development Coordinator Name Role Phone Unavailable Primary Care Provider Unavailabl e Encounter Details Date Type Department Care Team (Late st Contact Info) Description 05/06/2021 Transcribed Document [facility] [place] Medicine [facility] [place] [address] ProviderLatonia MD [facility] [place] [address] Social History Tobacco Use Types [...] change in location/level of care Rapid Response Project Development Coordinator #1 : LAURITA MASTERSON, RN LAURITA MASTERSON, RN - 05/06/2021 6:15 EDT Electronically signed by Abelino [facility] Conversion Manager Of Allied Health Services Cerner at 02/22/2023 8:37 PM CDT documented in this encounter Plan of Treatment Not on file documented as of this encounter Visit Diagnoses Not on filedocumented in this encounter
--- OUTSIDE RECORDS SUMMARY | 2025-07-20 08:13 | XMS_ITS | Encounter Summary ---
Author Organization [employer] ([place], [place]) Address [address] [place] [address] Care Team Providers Care Crew Boat Operator Name Role Phone Unavailable Primary Care Provider Unavailabl e Encounter Details Date Type Department Care Team (Late st Contact Info) Description 05/06/2021 Transcribed Document [facility] [place] [facility] [place] [address] ProviderLatonia MD [facility] [place] [address] Social History Tobacco Use Types [...]
--- OUTSIDE RECORDS SUMMARY | 2025-07-20 08:13 | XMS_ITS | Encounter Summary ---
Author Organization [employer] ([place]) Address [address] [place] [address] Care Team Providers Care Inking Machine Tender Name Role Phone Unavailable Primary Care Provider Unavailabl e Encounter Details Date Type Department Care Team (Late st Contact Info) Description 05/06/[address] [facility] [place] Medicine [facility] [place] [address] ProviderLatonia MD [facility] [place] [address] Social History Tobacco Use Types [...] - Surgical Heparin 5,000 Units, SubCutaneous, Inj, [id number], Routine, Start 05/03/21 6:00:00 EDT, 05/03/21 1:32:00 [...] PRN heparin, 5000 Units= 1 mL, SubCutaneous, [id number] lisinopril, 10 mg= 1 Tab, Oral, Daily [...]
--- OUTSIDE RECORDS SUMMARY | 2025-07-20 08:14 | XMS_ITS | Encounter Summary ---
Author Organization [employer] ([place]) Address [address] [place] [address] Care Team Providers Care Institution Director Name Role Phone Unavailable Primary Care Provider Unavailabl e Encounter Details Date Type Department Care Team (Late st Contact Info) Description 05/05/2021 Transcribed Document [facility] [place] Family Medicine [facility] [place] [address] ProviderLatonia MD [address] [place] [address] Social History Tobacco Use Types Packs/Day [...] 16:08 EDT by ENRIKE ALBARRAN RN - Director Outpatient ServicesSoftware Sales Representative Progress Note Discharge Arrangements : Patient Post-Acute Information Patient Name: SADIQ ISRAEL Gender: Male : [birth year] Age: 66 Years No Post-Acute Placement(s) Listed No Post-Acute Service(s) Listed No Curaspan Referral(s) Listed Discharge Options Discussed with Patient : Home Health Is the Patient Meeting Medical Necessity : Yes ENRIKE ALBARRAN, RN - Director Outpatient Services - 05/05/2021 16:08 EDT Narrative Progress Note Narrative Progress Note : RRS High Boost 3 Day 3/3 Patient has been accepted by [facility]. Patient had a lap cassidy today. Discharge pending surg. plan. IM and choice needed at discharge. DCP: [facility] Historical Progress Note : Amirah from [facility] talked with the patient and he agreed to rehab there. DCP: [facility] ENRIKE ALBARRAN RN - Director Outpatient Services - 05/04/21 14:50:48 RRS Low Boost 2 Day 2 Patient had an ERCP/EGD today. Scheduled for a lap cassidy tomorrow. Patient lives in the basement at his mother's home. Family is concerned that he will not be able to care for himself at home and his mother is unable to assist. has faxed his packet to [facility] SNFs . Talked with Rand from [facility]. DCP: home vs SNF ENRIKE ALBARRAN RN - Director Outpatient Services - 05/04/21 13:58:57 ENRIKE ALBARRAN RN - Director Outpatient Services - 05/05/2021 16:08 EDT documented in this encounter Plan of Treatment Not on file documented as of this encounter Visit Diagnoses Not on filedocumented in this encounter
--- OUTSIDE RECORDS SUMMARY | 2025-07-20 08:14 | XMS_ITS | Encounter Summary ---
Author Organization [employer] ([place]) Address [address] [place] [address] Care Team Providers Care Force Dispatcher Name Role Phone Unavailable Primary Care Provider Unavailabl e Encounter Details Date Type Department Care Team (Late st Contact Info) Description 05/06/2021 Transcribed Document [facility] [place] [facility] [place] [address] ProviderLatonia MD [facility] [place], [place] [address] Social History Tobacco Use Types Packs/Day Years [...]
--- OUTSIDE RECORDS SUMMARY | 2025-07-20 08:14 | XMS_ITS | Encounter Summary ---
Author Organization [employer] ([place], [place]) Address [address] [place] [address] Care Team Providers Care Middle School Librarian Name Role Phone Unavailable Primary Care Provider Unavailabl e Encounter Details Date Type Department Care Team (Late st Contact Info) Description 05/06/2021 Transcribed Document [facility] [place] [facility] [place] [address] ProviderLatonia MD [facility] [place] [address] Social History Tobacco Use Types Packs/Day Years Used Date Smoking Tobacco: Never Assessed Sex and Gender Information Value Date Recorded Sex Assigned at Not on file Legal Sex Male 7:22 PM CDT Gender Identity Not on file Sexual Orientation Not on file documented as of this encounter Miscellaneous Notes * [employer]ner Conversion Note - Historical ProviderMD - 05/06/2021 2:00 AM CDT Senior Gamemaster Details Entered On: 05/06/2021 1:02 EDT Performed [...]
--- OUTSIDE RECORDS SUMMARY | 2025-07-20 08:14 | XMS_ITS | Encounter Summary ---
Author Organization [employer] ([place]) Address [address] [place] [address] Care Team Providers Care Post Anesthesia Nurse Name Role Phone Unavailable Primary Care Provider Unavailabl e Encounter Details Date Type Department Care Team (Late st Contact Info) Description 05/06/2021 Transcribed Document [facility] [place] [facility] [place] [address] ProviderLatonia MD [address] [place] [address] Social History Tobacco Use Types Packs/Day [...]
--- OUTSIDE RECORDS SUMMARY | 2025-07-20 08:14 | XMS_ITS | Encounter Summary ---
Author Organization [facility] Address [address] [place] [address] Care Team Providers Care Corner Cutter Machine Operator Name Role Phone Renetta Cole WASTE RECLAIMER Primary Care Provider [phone] Encounter Details Date Type Department Care Team (Late st Contact Info) Description 06/24/2025 Telephone [facility] banking supervisor [facility] [address] [place] [address] [address] [place] [address] Gilbert, Surgeon, [address] [place] [address] Social History Tobacco Use Types Packs/Day Years Used Date Smoking Tobacco: Never Assessed Sex and Gender Information Value Date Recorded Sex Assigned at Not on file Legal Sex Male 7:55 PM EDT Gender Identity Not on file Sexual Orientation Not on file documented as of this encounter Miscellaneous Notes * Telephone Encounter - Elina Moon - 06/24/2025 12:06 PM EDT Called pt to make him aware of the fee for his appt as we are not in network with his insurance. Left vm to call back documented in this encounter Plan of Treatment Not on file documented as of this encounter Visit Diagnoses Not on filedocumented in this encounter Care Teams Corner Cutter Machine Operator Relationship Specialty Start Date End Date Renetta Cole APRN [address] [place] [address] PCP - General 03/17/21 documented as of this encounter
--- OUTSIDE RECORDS SUMMARY | 2025-07-20 08:14 | XMS_ITS | Encounter Summary ---
Author Organization [employer] ([place]) Address [address] [place] [address] Care Team Providers Care Net C Developer Name Role Phone Unavailable Primary Care Provider Unavailabl e Encounter Details Date Type Department Care Team (Late st Contact Info) Description 05/06/2021 Transcribed Document [facility] [place] [facility] [place] [address] ProviderLatonia MD [address] [place] [address] Social History Tobacco Use Types Packs/Day [...]
--- OUTSIDE RECORDS SUMMARY | 2025-07-20 08:15 | XMS_ITS | Encounter Summary ---
Author Organization Healthcare Address [address] [place] [address] Care Team Providers Care Automotive Glass Installer Name Role Phone Renetta Cole FLIGHT PURSER Primary Care Provider Encounter Details Date Type Department Care Team (Late st Contact Info) Description 06/15/[address] [facility] [address] [place] [address] [address] [place] [address] Gilbert, Surgeon, [address] [place] [address] Social History Tobacco Use Types Packs/Day Years Used Date Smoking Tobacco: Never Assessed Sex and Gender Information Value Date Recorded Sex Assigned at Not on file Legal Sex Male 7:55 PM EDT Gender Identity Not on file Sexual Orientation Not on file documented as of this encounter Miscellaneous Notes * Telephone Encounter - Hasmukh Hodges - 06/15/2025 11:09 AM EDT Attempted to contact pt to inform that their appointment on 07/14 was moved from 1:30 pm to 1:15 pm.Call could not go through at this time. documented in this encounter Plan of Treatment Not on file documented as of this encounter Visit Diagnoses Not on filedocumented in this encounter Care Teams Automotive Glass Installer Relationship Specialty Start Date End Date Renetta ColeMARLIN [address] [place] [address] PCP - General 03/17/21 documented as of this encounter
--- OUTSIDE RECORDS SUMMARY | 2025-07-20 08:15 | XMS_ITS | Encounter Summary ---
Author Organization [employer] ([place], [place], [place], [place]) Address [address] [place] [address] Care Team Providers Care Hospice Consultant Name Role Phone Unavailable Primary Care Provider Unavailabl e Encounter Details Date Type Department Care Team (Late st Contact Info) Description 05/05/2021 Transcribed Document [facility] [place] Family Medicine [facility] [place] [address] ProviderLatonia MD [facility] [place], [place] [id number] Social History Tobacco Use Types Packs/Day Years [...] Spiritual Care Spiritual Care Referred by : Crop Consultant initiated Reason for Visit : Initial Ministry Provided to : Patient Intervention/Comment/Summary Points : Prov. pre-proc. prayer SHERRY HERNÁNDEZ Chaplain - 05/05/2021 5:39 EDT documented in this encounter Plan of Treatment Not on file documented as of this encounter Visit Diagnoses Not on filedocumented in this encounter
--- OUTSIDE RECORDS SUMMARY | 2025-07-20 08:15 | XMS_ITS | Encounter Summary ---
Author Organization [employer] ([place], [place], [place], [place]) Address [address] [place] [address] Care Team Providers Care Complaint Analyst Name Role Phone Unavailable Primary Care Provider Madison cruz Encounter Details Date Type Department Care Team (Late st Contact Info) Description 05/05/2021 Transcribed Document [facility] [place] Family Medicine [place] [address] ProviderLatonia MD [address] [place] [address] Social History Tobacco Use Types Packs/Day [...]
--- OUTSIDE RECORDS SUMMARY | 2025-07-20 08:15 | XMS_ITS | Encounter Summary ---
Author Organization [employer] ([place], [place]) Address [address] [place] [address] Care Team Providers Care Historian Research Assistant Name Role Phone Unavailable Primary Care Provider Unavailabl e Encounter Details Date Type Department Care Team (Late st Contact Info) Description 05/05/2021 Transcribed Document [facility] [place] Family Medicine [facility] [address] ProviderLatonia MD [address] [place] [address] Social History Tobacco Use Types Packs/Day Years Used Date Smoking Tobacco: Never Assessed Sex and Gender Information Value Date Recorded Sex Assigned at Not on file Legal Sex Male 7:22 PM CDT Gender Identity Not on file Sexual Orientation Not on file documented as of this encounter Miscellaneous Notes * Cerner Conversion Note - Latonia ProviderMD - 05/05/2021 1:05 PM CDT [facility] Main OR IntraOp Summary Primary Physician: SUSANA MARSHALL MD-SUR Finalized Date/Time: 05/07/21 12:51:32 Pt. Name: TIFFANI ISRAEL /Sex: 1955 Male Med Rec #: [id number] Physician: GUILLAUME DIXON MD Financial #: [id number] Pt. Type: I Room/Bed: [facility] Admit/Disch: 05/03/21 00:04:00 - Institution: [facility] IntraOp Case Attendance Entry 1 Entry 2 Entry 3 Case Attendee SUSANA MARSHALL MD-Suzie Calvillo RN Marshall, Pechie, RN Role Performed Surgeon/Proceduralist, Relay Telegrapher, First Relay Telegrapher, Second First Time In 05/05/21 12:45:00 05/05/21 12:45:00 05/05/21 12:45:00 Time Out 05/05/21 14:04:00 05/05/21 14:04:00 05/05/21 14:04:00 Procedure Cholecystectomy Robotic Cholecystectomy Robotic Cholecystectomy Robotic Other Attendee ORIENT Superficial Wound Closed By: Last Modified By: Savana Chisholm RN Marshall, Pechie, Savana Falk RN 05/05/21 14:05:02 05/05/21 14:05:02 05/05/21 12:28:58 Entry 4 Entry 5 Entry 6 Case Attendee Dulce Benjamin Christman, Jacob, HAYDE GONGORA, Tutoring Clinician [facility] SYNCHRO ASSEMBLER, CHEF'S ASSISTANT Role Performed Scrub, First Scrub, Second CHEF'S ASSISTANT/Nurse Relocation Services Specialist Time In 05/05/21 12:45:00 05/05/21 12:45:00 05/05/21 12:45:00 Time Out 05/05/21 14:04:00 05/05/21 14:04:00 05/05/21 14:04:00 Procedure Cholecystectomy Robotic Cholecystectomy Robotic Cholecystectomy Robotic Other Attendee ORIENT Superficial Wound Closed By: Last Modified By: Savana Chisholm RN Marshall, Pechie, RN Marshall, Pechie, RN 05/05/21 14:05:02 05/05/21 12:28:58 05/05/21 14:05:02 Entry 7 Entry 8 Entry 9 Case Attendee IRON THOMAS, RUFUS WISE, RUBEN Yung, CSTFA MD-ANS Emp Student Nurse Relocation Services Specialist Role Performed Anesthesiologist of CHEF'S ASSISTANT/Nurse Relocation Services Specialist Hand Engraver, First Record Time In 05/05/21 12:45:00 05/05/21 12:45:00 05/05/21 12:45:00 Time Out 05/05/21 14:04:00 05/05/21 14:04:00 05/05/21 14:04:00 Procedure Cholecystectomy Robotic Cholecystectomy Robotic Cholecystectomy Robotic Other Attendee CHEF'S ASSISTANT STUDENT Superficial Wound Closed By: Last Modified By: Savana Chisholm RN Marshall, Pechie, RN Marshall, Pechie, RN 05/05/21 14:05:02 05/05/21 12:30:25 05/05/21 14:05:02 Entry 10 Case Attendee DEEPAK FISCHER SSI Role Performed Keno Clerk, Ancillary Time In 05/05/21 12:45:00 Time Out 05/05/21 14:04:00 Procedure Cholecystectomy Robotic Other Attendee Superficial Wound Closed By: Last Modified By: Savana Chisholm RN 05/05/21 14:05:02 [facility] IntraOp Case Attendance Audit 05/05/21 14:05:02 Kiln Cleaner: [id number] Modifier: [id number] <+> Time In 1 <+> Time [...] 10 <*> Procedure Cholecystectomy Robotic 05/05/21 12:30:25 Kiln Cleaner: [id number] Modifier: [id number] <+> 6 Case Attendee <+> 6 Role Performed <+> 6 Procedure <+> 7 Case Attendee <+> 7 Role Performed <+> 7 Procedure <+> 8 Case Attendee <+> 8 Role Performed <+> 8 Procedure <+> 8 Other Attendee <+> 9 Case Attendee <+> 9 Role Performed <+> 9 Procedure <+> 10 Case Attendee <+> 10 Role Performed <+> 10 Procedure [facility] IntraOp Case Times Entry 1 Patient In Room Time 05/05/21 12:45:00 Out Room Time 05/05/21 14:04:00 Anesthesia Start Time 05/05/21 12:45:00 Stop Time 05/05/21 14:04:00 Surgery / Procedure Times Start Time 05/05/21 13:05:00 Stop Time 05/05/21 13:57:00 Last Modified By: Savana Chisholm RN 05/05/21 13:57:56 [facility] IntraOp Case Times Audit 05/05/21 14:04:53 Kiln Cleaner: [id number] Modifier: [id number] <+> 1 Out Room Time <+> 1 Stop Time 05/05/21 13:57:56 Kiln Cleaner: [id number] Modifier: [id number] <+> 1 Stop Time 05/05/21 13:05:23 Kiln Cleaner: [id number] Modifier: [id number] <+> 1 Start Time [facility] IntraOp Cautery Entry 1 ESU Identification Cautery Type Monopolar ESU ID Number [id number] ID Type Hospital Number Cautery Settings Cut Setting 4 Coag Setting 4 Bipolar Setting 3 ESU Grounding Pad Ground Pad Type Adult Grounding Pad Suzie Drake RN Applied By Grounding Pad Site Warm, dry and intact Skin Condition Before Cautery Grounding Pad Site Warm, dry and intact Skin Condition After Cautery Last Modified By: Svaana Chisholm RN 05/05/21 12:29:10 [facility] IntraOp Communication Entry 1 Communication To Other surgeons Comment NO CONTACT AVAILABLE Communication By Suzie Drake RN Date and Time 05/05/21 13:10:00 Last Modified By: Savana Chisholm RN 05/05/21 13:13:45 [facility] IntraOp Counts Verification Entry 1 Procedure Cholecystectomy Robotic Count Info Count Type Sponge, Sharps, Instrument, Miscellaneous Counts Verification Baseline/pre-procedure Sequence Counts Performed By Count Performed By Gab Weeks CARE (Scrub) [facility] Count Performed By Suzie Drake RN (RN) Last Modified By: Savana Chisholm RN 05/05/21 12:29:24 [facility] IntraOp Counts Final Entry 1 Procedure Cholecystectomy Robotic Final Count Info Count Type Sponge, Sharps, Miscellaneous Counts Verification Skin Closure/end of Sequence procedure Count Results Correct, surgeon notified Counts Performed By Count Performed By Gab Weeks CARE (Scrub) [facility] Count Performed By Suzie Drake RN (RN) Last Modified By: Savana Chisholm RN 05/05/21 13:51:09 [facility] IntraOp Counts Final Audit 05/05/21 13:51:09 Kiln Cleaner: [id number] Modifier: [id number] Entry 1 was deleted. Higher numbered entries shifted one position to fill the gap. <-> 1 Procedure Cholecystectomy Robotic <-> 1 Count Type Sponge, Sharps, Miscellaneous <-> 1 Count Results Correct, surgeon notified <-> 1 Count Performed By (Scrub) <-> 1 Count Performed By (RN) <-> 1 Counts Verification Sequence Skin Closure/end of procedure [facility] IntraOp Cultures and Spec Summary Entry 1 Cultrures and Specimens Specimen Ordered: Yes Test(s) Routine/Path-Lab Requested/Final Disposition Last Modified By: Savana Chisholm RN 05/05/21 12:30:53 [facility] IntraOp Delays Entry 1 Delay Reason Ancillary department delay Duration 20 Minute(s) Comment TAP BLOCK Last Modified By: Savana Chisholm RN 05/05/21 13:01:50 [facility] IntraOp Departure from OR Entry 1 Integumentary Assessment Integumentary WDL Assessment WDL Transfer/Handoff Transfer to PACU Phase I Handoff Method Bedside/Face to face, Phone call, Online nursing summary Post-op Transport Stretcher/Gurney Via Patient Transport HAYDE BARNEY, Accompanied by MARLIN, SPEEDY, RUBEN JJ CSTFA Last Modified By: Savana Chisholm RN 05/05/21 12:30:58 [facility] IntraOp Dressing and Packing Entry 1 Type Dressing Location Abdomen Wound Dressing Item Skin Closure Glue Applied By RUBEN JJ CSTFA Last Modified By: Savana Chisholm RN 05/05/21 12:31:04 [facility] IntraOp Fire Risk Assessment Entry 1 Fire [...] Modified By: Savana Chisholm RN 05/05/21 12:31:07 [facility] IntraOp Fire Risk Assessment Audit 05/05/21 13:05:41 Kiln Cleaner: [id number] Modifier: [id number] <+> 1 Fire Risk Assessment Verified Date/Time [facility] IntraOp General Case Armament Installer 1 Case Information OR OR 12 [facility] Case Level 1 Room Verified Yes Wound Class II - Clean-Contaminated Specialty General Anesthesia Type General ASA Class 2 Diagnosis Preop Diagnosis GALLBLADDER PANCREATITIS/GALLBLADDER SLUDGE Postop Same As Preop No Postop Diagnosis SEE MD POST OP NOTES Last Modified By: Savana Chisholm RN 05/05/21 12:31:23 [facility] IntraOp General Case Data Audit 05/05/21 13:06:17 Kiln Cleaner: [id number] Modifier: [id number] 1 <*> Preop Diagnosis HX PANCREATITIS/GALLBLADDER SLUDGE 05/05/21 13:03:06 Kiln Cleaner: [id number] Modifier: [id number] <+> 1 Preop Diagnosis [facility] IntraOp Intraoperative Assessment Entry 1 Handoff Method [...] Modified By: Savana Chisholm RN 05/05/21 12:31:30 [facility] IntraOp Intraoperative Equipment Entry 1 Type Monitoring Equipment Equipment Nilda Suction System Intraop Monitoring Electrocardiogram Three lead placement (ECG) Electrode Placement Blood Pressure Non-Invasive BP Device Source Antiembolic Devices Antiembolic Devices Sequential compression device, knee high Antiembolic Device Bilateral Location Antiembolic Device [id number] ID Number Scopes Photo/Video Documentation Photo No Video No Intraop Equipment Sequential compression Comment devices on and in operation prior to induction of anesthesia. Last Modified By: Savana Chisholm RN 05/05/21 12:31:54 [facility] IntraOp Medication Admin Entry 1 Entry 2 Medication/Irrigant Marcaine 0.5% w/ Normal Saline 0.9% epinephrine 1:200,000 1000ml irrigation - 30ml vial - [id number] Combo Med List Time Administered Route of Local IRRIGATION Administration Dose Dose 13 Unit of Measure ml Volume Administered By SUSANA MARSHALL MD-CHARLES Procedure Irrigation Irrigant Volume In 400 mL Irrigant Volume Out Last Modified By: Savana Chisholm RN Marshall, Pechie, RN 05/05/21 13:52:11 05/05/21 13:52:11 [facility] IntraOp Medication Admin Audit 05/05/21 13:52:11 Kiln Cleaner: [id number] Modifier: [id number] 1 <*> Medication/Irrigant Marcaine 0.5% w/ epinephrine 1:200,000 30ml vial - [id number] 1 <*> Route of Administration Local 1 <*> Administered By SUSANA MARSHALL MD-SUR 1 <+> Dose 1 <*> Unit of Measure ml <+> 2 Medication/Irrigant <+> 2 Route of Administration <+> 2 Irrigant Volume In [facility] IntraOp Patient Positioning Entry 1 Procedure Cholecystectomy [...] Modified By: Savana Chisholm RN 05/05/21 12:33:10 [facility] IntraOp Sign In Entry 1 Patient, Site, [...] Modified By: Savana Chisholm RN 05/05/21 12:33:16 [facility] IntraOp Sign Out Entry 1 RN Confirmation [...] Modified By: Savana Chisholm RN 05/05/21 12:33:21 [facility] IntraOp Sign Out Audit 05/05/21 14:04:45 Kiln Cleaner: [id number] Modifier: [id number] <+> 1 RN Sign Out Signature Date/Time [facility] IntraOp Skin Prep Entry 1 Procedure Cholecystectomy Robotic Prescribed Yes Pre-Surgical Prep Completed Prep Area Abdomen Intraop Prep Integumentary WDL Assessment WDL Prep Agents Chloraprep Prep by Suzie Drake RN Hair Removal Hair Removal By RUBEN JJ CSTFA Last Modified By: Savana Chisholm RN 05/05/21 12:33:32 [facility] IntraOp Surgical Procedures Entry 1 Procedure Cholecystectomy Robotic Additional (ROBOTIC ASSISTED Procedure LAPAROSCOPIC Description CHOLECYSTECTOMY) Primary Procedure Yes Primary Surgeon SUSANA MARSHALL MD-CHARLES Start 05/05/21 13:05:00 Stop 05/05/21 13:57:00 Anesthesia Type General Specialty General Wound Class II - Clean-Contaminated Last Modified By: Savana Chisholm RN 05/05/21 12:33:35 General Comments: PATIENT ON SCHEDULED ANTIBIOTIC/ NO ADDITIONAL ANTIBIOTIC PER SURGEON [facility] IntraOp Surgical Procedures Audit 05/05/21 13:58:00 Kiln Cleaner: [id number] Modifier: [id number] 1 <*> Stop 05/05/21 13:17:25 Kiln Cleaner: [id number] Modifier: [id number] 1 <*> Procedure Cholecystectomy Robotic 1 <*> Procedure Cholecystectomy Robotic 1 <*> Procedure Cholecystectomy Robotic 1 <*> Start 1 <*> Start 05/05/21 12:33:46 Kiln Cleaner: [id number] Modifier: [id number] 1 <*> Procedure Cholecystectomy Robotic [facility] IntraOp Temp Regulation Devices Entry 1 Temp Regulation Temperature Forced Air Warming Regulation Device device, Room temperature, Warm blankets Temperature 18309 Regulation Device Serial/Unit Number Temperature Upper body Regulation Site Temperature Device SET AND MONITORED BY Setting ANESTHESIA Temperature HAYDE BARNEY Regulation Device SYNCHRO ASSEMBLER, CHEF'S ASSISTANT Applied by Temperature Patient's temperature Regulation Comment and forced air warming device settings monitored by anesthesia provider. Last Modified By: Savana Chisholm RN 05/05/21 12:34:00 [facility] IntraOP Time Out Entry 1 Procedure to [...] Modified By: Savana Chisholm RN 05/05/21 13:05:14 [facility] IntraOP Time Out Audit 05/05/21 13:05:14 Kiln Cleaner: [id number] Modifier: [id number] 1 <+> Time Out Pause Time 1 <*> Procedure to be Performed Cholecystectomy Robotic Case Comments <None> Finalized By: SUSAN FERMIN Document Signatures Signed By: Savana Chisholm RN 05/05/21 14:05 SUSAN FERMIN 05/07/21 12:51 Unfinalized History Date/Time Username Reason for Unfinalizing Freetext Reason for Unfinalizing 05/07/21 12:50 TANESHA Correct Billing documented in this encounter Plan of Treatment Not on file documented as of this encounter Visit Diagnoses Not on filedocumented in this encounter
--- OUTSIDE RECORDS SUMMARY | 2025-07-20 08:15 | XMS_ITS | Encounter Summary ---
Author Organization [employer] ([place], [place], [place], [place]) Address [address] [place] [address] Care Team Providers Care Toy Packer Name Role Phone Unavailable Primary Care Provider Unavailabl e Encounter Details Date Type Department Care Team (Late st Contact Info) Description 05/05/2021 Transcribed Document [facility] [place] [facility] [address] ProviderLatonia MD [address] [place] [address] Social History Tobacco Use Types Packs/Day [...] Health Plan: [employer] Policy Number: [id number] Authorization Number: Insurance 2 Health Plan: [facility] Policy Number: [id number] Authorization Number: Insurance Primary Name : [employer] P[employer] Policy Number: [id number] Authorization Status-Primary : Awaiting callback Reference Number-Primary : Pend ref #[id number] Authorized Service Begin Date-Primary : 05/03/2021 EDT Historical Authorization Comments-Primary : Comment 1: Pending ref no per [employer]. Reviewer has access to [employer] (JOSSY ARAGON RN 05/03/2021 13:49) Comment 2: Per Amanda with [facility], pt has Medicare A primary, em to [place], cc to [facility] (JOSSY ARAGON RN 05/03/2021 11:43) Comment 3: Clinicals submitted via [facility] for IP approval (JOSSY ARAGON RN 05/03/2021 09:25) Naomi Rome Rn-Utilization Review - 05/05/2021 9:09 EDT Electronically signed by [facility], [facility] Conversion Brown Sourer Cerner at 02/22/2023 8:50 PM CDT documented in this encounter Plan of Treatment Not on file documented as of this encounter Visit Diagnoses Not on filedocumented in this encounter
--- OUTSIDE RECORDS SUMMARY | 2025-07-20 08:16 | XMS_ITS | Encounter Summary ---
Author Organization Healthcare Address [address] [place] [address] Care Team Providers Care Broke Worker Name Role Phone Cole, Renetta S PRODUCTION COUNTER Primary Care Provider Encounter Details Date Type Department Care Team (Late st Contact Info) Description 07/09/[address] [facility] railroad wheels and axles inspector Faculty [facility] [address] [place] [address] [address] [place] [address] Gilbert, Surgeon, [address] [place] [address] Social History Tobacco Use Types Packs/Day Years Used Date Smoking Tobacco: Never Assessed Sex and Gender Information Value Date Recorded Sex Assigned at Not on file Legal Sex Male 7:55 PM EDT Gender Identity Not on file Sexual Orientation Not on file documented as of this encounter Miscellaneous Notes * Telephone Encounter - Elina Moon - 07/09/2025 4:49 PM EDT Called pt to confirm appt date/time/fee/location. Pts insurance is one tht we are not in network with and he will owe the full OOP fee on $675. Left vm to call back. documented in this encounter Plan of Treatment Not on file documented as of this encounter Visit Diagnoses Not on filedocumented in this encounter Care Teams Broke Worker Relationship Specialty Start Date End Date Renetta Cole APRN [address] [place] [address] PCP - General 5/14/21 documented as of this encounter
--- OUTSIDE RECORDS SUMMARY | 2025-07-20 08:16 | XMS_ITS | Encounter Summary ---
Author Organization [employer] ([place], [place], [place], [place]) Address [address] [place] [address] Care Team Providers Care Advanced Manufacturing Vice President Name Role Phone Unavailable Primary Care Provider Unavailabl e Encounter Details Date Type Department Care Team (Late st Contact Info) Description 05/05/2021 Transcribed Document [facility] [place] Family Medicine [facility] [place] [address] ProviderLatonia MD [facility] [place] [address] Social History Tobacco Use Types [...] Patient Unavailable Inability to Treat Comment : [facility] Notification : EILEEN Babin MARK, PT - 05/05/2021 15:18 EDT documented in this encounter Plan of Treatment Not on file documented as of this encounter Visit Diagnoses Not on filedocumented in this encounter
--- OUTSIDE RECORDS SUMMARY | 2025-07-20 08:16 | XMS_ITS | Encounter Summary ---
Author Organization [employer] ([place], [place]) Address [address] [place] [address] Care Team Providers Care Area Director Of Home Health Sales Name Role Phone Unavailable Primary Care Provider Unavailabl e Encounter Details Date Type Department Care Team (Late st Contact Info) Description 05/05/2021 Transcribed Document [facility] Radiology [address] [place] [address] Steve Kumar MD [address] [place] [address] [address] Social History Tobacco Use Types [...] Rocephin: 1 Gram, 100 mL/Hr, IV Piggyback, [id number] Sodium Chloride 0.9% intravenous solution 1,000 mL: 50 mL/Hr, IntraVENous Tylenol: 650 mg, Oral, Q4H, PRN: Pain (Mild 1-3) Zofran: 4 mg, IV Push, Q4H, PRN: Nausea heparin: 5,000 Units, SubCutaneous, S45PSdp lidocaine 1% injectable solution: 0.5 mL, IntraDermal, [...] Scheduled: (8) cefTRIAXone 1 Gram, IV Piggyback, [id number] DULoxetine DR 30 mg cap 30 mg 1 Cap, Oral, Daily famotidine 20 mg tab 40 mg 2 Tab, Oral, Daily heparin 5,000 units/1 mL inj 5,000 Units 1 mL, SubCutaneous, P00CPke lisinopril 10 mg tab 10 mg 1 [...] At risk for sleep apnea / IMO [id number] / Confirmed, Active Problems (5) At risk [...] 04 11:39) Radiology Results (Last 48 hours) [id number] -- 05/03/2021 00:04 CR Ercp Biliary Duct [...] 03) . Radiology Results (Last 48 hours) [id number] -- 05/03/2021 00:04 CR Ercp Biliary Duct [...]
--- OUTSIDE RECORDS SUMMARY | 2025-07-20 08:17 | XMS_ITS | Encounter Summary ---
Author Organization [employer] ([place], [place], [place], [place]) Address [address] [place] [address] Care Team Providers Care Graphic Design Assistant Name Role Phone Unavailable Primary Care Provider Unavailabl e Encounter Details Date Type Department Care Team (Late st Contact Info) Description 05/05/2021 Transcribed Document [facility] [place] Family Medicine [facility] [place] [address] ProviderLatonia MD [facility] [place] [address] Social History Tobacco Use Types Packs/Day Years Used Date Smoking Tobacco: Never Assessed Sex and Gender Information Value Date Recorded Sex Assigned at Not on file Legal Sex Male 7:22 PM CDT Gender Identity Not on file Sexual Orientation Not on file documented as of this encounter Miscellaneous Notes * Cerner Conversion Note - Historical ProviderMD - 05/05/2021 2:00 AM CDT Motorcycle Engine Assembler Details Entered On: 05/05/2021 4:46 EDT Performed [...]
--- OUTSIDE RECORDS SUMMARY | 2025-07-20 08:17 | XMS_ITS | Encounter Summary ---
Author Organization [employer] ([place], [place], [place], [place]) Address [address] [place] [address] Care Team Providers Care Special Needs Teacher Name Role Phone Unavailable Primary Care Provider Unavailabl e Encounter Details Date Type Department Care Team (Late st Contact Info) Description 05/05/2021 Transcribed Document [facility] [place] [facility] [place] [address] ProviderLatonia MD [address] [place] [address] Social History Tobacco Use Types Packs/Day [...] change in location/level of care Rapid Response Special Needs Teacher #1 : LAURITA MASTERSON, RN LAURITA MASTERSON RN - 05/06/2021 0:35 EDT Electronically signed by Abelino [facility] Conversion Snaker Tractor Driver Cerner at 02/22/2023 8:38 PM CDT documented in this encounter Plan of Treatment Not on file documented as of this encounter Visit Diagnoses Not on filedocumented in this encounter
--- OUTSIDE RECORDS SUMMARY | 2025-07-20 08:17 | XMS_ITS | Encounter Summary ---
Author Organization [employer] ([place], [place], [place], [place]) Address [address] [place] [address] Care Team Providers Care Typewriter Operator Automatic Name Role Phone Unavailable Primary Care Provider Unavailabl e Encounter Details Date Type Department Care Team (Late st Contact Info) Description 05/11/2021 Transcribed Document [facility] Radiology [address] [place] [address] Georgiana Cheng MD [address] [place] [address] [address] [place] [id number] Social History Tobacco Use Types Packs/Day Years [...] meals Documented in Nutrition Assessment on 05/04/2021 CDS/Placement Director Signature: Endy Spicercleo Phone #: [phone] Extn [phone] Date/Time: 05/10/2021 Moderate Malnutrition (in acute illness) [...] loss; moderate- severe fluid accumulation; measurably reduced auger operator strength Moderate Malnutrition (in chronic illness) Energy [...] mass loss; severe fluid accumulation; measurably reduced auger operator strength This is a permanent part of the Medical Record Q41 2019 [facility] Updated: documented in this encounter Plan of Treatment Not on file documented as of this encounter Visit Diagnoses Not on filedocumented in this encounter
--- OUTSIDE RECORDS SUMMARY | 2025-07-20 08:17 | XMS_ITS | Encounter Summary ---
Author Organization [employer] ([place], [place], [place], [place]) Address [address] [place] [address] Care Team Providers Care Cigarette Carton Sealer Name Role Phone Unavailable Primary Care Provider Unavailabl e Encounter Details Date Type Department Care Team (Late st Contact Info) Description 05/05/2021 Transcribed Document [facility] [place] [facility] [place] [address] ProviderLatonia MD [address] [place] [address] Social History Tobacco Use Types Packs/Day [...] Primary Surgeon SUSANA MARSHALL MD-CHARLES (Surgeon/Proceduralist, First) speech assistant Ailyn Leon *Procedure Narrative After obtaining [...]
--- OUTSIDE RECORDS SUMMARY | 2025-07-20 08:18 | XMS_ITS | Encounter Summary ---
Author Organization [employer] ([place], [place], [place]) Address [address] [place] [address] Care Team Providers Care Supervisor Of Operations Name Role Phone Unavailable Primary Care Provider Unavailabl e Encounter Details Date Type Department Care Team (Late st Contact Info) Description 05/05/2021 Transcribed Document [facility] [place] [facility] [place] [address] ProviderLatonia MD [facility] [place] [address] Social History Tobacco Use Types [...]
--- OUTSIDE RECORDS SUMMARY | 2025-07-20 08:18 | XMS_ITS | Encounter Summary ---
Author Organization [email or web address] ([place], [place], [place], [place]) Address [address] [place] [address] Care Team Providers Care Press Operator Printing Name Role Phone Unavailable Primary Care Provider Unavailabl e Encounter Details Date Type Department Care Team (Late st Contact Info) Description 05/05/2021 Transcribed Document [facility] [place] [facility] [place] [address] ProviderLatonia MD [facility] [place] [address] Social History Tobacco Use Types [...] Yes Kateryna Greene - 05/05/2021 19:18 EDT documented in this encounter Plan of Treatment Not on file documented as of this encounter Visit Diagnoses Not on filedocumented in this encounter
--- OUTSIDE RECORDS SUMMARY | 2025-07-20 08:18 | XMS_ITS | Clinical Summary ---
Author Organization [employer] ([place], [place], [place], [place]) Address [address] [place] [address] Care Team Providers Care Pantograph Ii Engraver Name Role Phone Unavailable Primary Care Provider [...]
--- OUTSIDE RECORDS SUMMARY | 2025-07-20 08:18 | XMS_ITS | Referral Summary ---
Author Organization [employer] ([place], [place], [place], [place]) Address [address] [place] [address] Care Team Providers Care College And Career Counselor Name Role Phone Unavailable Primary Care Provider [...]
--- OUTSIDE RECORDS SUMMARY | 2025-07-20 08:18 | XMS_ITS | Encounter Summary ---
Author Organization [employer] ([place], [place], [place], [place]) Address [address] [place] [address] Care Team Providers Care Model And Pattern Supervisor Name Role Phone Unavailable Primary Care Provider Unavailabl e Encounter Details Date Type Department Care Team (Late st Contact Info) Description 05/05/2021 Transcribed Document [facility] [place] [facility] [place] [address] Provider, MD Latonia [facility] [place] [address] Social History Tobacco Use Types Packs/Day Years Used Date Smoking Tobacco: Never Assessed Sex and Gender Information Value Date Recorded Sex Assigned at Not on file Legal Sex Male 7:22 PM CDT Gender Identity Not on file Sexual Orientation Not on file documented as of this encounter Miscellaneous Notes * Cerner Conversion Note - Latonia ProviderMD - 05/05/2021 1:05 PM CDT [facility] Main OR PACU Summary Primary Physician: SUSANA MARSHALL MD-[facility] Finalized Date/Time: 05/05/21 15:40:07 Pt. Name: SADIQ ISRAEL /Sex: 1955 Male Med Rec #: [id number] Physician: GUILLAUME DIXON MD Financial #: [id number] Pt. Type: I Room/Bed: 4/ Admit/Disch: 05/03/21 00:04:00 - Institution: [facility] Main OR PACU I Case Times Entry 1 In PACU I 05/05/21 14:06:00 Ready for PACU 05/05/21 15:30:00 Discharge Discharge from PACU 05/05/21 15:37:00 I Last Modified By: Berenice Stratton RN 05/05/21 15:40:04 [facility] Main OR PACU I Case Times Audit 05/05/21 15:40:04 Retail Store Clerk: [id number] Modifier: [id number] <+> 1 Ready for PACU Discharge <+> 1 Discharge from PACU I Finalized By: Berenice Stratton RN Document Signatures Signed By: Berenice Stratton RN 05/05/21 15:40 Electronically signed by Abelino [facility] Conversion Cloth Bale Header Cerner at 02/22/2023 8:50 PM CDT documented in this encounter Plan of Treatment Not on file documented as of this encounter Visit Diagnoses Not on filedocumented in this encounter
--- OUTSIDE RECORDS SUMMARY | 2025-07-20 08:19 | XMS_ITS | Encounter Summary ---
Author Organization [employer] ([place], [place], [place], [place]) Address [address] [place] [address] Care Team Providers Care Instructor Programmable Controllers Name Role Phone Unavailable Primary Care Provider Unavailabl e Encounter Details Date Type Department Care Team (Late st Contact Info) Description 05/12/2021 Transcribed Document [facility] [place] [facility] [place] [address] ProviderLatonia MD [address] [place] [address] Social History Tobacco Use Types [...] health care provider or a diet and food and nutrition teacher (dietitian) to develop an eating plan. ? [...] provider before taking any new medicines, including iiaq-vmi-nmpybvw medicines. ??? Rest as needed. ??? Eat [...] provider. Document Revised: 02/10/2020 Document Reviewed: 09/10/2018 [employer] Patient Education ? 2020 [employer]. Laparoscopic Cholecystectomy Laparoscopic cholecystectomy is surgery to [...] including vitamins, herbs, eye drops, creams, and tccb-qql-akbmxgt medicines. ??? Any problems you or family [...] provider. Document Revised: 10/03/2018 Document Reviewed: 04/08/2017 [employer] Patient Education ? 2020 [employer]. Laparoscopic Cholecystectomy, Care After This sheet gives [...] cannot use soap and water, use hand missile control pilot. ? Change your bandage as told by [...] it is okay. General instructions ??? Take eabn-kws-prcyfil and prescription medicines only as told by your doctor. ??? To prevent or treat constipation while you are taking prescription pain medicine, your doctor may recommend that you: ? Drink enough fluid to keep your pee (urine) clear or pale yellow. ? Take fvib-lam-xfievpx or prescription medicines. ? Eat foods that [...] provider. Document Revised: 10/03/2018 Document Reviewed: 04/08/2017 [employer] Patient Education ? 2020 [employer]. Gallbladder Eating Plan If you have a gallbladder condition, you may have trouble digesting fats. Eating a low-fat diet can help reduce your symptoms, and may be helpful before and after having surgery to remove your gallbladder (cholecystectomy). Your health care provider may recommend that you work with a diet and food and nutrition teacher (dietitian) to help you reduce the amount [...] food, fatty cuts of meat, ice cream, icelandic toast, sweet rolls, pizza, cheese bread, foods covered with butter, creamy sauces, or cheese. ??? Fried foods. These include icelandic fries, tempura, battered fish, breaded chicken, fried [...] provider. Document Revised: 02/11/2020 Document Reviewed: 11/28/2017 [employer] Patient Education ? 2020 [employer] documented in this encounter Plan of Treatment Not on file documented as of this encounter Visit Diagnoses Not on filedocumented in this encounter
--- OUTSIDE RECORDS SUMMARY | 2025-07-20 08:19 | XMS_ITS | Encounter Summary ---
Author Organization [employer] ([place], [place], [place], [place]) Address [address] [place] [address] Care Team Providers Care Supervisor Nuclear Medicine Name Role Phone Unavailable Primary Care Provider Unavailabl e Encounter Details Date Type Department Care Team (Late st Contact Info) Description 05/05/2021 Transcribed Document [facility] [place] [facility] [place] [address] Provider, MD Latonia [address] [place] [address] Social History Tobacco Use Types Packs/Day Years Used Date Smoking Tobacco: Never Assessed Sex and Gender Information Value Date Recorded Sex Assigned at Not on file Legal Sex Male 7:22 PM CDT Gender Identity Not on file Sexual Orientation Not on file documented as of this encounter Miscellaneous Notes * Cerner Conversion Note - Latonia ProviderMD - 05/05/2021 1:05 PM CDT [facility] Main OR Preop Summary Primary Physician: SUSANA MARSHALL MD-[facility] Finalized Date/Time: 05/05/21 14:35:11 Pt. Name: SADIQ ISRAEL /Sex: 1955 Male Med Rec #: [id number] Physician: GUILLAUME DIXON MD Financial #: [id number] Pt. Type: I Room/Bed: 4/ Admit/Disch: 05/03/21 00:04:00 - Institution: [facility] PreOp Case Times Entry 1 In Preop 05/05/21 11:34:00 Ready for Holding n/a Room Patient Ready for 05/05/21 12:42:00 Surgery Patient Out of Preop 05/05/21 12:42:00 Patient Out of n/a Holding Room Last Modified By: LEORA BOYER RN 05/05/21 14:35:04 [facility] PreOp Case Times Audit 05/05/21 14:35:04 Curriculum Coach: [id number] Modifier: [email or web address] <+> 1 Patient Out of Preop 05/05/21 12:42:19 Curriculum Coach: [id number] Modifier: [id number] <+> 1 Patient Ready for Surgery Finalized By: LEORA BOYER RN Document Signatures Signed By: LEORA BOYER RN 05/05/21 14:35 Electronically signed by Abelino [facility] Conversion Rn Clinical Documentation Specialist Cerner at 02/22/2023 8:45 PM CDT documented in this encounter Plan of Treatment Not on file documented as of this encounter Visit Diagnoses Not on filedocumented in this encounter
--- OUTSIDE RECORDS SUMMARY | 2025-07-20 08:19 | XMS_ITS | Encounter Summary ---
Author Organization [employer] ([place], [place], [place], [place]) Address [address] [place] [address] Care Team Providers Care Director Of Diversity And Inclusion Name Role Phone Unavailable Primary Care Provider Unavailabl e Encounter Details Date Type Department Care Team (Late st Contact Info) Description 05/04/2021 Transcribed Document [facility] [place] [facility] [place] [address] ProviderLatonia MD [facility] [place] [address] Social History Tobacco Use Types [...] with biliary dilatation. He was transferred to [facility] and he underwent ERCP today with findings [...] - Medical Heparin 5,000 Units, SubCutaneous, Inj, [id number], Routine, Start 05/03/21 6:00:00 EDT, 05/03/21 1:32:00 [...] PRN heparin, 5000 Units= 1 mL, SubCutaneous, [id number] Lactated Ringers Injection intravenous solution 1,000 mL, [...] Diagnostic Results Radiology Results (Last 48 hours) [id number] -- 05/03/2021 00:04 CR Ercp Biliary Duct [...] 10 05/04/2021 08:32 Alk Phos 587 Units/Liter NH 05/04/2021 08:32 ALT 59 Units/Liter 05/04/2021 08:32 AST 153 Units/Liter NH 05/04/2021 08:32 Blood Urea Nitrogen 14 mg/dL 05/04/2021 08:32 Glucose Level 85 mg/dL 05/04/2021 08:32 Albumin Level 1.3 Gram/dL LOW 05/04/2021 08:32 Bilirubin Total 3.2 mg/dL NH 05/04/2021 08:32 Calcium Level 7.9 mg/dL LOW 05/04/2021 08:32 Magnesium Level 2.2 mg/dL 05/04/2021 08:32 documented in this encounter Plan of Treatment Not on file documented as of this encounter Visit Diagnoses Not on filedocumented in this encounter
--- OUTSIDE RECORDS SUMMARY | 2025-07-20 08:19 | XMS_ITS | Encounter Summary ---
Author Organization [employer] ([place], [place], [place], [place]) Address [address] [place] [address] Care Team Providers Care Superintendent Power Name Role Phone Unavailable Primary Care Provider Unavailabl e Encounter Details Date Type Department Care Team (Late st Contact Info) Description 05/04/2021 Transcribed Document [facility] [place] Medicine [facility] [place] [address] Provider, MD Latonia [address] [place] [address] Social History Tobacco Use Types Packs/Day [...] Glynn PreOp Summary Primary Physician: BEATRIS ISRAEL MD-[facility] Finalized Date/Time: 05/04/21 10:16:39 Pt. Name: SADIQ ISRAEL /Sex: 1955 Male Med Rec #: [id number] Physician: GUILLAUME DIXON MD Financial #: [id number] Pt. Type: I Room/Bed: 4/ Admit/Disch: 05/03/21 00:04:00 - Institution: [facility] [place] PreOp Case Times Entry 1 In [...]
--- OUTSIDE RECORDS SUMMARY | 2025-07-20 08:19 | XMS_ITS | Encounter Summary ---
Author Organization [employer] ([place], [place], [place], [place]) Address [address] [place] [address] Care Team Providers Care Social Science Analyst Name Role Phone Unavailable Primary Care Provider Unavailabl e Encounter Details Date Type Department Care Team (Late st Contact Info) Description 05/04/2021 Transcribed Document [facility] Radiology [address] [place] [address] Steve Kumar MD [address] [place] [address] [address] Social History Tobacco Use Types [...] Rocephin: 1 Gram, 100 mL/Hr, IV Piggyback, [id number] Sodium Chloride 0.9% intravenous solution 1,000 mL: 50 mL/Hr, IntraVENous Tylenol: 650 mg, Oral, Q4H, PRN: Pain (Mild 1-3) Zofran: 4 mg, IV Push, Q4H, PRN: Nausea heparin: 5,000 Units, SubCutaneous, I80UAxe lidocaine 1% injectable solution: 0.5 mL, IntraDermal, [...] Scheduled: (8) cefTRIAXone 1 Gram, IV Piggyback, V69HYtn DULoxetine DR 30 mg cap 30 mg 1 Cap, Oral, Daily famotidine 20 mg tab 40 mg 2 Tab, Oral, Daily heparin 5,000 units/1 mL inj 5,000 Units 1 mL, SubCutaneous, M21IPra lisinopril 10 mg tab 10 mg 1 [...] At risk for sleep apnea / IMO [id number] / Confirmed, Active Problems (5) At risk [...] 04 11:39) Radiology Results (Last 48 hours) [id number] -- 05/03/2021 00:04 CR Ercp Biliary Duct [...] 03) . Radiology Results (Last 48 hours) [id number] -- 05/03/2021 00:04 CR Ercp Biliary Duct [...]
--- OUTSIDE RECORDS SUMMARY | 2025-07-20 08:19 | XMS_ITS | Clinical Summary ---
Author Organization Healthcare Address [address] [place] [id number] Care Team Providers Care Air Conditioning Supervisor Name Role Phone Renetta Cole MARLIN Primary Care Provider [phone] Encounters Date Type Department Care Team Description 07/09/2025 Telephone [facility] elevator troubleshooter [facility] [address] [place] [address] Rd [address] [place] [address] Surgeon Hunt MD 06/24/2025 Telephone [facility] elevator troubleshooter [facility] [address] [place] [address] Rd [address] [place] [address] Surgeon Hunt MD 06/15/2025 Telephone [facility] elevator troubleshooter [facility] [address] [place] [address] Rd [address] [place] [address] Surgeon Hunt MD from Last 3 Months Family History Medical History Relation Name Comments [...] 04/02/2019 1:03 PM EDT Plan of Treatment Health Maintenance Due Date Last Done Comments [facility]-Depression Screening 1955 [facility]-Hepatitis C Screening 1955 [facility]-Medicare Annual Wellness (AWV) 1955 [facility]-Infant/Child/Adol SDOH Screenings 1955 [facility]- SDOH Screenings 1974 [facility]-Adult SDOH Screenings 1974 CT Colonography 2001 Colonoscopy 2001 FIT-DNA 2001 FIT 2001 FOBT 2001 Sigmoidoscopy 2001 [facility]-Colorectal Cancer Screening 2001 [facility]-Zoster Vaccines (1 of 2) 2006 YDM-HYKYA-99 Vaccine (2 - season) 2025 07/12/2021 [facility]-Influenza Vaccine (#1) 2025 [facility]-RSV Vaccine: 60+ Years o r (1 - 1-dose 75+ series) 2031 [facility]-DTaP,Tdap,and Td Vaccine s (2 - Td or Tdap) 03/02/2035 03/02/2025, 01/06/1997 [facility]-Pneumococcal Vaccine: 50 + Years Completed 03/02/2025 HPV Vaccines Aged Out No longer eligi ble based on patient's age to complete this topic [facility]-HIB Vaccines Aged Out No longer e ligible based on patient's age to complete this topic [facility]-Hepatitis A Vaccines Aged Out No longer eligible based on patient's age to complete this topic [facility]-IPV Vaccines Aged Out No longer e ligible based on patient's age to complete this topic [facility]-Rotavirus Vaccines Aged Out No lo nger eligible based on patient's age to complete this topic Insurance [address] [place] [address] MEDICARE [employer] CLAIMS DENTAL Care Teams Air Conditioning Supervisor Relationship Specialty Start Date End Date Renetta Cole APRN [address] [facility] [address] [place] [address] PCP - General 03/17/21
--- OUTSIDE RECORDS SUMMARY | 2025-07-20 08:19 | XMS_ITS | Encounter Summary ---
Author Organization [employer] ([place], [place], [place], [place]) Address [address] [place] [address] Care Team Providers Care Jacker Feeder Name Role Phone Unavailable Primary Care Provider Unavailabl e Encounter Details Date Type Department Care Team (Late st Contact Info) Description 05/12/2021 Transcribed Document [facility] [place] Family Medicine [facility] [place] [address] ProviderLatonia MD [facility] [place] [address] Social History Tobacco Use [...] On: 05/12/2021 13:16 EDT by [place], Gas Or Petroleum Operator Patient Resource Center Provider Status : EST Other Established Provider Name : MER COLE Patient Phone Number : [phone] Patient Insurance Type : Medicaid (ex. [employer], [...] at ED : Other Primary Language : Guatemalan Patient Resource Center Comment : Patient needs follow up appointments. Appointment already scheduled with Dr. Olivarez. Called and scheduled appointment with Mer Cole and Dr. Israel. Called patient and VM full, sent text. Called and gave appointment information to Jarad and sent text Follow Up Needed : No [place], Gas Or Petroleum Operator - 05/12/2021 13:16 EDT documented in this encounter Plan of Treatment Not on file documented as of this encounter Visit Diagnoses Not on filedocumented in this encounter
--- OUTSIDE RECORDS SUMMARY | 2025-07-20 08:19 | XMS_ITS | Encounter Summary ---
Author Organization [employer] ([place], [place], [place], [place]) Address [address] [place] [address] Care Team Providers Care Insurance Inspector Name Role Phone Unavailable Primary Care Provider Unavailabl e Encounter Details Date Type Department Care Team (Late st Contact Info) Description 05/04/2021 Transcribed Document [facility] [place] Medicine [facility] [place] [address] ProviderLatonia MD [facility] [address] Social History Tobacco Use Types [...]
--- OUTSIDE RECORDS SUMMARY | 2025-07-20 08:20 | XMS_ITS | Encounter Summary ---
Author Organization [employer] ([place], [place], [place], [place]) Address [address] [place] [address] Care Team Providers Care Race Starter Name Role Phone Unavailable Primary Care Provider Unavailabl e Encounter Details Date Type Department Care Team (Late st Contact Info) Description 05/07/2021 Transcribed Document [facility] Radiology [address] [place] [address] Georgiana Cheng MD [address] [place] [address] [address] Social History Tobacco Use Types [...] Rocephin: 1 Gram, 100 mL/Hr, IV Piggyback, X28ZVzd Tylenol: 500 mg, Oral, Q6H Zofran: 4 [...] Root Block, 1-Time heparin: 5,000 Units, SubCutaneous, R62ZSwv ibuprofen: 600 mg, Oral, Q6H, PRN: Pain [...] Piggyback, PREOP cefTRIAXone 1 Gram, IV Piggyback, U90IIpx cloNIDine 50 mcg + dexAMETHasone 4 mg [...] mL inj 5,000 Units 1 mL, SubCutaneous, N95FVcz lisinopril 10 mg tab 10 mg 1 [...] At risk for sleep apnea / IMO [id number] / Confirmed, Active Problems (5) At risk [...] medically ready to be discharged home versus fdc facility, he need GI follow-up as an outpatient documented in this encounter Plan of Treatment Not on file documented as of this encounter Visit Diagnoses Not on filedocumented in this encounter
--- OUTSIDE RECORDS SUMMARY | 2025-07-20 08:20 | XMS_ITS | Encounter Summary ---
Author Organization [employer] ([place], [place], [place], [place]) Address [address] [place] [address] Care Team Providers Care Food General Manager Name Role Phone Unavailable Primary Care Provider Unavailabl e Encounter Details Date Type Department Care Team (Late st Contact Info) Description 05/07/2021 Transcribed Document [facility] [place] [facility] [place] [address] ProviderLatonia MD [facility] [place] [address] Social History Tobacco Use Types [...] - Surgical Heparin 5,000 Units, SubCutaneous, Inj, N36QJjk, Routine, Start 05/03/21 6:00:00 EDT, 05/03/21 1:32:00 [...] PRN heparin, 5000 Units= 1 mL, SubCutaneous, O19CIam ibuprofen, 600 mg= 1 Tab, Oral, Q6H, [...]
--- OUTSIDE RECORDS SUMMARY | 2025-07-20 08:20 | XMS_ITS | Encounter Summary ---
Author Organization [employer] ([place], [place], [place], [place]) Address [address] [place] [address] Care Team Providers Care Nuisance Animal Damage Control Agent Name Role Phone Unavailable Primary Care Provider Unavailabl e Encounter Details Date Type Department Care Team (Late st Contact Info) Description 05/07/2021 Transcribed Document [facility] [place] [address] Provider[place]onia [place] [address] Social History Tobacco Use Types Packs/Day Years Used Date Smoking Tobacco: Never Assessed Sex and Gender Information Value Date Recorded Sex Assigned at Not on file Legal Sex Male 7:22 PM CDT Gender Identity Not on file Sexual Orientation Not on file documented as of this encounter Miscellaneous Notes * Cerner Conversion Note - Latonia ProviderMD - 05/07/2021 4:21 PM CDT [facility] [place] [address] MAGALISSADIQ :1955 Visit Time:05/03/2021 Your Visit [...] next Instructions From Your Care Team Rehabilitation: [facility] Discharge Summary: DC summary can be faxed to [phone]. Report can be called to [phone]. Transportation: family Follow-Up Appointments Follow Up with Follow up with primary care provider When Within 1 week Follow Up with BEATRIS BLANCAS When Within 2 weeks Where: [address] [facility] [address] [place] [address]- Business (1) Follow Up with SUSANA MARSHALL MD-CHARLES When Within 2 to 3 days Where: [address] [facility] [place] [address]- Medications What How Much When [...] health care provider or a diet and reception specialist (dietitian) to develop an eating plan. [...] provider before taking any new medicines, including csbw-zbz-xhjgvra medicines. ??? Rest as needed. ??? Eat [...] Reviewed: 09/10/2018 Elsevier Patient Education ?? 2020 [employer] Laparoscopic Cholecystectomy Laparoscopic cholecystectomy is surgery [...] including vitamins, herbs, eye drops, creams, and ktmy-ekc-fiwaydl medicines. ??? Any problems you or family [...] provider. Document Revised: 10/03/2018 Document Reviewed: 04/08/2017 [employer] Patient Education ?? 2020 [employer]. Laparoscopic Cholecystectomy, Care After This sheet gives [...] cannot use soap and water, use hand corporate pilot. ? Change your bandage as told [...] it is okay. General instructions ??? Take tvtj-srp-qwyfvcr and prescription medicines only as told by your doctor. ??? To prevent or treat constipation while you are taking prescription pain medicine, your doctor may recommend that you: ? Drink enough fluid to keep your pee (urine) clear or pale yellow. ? Take qtfg-zsi-cuztckx or prescription medicines. ? Eat foods that [...] provider. Document Revised: 10/03/2018 Document Reviewed: 04/08/2017 [employer] Patient Education ?? 2020 [employer]. Gallbladder Eating Plan If you have a gallbladder condition, you may have trouble digesting fats. Eating a low-fat diet can help reduce your symptoms, and may be helpful before and after having surgery to remove your gallbladder (cholecystectomy). Your health care provider may recommend that you work with a diet and reception specialist (dietitian) to help you reduce the [...] food, fatty cuts of meat, ice cream, japanese toast, sweet rolls, pizza, cheese bread, foods covered with butter, creamy sauces, or cheese. ??? Fried foods. These include japanese fries, tempura, battered fish, breaded chicken, fried [...] provider. Document Revised: 02/11/2020 Document Reviewed: 11/28/2017 [employer] Patient Education ?? 2020 [employer] Emergency Awareness and Preventative Care STROKE [...] Assistance with quitting is available by contacting 1-912-MKXV-NOW. This is a free resource providing counseling, [...] range between ( 0.0 and 7.0 ) [place] #: 0.81 K/uL -- Normal range between ( 0.16 and 1.00 ) Eos #: 0.05 x10(3)/uL -- Normal range between ( 0.00 and 0.80 ) [place] %: 5.7 % -- Normal range between [...] Abnormal Macrocytosis: 1+ ANC #: 5 K/uL [place] Percent Man: 1 % -- Normal range [...] Dipstick: Trace Ur Bacteria: Trace Urine Color: [place] Ur WBC: 0-2 /HPF Urine Ketones Dipstick: 15 Urine pH Dipstick: 5.5 -- Normal range between ( 6.0 and 8.0 ) Urine Bilirubin Dipstick: Large Urine Specific [place]: *1.039 -- Normal range between ( 1.005 [...] was given the opportunity to ask questions. Patient/Broke Beater Name: Patient/Broke Beater Signature: Relationship to Patient: Clinician/Hospital Broke Beater Signature: Date: Electronically signed by Abelino, Rivas Conversion Accounts Receivable Representative Roquener at 02/22/2023 8:58 PM CDT documented in this encounter Plan of Treatment Not on file documented as of this encounter Visit Diagnoses Not on filedocumented in this encounter
--- OUTSIDE RECORDS SUMMARY | 2025-07-20 08:20 | XMS_ITS | Encounter Summary ---
Author Organization [employer] ([place], [place], [place], [place]) Address [address] [place] [address] Care Team Providers Care Telecommunications Manager Name Role Phone Unavailable Primary Care Provider Unavailabl e Encounter Details Date Type Department Care Team (Late st Contact Info) Description 05/09/2021 Transcribed Document [facility] [place] [facility] [place] [address] ProviderLatonia MD [address] [place] [address] Social History Tobacco Use Types Packs/Day [...] On: 05/09/2021 7:00 EDT by Soumya Lee, Physiatrist Primary Insurance Authorization Authorization and Policy Numbers : Insurance 1 Health Plan: [employer] P[employer] Policy Number: [id number] Authorization Number: Insurance 2 Health Plan: [facility] Policy Number: [id number] Authorization Number: Insurance Primary Name : [employer] P[employer] Policy Number: [id number] Authorization Status-Primary : Notification only Reference Number-Primary : [id number] Authorization Number-Primary : [id number] Authorized Service Begin Date-Primary : 05/03/2021 EDT [...] 05/03/2021 11:43) Comment 3: Clinicals submitted via [facility] for IP approval (JOSSY ARAGON RN 05/03/2021 09:25) Soumya Lee, Physiatrist - 05/09/2021 7:00 EDT Electronically signed by [facility] Conversion Supervisor Paper Products Cerner at 02/22/2023 8:35 PM CDT documented in this encounter Plan of Treatment Not on file documented as of this encounter Visit Diagnoses Not on filedocumented in this encounter
--- OUTSIDE RECORDS SUMMARY | 2025-07-20 08:21 | XMS_ITS | Encounter Summary ---
Author Organization [employer] ([place], [place], [place], [place]) Address [address] [place] [address] Care Team Providers Care Child Study Team Director Name Role Phone Unavailable Primary Care Provider Unavailabl e Encounter Details Date Type Department Care Team (Late st Contact Info) Description 05/07/2021 Transcribed Document [facility] [place] [facility] [place] [address] ProviderLatonia MD [facility] [place] [address] Social History Tobacco Use Types [...] 05/07/2021 15:03 EDT Electronically signed by Abelino [facility] Conversion Sales Representative Business Courses Cerner at 02/22/2023 8:50 PM CDT documented in this encounter Plan of Treatment Not on file documented as of this encounter Visit Diagnoses Not on filedocumented in this encounter
--- OUTSIDE RECORDS SUMMARY | 2025-07-20 08:22 | XMS_ITS | Encounter Summary ---
Author Organization [employer] ([place], [place], [place], [place]) Address [address] [place] [address] Care Team Providers Care Vending Supervisor Name Role Phone Unavailable Primary Care Provider Unavailabl e Encounter Details Date Type Department Care Team (Late st Contact Info) Description 05/03/2021 Transcribed Document [facility] [place] [address] ProviderLatonia MD [facility] [address] Social History Tobacco Use Types [...] Health Plan: [employer] PPO Policy Number: [id number] Authorization Number: Insurance 2 Health Plan: [facility] Policy Number: [id number] Authorization Number: Insurance Primary Name : [employer] P[employer] Policy Number: [id number] Authorization Status-Primary : Awaiting callback Reference Number-Primary : Pend ref #[id number] Authorized Service Begin Date-Primary : 05/03/2021 EDT Authorization Comments-Primary : Pending ref no per [employer]. Reviewer has access to [employer] Historical Authorization Comments-Primary : Comment 1: Per Amanda with [facility], pt has Medicare A primary, em to [place], cc to [facility] (JOSSY ARAGON RN 05/03/2021 11:43) Comment 2: Clinicals submitted via [employer] for IP approval (JOSSY ARAGON RN 05/03/2021 09:25) JOSSY ARAGON RN - 05/03/2021 13:49 EDT Electronically signed by Abelino [facility] Conversion It Program Auditor Cerner at 02/22/2023 8:56 PM CDT documented in this encounter Plan of Treatment Not on file documented as of this encounter Visit Diagnoses Not on filedocumented in this encounter
--- OUTSIDE RECORDS SUMMARY | 2025-07-20 08:22 | XMS_ITS | Encounter Summary ---
Author Organization [employer] ([place], [place], [place], [place]) Address [address] [place] [address] Care Team Providers Care Refrigeration System Installer Name Role Phone Unavailable Primary Care Provider Unavailabl e Encounter Details Date Type Department Care Team (Late st Contact Info) Description 05/03/2021 Transcribed Document [facility] [place] [facility] [place] [address] ProviderLatonia MD [facility] [place] [address] Social History Tobacco Use Types [...]
--- OUTSIDE RECORDS SUMMARY | 2025-07-20 08:22 | XMS_ITS | Encounter Summary ---
Author Organization [employer] ([place], [place], [place], [place]) Address [address] [place] [address] Care Team Providers Care Crepe Laminator Operator Name Role Phone Unavailable Primary Care Provider Unavailabl e Encounter Details Date Type Department Care Team (Late st Contact Info) Description 05/03/2021 Transcribed Document [facility] [place] Family Medicine [address] [place] [address] ProviderLatonia MD [facility] [place], [place] [address] Social History Tobacco Use Types Packs/Day Years [...] Performed On: 05/03/2021 10:10 EDT by Farheen Zruita RN Phone Call for Consults Consult Phone [...] Farheen Zurita RN - 05/03/2021 10:10 EDT Electronically signed by Rivas Roca Conversion Traffic Division Commanding Officer Cerner at 02/22/2023 8:58 PM CDT documented in this encounter Plan of Treatment Not on file documented as of this encounter Visit Diagnoses Not on filedocumented in this encounter
--- OUTSIDE RECORDS SUMMARY | 2025-07-20 08:22 | XMS_ITS | Encounter Summary ---
Author Organization [employer] ([place], [place], [place], [place]) Address [address] [place] [address] Care Team Providers Care Industrial Laborer Name Role Phone Unavailable Primary Care Provider Unavailabl e Encounter Details Date Type Department Care Team (Late st Contact Info) Description 05/03/2021 Transcribed Document [facility] [place] [address] ProviderLatonia MD [address] [address] Social History Tobacco Use Types Packs/Day [...] Policy Numbers : Insurance 1 Health Plan: [facility] Policy Number: [id number] Authorization Number: Insurance Primary Name : [facility] Policy Number: [id number] Authorization Status-Primary : Awaiting callback Reference Number-Primary : Pend ref #[id number] Authorized Service Begin Date-Primary : 05/03/2021 EDT Authorization Comments-Primary : Per Amanda with [facility], pt has Medicare A primary, em to [place], cc to [facility] Historical Authorization Comments-Primary : Comment 1: [facility] (JOSSY ARAGON RN 05/03/2021 09:25) JOSSY ARAGON RN - 05/03/2021 11:43 EDT Electronically signed by Abelino, [facility] Conversion Communications Clerk Cerner at 02/22/2023 8:52 PM CDT documented in this encounter Plan of Treatment Not on file documented as of this encounter Visit Diagnoses Not on filedocumented in this encounter
--- OUTSIDE RECORDS SUMMARY | 2025-07-20 08:22 | XMS_ITS | Encounter Summary ---
Author Organization [employer] ([place], [place], [place], [place]) Address [address] [place] [address] Care Team Providers Care Bridge Builder Name Role Phone Unavailable Primary Care Provider Unavailabl e Encounter Details Date Type Department Care Team (Late st Contact Info) Description 05/04/2021 Transcribed Document [facility] [place] [facility] [place] [address] ProviderLatonia MD [facility] [place] [address] Social History Tobacco Use Types [...] 11:08:00 (05/04/21 11:16:23) Electronically signed by Abelino, [facility] Conversion Ordnance Artificer Cerner at 02/22/2023 8:50 PM CDT documented in this encounter Plan of Treatment Not on file documented as of this encounter Visit Diagnoses Not on filedocumented in this encounter
--- OUTSIDE RECORDS SUMMARY | 2025-07-20 08:22 | XMS_ITS | Encounter Summary ---
Author Organization [employer] ([place], [place], [place]) Address [address] [place] [address] Care Team Providers Care Home Service Technician Name Role Phone Unavailable Primary Care Provider Unavailabl e Encounter Details Date Type Department Care Team (Late st Contact Info) Description 05/03/2021 Transcribed Document [facility] [place] [facility] [place] [address] ProviderLatonia MD [facility] [place], [place] [address] Social History Tobacco Use Types Packs/Day Years [...] Tobacco Cues : Needs reinforcement Activities to [place] With Smoking Urges : Needs reinforcement Basic [...]
--- OUTSIDE RECORDS SUMMARY | 2025-07-20 08:22 | XMS_ITS | Encounter Summary ---
Author Organization [employer] ([place], [place], [place], [place]) Address [address] [place] [address] Care Team Providers Care Van Helper Name Role Phone Unavailable Primary Care Provider Unavailabl e Encounter Details Date Type Department Care Team (Late st Contact Info) Description 05/04/2021 Transcribed Document [facility] [place] Medicine [facility] [place] [address] ProviderLatonia MD [facility] [place] [address] Social History Tobacco Use Types Packs/Day Years Used Date Smoking Tobacco: Never Assessed Sex and Gender Information Value Date Recorded Sex Assigned at Not on file Legal Sex Male 7:22 PM CDT Gender Identity Not on file Sexual Orientation Not on file documented as of this encounter Miscellaneous Notes * Cerner Conversion Note - Historical ProviderMD - 05/04/2021 2:00 AM CDT Mica Paster Details Entered On: 05/04/2021 6:34 EDT Performed [...]
--- OUTSIDE RECORDS SUMMARY | 2025-07-20 08:22 | XMS_ITS | Encounter Summary ---
Author Organization [employer] ([place], [place], [place], [place]) Address [address] [place] [address] Care Team Providers Care Pattern Scratcher Name Role Phone Unavailable Primary Care Provider Unavailabl e Encounter Details Date Type Department Care Team (Late st Contact Info) Description 05/04/2021 Transcribed Document [facility] [place] [facility] [place] [address] ProviderLatonia MD [address] [place] [address] Social History Tobacco Use Types Packs/Day [...] 14:50 EDT by ENRIKE ALBARRAN RN - Transplant SurgeonOccasional Babysitter Progress Note Discharge Arrangements : Patient Post-Acute Information Patient Name: SADIQ ISRAEL Gender: Male : 57 Age: 66 Years No Post-Acute Placement(s) Listed No Post-Acute Service(s) Listed No [place] Referral(s) Listed Discharge Options Discussed with Patient : [facility] ENRIKE ALBARRAN, RN - Transplant Surgeon - 05/04/2021 14:50 EDT Narrative Progress Note Narrative Progress Note : Amirah from [facility] talked with the patient and he agreed to rehab there. DCP: [facility] Historical Progress Note : RRS Low Boost 2 Day 2 Patient had an ERCP/EGD today. Scheduled for a lap cassidy tomorrow. Patient lives in the basement at his mother's home. Family is concerned that he will not be able to care for himself at home and his mother is unable to assist. CM has faxed his packet to [facility] [place] . Talked with Rand from [facility]. DCP: home vs SNF ENRIKE ALBARRAN, RN - Transplant Surgeon - 05/04/21 13:58:57 ENRIKE ALBARRAN, RN - Transplant Surgeon - 05/04/2021 14:50 EDT documented in this encounter Plan of Treatment Not on file documented as of this encounter Visit Diagnoses Not on filedocumented in this encounter
--- OUTSIDE RECORDS SUMMARY | 2025-07-20 08:22 | XMS_ITS | Encounter Summary ---
Author Organization [employer] ([place], [place], [place], [place]) Address [address] [place] [address] Care Team Providers Care Health Care Facility Administrator Name Role Phone Unavailable Primary Care Provider Unavailabl e Encounter Details Date Type Department Care Team (Late st Contact Info) Description 05/03/2021 Transcribed Document [facility] [place] [facility] [place] [address] ProviderLatonia MD [facility] [place] [address] Social History Tobacco Use Types [...] General Info Contact Password : sister BEATRIS DPUREE EILEEN - 05/03/2021 8:08 EDT Emergency Contact [...] #2 Relationship : n/a Primary Language : Urugu[place] Communication Barrier : None Sales Systems Engineer Needed : No Randee Giron RN - [...] Level : 46 or > High Risk [place] Fall Interventions : Adequate lighting, Assistive devices [...] Source : Stated Height Entry Format : [place] Height, Feet : 5 ft(Converted to: 152 cm, 60 Inch) Height, Inches : 6 Inch(Converted to: 0 ft 6 Inch, 15.24 cm) Clinical Height : 167.64 cm Weight Source : Bed scale Weight Entry Format : [place] Clinical Dosing Weight : 57.47 kg Weight, Pounds : 126 lb Weight, Ounces : 7 oz Body Surface Area (BSA) : 1.65 m2 Body Mass Index : 20.4 kg/m2 [place] Body Weight : 63 kg Randee Giron [...] Randee Giron RN - 05/03/2021 0:15 EDT [place] Suicide Severity Rating Scale (C-SSRS) CSSRS Past [...] Randee Giron RN - 05/03/2021 0:15 EDT documented in this encounter Plan of Treatment Not on file documented as of this encounter Visit Diagnoses Not on filedocumented in this encounter
--- OUTSIDE RECORDS SUMMARY | 2025-07-20 08:22 | XMS_ITS | Encounter Summary ---
Author Organization [employer] ([place], [place], [place], [place]) Address [address] [place] [address] Care Team Providers Care Interlacer Name Role Phone Unavailable Primary Care Provider Unavailabl e Encounter Details Date Type Department Care Team (Late st Contact Info) Description 05/03/2021 Transcribed Document [facility] [place] [facility] [place] [address] ProviderLatonia MD [facility] [place] [address] Social History Tobacco Use Types [...]
--- OUTSIDE RECORDS SUMMARY | 2025-07-20 08:22 | XMS_ITS | Clinical Summary ---
Author Organization [facility] Address [address] [place] [address] Care Team Providers Care Manufacturer'S Representative Name Role Phone Provider, No Known Primary Care Provider Unavail able Allergies No known active allergies Medications Loratadine 10 MG capsule Take 1 capsule by mouth Daily. Active budesonide-formote rol (SYMBICORT) 160-4.5 MCG/ACT inhaler Inhale 2 puffs 2 (Two) Times a Day. Active fluticasone (FLONASE) 50 MCG/ACT nasal spray Administer 2 sprays into the nostril(s) as directed by provider Daily. Active melatonin 5 MG tablet tablet Administer 1 tablet per G tube Every Night. 03/22/20 25 Active traZODone (DESYREL) 50 MG tablet Administer 1 tablet per G tube Every Night. 03/22/20 25 Active losartan (COZAAR) 100 MG tablet Administer 1 tablet per G tube Daily. 03/23/20 25 Active carvedilol (COREG) 6.25 MG tablet Administer 1 tablet per G tube 2 (Two) Times a Day With Meals. 03/22/20 25 Active amLODIPine (NORVASC) 10 MG tablet Administer 1 tablet per G tube Daily. 03/23/20 25 Active Nutritional Supplements (ProSource TF) liquid oral liquid Administer 45 mL per G tube Daily. 03/23/20 25 Active clopidogrel (PLAVIX) 75 MG tablet Administer 1 tablet per G tube Daily. 90 tablet 03/23/20 25 Active levothyroxine (SYNTHROID, LEVOTHROID) 75 MCG tablet Administer 1 tablet per G tube Every Morning. 03/23/20 Active lansoprazole (PREVACID SOLUTAB) 15 MG Tablet Delayed Release Dispersible disintegrating tablet 1 tablet by Nasogastric route Every Morning. 03/23/20 Active aspirin 81 MG chewable tablet Administer 1 tablet per G tube Daily. 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 Medically noncompliant 03/07/2024 COPD (chronic obstructive pulmonary disease) 02/2024 Hyperlipidemia 03/07/2024 Resolved Problems Problem Noted Date Diagnosed Date Resolved Date Stroke 03/12/2025 03/22/2025 Facial droop 03/11/2025 03/22/2025 Social History Tobacco Use Types Packs/Day Years Used Date Smoking Tobacco: Every Day Cigarettes 1 55.7 Started: 1968 Passive Smoke Exposure: Current Smokeless Tobacco: Never Tobacco Cessation:Ready to Q uit: No; Counseling Given: No Alcohol Use Standard Drinks/Week Comments Yes 0 (1 standard drink = 0.6 oz pur e alcohol) [facility] Utilities Answer Date Recorded In the past 12 months has [employer], gas, oil, or water [employer] threatened to shut off services in your home? No 03/12/2025 AUDIT-C Answer Date Recorded Q1: How often do you have a drink containing alc ohol? 2-3 times a week 03/11/2025 Q2: How many drinks containi ng alcohol do you have on a typical day when you are drinking? 1 or 2 03/11/2025 Q3: How often do you have si x or more drinks on one occasion? Monthly 03/11/2025 Hunger Vital Sign Answer Date Recorded Within the past 12 months, y ou worried that your food would run out before you got the money to buy more. Never true 03/12/20 25 Within the past 12 months, t he food you bought just didn't last and you didn't have money to get more. Never true 03/12/2025 PRAPARE - Transportation Answer Date Re corded In the past 12 months, has l ack of transportation kept you from medical appointments or from getting medications? No 07/2025 In the past 12 months, has l ack of transportation kept you from meetings, work, or from getting things needed for daily living? No 03/12/2025 Abuse Screen Answer Date Recorded Feels Unsafe at Home or Work/School no 03/11/2025 Feels Threatened by Someone no 06/2025 Does Anyone Try to Keep You From Having Contact with Others or Doing Things Outside Your Home? no 03/11/2025 Physical Signs of Abuse Present no 03/11/2025 Housing Stability Answer Date Recorded Current Living Arrangements home 07/2025 Potentially Unsafe Housing Conditions unable to assess 03/12/2025 Employment Answer Date Recorded Do you want help finding or keeping work or a job? I do not need or want help 03/12/2025 Disabilities Answer Date Recorded Difficulty Concentrating, Remembering or Making Decisions no 03/11/2025 Difficulty Managing Errands Independently no 03/11/2025 Education Answer Date Recorded Do you want help with school or training? For example, starting or completing job training or getting a high school diploma, GED or equivalent No 03/12/2025 Preferred Language Turkish 03/12/2025 PHQ-2 Answer Date Recorded Retired PHQ-9: Brief Depression Severity Measure Score 0 06/04/2024 Sex and Gender Information Value Date Recorded Sex Assigned at Not on file Legal Sex Male 11:54 AM EDT Gender Identity Not on file Sexual Orientation Not on file Last Filed Vital Signs Vital Sign Reading Time Taken Comments Blood Pressure 121/60 03/22/2025 11:25 AM EDT Pulse 59 03/22/2025 11:25 AM EDT Temperature 36.6 C (97.8 F) 03/22/2025 11:25 AM EDT Respiratory Rate 16 03/22/2025 11:25 AM EDT Oxygen Saturation 93% 03/22/2025 11:25 AM EDT Inhaled Oxygen Concentration - - Weight 85.7 kg (188 lb 15 oz) 03/16/2025 5:45 AM EDT Height 167 cm (5' 5.75 ) 03/15/2025 1:50 PM EDT Body Mass Index 30.73 03/15/2025 1:50 PM EDT Plan of Treatment Health Maintenance Due Date Last Done Comments ELIER 2001 COLON CANCER SCREENING 5 YEA R SIGMOIDOSCOPY 2001 COLONOSCOPY 2001 COL[address] CANCER SCREENING 2001 CT COLONOGRAPHY 2001 FECAL OCCULT BLOOD TEST 2001 FIT Testing (1 year) 2001 LUNG CANCER SCREENING 2006 ZOSTER VACCINE (1 of 2) 2006 AAA SCREEN ONCE 2021 ANNUAL WELLNESS VISIT 03/08/2024 HEPATITIS C SCREENING 03/08/2024 COVID-19 Vaccine (3 - season) 2025, 07/12/2021 INFLUENZA VACCINE 08/04/2025 08/04/2021 LIPID PANEL 03/12/2026 03/12/2025, 03/08/2024 TDAP/TD VACCINES (3 - Td or Tdap) 03/02/2035 025, 01/06/1997 Pneumococcal Vaccine 50+ Completed 03/02/2025, 10/04 Procedures Procedure Name Priority Date/Time Associated Diagnosis Comments LIPID PANEL Urgent 03/12/2025 7:58 AM EDT from Last 3 Months or Most Recently Relevant to Health Maintenance Results * (ABNORMAL) Lipid Panel (03/12/2025 7:58 AM EDT) Total Cholesterol 213(H) 0 - 200 mg/dL 03/12/2025 8:51 AM EDT [facility] Triglycerides 157(H) 0 - 150 mg/dL 03/12/2025 8:51 AM EDT [facility] HDL Cholesterol 40 40 - 60 mg/dL 03/12/2025 8:51 AM EDT [facility] LDL Cholesterol 145(H) 0 - 100 mg/dL 03/12/2025 8:51 AM EDT [facility] VLDL Cholesterol 28 5 - 40 mg/dL 03/12/2025 8:51 AM EDT [facility] LDL/HDL Ratio 3.54 03/12/2025 8:51 AM EDT [facility] Blood Venipuncture / Unknown 03/12/2025 7:58 AM EDT 03/12/2025 8:06 AM EDT Narrative [facility] - 03/12/2025 8:51 AM EDT Cholesterol Reference Ranges (U.S. Department of Health and Human Services ATP III Classifications) Desirable <200 mg/dL Borderline High 200-239 mg/dL High Risk >240 mg/dL Triglyceride Reference Ranges (U.S. Department of Health and Human Services ATP III Classifications) Normal <150 mg/dL Borderline High 150-199 mg/dL High 200-499 mg/dL Very High >500 mg/dL HDL Reference Ranges (U.S. Department of Health and Human Services ATP III Classifications) Low <40 mg/dl (major risk factor for CHD) High >60 mg/dl ('negative' risk factor for CHD) LDL Reference Ranges (U.S. Department of Health and Human Services ATP III Classifications) Optimal <100 mg/dL Near Optimal 100-129 mg/dL Borderline High 130-159 mg/dL High 160-189 mg/dL Very High >189 mg/dL LDL is calculated using the NIH LDL-C calculation. Adela Pal APRN LAB BLOOD ORDERABLES Final Result [facility]
[address] [place] [address], from Last 3 Months or Most Recently Relevant to Health Maintenance Insurance [place]ICAID [place] Member Subscriber Plan / Payer (Ef fective 2024-Present) Name:Sadiq Israel Relation to Subscriber:Self Name:Sadiq Israel Payer ID:[id number] Group ID:Not on file Type:Not on file Address: [address] MEDICARE ADVANTAGE [facility] [place] [address] Advance Directives Documents on File Type Date Recorded Patient Animal Biologist Expl anation POWER OF PROFESSOR OF LATIN AMERICAN STUDIES - SCAN 2025 2:53 PM POWER OF PROFESSOR OF LATIN AMERICAN STUDIES/REVOCATION OF PREVIOUS TOUSSAINT OF PROFESSOR OF LATIN AMERICAN STUDIES, BHLEX, 06/09/2021 LIVING WILL - SCAN 2025 12:27 PM SAMUEL ING WILL AND DESIGNATION OF HEALTHCARE SURROGATE, BHLEX, 06/04/2021 * CPR (Attempt to Resuscitate) (Latest Code Status on File) Date Activated Date Inactivated Comments 03/11/2025 7:46 PM 03/22/2025 5:07 PM Question Answer Comments Code Status (Patient has no pulse and is not breathing): CPR (Attempt to Resuscitate) Medical Interventions (Patie nt has pulse or is breathing): Full Support Level Of Support Discussed With: Patient * CPR (Attempt to Resuscitate) Date Activated Date Inactivated Comments 03/07/2024 4:44 PM 03/12/2024 4:27 PM Question Answer Comments Code Status (Patient has no pulse and is not breathing): CPR (Attempt to Resuscitate) Medical Interventions (Patie nt has pulse or is breathing): Full Support Healthcare Agents on File Name Relationship Healthcare Agent [facility] Surrogate Care Teams Manufacturer'S Representative Relationship Specialty Start Date End Date Provider, [place] [address] PCP - General 03/11/25
--- OUTSIDE RECORDS SUMMARY | 2025-07-20 08:22 | XMS_ITS | Encounter Summary ---
Author Organization [employer] ([place], [place], [place], [place]) Address [address] [place] [address] Care Team Providers Care Carpentry Supervisor Name Role Phone Unavailable Primary Care Provider Unavailabl e Encounter Details Date Type Department Care Team (Late st Contact Info) Description 05/07/2021 Transcribed Document [facility] [place] Medicine [facility] [place] [address] ProviderLatonia MD [facility] [place], [place] [id number] Social History Tobacco Use Types Packs/Day Years [...] 05/07/2021 16:35 EDT by Mark [place] Viveros fire marshal Documentation Discharge Date/Time : 05/07/2021 16:35 EDT Patient Disposition, General : Discharge Discharge To : Rehabilitation unit/facility Mode Of Departure, General Discharge : Private vehicle, Other: sister trandported to [facility] Accompanied By, Discharge : Sibling IV Discontinued : Yes Personal Belongings With Patient : Yes Pt's Own Supply of Medications Returned : No patient supply of medications to return Education Comment : pt still drowsy but doing better today, still not appropraite for education Mark [place] Viveros, RN - 05/07/2021 16:35 EDT documented in this encounter Plan of Treatment Not on file documented as of this encounter Visit Diagnoses Not on filedocumented in this encounter
--- OUTSIDE RECORDS SUMMARY | 2025-07-20 08:22 | XMS_ITS | Encounter Summary ---
Author Organization [employer] ([place], [place]) Address [address] [place] [address] Care Team Providers Care Supervisor Travel Information Center Name Role Phone Unavailable Primary Care Provider Unavailabl e Encounter Details Date Type Department Care Team (Late st Contact Info) Description 05/03/2021 Transcribed Document [facility] [place] [facility] [place] [address] ProviderLatonia MD [address] [place] [address] Social History Tobacco Use Types Packs/Day [...] NEGRITO SHIN OTR/L - 05/03/2021 14:43 EDT Plan Consultant Goals, OT Grooming LTG Grid Goal #1 [...]
--- OUTSIDE RECORDS SUMMARY | 2025-07-20 08:22 | XMS_ITS | Encounter Summary ---
Author Organization [employer] ([place], [place], [place], [place]) Address [address] [place] [address] Care Team Providers Care Hot Roll Laminator Name Role Phone Unavailable Primary Care Provider Unavailabl e Encounter Details Date Type Department Care Team (Late st Contact Info) Description 05/04/2021 Transcribed Document [facility] [place] Family Medicine [facility] [place] [address] Provider, MD Latonia [address] [place] [address] Social History Tobacco Use Types Packs/Day Years Used Date Smoking Tobacco: Never Assessed Sex and Gender Information Value Date Recorded Sex Assigned at Not on file Legal Sex Male 7:22 PM CDT Gender Identity Not on file Sexual Orientation Not on file documented as of this encounter Miscellaneous Notes * Cerner Conversion Note - Latonia ProviderMD - 05/04/2021 10:57 AM CDT [facility] Endo PACU Summary Primary Physician: BEATRIS ISRAEL MD-[facility] Finalized Date/Time: 05/04/21 12:17:32 Pt. Name: SADIQ ISRAEL /Sex: 1955 Male Med Rec #: [id number] Physician: GUILLAUME DIXON MD Financial #: [id number] Pt. Type: I Room/Bed: [facility]/ Admit/Disch: 05/03/21 00:04:00 - Institution: [facility] Endo PACU Case Times Entry 1 In PACU I 05/04/21 11:39:00 Ready for PACU 05/04/21 12:15:00 Discharge Discharge from PACU 05/04/21 12:17:00 I Last Modified By: Nereida Jasso Rn 05/04/21 12:15:46 [facility] Endo PACU Case Times Audit 05/04/21 12:17:29 Hand Spring Repairer Helper: [id number] Modifier: [id number] <+> 1 Discharge from PACU I 05/04/21 12:15:46 Hand Spring Repairer Helper: [id number] Modifier: [id number] <+> 1 Ready for PACU Discharge Finalized By: Nereida Jasso, Rn Document Signatures Signed By: Nereida Jasso, Rn 05/04/21 12:17 Electronically signed by Abelino [facility] Conversion Senior Technical Support Analyst Cerner at 02/22/2023 8:38 PM CDT documented in this encounter Plan of Treatment Not on file documented as of this encounter Visit Diagnoses Not on filedocumented in this encounter
--- OUTSIDE RECORDS SUMMARY | 2025-07-20 08:22 | XMS_ITS | Encounter Summary ---
Author Organization [employer] ([place]) Address [address] [place] [address] Care Team Providers Care Washer Carcass Name Role Phone Unavailable Primary Care Provider Unavailabl e Encounter Details Date Type Department Care Team (Late st Contact Info) Description 05/04/2021 Transcribed Document [facility] [place] [facility] [place] [address] ProviderLatonia MD [facility] [place] [address] Social History Tobacco Use Types [...] 05/04/2021 6:34 EDT Electronically signed by Abelino [facility] Conversion Business Integration Analyst Cerner at 02/22/2023 8:34 PM CDT documented in this encounter Plan of Treatment Not on file documented as of this encounter Visit Diagnoses Not on filedocumented in this encounter
--- OUTSIDE RECORDS SUMMARY | 2025-07-20 08:22 | XMS_ITS | Encounter Summary ---
Author Organization [employer] ([place], [place]) Address [address] [place] [address] Care Team Providers Care School Bus Technician Name Role Phone Unavailable Primary Care Provider Unavailabl e Encounter Details Date Type Department Care Team (Late st Contact Info) Description 05/04/2021 Transcribed Document [facility] [place] Family Medicine [facility] [place] [address] ProviderLatonia MD [facility] [place] [address] Social History Tobacco Use Types [...] 13:53 EDT by ENRIKE ALBARRAN RN - Senior Data ModelerPediatric Immunologist Progress Note Discharge Arrangements : Patient Post-Acute Information Patient Name: SADIQ ISRAEL Gender: Male : [birth year] Age: 66 Years No Post-Acute Placement(s) Listed No Post-Acute Service(s) Listed No [place] Referral(s) Listed Discharge Options Discussed with Patient : Home Health Is the Patient Meeting Medical Necessity : Yes Did you Attend Multidisciplinary Rounds? : Yes ENRIKE ALBARRAN RN - Senior Data Modeler - 05/04/2021 13:53 EDT Narrative Progress Note [...] home vs SNF ENRIKE ALBARRAN, RN - Senior Data Modeler - 05/04/2021 13:53 EDT documented in this encounter Plan of Treatment Not on file documented as of this encounter Visit Diagnoses Not on filedocumented in this encounter
--- OUTSIDE RECORDS SUMMARY | 2025-07-20 08:22 | XMS_ITS | Encounter Summary ---
Author Organization [employer] ([place], [place]) Address [address] [place] [address] Care Team Providers Care Screening Technician Name Role Phone Unavailable Primary Care Provider Unavailabl e Encounter Details Date Type Department Care Team (Late st Contact Info) Description 05/03/[address] [facility] [place] [facility] [place] [address] ProviderLatonia MD [address] [place] [address] Social History Tobacco Use Types Packs/Day [...] listening, Feelings expressed, Information provided Spiritual and Sabianist : Spiritual/Sabianist support provided Change, Adjustment and Loss : [...] Sister SHIVA MELO - 05/03/2021 16:54 EDT Electronically signed by Rivas Roca Conversion Sales Representative [employer] Cerner at 02/22/2023 8:51 PM CDT documented in this encounter Plan of Treatment Not on file documented as of this encounter Visit Diagnoses Not on filedocumented in this encounter
--- OUTSIDE RECORDS SUMMARY | 2025-07-20 08:22 | XMS_ITS | Encounter Summary ---
Author Organization [employer] ([place]) Address [address] [place] [address] Care Team Providers Care Program Therapist Name Role Phone Unavailable Primary Care Provider Unavailabl e Encounter Details Date Type Department Care Team (Late st Contact Info) Description 05/03/2021 Transcribed Document [facility] [place] [facility] [place] [address] ProviderLatonia MD [facility] [place] [address] Social History Tobacco Use Types [...] Policy Numbers : Insurance 1 Health Plan: [facility] Policy Number: [id number] Authorization Number: Insurance Primary Name : [facility] Policy Number: [id number] Authorization Status-Primary : Awaiting callback Reference Number-Primary : Pend ref #[id number] Authorized Service Begin Date-Primary : 05/03/2021 EDT Authorization Comments-Primary : Clinicals submitted via [employer] for IP approval Historical Authorization Comments-Primary : No Authorization Comments Found JOSSY ARAGON RN - 05/03/2021 9:25 EDT documented in this encounter Plan of Treatment Not on file documented as of this encounter Visit Diagnoses Not on filedocumented in this encounter
--- OUTSIDE RECORDS SUMMARY | 2025-07-20 08:22 | XMS_ITS | Encounter Summary ---
Author Organization [employer] ([place]) Address [address] [place] [address] Care Team Providers Care Public Health Microbiologist Name Role Phone Unavailable Primary Care Provider Unavailabl e Encounter Details Date Type Department Care Team (Late st Contact Info) Description 05/03/2021 Transcribed Document [facility] [address] [place] [address] Maricel Marsh MD [address] [place] [phone] Social History Tobacco Use Types Packs/Day [...] EDT cefTRIAXone, 1 Gram, IV Piggyback, Inj, [id number], infuse over 30 Minute(s), Routine, Start 05/03/21 2:00:00 EDT, 100 mL/Hr, Indication: Urinary Tract Infection heparin, 5,000 Units, SubCutaneous, Inj, [id number], Routine, Start 05/03/21 2:00:00 EDT, 05/03/21 1:32:00 [...] - Medical Heparin 5,000 Units, SubCutaneous, Inj, [id number], Routine, Start 05/03/21 2:00:00 EDT, 05/03/21 1:32:00 [...]
--- OUTSIDE RECORDS SUMMARY | 2025-07-20 08:22 | XMS_ITS | Encounter Summary ---
Author Organization [email or web address] ([place]) Address [address] [place] [address] Care Team Providers Care Screw Machine Tool Setter Name Role Phone Unavailable Primary Care Provider Unavailabl e Encounter Details Date Type Department Care Team (Late st Contact Info) Description 05/04/2021 Transcribed Document [facility] [place] [facility] [place] [address] ProviderLatonia MD [facility] [place] [address] Social History Tobacco Use Types [...]
--- OUTSIDE RECORDS SUMMARY | 2025-07-20 08:22 | XMS_ITS | Encounter Summary ---
Author Organization [employer] ([place], [place]) Address [address] [place] [address] Care Team Providers Care Fine Jewelry Sales Associate Name Role Phone Unavailable Primary Care Provider Unavailabl e Encounter Details Date Type Department Care Team (Late st Contact Info) Description 05/04/2021 Transcribed Document [facility] [place] [address] [place] [address] ProviderLatonia MD [facility] [place], [place] [id number] Social History Tobacco Use Types Packs/Day Years [...]
--- OUTSIDE RECORDS SUMMARY | 2025-07-20 08:22 | XMS_ITS | Encounter Summary ---
Author Organization [employer] ([place], [place]) Address [address] [place] [address] Care Team Providers Care Healthcare Representative Name Role Phone Unavailable Primary Care Provider Unavailabl e Encounter Details Date Type Department Care Team (Late st Contact Info) Description 05/07/2021 Transcribed Document [facility] [place] [facility] [place] [address] ProviderLatonia MD [facility] [place] [address] Social History Tobacco Use Types [...]
--- OUTSIDE RECORDS SUMMARY | 2025-07-20 08:22 | XMS_ITS | Encounter Summary ---
Author Organization [employer] ([place], [place], [place], [place]) Address [address] [place] [address] Care Team Providers Care Chain Mender Name Role Phone Unavailable Primary Care Provider Unavailabl e Encounter Details Date Type Department Care Team (Late st Contact Info) Description 05/04/2021 Transcribed Document [facility] Family Medicine [facility] [place] [address] Provider, MD Latonia [address] [place] [address] Social History Tobacco Use Types Packs/Day Years Used Date Smoking Tobacco: Never Assessed Sex and Gender Information Value Date Recorded Sex Assigned at Not on file Legal Sex Male 7:22 PM CDT Gender Identity Not on file Sexual Orientation Not on file documented as of this encounter Miscellaneous Notes * Cerner Conversion Note - Latonia ProviderMD - 05/04/2021 10:57 AM CDT [facility] IntraOp Summary Primary Physician: BEATRIS BLANCAS MD-GAE Finalized Date/Time: 05/04/21 11:29:11 Pt. Name: TIFFANI BLANCAS /Sex: 1955 Male Med Rec #: [id number] Physician: GUILLAUME DIXON MD Financial #: [id number] Pt. Type: I Room/Bed: [facility] Admit/Disch: 05/03/21 00:04:00 - Institution: [facility] - Case Attendance Entry 1 Entry 2 Entry 3 Case Attendee BEATRIS BLANCAS MD-Anum Joyce Rn OTHER, ATTENDEE Role Performed Surgeon/Proceduralist, Direct Care Professional, First Student First Time In 05/04/21 10:55:00 [...] 5 Entry 6 Case Attendee Son Mcdowell, POWER TRANSFORMER REPAIR SUPERVISOR DAJUAN RABAGO MD-[facility] SAMAN TURK, CLINICAL TRAINING COORDINATOR Role Performed POWER TRANSFORMER REPAIR SUPERVISOR/Nurse Ship/Rec/Doc Control [facility], First Record Time In 05/04/21 10:44:00 05/04/21 [...] 11:27:20 Entry 7 Case Attendee Michele Zuluaga, Data Processing Manager Role Performed Regulatory Auditor Time In 05/04/21 10:44:00 Time Out 05/04/21 11:31:00 Procedure Endoretrogradecholangiop ancreatography, Esophagogastroduodenosco py, Gastric Biopsy, Duodenal Biopsy, Sphincterotomy, Biliary Duct Balloon Sweep, Biliary Duct Stone Extraction Other Attendee Superficial Wound Closed By: Last Modified By: Anum Barraza Rn 05/04/21 11:27:20 [facility] Endo - Case Attendance Audit 05/04/21 11:28:59 Senior Ux Designer: MYLENE Modifier: MYLENE 2 <*> Time Out [...] Sweep, Biliary Duct Stone Extraction 05/04/21 11:27:20 Senior Ux Designer: MYLENE Modifier: MYLENE 1 <+> Time Out [...] Sweep, Biliary Duct Stone Extraction 05/04/21 11:16:24 Senior Ux Designer: MYLENE Modifier: WARD 1 <*> Procedure Endoretrogradecholangiopancreatography, [...] Sphincterotomy, Biliary Duct Balloon Sweep 05/04/21 11:12:38 Senior Ux Designer: MYLENE Modifier: WARD 1 <*> Procedure Endoretrogradecholangiopancreatography, [...] Esophagogastroduodenoscopy, Gastric Biopsy, Duodenal Biopsy 05/04/21 11:02:08 Senior Ux Designer: MYLENE Modifier: MYLENE 1 <*> Procedure Endoretrogradecholangiopancreatography, Esophagogastroduodenoscopy 2 <*> Procedure Endoretrogradecholangiopancreatography, Esophagogastroduodenoscopy 3 <*> Procedure Endoretrogradecholangiopancreatography, Esophagogastroduodenoscopy 4 <*> Procedure Endoretrogradecholangiopancreatography, Esophagogastroduodenoscopy 5 <*> Procedure Endoretrogradecholangiopancreatography, Esophagogastroduodenoscopy 6 <*> Procedure Endoretrogradecholangiopancreatography, Esophagogastroduodenoscopy 7 <+> Time In 7 <*> Procedure Endoretrogradecholangiopancreatography, Esophagogastroduodenoscopy 05/04/21 11:01:10 Senior Ux Designer: MYLENE Modifier: MYLENE 1 <*> Time In 05/04/21 10:44:00 1 <*> Procedure Endoretrogradecholangiopancreatography, Esophagogastroduodenoscopy <+> 7 Case Attendee <+> 7 Role Performed <+> 7 Procedure 05/04/21 10:52:00 Senior Ux Designer: MYLENE Modifier: MYLENE 5 <+> Time In 5 <*> Procedure Endoretrogradecholangiopancreatography, Esophagogastroduodenoscopy 6 <+> Time In 6 <*> Procedure Endoretrogradecholangiopancreatography, Esophagogastroduodenoscopy 05/04/21 10:51:59 Senior Ux Designer: MYLENE Modifier: MFWARD 1 <*> Procedure Endoretrogradecholangiopancreatography, Esophagogastroduodenoscopy 2 <+> Time In 2 <*> Procedure Endoretrogradecholangiopancreatography, Esophagogastroduodenoscopy 3 <+> Time In 3 <*> Procedure Endoretrogradecholangiopancreatography, Esophagogastroduodenoscopy 4 <+> Time In 4 <*> Procedure Endoretrogradecholangiopancreatography, Esophagogastroduodenoscopy 05/04/21 10:50:19 Senior Ux Designer: MYLENE Modifier: MFWARD 1 <+> Time In [...] <+> 6 Role Performed <+> 6 Procedure [facility] Endo - Case times Entry 1 Patient In Room Time 05/04/21 10:44:00 Out Room Time 05/04/21 11:40:00 Anesthesia Start Time 05/04/21 10:44:00 Stop Time 05/04/21 11:40:00 Surgery / Procedure Times Start Time 05/04/21 10:57:00 Stop Time 05/04/21 11:26:00 Last Modified By: Anum Barraza Rn 05/04/21 11:28:39 [facility] Endo - Case times Audit 05/04/21 11:28:39 Senior Ux Designer: MYLENE Modifier: DHAVALWARD 1 <*> Out Room Time 05/04/21 11:31:00 1 <*> Stop Time 05/04/21 11:31:00 05/04/21 11:27:16 Senior Ux Designer: MYLENE Modifier: MFWARD <+> 1 Out Room Time <+> 1 Stop Time <+> 1 Stop Time 05/04/21 11:00:37 Senior Ux Designer: MYLENE Modifier: DHAVALWARD <+> 1 Start Time [facility] Endo - Cautery Entry 1 ESU Identification Cautery Type Monopolar ESU ID Number Room [id number] ID Type Hospital Number Cautery Settings Blend Setting Pulse Cut Slow 120 ESU Grounding Pad Ground Pad Type Adult Grounding Pad Site Right lower leg Grounding Pad SAMAN TURK, Applied By CLINICAL TRAINING COORDINATOR Grounding Pad Site Intact, Dry Skin Condition Before Cautery Grounding Pad Site Unchanged Skin Condition After Cautery Last Modified By: Anum Barraza Rn 05/04/21 11:16:10 [facility] Endo - Cultures and Spec Summary Entry 1 Cultrures and Specimens Specimen Ordered: Yes Test(s) Routine/Path-Lab Requested/Final Disposition Last Modified By: Anum Barraza Rn 05/04/21 11:03:04 [facility] Endo - Delays Entry 1 Delay Reason Other Duration 0 Minute(s) Last Modified By: Anum Barraza Rn 05/04/21 10:50:22 [facility] Endo - Departure from OR Entry 1 Integumentary Assessment Integumentary WDL Assessment WDL Transfer/Handoff Transfer to PACU Phase I Post-op Transport Stretcher/Gurney Via Patient Transport Anum Barraza Rn, Accompanied by Son Mcdowell CRNA Last Modified By: Anum Barraza Rn 05/04/21 10:50:27 [facility] Endo - Endoscopy Details Entry 1 Abdomen Procedure Soft, Non-Tender Assessment Procedure Abdomen 05/04/21 10:50:00 Assessment D/T Radio Frequency Ablation Abdominal Pressure Last Modified By: Anum Barraza Rn 05/04/21 10:50:35 [facility] Endo - Fire Risk Assessment Entry 1 [...] Modified By: Anum Barraza Rn 05/04/21 10:50:41 [facility] Endo - General Case Lay Out Helper 1 Case Information OR Endo 04 [facility] Case Level 1 Room Verified Yes Wound Class II - Clean-Contaminated Specialty Gastroenterology Anesthesia Type MAC ASA Class 3 Diagnosis Preop Diagnosis BILIARY OBSTR/ANEMIA Postop Same As Preop No Postop Diagnosis BILIARY OBSTR/ANEMIA, duodenal errosions, gastritis, hiatal hernia, gall stone Last Modified By: Anum Barraza Rn 05/04/21 11:17:35 [facility] Endo - General Case Data Audit 05/04/21 11:17:35 Senior Ux Designer: MYLENE Modifier: MFWARD 1 <*> Postop Same As Preop Yes 1 <*> Postop Diagnosis BILIARY OBSTR/ANEMIA [facility] Endo - Intraoperative Assessment Entry 1 Valid History / Yes Physical in Chart Preoperative Yes Checklist Reviewed/Evaluated Patient is Latex No Sensitive Level of WDL Consciousness (WDL = Alert, Oriented to Person, Place, and Time) Last Modified By: Anum Barraza Rn 05/04/21 10:51:16 [facility] Endo - Intraoperative Equipment Entry 1 Entry [...] Ward, Marissa, Rn 05/04/21 10:51:41 05/04/21 10:51:41 [facility] Endo - Patient Positioning Entry 1 Procedure [...] Modified By: Anum Barraza Rn 05/04/21 11:16:25 [facility] Endo - Patient Positioning Audit 05/04/21 11:16:25 Senior Ux Designer: MYLENE Modifier: DHAVALWARD 1 <*> Procedure Esophagogastroduodenoscopy, Gastric Biopsy, Duodenal Biopsy, Sphincterotomy, Biliary Duct Balloon Sweep 05/04/21 11:12:39 Senior Ux Designer: MYLENE Modifier: MYLENE 1 <*> Procedure Esophagogastroduodenoscopy, Gastric Biopsy, Duodenal Biopsy 05/04/21 11:02:09 Senior Ux Designer: MYLENE Modifier: MYLENE 1 <*> Procedure Esophagogastroduodenoscopy [facility] Endo - Sign In Entry 1 Patient, Site, Yes Procedure Identified Surgical Consent Yes Confirmed Surgical Site N/A Marked by person performing procedure Airway Hypothermia Risk No Warming Measures No Taken Last Modified By: Anum Barraza Rn 05/04/21 10:51:56 [facility] Endo - Sign Out Entry 1 RN [...] Modified By: Anum Barraza Rn 05/04/21 11:29:07 [facility] Endo - Surgical Procedures Entry 1 Entry [...] Physician States Cecum Reached Anesthesia Type [facility] Specialty Gastroenterology Gastroenterology Gastroenterology Wound Class II [...] 11:26:00 Physician States Cecum Reached Anesthesia Type [facility] Specialty Gastroenterology Wound Class II - Clean-Contaminated Last Modified By: Anum Barraza Rn 05/04/21 11:28:24 [facility] Endo - Surgical Procedures Audit 05/04/21 11:28:24 Senior Ux Designer: MFWARD Modifier: MFWARD <+> 1 Stop <+> 3 Stop <+> 4 Stop <+> 5 Stop <+> 6 Stop <+> 7 Stop 05/04/21 11:16:23 Senior Ux Designer: MFWARD Modifier: MFWARD <+> 7 Procedure <+> 7 Primary Procedure <+> 7 Primary Surgeon <+> 7 Specialty <+> 7 Start <+> 7 Wound Class <+> 7 Anesthesia Type 05/04/21 11:12:36 Senior Ux Designer: MFWARD Modifier: MFWARD <+> 5 Procedure <+> 5 Primary Procedure <+> 5 Primary Surgeon <+> 5 Specialty <+> 5 Start <+> 5 Wound Class <+> 5 Anesthesia Type <+> 6 Procedure <+> 6 Primary Procedure <+> 6 Primary Surgeon <+> 6 Specialty <+> 6 Start <+> 6 Wound Class <+> 6 Anesthesia Type 05/04/21 11:12:07 Senior Ux Designer: MYLENE Modifier: MFWARD 1 <*> Procedure Endoretrogradecholangiopancreatography 1 <*> Start 05/04/21 10:57:00 05/04/21 11:09:42 Senior Ux Designer: MYLENE Modifier: MFWARD 2 <*> Procedure Esophagogastroduodenoscopy 2 <+> Stop 05/04/21 11:02:06 Senior Ux Designer: MYLENE Modifier: DHAVALWARD <+> 1 Start <+> 2 Start <+> 3 Procedure <+> 3 Primary Procedure <+> 3 Primary Surgeon <+> 3 Specialty <+> 3 Start <+> 3 Wound Class <+> 3 Anesthesia Type <+> 4 Procedure <+> 4 Primary Procedure <+> 4 Primary Surgeon <+> 4 Specialty <+> 4 Start <+> 4 Wound Class <+> 4 Anesthesia Type 05/04/21 10:52:10 Senior Ux Designer: MYLENE Modifier: DHAVALVIRGEN 1 <*> Procedure Endoretrogradecholangiopancreatography 1 <+> Specialty 2 <*> Procedure Esophagogastroduodenoscopy 2 <+> Specialty [facility] Endo - Time Out Entry 1 Procedure [...] 05/04/21 11:16:26 General Comments: on scheduled antibiotics [facility] Endo - Time Out Audit 05/04/21 11:16:26 Senior Ux Designer: MYLENE Modifier: MYLENE 1 <*> Procedure to [...] Sphincterotomy, Biliary Duct Balloon Sweep 05/04/21 11:12:40 Senior Ux Designer: MYLENE Modifier: MYLENE 1 <*> Procedure to be Performed Endoretrogradecholangiopancreatography, Esophagogastroduodenoscopy, Gastric Biopsy, Duodenal Biopsy 1 <*> Procedure to be Performed Endoretrogradecholangiopancreatography, Esophagogastroduodenoscopy, Gastric Biopsy, Duodenal Biopsy 1 <*> Procedure to be Performed Endoretrogradecholangiopancreatography, Esophagogastroduodenoscopy, Gastric Biopsy, Duodenal Biopsy 1 <*> Procedure to be Performed Endoretrogradecholangiopancreatography, Esophagogastroduodenoscopy, Gastric Biopsy, Duodenal Biopsy 05/04/21 11:12:18 Senior Ux Designer: MYLENE Modifier: MYLENE 1 <*> Time Out [...] Esophagogastroduodenoscopy, Gastric Biopsy, Duodenal Biopsy 05/04/21 11:02:09 Senior Ux Designer: MYLENE Modifier: MFWARD 1 <*> Procedure to be Performed 1 <*> Procedure to be Performed Endoretrogradecholangiopancreatography, Esophagogastroduodenoscopy 1 <*> Procedure to be Performed Endoretrogradecholangiopancreatography, Esophagogastroduodenoscopy 1 <*> Procedure to be Performed Endoretrogradecholangiopancreatography, Esophagogastroduodenoscopy 1 <*> Procedure to be Performed Endoretrogradecholangiopancreatography, Esophagogastroduodenoscopy 1 <*> Procedure to be Performed Endoretrogradecholangiopancreatography, Esophagogastroduodenoscopy [facility] Endo - X-Ray and Images Entry 1 X-Ray/Imaging Type Fluoroscopy Fluoroscopy Type C-Arm Associate Professor Of Geology Name Michele Zuluaga, Data Processing Manager Protective Devices Yes Used Exposure Time 1.5 Last Modified By: Anum Barraza Rn 05/04/21 11:28:22 [facility] Endo - X-Ray and Images Audit 05/04/21 11:28:22 Senior Ux Designer: MYLENE Modifier: DHAVALWARD <+> 1 Exposure Time Case Comments <None> Finalized By: Anum Barraza Rn Document Signatures Signed By: Anum Barraza Rn 05/04/21 11:29 Electronically signed by Abelino [facility] Conversion Thickener Operator Cerner at 02/22/2023 8:36 PM CDT documented in this encounter Plan of Treatment Not on file documented as of this encounter Visit Diagnoses Not on filedocumented in this encounter
--- OUTSIDE RECORDS SUMMARY | 2025-07-20 08:23 | XMS_ITS | Encounter Summary ---
Author Organization [employer] ([place], [place], [place], [place]) Address [address] [place] [address] Care Team Providers Care Topper Press Operator Automatic Name Role Phone Unavailable Primary Care Provider Unavailabl e Encounter Details Date Type Department Care Team (Late st Contact Info) Description 05/03/2021 Transcribed Document [facility] Family Medicine [facility] [place] [address] ProviderLatonia MD [address] [place] [address] Social History Tobacco Use Types Packs/Day [...] NICHOLAS ANDRADE, PT - 05/03/2021 14:25 EDT Data Storage Specialist Goals Mobility/Bed Mobility LTG PT Grid Goal [...] 05/03/2021 14:25 EDT Electronically signed by Abelino [facility] Conversion Obstetric Assistant Cerner at 02/22/2023 8:58 PM CDT documented in this encounter Plan of Treatment Not on file documented as of this encounter Visit Diagnoses Not on filedocumented in this encounter
--- OUTSIDE RECORDS SUMMARY | 2025-07-20 08:23 | XMS_ITS | Encounter Summary ---
Author Organization [employer] ([place], [place], [place], [place]) Address [address] [place] [address] Care Team Providers Care Wire Harness Assembler Name Role Phone Unavailable Primary Care Provider Unavailabl e Encounter Details Date Type Department Care Team (Late st Contact Info) Description 05/03/2021 Transcribed Document [facility] Family Medicine [facility] [place] [address] ProviderLatonia MD [place] [address] Social History Tobacco Use Types [...]
--- OUTSIDE RECORDS SUMMARY | 2025-07-20 08:23 | XMS_ITS | Encounter Summary ---
Author Organization [employer] ([place], [place], [place], [place]) Address [address] [place] [address] Care Team Providers Care Pitch Gatherer Name Role Phone Unavailable Primary Care Provider Unavailabl e Encounter Details Date Type Department Care Team (Late st Contact Info) Description 05/03/2021 Transcribed Document [facility] [place] [facility] [place] [address] ProviderLatonia MD [facility] [place] [address] Social History Tobacco Use Types [...] On: 05/03/2021 15:03 EDT by Ashlie Garcia RN-CASE-BOTTLE INSPECTOR-COORDINATOR NON-EXEMPT Initial Assessment I Previously Documented Living [...] Yes Legal Guardian : No Ashlie Garcia RN-CASE-BOTTLE INSPECTOR-COORDINATOR NON-EXEMPT - 05/03/2021 15:03 EDT Initial Assessment II Sensory and Motor Deficits : None Current Home Treatments and Equipment : None Ashlie Garcia RN-CASE-BOTTLE INSPECTOR-COORDINATOR NON-EXEMPT - 05/03/2021 15:03 EDT Discharge Needs I Anticipated Discharge Date : 05/05/2021 EDT Anticipated Discharge To, CM : Home independently Current Home Treatment/Equipment : Current Home Treatment/Equipment No qualifying data available. Post Acute/Home Treatments : None Documentation Status Complete : Yes Ahslie Garcia RN-CASE-BOTTLE INSPECTOR-COORDINATOR NON-EXEMPT - 05/03/2021 15:03 EDT Discharge Needs II Professional Skilled Services : Professional Skilled Services No qualifying data available. Needs Assistance with Transportation : No Discharge Options Discussed with Patient : Home Health Ashlie Garcia RN-CASE-BOTTLE INSPECTOR-COORDINATOR NON-EXEMPT - 05/03/2021 15:03 EDT Narrative Note [...] DCP: home vs home with Ashlie Garcia RN-CASE-BOTTLE INSPECTOR-COORDINATOR NON-EXEMPT - 05/03/2021 15:03 EDT Electronically signed by Rivas Roca [employer]plays Sales Representative Cerner at 02/22/2023 8:52 PM CDT documented in this encounter Plan of Treatment Not on file documented as of this encounter Visit Diagnoses Not on filedocumented in this encounter
== END 2025-07-20 23:59 | disposition home or self-care (01) ==
LOC: RAD 08:09
PROVIDERS: PCP Nurse Practitioner Family; Visit Provider Nurse Practitioner Family
DX: J34.89 Other specified disorders of nose and nasal sinuses (principal); R93.0 Abnormal findings on diagnostic imaging of skull and head, not elsewhere classified; M26.52 Limited mandibular range of motion; R68.84 Jaw pain
CPT/HCPCS: 70486

== ENCOUNTER 2025-07-27 14:55 | Outpatient (CLI) | payer MEDICARE, MEDICAID, SELFPAY ==
--- OUTSIDE RECORDS SUMMARY | 2025-07-27 14:59 | XMS_ITS | Clinical Summary ---
Author Organization [facility] Address [address] [place] [address] Care Team Providers Care Paunch Trimmer Name Role Phone Provider, No Known Primary [...] drink = 0.6 oz pur e alcohol) [facility] Utilities Answer Date Recorded In the past 12 months has [employer], gas, oil, or water [employer] threatened to shut off services in your [...] GED or equivalent No 03/12/2025 Preferred Language Indonesian 03/12/2025 PHQ-2 Answer Date Recorded Retired PHQ-9: [...] WELLNESS VISIT 03/08/2024 HEPATITIS C SCREENING 03/08/2024 INFLUENZA VACCINE 06/04/2025 08/04/2021 COVID-19 Vaccine (3 - 2024- season) 2025, 07/12/2021 LIPID PANEL 03/12/2026 03/12/2025, 03/08/2024 TDAP/TD VACCINES [...] - 200 mg/dL 03/12/2025 8:51 AM EDT [facility] Triglycerides 157(H) 0 - 150 mg/dL 03/12/2025 8:51 AM EDT [facility] HDL Cholesterol 40 40 - 60 mg/dL 03/12/2025 8:51 AM EDT [facility] LDL Cholesterol 145(H) 0 - 100 mg/dL 03/12/2025 8:51 AM EDT [facility] VLDL Cholesterol 28 5 - 40 mg/dL 03/12/2025 8:51 AM EDT [facility] LDL/HDL Ratio 3.54 03/12/2025 8:51 AM EDT [facility] Blood Venipuncture / Unknown 03/12/2025 7:58 AM EDT 03/12/2025 8:06 AM EDT Narrative [facility] - 03/12/2025 8:51 AM EDT Cholesterol [...] Pal APRN LAB BLOOD ORDERABLES Final Result [facility]
[address] [place] [address], from Last 3 Months or Most Recently Relevant to Health Maintenance Insurance MEDICAID [place] Member Subscriber Plan / Payer (Ef fective 2024-Present) Name:Sadiq Israel Relation to Subscriber:Self Name:Sadiq Israel Payer ID:[id number] Group ID:Not on file Type:Not on file Address: [address] MEDICARE ADVANTAGE [facility] HMO Advance Directives Documents on File Type Date Recorded Patient Machine Applicator Cementer Expl anation POWER OF TACTICAL INTELLIGENCE OFFICER - SCAN 2025 2:53 PM POWER OF TACTICAL INTELLIGENCE OFFICER/REVOCATION OF PREVIOUS TOUSSAINT OF TACTICAL INTELLIGENCE OFFICER, BHLEX, 06/09/2021 LIVING WILL - SCAN 2025 [...] Agents on File Name Relationship Healthcare Agent [facility] Communication [facility] Surrogate Care Teams Paunch Trimmer Relationship Specialty Start Date End Date Provider, [place] [address] PCP - General 03/11/25
--- OUTSIDE RECORDS SUMMARY | 2025-07-27 14:59 | XMS_ITS | Encounter Summary ---
Author Organization Healthcare Address [address] [place] [address] Care Team Providers Care Date Night Caregiver Name Role Phone Renetta Cole REGIONAL OPERATIONS MANAGER Primary Care Provider [phone] Encounter Details Date Type Department Care Team (Late st Contact Info) Description 06/15/2025 [address]phone [facility] dampproofer Faculty Clinic [address] [place] [address] [address] [place] [address] Gilbert, Surgeon, [address] [place] [address] Social History Tobacco Use Types Packs/Day Years [...] on filedocumented in this encounter Care Teams Date Night Caregiver Relationship Specialty Start Date End Date Lex Colei LindyMARLIN [address] [place] [address] PCP - General 03/17/21 documented as of this encounter
--- OUTSIDE RECORDS SUMMARY | 2025-07-27 14:59 | XMS_ITS | Encounter Summary ---
Author Organization Healthcare Address [address] [place] [address] Care Team Providers Care Indoor Plant Technician Name Role Phone Renetta Cole [employer] Primary Care Provider Encounter Details Date Type Department Care Team (Late st Contact Info) Description 06/24/[address] [facility] accounting professor Faculty Clinic [address] [place] [address] [address] [place] [address] Gilbert, Surgeon, [address] [place] [address] Social History Tobacco Use Types Packs/Day Years [...] on filedocumented in this encounter Care Teams Indoor Plant Technician Relationship Specialty Start Date End Date Renetta Cole APRN [address] [place] [address] PCP - General 03/17/21 documented as of this encounter
--- OUTSIDE RECORDS SUMMARY | 2025-07-27 14:59 | XMS_ITS | Encounter Summary ---
Author Organization Healthcare Address [address] [place] [address] Care Team Providers Care Technician Terminal And Repeater Name Role Phone Cole, Renetta S [employer] Primary Care Provider Encounter Details Date Type Department Care Team (Late st Contact Info) Description 07/09/2025 Telephone [facility] feather drying machine operator Faculty Clinic [address] [place] [address] [address] [place] [address] Gilbert, Surgeon, [address] [place] [address] Social History Tobacco Use Types Packs/Day Years [...] on filedocumented in this encounter Care Teams Technician Terminal And Repeater Relationship Specialty Start Date End Date Renetta Cole APRN [address] [place] [address] PCP - General 5/14/21 documented as of this encounter
--- OUTSIDE RECORDS SUMMARY | 2025-07-27 14:59 | XMS_ITS | Clinical Summary ---
Author Organization Healthcare Address [address] [place] [id number] Care Team Providers Care Chemical Equipment Sales Engineer Name Role Phone Renetta Cole MARLIN Primary Care Provider [phone] Encounters Date Type Department Care Team Description 07/09/2025 Telephone [facility] continuity coordinator Faculty Clinic [address] [place] [address] Rd [address] [place] [address] Surgeon Hunt MD 06/24/2025 Telephone [facility] continuity coordinator Faculty Clinic [address] [place] [address] [address] [place] [address] Surgeon Hunt MD 06/15/2025 Telephone [facility] continuity coordinator Faculty Clinic [address] [place] [address] Rd [address] [place] [address] Surgeon Hunt MD from Last [...] 2001 [facility]-Zoster Vaccines (1 of 2) 2006 [facility]-BFEXA-45 Vaccine (2 - season) 2025 07/12/2021 [facility]-Influenza [...] patient's age to complete this topic [place] [address] MEDICARE [employer] CLAIMS DENTAL Care Teams Chemical Equipment Sales Engineer Relationship Specialty Start Date End Date Renetta Cole APRN [address] [facility] [address] [place] [address] PCP - General 03/17/21
== END 2025-07-27 23:59 | disposition home or self-care (01) ==
LOC: DIETICIAN 14:56
PROVIDERS: PCP Nurse Practitioner Family; Visit Provider Nurse Practitioner Family
DX: R25.2 Cramp and spasm (principal); Z93.1 Gastrostomy status
CPT/HCPCS: 97802